=== PATIENT | female | born 1940 | race Caucasian/White ===

== ENCOUNTER → 2016-10-14 | Outpatient (CLI) | payer MEDICARE, OTHER ==
[~2016-10-14] VITALS: Ht 160 cm; Wt 98.0 kg
[~2016-10-14] MED LIST: ASP325T; BUPR150T7 PO; CALC-793 PO; CATHETER FLUSH 10 ML SYR IV PRN; CITA20TA4; CITA20TA4 PO; DIGO250T PO; DIGO250T15 PO; DILT180C PO; DILT240C PO; DILT360C27 PO; FLC100T; FRSM40T; FURO20TA4 PO; FURO80TA3 PO; IBUP-792 PO; INSU100I5 SC; INSU100I5 SQ; KCL10CCR PO; MAGN400T6 PO; MELO-195; MELO-195 PO; METO200T2 PO; METO200T6; MULT-608 PO; NF-TYLARTH PO; OMEG1CAP51 PO; PNT40TEC PO; POTA10TA6 PO; REGADENOSON 0.4 MG/5 ML SYR (LEXISCAN) IV ONE; WARF2TAB6 PO; WARF4TAB9 PO; WRF2T PO
[2016-10-14 10:09] VITALS: BP 174/67
--- NOTE | 2016-10-15 13:41 | STRESS TEST ---
DATE OF SERVICE: 10/14/2016 RESTING AND POST REGADENOSON TECHNETIUM 99M TETROFOSMIN SPECT CT IMAGING ORDERING PHYSICIAN: Dr. Carreno. PRIMARY PHYSICIAN: Dr. Blackwood. CLINICAL DIAGNOSES: Coronary artery disease, shortness of breath. Baseline images were carried out after injection of 10.88 mCi of technetium-99m tetrofosmin. This was followed by 0.4 mg regadenoson and 28 mCi of technetium-99m tetrofosmin for stress imaging. The electrocardiogram showed atrial fibrillation throughout the study. The electrocardiogram did not change significantly with the regadenoson infusion. She tolerated the procedure well. Review of images at rest and following stress did not indicate any distinct perfusion defects consistent with significant myocardial ischemia or infarction. Gated images show normal global left ventricular systolic function with normal regional wall motion. Left ventricular ejection fraction is calculated to be 75%. Left ventricular end-diastolic volume is 89 mL. TID is absent (1). CONCLUSIONS: 1. No evidence of any significant myocardial ischemia or infarction on this study. 2. Normal regional wall motion. 3. Normal global left ventricular systolic function with a calculated ejection fraction of 75%. Job ID: [id number] DocumentID: [id number] Dictated Date: 10/15/2016 09:38:39 Capability Lead Date: 10/15/2016 10:05:02 Dictated By: JERSEY CARRENO MD, MA, FACP, FACC,
== END ==
LOC: CARD 08:07
PROVIDERS: ATTEND Internal Medicine Cardiovascular Disease
DX: I25.10 Atherosclerotic heart disease of native coronary artery without angina pectoris (principal); I65.23 Occlusion and stenosis of bilateral carotid arteries; Z79.01 Long term (current) use of anticoagulants; I48.0 Paroxysmal atrial fibrillation; I27.2 Other secondary pulmonary hypertension; G47.33 Obstructive sleep apnea (adult) (pediatric); R06.02 Shortness of breath
CPT/HCPCS: 78452; 93017

== ENCOUNTER 2016-10-31 19:01 | Emergency (ER) | payer MEDICARE, OTHER ==
[~2016-10-31] VITALS: Ht 162.6 cm; Wt 97.5 kg
[~2016-10-31 19:01] MED LIST changes: -CATHETER FLUSH 10 ML SYR IV PRN; -REGADENOSON 0.4 MG/5 ML SYR (LEXISCAN) IV ONE
--- NOTE | 2016-10-31 19:45 | ED Fall/Injury ---
General Chief Complaint: Trauma-Non Activation Stated Complaint: FALL AT HOME Nursing Triage Note: patient reports falling up stairs on thursday the . patient denies hitting head or LOC, patient c/o RLE pain Source: patient, spouse Exam Limitations: no limitations History of Present Illness Time seen by provider: 19:29 Initial Comments 76-year-old female patient presents to the emergency department complains of right calf pain after falling on Thursday while going up the stairs. Denies hitting her head, loss consciousness, neck pain, back pain. Patient states she was talking to a friend today who told her that she might have a blood clot in the right lower extremity. Occurred: other (29 of october) Injuries/Pain Location: lower extremity Context: tripped Loss of Consciousness: no loss of consciousness Modifying Factors: Worse With Movement, Worse With Other (MRSA palpation) Allergies and Home Medications Allergies Coded Allergies: No Known Drug Allergies (Unverified , 02/29/16) Home Medications Acetaminophen 650 Mg Cplt, 1,300 MG PO HS PRN for PAIN, (Reported) TAKES 2 (650MG) TABLETS Calcium/Vitamin D 1 Tab Tablet, 1 TAB PO BID, (Reported) Citalopram Hydrobromide 20 Mg Tablet, 20 MG PO DAILY, (Reported) Digoxin 250 Mcg Tablet, 250 MCG PO DAILY, (Reported) Diltiazem Hcl 360 Mg Cap.er.24h, 360 MG PO DAILY, (Reported) Furosemide 20 Mg Tablet, 40 MG PO DAILY, (Reported) TAKE 2 (20 MG) TABLETS Magnesium Oxide 400 Mg Tablet, 400 MG PO BID WITH MEALS, (Reported) Meloxicam 15 Mg Tablet, 15 MG PO DAILY, (Reported) Multivitamins 1 Tab Tablet, 1 TAB PO DAILY, (Reported) [place]-3 Fatty Acids/Fish Oil 1 Each Capsule, 1,000 MG PO BID, (Reported) Pantoprazole Sod 40 Mg Tab, 40 MG PO DAILY, #30 Ref 3 Prescribed by: DELANO YORK on 02/24/14 1001 Potassium Chloride 10 Meq Tablet.sa, 10 MEQ PO BID, (Reported) Tramadol HCl 50 Mg Tablet, 50 MG PO Q4H PRN for pain, #14 Ref 0 Prescribed by: TOMER MARCELO on 10/31/16 3975 Warfarin Sod 2 Mg Tab, 4 MG PO THURSDAY, (Reported) TAKES 2 (2MG) TABLETS Warfarin Sodium 2 Mg Tablet, 2 MG PO [place],MO,TU,TH,FR,SA, (Reported) Constitutional: no symptoms reported Eyes: No Symptoms Reported Ears, Nose, Mouth, Throat: no symptoms reported Respiratory: No cough, No short of breath Cardiovascular: No chest pain, No syncope Gastrointestinal: no symptoms reported Genitourinary: no symptoms reported Musculoskeletal: see HPI, No back pain, joint pain, muscle pain, No neck pain Skin: change in color (bruising to the right calf) Psychiatric/Neurological: Denies Headache, Denies Numbness, Denies Paresthesia , Denies Tingling, Denies Weakness All Other Systems Reviewed Negative Unless Noted: Yes (Negative excepted noted.) Past Yrxufdu-Pzmgdo-Ixvbjj Hx Patient Social History Alcohol Use: Denies Use Recreational Drug Use: No Smoking Status: Never a Smoker Recent Foreign Travel: No Contact w/Someone Who Travel: No Recent Infectious Disease Expo: No Recent Hopitalizations: No Immunizations Up To Date Tetanus Booster (TDap): Less than 5yrs PED Vaccines UTD: Yes Date of Pneumonia Vaccine: Nov 08, 2010 Surgeries HX Surgeries: Yes (KNEE REPLACEMENT, HYSTERECTOMY, 3 C-SECTIONS, TONSILLECTOMY) Surgeries: Hysterectomy, Joint Replacement, Pacemaker, Tonsillectomy Respiratory Hx Respiratory Disorders: No Cardiovascular Hx Cardiac Disorders: Yes (, PACEMAKER) Cardiac Disorders: Atrial Fibrillation, Hypertension Neurological Hx Neurological Disorders: No Reproductive System Hx Reproductive Disorders: Yes Sexually Transmitted Disease: No HIV/AIDS: No Female Reproductive Disorders: Denies Genitourinary Hx Genitourinary Disorders: No Gastrointestinal Hx Gastrointestinal Disorders: Yes (gallstones) Gastrointestinal Disorders: Diverticulosis Musculoskeletal Hx Musculoskeletal Disorders: Yes Musculoskeletal Disorders: Arthritis Endocrine Hx Endocrine Disorders: Yes Endocrine Disorders: Diabetes, Insulin dep HEENT HX ENT Disorders: No Cancer 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 Psychosocial Hx Psychiatric Problems: Yes Behavioral Health Disorders: Depression Integumentary HX Skin/Integumentary Disorder: No Blood Transfusions Hx Blood Disorders: No Reviewed Nursing Assessment Reviewed/Agree w Nursing PMH: Yes Family Medical History Significant Family History: No Pertinent Family Hx Family Medial History: Alzheimer's disease 19 MOTHER Arthritis 19 MOTHER Cardiovascular disease Completed stroke 19 MOTHER Coronary thrombosis 19 MOTHER Dementia 19 MOTHER Diabetes mellitus 19 MOTHER Hypertension 19 MOTHER Myocardial infarction Osteoporosis 19 MOTHER No Family History of: AIDS Abdominal aortic aneurysm [place]'s disease Alcoholism Aphasia Asthma Cancer of mouth Cataracts Colon cancer Congenital disease Congenital heart disease Cystic fibrosis Deafness or hearing loss Drug abuse Dysphasia Fibrocystic disease of breast Gastroenteritis Glaucoma Headache disorder Hypercholesterolemia Infertility Kidney disease Neoplasm Not obtainable due to adoption Parkinson's disease Prostate cancer Psychosocial problem Respiratory disorder Seizure disorder Severe allergy Thyroid disease Tuberculosis Visual disorder Physical Exam Vital Signs Vital Sign - Last 12Hours 10/31/16 19:05 Temp 98.2 Pulse 68 Resp 18 B/P (MAP) 104/72 Pulse Ox 94 Capillary Refill : Less Than 3 Seconds General Appearance: WD/WN, no apparent distress Neck: supple, normal inspection Cardiovascular: normal peripheral pulses, regular rate, rhythm, no murmur Respiratory: lungs clear, normal breath sounds, no respiratory distress Peripheral Pulses: 2+ Dorsalis Pedis (R), 2+ Left Dors-Pedis (L), 2+ Radial Pulses (R), 2+ Radial Pulses (L) Extremities: normal range of motion, normal capillary refill, pelvis stable, other (10 x 12 cm area of ecchymosis to the right medial calf with soft tissue tenderness and mild bony tenderness. No posterior calf tenderness. 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 No posterior calf tenderness.Mild swelling, tenderness, and ecchymosis to the left fifth finger.) [place] Coma Score Best Eye Response: (4) Open Spontaneously Best Verbal Response: (5) Oriented Best Motor Response: (6) Obeys Commands [place] Total: 15 Progress/Results/Core Measures Results/Orders My Orders Orders - TOMER MARCELO Hand, Left, 3 Views (10/31/16 19:43) Tibia/Fibula, Right, 2 Views (10/31/16 19:43) Us Venous Lower Ext Rt (10/31/16 20:22) Rx-Tramadol Hcl (Rx-Ultram) (10/31/16 21:45) Vital Signs/I&O Vital Sign - Last 12Hours 6/23/17 6/23/17 19:05 21:54 Temp 98.2 98.2 Pulse 68 68 Resp 18 18 B/P (MAP) 104/72 Pulse Ox 94 94 Blood Pressure Mean: 83 Diagnostic Imaging Diagonstic Imaging: Xray Plain Films/CT/US/NM/MRI: leg Comments FINDINGS: Intact right knee arthroplasty. There is no fracture or dislocation. No foreign body. IMPRESSION: No fracture or dislocation. Dictated on workstation # [id number] Reviewed: Reviewed by Me (radiology report reviewed by me) Diagonstic Imaging: Xray Plain Films/CT/US/NM/MRI: hand Comments FINDINGS: Moderate diffuse degenerative joint disease. There is no acute fracture or dislocation. Diffuse osteopenia is seen. Phleboliths are seen in between the second and third metacarpal. IMPRESSION: No fracture or dislocation. Dictated on workstation # [id number] Reviewed: Reviewed by Me (radiology report reviewed by me) Diagonstic Imaging: Ultrasound Plain Films/CT/US/NM/MRI: leg Comments FINDINGS: The visualized deep and superficial venous system is patent. There is no mass or DVT. IMPRESSION: Negative right lower extremity venous Doppler. Dictated by: Dictated on workstation # [id number] Reviewed: Reviewed by Me (radiology report reviewed by me) Departure Communication Progress Notes Diagnostic findings discussed with the patient. Patient did voice concern about possibly having a blood clot after the fall and wishes to proceed with ultrasound of the RLE. Therefore, venous ultrasound of the right lower extremity was obtained which was negative for DVT. Proceed with discharge to home. Impression Impression: Primary Impression: Hematoma of right lower extremity Qualified Codes: S80.11XA - Contusion of right lower leg, initial encounter Additional Impressions: Fall (on) (from) unspecified stairs and steps, initial encounter Contusion of hand, left Disposition: 01 HOME, SELF-CARE Condition: Improved Departure-Patient Inst. Decision time for Depature: 21:44 Referrals: HELLEN CROSS MD (PCP/Family) Primary Care Physician Patient Instructions: Contusion (DC), HEMATOMA Add. Discharge Instructions: All discharge instructions reviewed with patient and/or family. Voiced understanding. Tylenol extra strength [id number] as directed for pain. Elevate the right leg and left hand on pillows, ice pack for 20 minute intervals as needed for pain. Activity as tolerated. Follow-up with your family physician for recheck if needed. Return to the emergency department for worsened pain, numbness, weakness, headache, dizziness, changes in vision, slurred speech, shortness of air, chest pain, neck pain, back pain, or any other concerns. Scripts Tramadol HCl (Tramadol HCl) 50 Mg Tablet 50 MG PO Q4H Y for pain, #14 TAB 0 Refills Prov: TOMER MARCELO 10/31/16 TOMER MARCELO Oct 31, 2016 19:45
--- NOTE | 2016-10-31 20:14 | Diagnostic Imaging Report ---
INDICATION: Fall. COMPARISON: None. EXAMINATION: Three views of the left hand were obtained. FINDINGS: Moderate diffuse degenerative joint disease. There is no acute fracture or dislocation. Diffuse osteopenia is seen. Phleboliths are seen in between the second and third metacarpal. IMPRESSION: No fracture or dislocation. Dictated by: Dictated on workstation # [id number]
--- NOTE | 2016-10-31 20:14 | Diagnostic Imaging Report ---
INDICATION: Fall, leg pain. COMPARISON: None. EXAMINATION: Four views of the right tibia and fibula were obtained. FINDINGS: Intact right knee arthroplasty. There is no fracture or dislocation. No foreign body. IMPRESSION: No fracture or dislocation. Dictated by: Dictated on workstation # [id number]
--- NOTE | 2016-10-31 21:30 | Diagnostic Imaging Report ---
PROCEDURE: US right lower extremity venous. TECHNIQUE: Multiple real-time grayscale images were obtained over the right lower extremity in various projections. Additional duplex Doppler and color Doppler images were also obtained. INDICATION: Right lower extremity swelling and pain. COMPARISON: None. FINDINGS: The visualized deep and superficial venous system is patent. There is no mass or DVT. IMPRESSION: Negative right lower extremity venous Doppler. Dictated by: Dictated on workstation # [id number]
[2016-10-31] MEDS ORDERED: TRAM50TA2 PO (21:45)
[2016-10-31] MEDS ORDERED: RX-TRAMADOL 50 MG (ULTRAM) TAB PPK#4 PO STA (21:45)
[2016-10-31 21:54] VITALS: BP 104/72
--- OUTSIDE RECORDS SUMMARY | 2016-11-03 15:39 | XMS REPORT | Continuity of Care Document ---
Author Author [facility] [address] [facility] Organization [facility] [address] Address Unknown Phone Unavailable Allergies Active Description Code Type Severity Reaction Onset Reported/Identified Relationship to Patient Clinical Status Yes No Known Drug Allergies [id number] Drug Allergy Unknown N/ A 02/29/2016 Medications Problems Date Dx Coded Attending Type Code Diagnosis Diagnosed By 10/25/2009 Ot 427.31 10/25/2009 Ot V58.61 11/12/2009 Ot 427.31 11/12/2009 Ot 780.2 11/12/2009 Ot V58.61 11/12/2009 Ot V58.69 11/20/2009 Ot 278.00 11/20/2009 Ot 401.9 11/20/2009 Ot 427.1 11/20/2009 Ot 427.32 11/20/2009 Ot 428.0 11/20/2009 Ot 428.32 11/20/2009 Ot 715.90 11/20/2009 Ot V12.51 11/20/2009 Ot V58.61 11/20/2009 Ot V85.4 12/20/2009 Ot 278.00 12/20/2009 Ot 401.9 12/20/2009 Ot 414.01 12/20/2009 Ot 425.4 12/20/2009 Ot 427.0 12/20/2009 Ot 593.9 12/20/2009 Ot 715.90 12/20/2009 Ot V12.51 12/20/2009 Ot V45.01 12/20/2009 Ot V58.61 12/20/2009 Ot V85.4 12/24/2009 Ot 272.4 12/24/2009 Ot 278.00 12/24/2009 Ot 401.9 12/24/2009 Ot 427.0 12/24/2009 Ot 427.31 12/24/2009 Ot 427.32 12/24/2009 Ot 428.0 12/24/2009 Ot 428.33 12/24/2009 Ot 715.90 12/24/2009 Ot V12.51 12/24/2009 Ot V45.77 12/24/2009 Ot V58.61 12/24/2009 Ot V85.4 02/06/2010 Ot 424.0 02/06/2010 Ot 427.31 02/06/2010 Ot V58.61 02/06/2010 Ot V58.69 2010 Ot 427.31 2010 Ot 715.36 2010 Ot 726.61 2010 Ot 996.77 2010 Ot V43.65 2010 Ot V57.1 06/02/2010 Ot 424.0 06/02/2010 Ot 427.31 06/02/2010 Ot V58.61 06/02/2010 Ot V58.69 09/03/2010 Ot 424.0 09/03/2010 Ot 427.31 09/03/2010 Ot V58.61 09/03/2010 Ot V58.69 01/15/2011 Ot 424.0 01/15/2011 Ot 427.31 01/15/2011 Ot V58.61 01/15/2011 Ot V58.69 04/30/2011 Ot 424.0 04/30/2011 Ot 427.31 04/30/2011 Ot V58.61 04/30/2011 Ot V58.69 08/10/2011 Ot 424.0 08/10/2011 Ot 427.31 08/10/2011 Ot V58.61 08/10/2011 Ot V58.69 11/17/2011 Ot 424.0 11/17/2011 Ot 427.31 11/17/2011 Ot V58.61 11/17/2011 Ot V58.69 03/30/2012 Ot 424.0 03/30/2012 Ot 427.31 03/30/2012 Ot V58.61 03/30/2012 Ot V58.69 05/26/2012 Ot 327.23 10/29/2012 TAY GARY, HELLEN R Ot 250.00 10/29/2012 TAY GARY, HELLEN R Ot 272.4 10/29/2012 TAY GARY, HELLEN R Ot 311 10/29/2012 TAY GARY, HELLEN R Ot 401.9 10/29/2012 TAY GARY, HELLEN R Ot 427.31 10/29/2012 TAY GARY, HELLEN R Ot 564.00 10/29/2012 TAY GARY, HELLEN R Ot 682.6 10/29/2012 TAY GARY, HELLEN R Ot V58.67 02/28/2014 TAY GARY, HELLEN R Ot 211.3 02/28/2014 TAY GARY, HELLEN R Ot 250.00 02/28/2014 TAY GARY, HELLEN R Ot 274.9 02/28/2014 TAY GARY, HELLEN R Ot 276.50 02/28/2014 TAY GARY, HELLEN R Ot 278.00 02/28/2014 TAY GARY, HELLEN R Ot 285.1 02/28/2014 TAY GARY, HELLEN R Ot 311 02/28/2014 TAY GARY, HELLEN R Ot 397.0 02/28/2014 TAY GARY, HELLEN R Ot 401.9 02/28/2014 TAY GARY, HELLEN R Ot 414.01 02/28/2014 TAY GARY, HELLEN R Ot 416.8 02/28/2014 TAY GARY, HELLEN R Ot 424.0 02/28/2014 TAY GARY, HELLEN R Ot 427.31 02/28/2014 TAY GARY, HELLEN R Ot 458.9 02/28/2014 TAY GARY, HELLEN R Ot 531.40 02/28/2014 TAY GARY, HELLEN R Ot 536.2 02/28/2014 TAY GARY, HELLEN R Ot 562.10 02/28/2014 TAY GARY, HELLEN R Ot 682.4 02/28/2014 TAY GARY, HELLEN R Ot 715.90 02/28/2014 TAY GARY, HELLEN R Ot 780.57 02/28/2014 TAY GARY, HELLEN R Ot 999.39 02/28/2014 TAY GARY, HELLEN R Ot V04.81 02/28/2014 TAY GARY, HELLEN R Ot V10.42 02/28/2014 TAY GARY, HELLEN R Ot V12.55 02/28/2014 TAY GARY, HELLEN R Ot V45.01 02/28/2014 TAY GARY, HELLEN R Ot V45.77 02/28/2014 TAY GARY, HELLEN R Ot V58.61 02/28/2014 TAY GARY, HELLEN R Ot V58.67 02/28/2014 TAY GARY, HELLEN R Ot V85.38 08/09/2014 Ot 272.4 08/09/2014 Ot 415.19 08/09/2014 Ot 786.05 08/09/2014 Ot V58.61 08/09/2014 Ot V58.69 08/09/2014 Ot 278.00 08/09/2014 Ot 401.9 08/09/2014 Ot 413.9 08/09/2014 Ot 415.19 08/09/2014 Ot 427.32 08/09/2014 Ot 428.0 08/09/2014 Ot 786.05 08/09/2014 Ot V58.61 08/09/2014 Ot V58.69 08/09/2014 Ot V72.63 08/09/2014 Ot V72.81 08/09/2014 Ot V74.8 08/09/2014 Ot 424.0 08/09/2014 Ot V58.69 08/09/2014 Ot 401.9 08/09/2014 Ot 427.31 08/09/2014 Ot 786.05 08/09/2014 Ot V58.61 08/09/2014 Ot 427.31 08/09/2014 Ot 427.32 08/09/2014 Ot 785.1 08/09/2014 Ot 719.46 08/09/2014 Ot V43.65 08/09/2014 Ot 427.89 08/09/2014 Ot V58.69 08/09/2014 Ot V58.83 08/09/2014 Ot 424.0 08/09/2014 Ot 427.31 08/09/2014 Ot V58.61 08/09/2014 Ot V58.69 08/09/2014 Ot 416.8 08/09/2014 Ot 424.1 09/12/2014 BAIMAANN L FISCAL SERVICES MANAGER Ot 414.00 09/12/2014 BAIMAMANUELANN L FISCAL SERVICES MANAGER Ot 424.90 09/12/2014 BAIMA ANN L FISCAL SERVICES MANAGER Ot 427.31 09/12/2014 BAIMAANN L FISCAL SERVICES MANAGER Ot 780.57 02/18/2016 VIKRAM GARY FACC, JERSEY REYES CCDS Ot G47.33 OBSTRUCTIVE SLEEP APNEA (ADULT) (PEDIATR 02/18/2016 JERSEY SUE MD, FACC, FACP CCDS Ot I25.10 ATHSCL HEART DISEASE OF [place] CORONARY 02/18/2016 VIKRAM GARY [facility], ALI FACP CCDS Ot I27.2 OTHER SECONDARY PULMONARY HYPERTENSION 02/18/2016 VIKRAM GARY [facility], ALI FACP CCDS Ot I48.0 PAROXYSMAL ATRIAL FIBRILLATION 02/18/2016 VIKRAM GARY [facility], ALI FACP CCDS Ot 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 (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 OF ANTICOAGULANT 02/29/2016 Ot 424.0 MITRAL VALVE DISORDER 02/29/2016 Ot 427.31 ATRIAL FIBRILLATION 02/29/2016 Ot V58.61 ANTICOAGULANTS,LT,CURRENT USE 02/29/2016 Ot V58.69 OTH MED,LT,CURRENT USE 02/29/2016 KENN SANTIAGO MD Ot E11.9 TYPE 2 DIABETES MELLITUS WITHOUT COMPLIC 02/29/2016 KENN SANTIAGO MD Ot I10 ESSENTIAL (PRIMARY) HYPERTENSION 02/29/2016 KENN SANTIAGO MD A Ot I48.91 UNSPECIFIED ATRIAL FIBRILLATION 02/29/2016 KENN SANTIAGO MD Ot M19.042 PRIMARY OSTEOARTHRITIS, LEFT HAND 02/29/2016 KENN SANTIAGO MD A Ot M81.0 AGE-RELATED OSTEOPOROSIS W/O CURRENT PAT 02/29/2016 KENN SANTIAGO MD A Ot S63.502A UNSPECIFIED SPRAIN OF LEFT WRIST, INITIA 02/29/2016 KENN SANTIAGO MD A Ot S69.92XA UNSP INJURY OF LEFT WRIST, HAND AND FING 02/29/2016 KENN SANTIAGO MD A Ot W19.XXXA UNSPECIFIED FALL, INITIAL ENCOUNTER 02/29/2016 KENN SANTIAGO MD Ot Y92.[address] OR NOT APPLICABLE 02/29/2016 KENN SANTIAGO MD A Ot Y93.9 ACTIVITY, UNSPECIFIED 02/29/2016 KENN SANTIAGO MD A Ot Y99.8 OTHER EXTERNAL CAUSE STATUS 02/29/2016 KENN SANTIAGO MD A Ot 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 (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 OF ANTICOAGULANT 02/29/2016 KENN SANTIAGO MD A Ot Z79.899 OTHER MCC (CURRENT) DRUG THERAPY 02/29/2016 KENN SANTIAGO MD A Ot Z95.0 PRESENCE OF CARDIAC PACEMAKER 03/03/2016 KENN SANTIAGO MD A Ot E11.9 TYPE 2 DIABETES MELLITUS WITHOUT COMPLIC 03/03/2016 KENN SANTIAGO MD A Ot I10 ESSENTIAL (PRIMARY) HYPERTENSION 03/03/2016 FANTA SANTIAGO MDNT A Ot I48.91 UNSPECIFIED ATRIAL FIBRILLATION 03/03/2016 KENN SANTIAGO MD A Ot M19.042 PRIMARY OSTEOARTHRITIS, LEFT HAND 03/03/2016 FANTA SANTIAGO MDNT A Ot M81.0 AGE-RELATED OSTEOPOROSIS W/O CURRENT PAT 03/03/2016 KENN SANTIAGO MD A Ot S63.502A UNSPECIFIED SPRAIN OF LEFT WRIST, INITIA 03/03/2016 FANTA SANTIAGO MDNT A Ot S69.92XA UNSP INJURY OF LEFT WRIST, HAND AND FING 03/03/2016 FANTA SANTIAGO MDNT A Ot W19.XXXA UNSPECIFIED FALL, INITIAL ENCOUNTER 03/03/2016 KENN ASNTIAGO MD A Ot Y92.[address] OR NOT APPLICABLE 03/03/2016 KENN SANTIAGO MD A Ot Y93.9 ACTIVITY, UNSPECIFIED 03/03/2016 KENN SANTIAGO MD A Ot Y99.8 OTHER EXTERNAL CAUSE STATUS 03/03/2016 KENN SANTIAGO MD A Ot Z79.01 MCC (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 OF ANTICOAGULANT 03/03/2016 FANTA SANTIAGO MDNT A Ot Z79.899 OTHER MCC (CURRENT) DRUG THERAPY 03/03/2016 FANTA SANTIAGO MDNT A Ot Z95.0 PRESENCE OF CARDIAC PACEMAKER 03/06/2016 KENN SANTIAGO MD A Ot E11.9 TYPE 2 DIABETES MELLITUS WITHOUT COMPLIC 03/06/2016 KENN SANTIAGO MD A Ot I10 ESSENTIAL (PRIMARY) HYPERTENSION 03/06/2016 KENN SANTIAGO MD A Ot I48.91 UNSPECIFIED ATRIAL FIBRILLATION 03/06/2016 KENN SANTIAGO MD A Ot M19.042 PRIMARY OSTEOARTHRITIS, LEFT HAND 03/06/2016 KENN SANTIAGO MD A Ot M81.0 AGE-RELATED OSTEOPOROSIS W/O CURRENT PAT 03/06/2016 FANTA SANTIAGO MDNT A Ot S63.502A UNSPECIFIED SPRAIN OF LEFT WRIST, INITIA 03/06/2016 FANTA SANTIAGO MDNT A Ot S69.92XA UNSP INJURY OF LEFT WRIST, HAND AND FING 03/06/2016 FANTA SANTIAGO MDNT A Ot W19.XXXA UNSPECIFIED FALL, INITIAL ENCOUNTER 03/06/2016 KENN SANTIAGO MD A Ot Y92.[address] OR NOT APPLICABLE 03/06/2016 FANTA SANTIAGO MDNT A Ot Y93.9 ACTIVITY, UNSPECIFIED 03/06/2016 KENN SANTIAGO MD Ot Y99.8 OTHER EXTERNAL CAUSE STATUS 03/06/2016 KENN SANTIAGO MD Ot 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 (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 OF ANTICOAGULANT 03/06/2016 KENN SANTIAGO MD Ot Z79.899 OTHER 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 (CURRENT) DRUG THERAPY 03/06/2016 KENN SANTIAGO MD Ot Z95.0 PRESENCE OF CARDIAC PACEMAKER 03/07/2016 VIKRAM GARY FACC, ALI FACP CCDS Ot G47.33 OBSTRUCTIVE SLEEP APNEA (ADULT) (PEDIATR 03/07/2016 VIKRAM GARY FACC, ALI FACP CCDS Ot I25.10 ATHSCL HEART DISEASE OF [place] CORONARY 03/07/2016 VIKRAM GARY FACC, ALI FACP CCDS Ot I27.2 OTHER SECONDARY PULMONARY HYPERTENSION 03/07/2016 VIKRAM GARY FACC, ALI FACP CCDS Ot I48.0 PAROXYSMAL ATRIAL FIBRILLATION 03/07/2016 VIKRAM GARY FACC, ALI FACP CCDS Ot 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 (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 OF ANTICOAGULANT 03/12/2016 VIKRAM GARY FACC, ALI FACP CCDS Ot G47.33 OBSTRUCTIVE SLEEP APNEA (ADULT) (PEDIATR 03/12/2016 VIKRAM GARY FACC, ALI FACP CCDS Ot I25.10 ATHSCL HEART DISEASE OF [place] CORONARY 03/12/2016 VIKRAM GARY FACC, ALI FACP CCDS Ot I27.2 OTHER SECONDARY PULMONARY HYPERTENSION 03/12/2016 VIKRAM GARY FACRobbin, ALI FACP CCDS Ot I48.0 PAROXYSMAL ATRIAL FIBRILLATION 03/12/2016 VIKRAM GARY FACRobbin, ALI FACP CCDS Ot 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 (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 OF ANTICOAGULANT Procedures Results Encounters ACCT No. Visit Date/Time Discharge Status Pt. Type Provider Facility Loc./Unit Complaint [id number] 10/31/2016 19:01:00 2016 21:54:00 DIS Emergency TOMER BEASLEY [facility] [address] ER FALL AT HOME [id number] 02/29/2016 20:20:00 2015 21:20:00 DIS Emergency KENN SANTIAGO MD [facility] [address] ER FALL/L ARM PAIN [id number] 12/11/2014 15:18:00 2014 23:59:59 CLS Preadmit SHANNEN JEFFERS MD [facility] [address] REHAB [id number] 08/09/2014 10:03:00 2014 23:59:59 CLS Outpatient ANARAY ANNHER Pako ARAYA [facility] [address] CARD [id number] 02/20/2014 09:40:00 2013 10:55:00 DIS Inpatient HELLEN CROSS MD R [facility] [address] 4TH [id number] 10/21/2012 14:50:00 2012 12:37:00 DIS Inpatient TAY GARY HELLEN R Via [address] [id number] 10/14/2016 08:07:00 ACT Outpatient VIKRAM GARY FACRobbin, JERSEY FACP CCDS [facility] [address] CARD I25.10 CAD [id number] 02/15/2016 07:40:00 ACT Outpatient VIKRAM GARY FACRobbin, ALI FACP CCDS [facility] [address] CARD CAD,CHORNIC ANTICOAGULATION [id number] 01/31/2016 15:27:00 ACT Outpatient NORMA SCHMITZ [facility] QUICK CXR [id number] 08/09/2014 10:04:00 Document Registration [id number] 08/09/2014 10:04:00 Document Registration [id number] 08/09/2014 10:04:00 Document Registration [id number] 08/09/2014 10:04:00 Document Registration [id number] 08/09/2014 10:04:00 Document Registration [id number] 08/09/2014 10:04:00 Document Registration [id number] 08/09/2014 10:04:00 Document Registration [id number] 08/09/2014 10:04:00 Document Registration [id number] 08/09/2014 10:04:00 Document Registration [id number] 08/09/2014 10:04:00 Document Registration [id number] 08/09/2014 10:04:00 Document Registration [id number] 08/09/2014 10:04:00 Document Registration [id number] 08/09/2014 10:04:00 Document Registration [id number] 08/09/2014 10:03:00 Document Registration [id number] 03/20/2011 10:23:00 Document Registration [id number] 11/29/2010 09:56:00 Document Registration [id number] 08/27/2010 08:35:00 Document Registration [id number] 07/31/2010 10:44:00 Document Registration [id number] 07/04/2010 10:04:00 Document Registration [id number] 2010 10:31:00 Document Registration [id number] 04/11/2010 11:30:00 Document Registration [id number] 02/04/2010 10:42:00 Document Registration [id number] 01/11/2010 08:39:00 Document Registration [id number] 12/22/2009 12:51:00 Document Registration [id number] 11/19/2009 20:57:00 Document Registration [id number] 11/12/2009 12:34:00 Document Registration [id number] 11/08/2009 09:02:00 Document Registration [id number] 10/09/2009 11:27:00 Document Registration
== END 2016-10-31 21:54 | disposition home or self-care (01) ==
LOC: ER 19:01
DX: S80.11XA Contusion of right lower leg, initial encounter (principal); I10 Essential (primary) hypertension; E11.9 Type 2 diabetes mellitus without complications; F32.9 Major depressive disorder, single episode, unspecified; Z96.659 Presence of unspecified artificial knee joint; Z95.0 Presence of cardiac pacemaker; W10.9XXA Fall (on) (from) unspecified stairs and steps, initial encounter; Y92.009 Unspecified place in unspecified non-institutional (private) residence as the place of occurrence of the external cause
CPT/HCPCS: 73130; 73590; 99283

== ENCOUNTER 2017-01-19 14:17 | Outpatient (RCR) | payer MEDICARE, OTHER ==
[~2017-01-19 14:17] MED LIST changes: +TRAM50TA2 PO
== END 2017-02-07 | disposition home or self-care (01) ==
LOC: ONC 14:17
PROVIDERS: ATTEND Radiology Radiation Oncology
DX: Z51.0 Encounter for antineoplastic radiation therapy (principal); C44.311 Basal cell carcinoma of skin of nose
CPT/HCPCS: 77290; 77300; 77332; 77334; 77336

== ENCOUNTER 2017-03-03 14:06 | Outpatient (RCR) | payer MEDICARE, OTHER | END 2017-06-01 | disposition home or self-care (01) | LOC: ONC 14:06 | PROVIDERS: ATTEND Radiology Radiation Oncology | DX: C44.311 Basal cell carcinoma of skin of nose (principal) | CPT/HCPCS: 99213 ==

== ENCOUNTER 2017-05-01 18:41 | Emergency (ER) | payer MEDICARE, OTHER ==
[~2017-05-01] VITALS: Ht 162.6 cm; Wt 97.5 kg
--- OUTSIDE RECORDS SUMMARY | 2017-05-01 18:46 | XMS REPORT | Continuity of Care Document ---
Author Author [facility] Organization [facility] Address Unknown Phone Unavailable Allergies Active Description Code Type Severity Reaction Onset Reported/Identified Relationship to Patient Clinical Status Yes No Known Drug Allergies [id number] Drug Allergy Unknown N/A 02/29/2016 Medications There is no data. Problems Date Dx Coded Attending Type Code [...] TAY GARY, HELLEN R Ot 780.57 02/28/2014 TYA GARY, HELLEN R Ot 999.39 02/28/2014 TAY [...] 416.8 08/09/2014 Ot 424.1 09/12/2014 BAIMAANN L BEEF SKINNER Ot 414.00 09/12/2014 BAIANN BELL L BEEF SKINNER Ot 424.90 09/12/2014 BAIMAANN L BEEF SKINNER Ot 427.31 09/12/2014 BAIANN BELL L BEEF SKINNER Ot 780.57 02/18/2016 JERSEY SUE MD, FACC, FACP CCDS Ot G47.33 OBSTRUCTIVE SLEEP APNEA (ADULT) (PEDIATR 02/18/2016 VIKRAM MD FACC, ALI FACP CCDS Ot I25.10 ATHSCL HEART DISEASE OF [place] CORONARY 02/18/2016 VIKRAM GARY [facility], ALI FACP CCDS Ot I27.2 OTHER SECONDARY PULMONARY HYPERTENSION 02/18/2016 VIKRAM GARY [facility], ALI FACP CCDS Ot I48.0 PAROXYSMAL ATRIAL FIBRILLATION 02/18/2016 VIKRAM GARY [facility], ALI FACP CCDS Ot Z79.01 SENIOR TRAINER (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 OF ANTICOAGULANT 02/29/2016 Ot 424.0 MITRAL VALVE DISORDER 02/29/2016 Ot 427.31 ATRIAL FIBRILLATION 02/29/2016 Ot V58.61 ANTICOAGULANTS,LT,CURRENT USE 02/29/2016 Ot V58.69 OTH MED,LT, CURRENT USE 02/29/2016 KENN SANTIAGO MD Ot E11.9 TYPE 2 DIABETES MELLITUS WITHOUT COMPLIC 02/29/2016 KENN SANTIAGO MD Ot I10 ESSENTIAL (PRIMARY) HYPERTENSION 02/29/2016 KENN SANTIAGO MD Ot I48.91 UNSPECIFIED ATRIAL FIBRILLATION 02/29/2016 KENN SANTIAGO MD Ot M19.042 PRIMARY OSTEOARTHRITIS, LEFT HAND 02/29/2016 KENN SANTIAGO MD Ot M81.0 AGE-RELATED OSTEOPOROSIS W/O CURRENT PAT 02/29/2016 KENN SANTIAGO MD A Ot S63.502A UNSPECIFIED SPRAIN OF LEFT WRIST, INITIA 02/29/2016 KENN SANTIAGO MD A Ot S69.92XA UNSP INJURY OF LEFT WRIST, HAND AND FING 02/29/2016 KENN SANTIAGO MD Ot W19.XXXA UNSPECIFIED FALL, INITIAL ENCOUNTER 02/29/2016 KENN SANTIAGO MD Ot Y92.[address] OR NOT APPLICABLE 02/29/2016 KENN SANTIAGO MD Ot Y93.9 ACTIVITY, UNSPECIFIED 02/29/2016 KENN SANTIAGO MD Ot Y99.8 OTHER EXTERNAL CAUSE STATUS 02/29/2016 KENN SANTIAGO MD Ot Z79.01 SKILLED NURSING (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 OF ANTICOAGULANT 02/29/2016 KENN SANTIAGO MD A Ot Z79.899 OTHER SENIOR TRAINER (CURRENT) DRUG THERAPY 02/29/2016 KENN SANTIAGO MD Ot Z95.0 PRESENCE OF CARDIAC PACEMAKER 03/03/2016 KENN SANTIAGO MD Ot E11.9 TYPE 2 DIABETES MELLITUS WITHOUT COMPLIC 03/03/2016 KENN SANTIAGO MD Ot I10 ESSENTIAL (PRIMARY) HYPERTENSION 03/03/2016 FANTA SANTIAGO MDNT A Ot I48.91 UNSPECIFIED ATRIAL FIBRILLATION 03/03/2016 KENN SANTIAGO MD A Ot M19.042 PRIMARY OSTEOARTHRITIS, LEFT HAND 03/03/2016 KENN SANTIAGO MD A Ot M81.0 AGE-RELATED OSTEOPOROSIS W/O CURRENT PAT 03/03/2016 KENN SANTIAGO MD A Ot S63.502A UNSPECIFIED SPRAIN OF LEFT WRIST, INITIA 03/03/2016 FANTA SANTIAGO MDNT A Ot S69.92XA UNSP INJURY OF LEFT WRIST, HAND AND FING 03/03/2016 KENN SANTIAGO MD A Ot W19.XXXA UNSPECIFIED FALL, INITIAL ENCOUNTER 03/03/2016 KENN SANTIAGO MD A Ot Y92.[address] OR NOT APPLICABLE 03/03/2016 KENN SANTIAGO MD A Ot Y93.9 ACTIVITY, UNSPECIFIED 03/03/2016 KENN SANTIAGO MD A Ot Y99.8 OTHER EXTERNAL CAUSE STATUS 03/03/2016 KENN SANTIAGO MD A Ot Z79.01 SKILLED NURSING (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 OF ANTICOAGULANT 03/03/2016 FANTA SANTIAGO MDNT A Ot Z79.899 OTHER SENIOR TRAINER (CURRENT) DRUG THERAPY 03/03/2016 FANTA SANTIAGO MDNT A Ot Z95.0 PRESENCE OF CARDIAC PACEMAKER 03/06/2016 KENN SANTIAGO MD A Ot E11.9 TYPE 2 DIABETES MELLITUS WITHOUT COMPLIC 03/06/2016 FANTA SANTIAGO MDNT A Ot I10 ESSENTIAL (PRIMARY) HYPERTENSION 03/06/2016 FANTA SANTIAGO MDNT A Ot I48.91 UNSPECIFIED ATRIAL FIBRILLATION 03/06/2016 [...] Y92.[address] OR NOT APPLICABLE 03/06/2016 KENN SANTIAGO MD A Ot Y93.9 ACTIVITY, UNSPECIFIED 03/06/2016 KENN SANTIAGO MD Ot Y99.8 OTHER EXTERNAL CAUSE STATUS 03/06/2016 KENN SANTIAGO MD Ot Z79.01 SKILLED NURSING (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 OF ANTICOAGULANT 03/06/2016 KENN SANTIAGO MD Ot Z79.899 OTHER SENIOR TRAINER (CURRENT) DRUG THERAPY 03/06/2016 KENN SANTIAGO MD Ot Z95.0 PRESENCE OF CARDIAC PACEMAKER 03/07/2016 VIKRAM GARY FACC, ALI FACP CCDS Ot G47.33 OBSTRUCTIVE SLEEP APNEA (ADULT) (PEDIATR 03/07/2016 VIKRAM GARY FACC, ALI FACP CCDS Ot I25.10 ATHSCL HEART DISEASE OF [place] CORONARY 03/07/2016 VIKRAM GARY FACC, ALI FACP CCDS Ot I27.2 OTHER SECONDARY PULMONARY HYPERTENSION 03/07/2016 VIKRAM GARY FACC, ALI FACP CCDS Ot I48.0 PAROXYSMAL ATRIAL FIBRILLATION 03/07/2016 VIKRAM GARY FACC, ALI FACP CCDS Ot Z79.01 SKILLED NURSING (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 OF ANTICOAGULANT 03/12/2016 VIKRAM GARY FACC, ALI FACP CCDS Ot G47.33 OBSTRUCTIVE SLEEP APNEA (ADULT) (PEDIATR 03/12/2016 VIKRAM GARY FACC, ALI FACP CCDS Ot I25.10 ATHSCL HEART DISEASE OF [place] CORONARY 03/12/2016 VIKRAM GARY FACC, ALI FACP CCDS Ot I27.2 OTHER SECONDARY PULMONARY HYPERTENSION 03/12/2016 VIKRAM GARY FACC, ALI FACP CCDS Ot I48.0 PAROXYSMAL ATRIAL FIBRILLATION 03/12/2016 VIKRAM GARY FACC, ALI FACP CCDS Ot Z79.01 SENIOR TRAINER (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 OF ANTICOAGULANT 10/31/2016 TOMER BEASLEY Ot E11.9 TYPE 2 DIABETES MELLITUS WITHOUT COMPLIC 10/31/2016 TOMER BEASLEY Ot F32.9 MAJOR DEPRESSIVE DISORDER, SINGLE EPISOD 10/31/2016 TOMER BEASLEY Ot I10 ESSENTIAL (PRIMARY) HYPERTENSION 10/31/2016 TOMER BEASLEY Ot M79.661 PAIN IN RIGHT LOWER LEG 10/31/2016 TOMER BEASLEY Ot S80.11XA CONTUSION OF RIGHT LOWER LEG, INITIAL EN 10/31/2016 TOMER BEASLEY Ot W10.9XXA FALL (ON) (FROM) UNSPECIFIED STAIRS AND 10/31/2016 TOMER BEASLEY Ot Y92.[address] IN [facility] NON[facility] (PRIVATE 10/31/2016 TOMER BEASLEY Ot Z95.0 PRESENCE OF CARDIAC PACEMAKER 10/31/2016 TOMER BEASLEY Ot Z96.659 PRESENCE OF UNSPECIFIED ARTIFICIAL KNEE 11/03/2016 TOMER BEASLEY Ot E11.9 TYPE 2 DIABETES MELLITUS WITHOUT COMPLIC 11/03/2016 TOMER BEASLEY Ot F32.9 MAJOR DEPRESSIVE DISORDER, SINGLE EPISOD 11/03/2016 TOMER BEASLEY Ot I10 ESSENTIAL (PRIMARY) HYPERTENSION 11/03/2016 TOMER BEASLEY Ot M79.661 PAIN IN RIGHT LOWER LEG 11/03/2016 TOMER BEASLEY Ot S80.11XA CONTUSION OF RIGHT LOWER LEG, INITIAL EN 11/03/2016 TOMER BEASLEY Ot W10.9XXA FALL (ON) (FROM) UNSPECIFIED STAIRS AND 11/03/2016 TOMER BEASLEY Ot Y92.[address] IN [facility] NON[facility] (PRIVATE 11/03/2016 TOMER BEASLEY Ot Z95.0 PRESENCE OF CARDIAC PACEMAKER 11/03/2016 TOMER BEASLEY Ot Z96.659 PRESENCE OF UNSPECIFIED ARTIFICIAL KNEE 11/04/2016 VIKRAM GARY FACC, JERSEY FACP CCDS Ot G47.33 OBSTRUCTIVE SLEEP APNEA (ADULT) (PEDIATR 11/04/2016 VIKRAM GARY FACC, JERSEY FACP CCDS Ot I25.10 ATHSCL HEART DISEASE OF [place] CORONARY 11/04/2016 VIKRAM GARY FACC, ALI FACP CCDS Ot I27.2 OTHER SECONDARY PULMONARY HYPERTENSION 11/04/2016 VIKRAM GARY FACC, JERSEY FACP CCDS Ot I48.0 PAROXYSMAL ATRIAL FIBRILLATION 11/04/2016 VIKRAM GARY FACC, JERSEY FACP CCDS Ot I65.23 OCCLUSION AND STENOSIS OF [place]ILATERAL [place] 11/04/2016 VIKRAM GARY FACC, JERSEY FACP CCDS Ot R06.02 SHORTNESS OF BREATH 11/04/2016 VIKRAM GARY FACC, JERSEY FACP CCDS Ot Z79.01 SENIOR TRAINER (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 OF ANTICOAGULANT 12/24/2016 ALLA PEREZ MD Ot C44.311 BASAL CELL CARCINOMA OF SKIN OF NOSE 02/07/2017 ALLA PEREZ MD Ot C44.311 BASAL CELL CARCINOMA OF SKIN OF NOSE 02/07/2017 ALLA PEREZ MD Ot Z51.0 ENCOUNTER FOR ANTINEOPLASTIC RADIATION T 02/14/2017 ALLA PEREZ MD, Ot C44.311 BASAL CELL CARCINOMA OF SKIN OF NOSE 02/14/2017 ALLA PEREZ MD, Ot Z51.0 ENCOUNTER FOR ANTINEOPLASTIC RADIATION T 03/04/2017 ALLA PEREZ MD, Ot C44.311 BASAL CELL CARCINOMA OF SKIN OF NOSE 04/03/2017 ALLA PEREZ MD, Ot C44.311 BASAL CELL CARCINOMA OF SKIN OF NOSE 04/07/2017 ALLA PEREZ MD, Ot C44.311 BASAL CELL CARCINOMA OF SKIN OF NOSE Procedures There is no data. Results There is no data. Encounters ACCT No. Visit Date/Time Discharge Status Pt. Type Provider Facility Loc./Unit Complaint [id number] 03/03/2017 14:06:00 03/03/2017 23:59:59 CLS Outpatient ALLA PEREZ MD [facility] ONC [id number] 02/08/2017 02:33:00 02/08/2017 23:59:59 CLS Preadmit ALLA PEREZ MD [facility] ONC [id number] 01/19/2017 14:17:00 02/07/2017 00:01:00 DIS Outpatient ALLA PEREZ MD [facility] ONC [id number] 10/31/2016 19:01:00 10/31/2016 21:54:00 DIS Emergency TOMER BEASLEY [facility] ER FALL AT HOME [id number] 10/14/2016 08:07:00 10/14/2016 23:59:59 CLS Outpatient VIKRAM GARY FACC, [place] REYES CCDS [facility] CARD I25.10 CAD [id number] 02/29/2016 20:20:00 02/29/2016 21:20:00 DIS Emergency KENN SANTIAGO MD [facility] ER FALL/L ARM PAIN [id number] 02/15/2016 07:40:00 02/15/2016 23:59:59 CLS Outpatient VIKRAM GARY FACCJERSEY FACP CCDS [facility] CARD CAD,CHORNIC ANTICOAGULATION [id number] 01/31/2016 15:27:00 01/31/2016 23:59:59 CLS Outpatient MARIO NORMA GONZALEZ BEEF SKINNER [facility] QUICK CXR [id number] 12/11/2014 15:18:00 12/11/2014 23:59:59 CLS Preadmit SHANNEN JEFFERS MD [facility] REHAB [id number] 08/09/2014 10:03:00 08/09/2014 23:59:59 CLS Outpatient ANARAY ANN L BEEF SKINNER [facility] CARD [id number] 02/20/2014 09:40:00 02/28/2014 10:55:00 DIS Inpatient HELLEN CROSS MD Via [address] [id number] 10/21/2012 14:50:00 10/29/2012 12:37:00 DIS Inpatient HELLEN CROSS MD Via [address] [id number] 08/09/2014 10:04:00 Document Registration [id number] 08/09/2014 10:04:00 Document Registration [id number] 08/09/2014 10:04:00 Document Registration [id number] 08/09/2014 10:04:00 Document Registration [id number] 08/09/2014 10:04:00 Document Registration [id number] 08/09/2014 10:04:00 Document Registration [id number] 08/09/2014 10:04:00 Document Registration [id number] 08/09/2014 10:04:00 Document Registration [id number] 08/09/2014 10:04:00 Document Registration [id number] 08/09/2014 10:04:00 Document Registration [id number] 08/09/2014 10:04:00 Document Registration [id number] 08/09/2014 10:04:00 Document Registration [id number] 08/09/2014 10:04:00 Document Registration [id number] 08/09/2014 10:03:00 Document Registration [id number] 03/20/2011 10:23:00 Document Registration [id number] 11/29/2010 09:56:00 Document Registration [id number] 08/27/2010 08:35:00 Document Registration [id number] 07/31/2010 10:44:00 Document Registration [id number] 07/04/2010 10:04:00 Document Registration [id number] 10:31:00 Document Registration [id number] 04/11/2010 11:30:00 Document Registration [id number] 02/04/2010 10:42:00 Document Registration [id number] 01/11/2010 08:39:00 Document Registration [id number] 12/22/2009 12:51:00 Document Registration [id number] 11/19/2009 20:57:00 Document Registration [id number] 11/12/2009 12:34:00 Document Registration [id number] 11/08/2009 09:02:00 Document Registration [id number] 10/09/2009 11:27:00 Document Registration
[2017-05-01] MEDS ORDERED: HYDROcodone/APAP 5 MG/325 MG (LORTAB) TAB PO STA (19:22)
--- NOTE | 2017-05-01 19:29 | ED Lower Extremity ---
General Chief Complaint: Trauma-Non Activation Stated Complaint: FALL Nursing Triage Note: PT REPORTS FALL AFTER TRIPPING OVER STEP. SHE LANDED ON HER L KNEE AND ARM. SHE IS C/O L KNEE PAIN AND R PINKY PAIN. SHE DENIES HITTING HER HEAD HER ANY OTHER INJURY. Nursing Sepsis Screen: No Definite Risk History of Present Illness Time seen by provider: 19:15 Initial Comments 76-year-old female was ambulating into a restaurant when she tripped on the step and fell. She denies head injury or loss of consciousness, she fell onto her left knee. She denies any previous injuries to her left knee. She has had a right knee replacement. She also scraped her fifth digit of her right hand. She is current on her tetanus vaccines. She is on Coumadin. Location Injury Occurred: [place] Onset: just prior to arrival Pain/Injury Location: left knee, right other (fifth finger) Method of Injury: fell Modifying Factors: Improves With Cold Therapy, Improves With Rest Allergies and Home Medications Allergies Coded Allergies: No Known Drug Allergies (Unverified , 02/29/16) Home Medications Acetaminophen 650 Mg Cplt, 1,300 MG PO HS PRN for PAIN, (Reported) TAKES 2 (650MG) TABLETS Calcium/Vitamin D 1 Tab Tablet, 1 TAB PO BID, (Reported) Citalopram Hydrobromide 20 Mg Tablet, 20 MG PO DAILY, (Reported) Digoxin 250 Mcg Tablet, 250 MCG PO DAILY, (Reported) Diltiazem Hcl 360 Mg Cap.er.24h, 360 MG PO DAILY, (Reported) Furosemide 20 Mg Tablet, 40 MG PO DAILY, (Reported) TAKE 2 (20 MG) TABLETS Magnesium Oxide 400 Mg Tablet, 400 MG PO BID WITH MEALS, (Reported) Meloxicam 15 Mg Tablet, 15 MG PO DAILY, (Reported) Multivitamins 1 Tab Tablet, 1 TAB PO DAILY, (Reported) [place]-3 Fatty Acids/Fish Oil 1 Each Capsule, 1,000 MG PO BID, (Reported) Pantoprazole Sod 40 Mg Tab, 40 MG PO DAILY, #30 Ref 3 Prescribed by: DELANO YORK on 02/24/14 1001 Potassium Chloride 10 Meq Tablet.sa, 10 MEQ PO BID, (Reported) Tramadol HCl 50 Mg Tablet, 50 MG PO Q4H PRN for pain, #14 Ref 0 Prescribed by: TOMER MARCELO on 6/23/17 2145 Warfarin Sod 2 Mg Tab, 4 MG PO THURSDAY, (Reported) TAKES 2 (2MG) TABLETS Warfarin Sodium 2 Mg Tablet, 2 MG PO ,,,,FR,SA, (Reported) Constitutional: no symptoms reported, see HPI Musculoskeletal: see HPI, joint pain (left knee) Skin: see HPI, lesions (laceration right fifth finger) Psychiatric/Neurological: No Symptoms Reported, See HPI, Denies Headache, Denies Pre-Existing Deficit, Denies Tingling, Denies Weakness All Other Systems Reviewed Negative Unless Noted: Yes Past Bedfkwu-Yjqjmw-Zqbwnf Hx Patient Social History Alcohol Use: Denies Use Recreational Drug Use: No Smoking Status: Never a Smoker 2nd Hand Smoke Exposure: No Recent Foreign Travel: No Contact w/Someone Who Travel: No Recent Infectious Disease Expo: No Recent Hopitalizations: No Immunizations Up To Date Tetanus Booster (TDap): Less than 5yrs PED Vaccines UTD: Yes Date of Pneumonia Vaccine: Nov 08, 2010 Seasonal Allergies Seasonal Allergies: No Surgeries History of Surgeries: Yes (KNEE REPLACEMENT, HYSTERECTOMY, 3 C-SECTIONS, TONSILLECTOMY) Surgeries: Hysterectomy, Joint Replacement, Pacemaker, Tonsillectomy Respiratory History of Respiratory Disorde: No Cardiovascular History of Cardiac Disorders: Yes (, PACEMAKER) Cardiac Disorders: Atrial Fibrillation, Hypertension Neurological History of Neurological Disord: No Reproductive System Hx Reproductive Disorders: Yes Sexually Transmitted Disease: No HIV/AIDS: No Female Reproductive Disorders: Denies Gastrointestinal History of Gastrointestinal Di: Yes (gallstones) Gastrointestinal Disorders: Diverticulosis Musculoskeletal History of Musculoskeletal Dis: Yes Musculoskeletal Disorders: Arthritis Endocrine History of Endocrine Disorders: Yes Endocrine Disorders: Diabetes, Insulin dep Cancer History of Cancer: Yes (2000 UTERIAN) Cancer: Uterine Psychosocial History of Psychiatric Problem: Yes Behavioral Health Disorders: Depression Integumentary History of Skin or Integumenta: No Blood Transfusions History of Blood Disorders: No Reviewed Nursing Assessment Reviewed/Agree w Nursing PMH: Yes Family Medical History Significant Family History: No Pertinent Family Hx Family Medial History: Alzheimer's disease 19 MOTHER Arthritis 19 MOTHER Cardiovascular disease Completed stroke 19 MOTHER Coronary thrombosis 19 MOTHER Dementia 19 MOTHER Diabetes mellitus 19 MOTHER Hypertension 19 MOTHER Myocardial infarction Osteoporosis 19 MOTHER No Family History of: AIDS Abdominal aortic aneurysm Mirza's disease Alcoholism Aphasia Asthma Cancer of mouth Cataracts Colon cancer Congenital disease Congenital heart disease Cystic fibrosis Deafness or hearing loss Drug abuse Dysphasia Fibrocystic disease of breast Gastroenteritis Glaucoma Headache disorder Hypercholesterolemia Infertility Kidney disease Neoplasm Not obtainable due to adoption Parkinson's disease Prostate cancer Psychosocial problem Respiratory disorder Seizure disorder Severe allergy Thyroid disease Tuberculosis Visual disorder Physical Exam Vital Signs Vital Sign - Last 12Hours 05/01/17 19:18 Temp 98.2 Pulse 64 Resp 16 B/P (MAP) 122/70 (87) Pulse Ox 96 O2 Delivery Room Air Capillary Refill : Less Than 3 Seconds General Appearance: WD/WN, no apparent distress HEENT: PERRL/EOMI, normal ENT inspection, TMs normal, pharynx normal Neck: non-tender, full range of motion, supple, normal inspection Cardiovascular: normal peripheral pulses, regular rate, rhythm Respiratory: chest non-tender, lungs clear, normal breath sounds Gastrointestinal: normal bowel sounds, non tender, soft Hips: bilateral hip non-tender, bilateral hip normal inspection, bilateral hip normal range of motion Knees: right knee non-tender, right knee normal inspection, right knee no evidence of injury, left knee bone tenderness (generalized), left knee pain, left knee soft tissue tenderness Ankles: bilateral ankle non-tender, bilateral ankle normal inspection, bilateral ankle normal range of motion, bilateral ankle no evidence of injury Feet: bilateral foot non-tender, bilateral foot normal inspection, bilateral foot normal range of motion, bilateral foot no evidence of injury Neurologic/Tendon: normal sensation, normal motor functions, normal tendon functions Neurologic/Psychiatric: no motor/sensory deficits, alert, normal mood/affect, oriented x 3 Skin: normal color, warm/dry Comments Right fifth finger, 0.2 cm laceration, lateral aspect proximal phalanx. Full range of motion right fifth finger resisted flexion and extension V/V. no instability. Neurovascular status intact. Progress/Results/Core Measures Results/Orders My Orders Orders - CARMEN STOKES Hydrocodone/Apap 5/325 Tablet (Lortab 5 (05/01/17 19:22) Knee, Left, 3 Views (05/01/17 19:22) Hand, Right, 3 Views (05/01/17 19:30) Vital Signs/I&O Vital Sign - Last 12Hours 05/01/17 19:18 Temp 98.2 Pulse 64 Resp 16 B/P (MAP) 122/70 (87) Pulse Ox 96 O2 Delivery Room Air Blood Pressure Mean: 87 Progress Note : Time: 19:15 Progress Note Initial evaluation completed, recommended x-rays of the right hand and the left knee. Laceration to right fifth finger cleaned with sterile water and Hibiclens. Hydrocodone/APAP 5/325 mg for pain. She is current on tetanus. 1942 no fractures, dislocations or acute bony changes noted in the right hand or left knee. Patient reports her pain has improved. Discussed with the patient and her . Triple antibiotic ointment and Band-Aid applied to right fifth finger. Discharge planning and return precautions reviewed with the patient and her . All questions answered. Diagnostic Imaging Diagonstic Imaging: Xray Plain Films/CT/US/NM/MRI: hand Comments SCOT: SANCHEZ CISNEROS [employer] MED REC#: [id number] PT STATUS: REG ER : 1940 PHYSICIAN: CARMEN STOKES ADMIT DATE: 05/01/17/ER Draft Date of Exam:05/01/17 HAND, RIGHT, 3 VIEWS INDICATION: Right hand injury, pain COMPARISON: None FINDINGS: 3 views of the right hand demonstrate diffuse osteopenia. Moderate degenerative joint disease is present. This is most pronounced involving the DIP of the third digit. There is no acute fracture or dislocation. No foreign body. IMPRESSION: No fracture or dislocation. Dictated on workstation # [id number] Dict: 05/01/171943 Trans: 05/01/171946 [facility] [id number] Interpreted by: JADA CARO Electronically signed by: Reviewed: Reviewed by Me Diagonstic Imaging: Xray Plain Films/CT/US/NM/MRI: knee Comments NAME: LULVIDYA MCCARTHYOL [employer] MED REC#: [id number] PT STATUS: REG ER : 1940 PHYSICIAN: CARMEN STOKES ADMIT DATE: 05/01/17/ER Draft Date of Exam:05/01/17 KNEE, LEFT, 3 VIEWS INDICATION: Fall, left knee pain COMPARISON: None FINDINGS: 3 views of the left knee demonstrate severe degenerative joint disease. Extraosseous calcifications are seen in the suprapatellar space. There is no acute fracture or dislocation. No joint effusion. IMPRESSION: Severe degenerative joint disease without fracture Dictated on workstation # [id number] Dict: 05/01/171942 Trans: 05/01/171945 [facility] [id number] Interpreted by: JADA CARO Electronically signed by: Departure Impression Impression: Primary Impression: Fall Qualified Codes: W19.XXXA - Unspecified fall, initial encounter Additional Impressions: Left knee pain Qualified Codes: M25.562 - Pain in left knee Abrasion of right little finger Qualified Codes: S60.416A - Abrasion of right little finger, initial encounter Disposition: HOME, SELF-CARE Condition: Stable Departure-Patient Inst. Decision time for Depature: 20:00 Referrals: HELLEN BLACKWOOD MD (PCP/Family) Primary Care Physician Patient Instructions: Knee Pain (DC), Preventing Falls in the Older Adult Add. Discharge Instructions: Ice to left knee 20 minutes every 2 hours while awake. Tylenol 650 mg every 6 hours for pain. Follow up with Dr. Blackwood next week, if symptoms are not improving or worsen Clean abrasion to right finger with peroxide and apply triple antibiotic oint 2- 3 times daily. Return to Emergency Dept for new problems or concerns. All discharge instructions reviewed with patient and/or family. Voiced understanding. Copy Copies To 1: HELLEN BLACKWOOD MD, AMY ARNP May 01, 2017 19:29
--- NOTE | 2017-05-01 19:46 | Diagnostic Imaging Report ---
INDICATION: Fall, left knee pain COMPARISON: None FINDINGS: 3 views of the left knee demonstrate severe degenerative joint disease. Extraosseous calcifications are seen in the suprapatellar space. There is no acute fracture or dislocation. No joint effusion. IMPRESSION: Severe degenerative joint disease without fracture Dictated by: Dictated on workstation # [id number]
--- NOTE | 2017-05-01 19:48 | Diagnostic Imaging Report ---
INDICATION: Right hand injury, pain COMPARISON: None FINDINGS: 3 views of the right hand demonstrate diffuse osteopenia. Moderate degenerative joint disease is present. This is most pronounced involving the DIP of the third digit. There is no acute fracture or dislocation. No foreign body. IMPRESSION: No fracture or dislocation. Dictated by: Dictated on workstation # [id number]
[2017-05-01 20:15] VITALS: BP 122/70
== END 2017-05-01 20:15 | disposition home or self-care (01) ==
LOC: EDUNIT# 18:41 → ER 18:42
DX: S60.416A Abrasion of right little finger, initial encounter (principal); M25.562 Pain in left knee; I48.91 Unspecified atrial fibrillation; I10 Essential (primary) hypertension; E11.9 Type 2 diabetes mellitus without complications; F32.9 Major depressive disorder, single episode, unspecified; Z85.42 Personal history of malignant neoplasm of other parts of uterus; Z87.19 Personal history of other diseases of the digestive system; Z96.651 Presence of right artificial knee joint; Z79.01 Long term (current) use of anticoagulants; Z90.710 Acquired absence of both cervix and uterus; Z95.0 Presence of cardiac pacemaker; Z82.49 Family history of ischemic heart disease and other diseases of the circulatory system; W10.9XXA Fall (on) (from) unspecified stairs and steps, initial encounter; Y92.59 Other trade areas as the place of occurrence of the external cause
CPT/HCPCS: 73130; 73562; 99282

== ENCOUNTER 2017-12-03 09:31 | Outpatient (CLI) | payer MEDICARE, OTHER ==
[2017-12-03] VITALS (8 sets, daily range): BP systolic 120–130; BP diastolic 68–87
[~2017-12-03] VITALS: Ht 162.6 cm; Wt 97.5 kg
[2017-12-03] MEDS ORDERED: NS IV 500 ML 500 ML IV PRN (10:30)
[2017-12-03 14:53] LABS: HEMOGLOBIN 8.9 G/DL (11.5-16.0)
[2017-12-03 16:42] LABS: HEMOGLOBIN 9.4 G/DL (11.5-16.0)
== END 2017-12-03 16:35 | disposition home or self-care (01) ==
LOC: SDC 09:31
PROVIDERS: ATTEND Family Medicine
DX: D63.8 Anemia in other chronic diseases classified elsewhere (principal)
CPT/HCPCS: 36415; 36430; 85014; 85018; 86850; 86900; 86901; 86920

== ENCOUNTER → 2018-02-25 | Outpatient (CLI) | payer MEDICARE, OTHER ==
--- NOTE | 2018-02-25 16:17 | Diagnostic Imaging Report ---
PROCEDURE: US right lower extremity venous. TECHNIQUE: Multiple real-time grayscale images were obtained over the right lower extremity in various projections. Additional duplex Doppler and color Doppler images were also obtained. INDICATION: Right leg edema EXAMINATION: Grayscale and color Doppler evaluation of the deep veins of the right lower extremity were performed with waveform analysis. FINDINGS: Continuous venous flow is present. No intraluminal filling defect is identified. There is normal compressibility and response to augmentation. No abnormal perivascular fluid collection is identified. IMPRESSION: No ultrasound evidence of right lower extremity deep venous thrombosis. Dictated by: Dictated on workstation # [id number]
== END ==
LOC: RAD 14:44
PROVIDERS: ATTEND Nurse Practitioner Family
DX: M79.89 Other specified soft tissue disorders (principal); R60.0 Localized edema

== ENCOUNTER → 2018-03-01 | Outpatient (CLI) | payer MEDICARE, OTHER ==
[2018-03-01 13:00] LABS: CALCIUM 9.5 MG/DL (8.5-10.1); CREATININE SERUM 1.16 MG/DL (0.60-1.30); MAGNESIUM 2.4 MG/DL (1.8-2.4); POTASSIUM 4.3 MMOL/L (3.6-5.0)
== END ==
LOC: LAB 12:19
PROVIDERS: ATTEND Nurse Practitioner Family
DX: M79.89 Other specified soft tissue disorders (principal)
CPT/HCPCS: 36415; 80048; 83735; 83880

== ENCOUNTER → 2018-03-08 | Outpatient (CLI) | payer MEDICARE, OTHER ==
[2018-03-08 14:35] LABS: CALCIUM 9.5 MG/DL (8.5-10.1); CREATININE SERUM 1.18 MG/DL (0.60-1.30); MAGNESIUM 2.2 MG/DL (1.8-2.4)
== END ==
LOC: LAB 14:06
PROVIDERS: ATTEND Nurse Practitioner Family
DX: I50.32 Chronic diastolic (congestive) heart failure (principal)
CPT/HCPCS: 36415; 80048; 83735

== ENCOUNTER 2018-04-16 13:19 | Outpatient (CLI) | payer MEDICARE, OTHER ==
[~2018-04-16] VITALS: Ht 157.5 cm; Wt 81.6 kg
[~2018-04-16 13:19] MED LIST changes: +ACET-77 PO; +CA C1TAB75 PO; +CITA20TA12 PO; +DILT360C26 PO; +MAGN400T50 PO; +METF-397 PO; +MULT1CAP27 PO; +PANT40TA3 PO; +POTA10TA10 PO; +WARF-47 PO
== END 2018-04-16 13:53 | disposition home or self-care (01) ==
LOC: PREOP 13:19
PROVIDERS: ATTEND Surgery
DX: Z01.818 Encounter for other preprocedural examination (principal)

== ENCOUNTER 2018-04-20 08:35 | Day surgery (SDC) | payer MEDICARE, OTHER ==
[~2018-04-20] VITALS: Ht 157.5 cm; Wt 81.6 kg
[2018-04-20] MEDS ORDERED: LACTATED RINGERS 1,000 ML IV STA (08:43)
[2018-04-20] MEDS ORDERED: HURRICAINE EXT TUBE (BENZOCAINE) XX PRN (08:45)
[2018-04-20] MEDS ORDERED: ceFAZolin 2 GM IV Premixed 50 ML IV ONE (08:45)
[2018-04-20] MEDS ORDERED: LACTATED RINGERS 1,000 ML IV ONE (08:49)
[2018-04-20 09:07] VITALS: BP 128/72
[2018-04-20] MEDS ORDERED: HURRICAINE EXT TUBE (BENZOCAINE) ONE (09:34)
[2018-04-20] MEDS ORDERED: PROPOFOL INJECTION 50 ML IV ONE (09:39)
--- NOTE | 2018-04-20 09:47 | Progress Note-Pre Operative ---
Pre-Operative Progress Note H&P Reviewed The H&P was reviewed, patient examined and no changes noted. Date Seen by Provider: Apr 20, 2018 Time Seen by Provider: 09:47 Date H&P Reviewed: Apr 20, 2018 Time H&P Reviewed: 09:47 Pre-Operative Diagnosis: anemia, chronic fatigue ALICE GIL DO Apr 20, 2018 09:47
[2018-04-20] MEDS ORDERED: proPOfol 200 MG/20 ML (DIPRIVAN) VIAL IV ONE (10:53)
--- NOTE | 2018-04-20 11:22 | Progress Note-Post Operative ---
Post-Operative Progess Note Surgeon (s)/Heavy Truck Technician (s) Surgeon ALICE GIL DO Heavy Truck Technician: na Pre-Operative Diagnosis anemia, chronic fatigue Post-Operative Diagnosis gastric avm, small gastric polyp, small hiatal hernia, colon polyps, diverticulosis Procedure & Operative Findings Date of Procedure 04/20/18 Procedure Performed/Findings egd c hot bx polypectomy and fulgaration gastric avm, colonoscopy with hot bx polypectomy x 2 ascending colon and snare polypectomy x 4 in descending colon Anesthesia Type per combiner Estimated Blood Loss Estimated blood loss (mL): scant Specimens/Packing Specimens Removed antral polyp, colon polyps ALICE GIL DO Apr 20, 2018 11:22
--- NOTE | 2018-04-20 11:27 | Discharge Inst-Simple/Standard ---
Discharge Inst-Standard Patient Instructions/Follow Up Plan of Care/Instructions/FU: Rishi 2-3 weeks. Restart Coumadin in 3 days. Activity as Tolerated: Yes Discharge Diet: Regular Diet (high fiber) ALICE GIL DO Apr 20, 2018 11:27
[2018-04-20 11:30] VITALS: BP 112/63
[2018-04-20 11:55] VITALS: BP 117/63
[2018-04-20 12:11] VITALS: BP 117/63
--- NOTE | 2018-04-20 12:56 | Anesthesia-General Post-Op ---
MAC Patient Condition Mental Status/LOC: Same as Preop Cardiovascular: Satisfactory Nausea/Vomiting: Absent Respiratory: Satisfactory Pain: Controlled Complications: Absent Post Op Complications Complications None Follow Up Care/Instructions Patient Instructions None needed. Anesthesiology Discharge Order Discharge Order Patient is doing well, no complaints, stable vital signs, no apparent adverse anesthesia problems. No complications reported per nursing. MEMO LEON CRNA Apr 20, 2018 12:56
--- NOTE | 2018-04-20 13:18 | OPERATIVE REPORT ---
DATE OF SERVICE: 04/20/2018 PREOPERATIVE DIAGNOSES: Anemia, chronic fatigue. POSTOPERATIVE DIAGNOSES: Gastric AVM, small antral gastric polyp, small hiatal hernia and colon polyps, diverticulosis. PROCEDURE: EGD with hot biopsy polypectomy and fulguration gastric AVM, colonoscopy with hot biopsy polypectomy x2 ascending colon and snare polypectomy x4 in descending colon. SURGEON: Alice Blackwell DO ANESTHESIA: Per ETL SOFTWARE ENGINEER. ESTIMATED BLOOD LOSS: Scant. SPECIMENS REMOVED: Antral polyp and colon polyps. INDICATIONS: The patient is a 77-year-old female who has continued to have iron deficiency anemia. She has chronic fatigue. She understands risks and benefits of procedures and wished to proceed with procedure. Consent was signed in the chart. PROCEDURE: The patient was taken to the endoscopy suite, placed in left lateral recumbent position. Timeout was performed. Scope was inserted in mouth, down the esophagus, stomach and into the duodenum without difficulty. There are no polyps, masses or ulcerations within the duodenum. Scope was slowly retracted back into the stomach where in the antrum, small inflamed gastric polyp was present, which hot biopsy polypectomy was performed. Scope was continuously retracted back. In the lesser curvature of the stomach, a small AVM was present, which was fulgurated. Scope was retroflexed just noting a small hiatal hernia, no other pathology noted. Scope was returned to its normal position, slowly withdrawn to the distal esophagus, which had a fairly normal appearance. No polyps, masses or ulcerations. No erythematous changes. Scope was slowly retracted back until completely removed. Digital rectal exam was performed. There are no palpable polyps, masses or ulcerations. Scope was inserted in the rectum and advanced all the way to the cecum with minimal difficulty. Prep was adequate with irrigation and suction. There were no polyps, mass or ulcerations in the cecum. Scope was slowly retracted back into the ascending colon, which two small polyps were present, which hot biopsy polypectomy was performed on these. Scope was continuously retracted back. There were no other polyps, mass or ulcerations within the remainder of the ascending and transverse colon. In the descending colon, there were four polyps present, which snare polypectomy was performed on these. These were obtained for specimen. Scope was continuously slowly retracted back into the sigmoid colon noting some diverticulosis. Moderate amount. Scope was continuously slowly retracted back into the rectum, where it was also retroflexed noting no other pathology. Scope was returned to its normal position, slowly withdrawn until completely removed. The patient tolerated procedure well without any complications. She was taken to recovery room in stable condition. RECOMMENDATIONS: The patient will follow up in the office in about 2 to 3 weeks. We will continue on current medications. We will hold her Coumadin for approximately 3 days, then restart. We will review pathology and further recommendations pending. Job ID: [id number] DocumentID: [id number] Dictated Date: 04/20/2018 11:25:14 Assembler Lay Ups Date: 04/20/2018 13:18:34 Dictated By: ALICE BLACKWELL DO
== END 2018-04-20 12:10 | disposition home or self-care (01) ==
LOC: ENDO 08:35
PROVIDERS: ATTEND Surgery
DX: K31.819 Angiodysplasia of stomach and duodenum without bleeding (principal); D12.2 Benign neoplasm of ascending colon; D12.4 Benign neoplasm of descending colon; K31.7 Polyp of stomach and duodenum; K44.9 Diaphragmatic hernia without obstruction or gangrene; K21.9 Gastro-esophageal reflux disease without esophagitis; K57.30 Diverticulosis of large intestine without perforation or abscess without bleeding; D64.9 Anemia, unspecified; I11.0 Hypertensive heart disease with heart failure; I50.9 Heart failure, unspecified; I48.91 Unspecified atrial fibrillation; I08.1 Rheumatic disorders of both mitral and tricuspid valves; I25.10 Atherosclerotic heart disease of native coronary artery without angina pectoris; I27.20 Pulmonary hypertension, unspecified; E11.9 Type 2 diabetes mellitus without complications; G47.33 Obstructive sleep apnea (adult) (pediatric); E66.9 Obesity, unspecified; Z68.32 Body mass index [BMI] 32.0-32.9, adult; Z79.01 Long term (current) use of anticoagulants; Z79.84 Long term (current) use of oral hypoglycemic drugs; Z79.899 Other long term (current) drug therapy
CPT/HCPCS: 88305

== ENCOUNTER 2018-06-03 11:03 | Outpatient (RCR) | payer MEDICARE, OTHER ==
[2018-03-30 14:29] LABS: ABSOLUTE RETIC # 89 10e9/L (24-90); BASOPHILS % (AUTO) 0 % (0-10); EOSINOPHILS # (AUTO) 0.1 10^3/uL (0.0-0.3); EOSINOPHILS % (AUTO) 2 % (0-10); HEMATOCRIT 34 % (35-52); HEMOGLOBIN 9.8 G/DL (11.5-16.0); LYMPHOCYTES # (AUTO) 1.4 X 10^3 (1.0-4.0); LYMPHOCYTES % (AUTO) 24 % (12-44); MEAN CORPUSCULAR HEMOGLOBIN 20 PG (25-34); MEAN CORPUSCULAR HGB CONC 29 G/DL (32-36); MEAN CORPUSCULAR VOLUME 72 FL (80-99); MONOCYTES # (AUTO) 0.6 X 10^3 (0.0-1.0); MONOCYTES % (AUTO) 10 % (0-12); NEUTROPHILS # (AUTO) 3.6 X 10^3 (1.8-7.8); NEUTROPHILS % (AUTO) 64 % (42-75); PLATELET COUNT 265 10^3/uL (130-400); RED CELL DISTRIBUTION WIDTH 18.7 % (10.0-14.5); RETICULOCYTE % 1.85 % (0.50-2.40); WHITE BLOOD COUNT 5.7 10^3/uL (4.3-11.0)
[2018-03-30 14:48] LABS: ALBUMIN 4.1 GM/DL (3.2-4.5); BILIRUBIN,TOTAL 0.9 MG/DL (0.1-1.0); CALCIUM 9.7 MG/DL (8.5-10.1); CREATININE SERUM 1.12 MG/DL (0.60-1.30); POTASSIUM 4.1 MMOL/L (3.6-5.0); TOTAL PROTEIN 8.8 GM/DL (6.4-8.2)
[2018-04-15 11:13] LABS: BASOPHILS % (AUTO) 1 % (0-10); EOSINOPHILS # (AUTO) 0.1 10^3/uL (0.0-0.3); EOSINOPHILS % (AUTO) 2 % (0-10); HEMATOCRIT 32 % (35-52); HEMOGLOBIN 9.2 G/DL (11.5-16.0); LYMPHOCYTES # (AUTO) 1.8 X 10^3 (1.0-4.0); LYMPHOCYTES % (AUTO) 24 % (12-44); MEAN CORPUSCULAR HEMOGLOBIN 22 PG (25-34); MEAN CORPUSCULAR HGB CONC 29 G/DL (32-36); MEAN CORPUSCULAR VOLUME 76 FL (80-99); MEAN PLATELET VOLUME 9.9 FL (7.4-10.4); MONOCYTES # (AUTO) 0.7 X 10^3 (0.0-1.0); MONOCYTES % (AUTO) 10 % (0-12); NEUTROPHILS # (AUTO) 4.6 X 10^3 (1.8-7.8); NEUTROPHILS % (AUTO) 63 % (42-75); PLATELET COUNT 284 10^3/uL (130-400); WHITE BLOOD COUNT 7.3 10^3/uL (4.3-11.0)
[~2018-06-03 11:03] MED LIST changes: +FERRIC CARBOXYMALTOSE (CANCER) 750 MG in NS (IVPB) CANCER CENTER 250 ML IV SCH
[2018-06-03 11:28] LABS: BASOPHILS % (AUTO) 1 % (0-10); EOSINOPHILS # (AUTO) 0.2 10^3/uL (0.0-0.3); EOSINOPHILS % (AUTO) 3 % (0-10); HEMATOCRIT 42 % (35-52); HEMOGLOBIN 13.2 G/DL (11.5-16.0); LYMPHOCYTES # (AUTO) 1.5 X 10^3 (1.0-4.0); LYMPHOCYTES % (AUTO) 24 % (12-44); MEAN CORPUSCULAR HEMOGLOBIN 28 PG (25-34); MEAN CORPUSCULAR HGB CONC 31 G/DL (32-36); MEAN CORPUSCULAR VOLUME 89 FL (80-99); MEAN PLATELET VOLUME 10.1 FL (7.4-10.4); MONOCYTES # (AUTO) 0.7 X 10^3 (0.0-1.0); MONOCYTES % (AUTO) 11 % (0-12); NEUTROPHILS % (AUTO) 62 % (42-75); PLATELET COUNT 165 10^3/uL (130-400); RED CELL DISTRIBUTION WIDTH 20.6 % (10.0-14.5); WHITE BLOOD COUNT 6.4 10^3/uL (4.3-11.0)
[2018-06-03 11:55] LABS: ALBUMIN 3.9 GM/DL (3.2-4.5); BILIRUBIN,TOTAL 0.7 MG/DL (0.1-1.0); CALCIUM 9.3 MG/DL (8.5-10.1); CREATININE SERUM 1.04 MG/DL (0.60-1.30); POTASSIUM 4.5 MMOL/L (3.6-5.0); TOTAL PROTEIN 8.4 GM/DL (6.4-8.2)
== END 2018-06-28 | disposition home or self-care (01) ==
LOC: ONC 11:03
PROVIDERS: ATTEND Internal Medicine Hematology & Oncology
DX: D64.9 Anemia, unspecified (principal); E11.9 Type 2 diabetes mellitus without complications; I25.10 Atherosclerotic heart disease of native coronary artery without angina pectoris; I48.2 Chronic atrial fibrillation; I27.20 Pulmonary hypertension, unspecified; I08.1 Rheumatic disorders of both mitral and tricuspid valves; G47.30 Sleep apnea, unspecified; Z79.01 Long term (current) use of anticoagulants; Z79.899 Other long term (current) drug therapy; Z79.84 Long term (current) use of oral hypoglycemic drugs; Z95.0 Presence of cardiac pacemaker
CPT/HCPCS: 36415; 80053; 82728; 82784; 83020; 83540; 83883; 84155; 84165; 84443; 85025; 85045; 96365; 99213; 99214

== ENCOUNTER 2018-10-14 15:05 | Outpatient (RCR) | payer MEDICARE, OTHER ==
[2018-07-29 13:49] LABS: BASOPHILS % (AUTO) 1 % (0-10); EOSINOPHILS # (AUTO) 0.1 10^3/uL (0.0-0.3); EOSINOPHILS % (AUTO) 2 % (0-10); HEMATOCRIT 44 % (35-52); HEMOGLOBIN 14.3 G/DL (11.5-16.0); LYMPHOCYTES # (AUTO) 1.8 X 10^3 (1.0-4.0); LYMPHOCYTES % (AUTO) 31 % (12-44); MEAN CORPUSCULAR HEMOGLOBIN 29 PG (25-34); MEAN CORPUSCULAR HGB CONC 32 G/DL (32-36); MEAN CORPUSCULAR VOLUME 90 FL (80-99); MEAN PLATELET VOLUME 10.2 FL (7.4-10.4); MONOCYTES # (AUTO) 0.6 X 10^3 (0.0-1.0); MONOCYTES % (AUTO) 11 % (0-12); NEUTROPHILS # (AUTO) 3.2 X 10^3 (1.8-7.8); NEUTROPHILS % (AUTO) 56 % (42-75); PLATELET COUNT 168 10^3/uL (130-400); RED CELL DISTRIBUTION WIDTH 15.1 % (10.0-14.5); WHITE BLOOD COUNT 5.8 10^3/uL (4.3-11.0)
[2018-07-29 14:09] LABS: BILIRUBIN,TOTAL 0.8 MG/DL (0.1-1.0); CALCIUM 9.9 MG/DL (8.5-10.1); CREATININE SERUM 1.08 MG/DL (0.60-1.30); POTASSIUM 4.5 MMOL/L (3.6-5.0); TOTAL PROTEIN 8.6 GM/DL (6.4-8.2)
[2018-10-11 15:07] LABS: BASOPHILS % (AUTO) 1 % (0-10); EOSINOPHILS # (AUTO) 0.2 10^3/uL (0.0-0.3); EOSINOPHILS % (AUTO) 2 % (0-10); HEMATOCRIT 39 % (35-52); HEMOGLOBIN 12.9 G/DL (11.5-16.0); LYMPHOCYTES # (AUTO) 1.5 X 10^3 (1.0-4.0); LYMPHOCYTES % (AUTO) 25 % (12-44); MEAN CORPUSCULAR HEMOGLOBIN 31 PG (25-34); MEAN CORPUSCULAR HGB CONC 33 G/DL (32-36); MEAN CORPUSCULAR VOLUME 93 FL (80-99); MEAN PLATELET VOLUME 10.4 FL (7.4-10.4); MONOCYTES # (AUTO) 0.7 X 10^3 (0.0-1.0); MONOCYTES % (AUTO) 11 % (0-12); NEUTROPHILS # (AUTO) 3.8 X 10^3 (1.8-7.8); NEUTROPHILS % (AUTO) 61 % (42-75); PLATELET COUNT 188 10^3/uL (130-400); RED CELL DISTRIBUTION WIDTH 13.7 % (10.0-14.5); WHITE BLOOD COUNT 6.2 10^3/uL (4.3-11.0)
[2018-10-11 15:33] LABS: ALBUMIN 3.9 GM/DL (3.2-4.5); BILIRUBIN,TOTAL 0.6 MG/DL (0.1-1.0); CALCIUM 9.3 MG/DL (8.5-10.1); CREATININE SERUM 1.14 MG/DL (0.60-1.30); POTASSIUM 4.1 MMOL/L (3.6-5.0); TOTAL PROTEIN 8.3 GM/DL (6.4-8.2)
[~2018-10-14 15:05] MED LIST changes: -FERRIC CARBOXYMALTOSE (CANCER) 750 MG in NS (IVPB) CANCER CENTER 250 ML IV SCH
== END 2018-10-27 | disposition home or self-care (01) ==
LOC: ONC 15:05
PROVIDERS: ATTEND Internal Medicine Hematology & Oncology
DX: D64.9 Anemia, unspecified (principal); E11.9 Type 2 diabetes mellitus without complications; I25.10 Atherosclerotic heart disease of native coronary artery without angina pectoris; I48.2 Chronic atrial fibrillation; I27.20 Pulmonary hypertension, unspecified; I08.1 Rheumatic disorders of both mitral and tricuspid valves; G47.30 Sleep apnea, unspecified; Z79.01 Long term (current) use of anticoagulants; Z79.899 Other long term (current) drug therapy; Z79.84 Long term (current) use of oral hypoglycemic drugs; Z95.0 Presence of cardiac pacemaker
CPT/HCPCS: 36415; 80053; 82728; 85025; 99213

== ENCOUNTER → 2018-12-29 | Outpatient (CLI) | payer MEDICARE, OTHER ==
--- NOTE | 2018-12-29 12:05 | Diagnostic Imaging Report ---
Clinical indication: Patient with shortness of air and primary pulmonary hypertension. Exam: Chest x-ray PA and lateral views. Comparison: Chest x-ray 2 views dated 01/31/2016. Findings: There is interval development of a moderate sized right pleural effusion with patchy airspace opacities in the right midlung field which may represent atelectasis versus infiltrate. There is right lung base consolidation. Left lung is clear and stable. Right upper lung field is clear. There is stable mild cardiomegaly with no significant pulmonary vascular congestion. Cardiac pacemaker again seen overlying left chest with 2 leads overlying the heart, which appears intact. There are degenerative spurs involving the thoracic spine. Impression: 1: Interval development of moderate sized right pleural effusion and right midlung field/right lung base atelectasis versus infiltrate. 2: Mild cardiomegaly with no significant pulmonary vascular congestion. 3: The remainder of this exam shows no significant interval change compared to the prior study of comparison. Report was faxed to [facility] by dominga at 12:07 p.m. Dictated by: Dictated on workstation # [id number]
== END ==
LOC: RAD 11:37
PROVIDERS: ATTEND Nurse Practitioner Family
DX: J90 Pleural effusion, not elsewhere classified (principal); I51.7 Cardiomegaly; I27.0 Primary pulmonary hypertension
CPT/HCPCS: 71046

== ENCOUNTER 2019-01-25 10:40 | Inpatient (IN) | payer MEDICARE, OTHER ==
[~2019-01-25] VITALS: Ht 157 cm; Wt 75.8 kg
[2019-01-25] VITALS (9 sets, daily range): BP systolic 121–155; BP diastolic 64–77
--- NOTE | 2019-01-25 10:59 | NUR ---
REPORT GIVEN TO KYLAH SAL.
[2019-01-25] MEDS ORDERED: RT-ALBUTEROL/IPRATROPIUM 3 ML (DUONEB) VIAL INH ONE (12:15)
--- NOTE | 2019-01-25 12:18 | ED Fall/Injury ---
General Chief Complaint: Trauma-Non Activation Stated Complaint: BACK PAIN Nursing Triage Note: ARRIVED VIA EMS FROM HOME. STATES SHE FELL YESTERDAY LEAVING HER BATHROOM. TODAY COMLAINS OF MID/LOWER BACK PAIN AND RIGHT SHOULDER BLADE PAIN. PT WAS SUPPOSE TO GET A CHEST XRAY YESTERDAY FOR INCREASED SOA. Source: patient Exam Limitations: no limitations History of Present Illness Date Seen by Provider: Jan 25, 2019 Time Seen by Provider: 11:40 Initial Comments Here with report of bradycardia of complaints. She has complaint of shortness of breath that has been increasing over the last 3 weeks. She follows with Dr. Shady reyez for that. She is posterior chest x-ray yesterday but was too short of breath and actually had a fall yesterday. She did not get that chest x-ray done. She reports slipping yesterday afternoon and following onto her bottom and back. She does report hitting her head but denies loss of consciousness. Patient is on warfarin for atrial fibrillation. She does have pacemaker implanted. Denies fever or chills. Denies nausea or vomiting. States pain can be quite severe although feels better right now when she is lying still. Denies other injury. Pain mostly to the low back and mid back just at or above the bra line. Occurred: yesterday Severity: moderate Injuries/Pain Location: head, back Context: slipped Loss of Consciousness: no loss of consciousness Modifying Factors: Improves With Immobilization; Worse With Movement Associated Symptoms (Fall): No Abdominal Pain, No Chest Pain, No Confusion; Headache (mild), Muscle Spasms (along the back); No Nausea/Vomiting, No Neck Pain; Shortness of Air Allergies and Home Medications Allergies Coded Allergies: No Known Drug Allergies (Unverified , 04/16/18) Home Medications Acetaminophen 500 Mg Tablet, 1,000 MG PO BID, (Reported) TAKES 2 (500MG) TABLETS Citalopram Hydrobromide 20 Mg Tablet, 20 MG PO DAILY, (Reported) Digoxin 250 Mcg Tablet, 250 MCG PO DAILY, (Reported) Diltiazem HCl 360 Mg Capsule.er, 360 MG PO DAILY, (Reported) Furosemide 20 Mg Tablet, 60 MG PO BID, (Reported) TAKES 3 (20MG) TABLETS Magnesium Oxide 400 Mg Tablet, 400 MG PO BID, (Reported) Metformin HCl 500 Mg Tablet, 500 MG PO BID, (Reported) Multivit with Calcium,Iron,Min 1 Each Tablet, 1 TAB PO DAILY, (Reported) Pantoprazole Sodium 40 Mg Tablet.dr, 40 MG PO DAILY, (Reported) Potassium Chloride 10 Meq Tablet.er, 10 MEQ PO BID, (Reported) Warfarin Sodium 2 Mg Tablet, 2 MG PO SuMoWeFrSa, (Reported) Warfarin Sodium 2 Mg Tablet, 4 MG PO TuTh, (Reported) TAKES 2 (2MG) TABLETS Patient Home Medication List Home Medication List Reviewed: Yes Review of Systems Review of Systems Constitutional: No chills, No fever Eyes: No Symptoms Reported Ears, Nose, Mouth, Throat: no symptoms reported Respiratory: cough, dyspnea on exertion, short of breath Cardiovascular: no symptoms reported Gastrointestinal: No abdominal pain, No nausea, No vomiting Genitourinary: no symptoms reported Musculoskeletal: see HPI, back pain; No neck pain Skin: no symptoms reported Psychiatric/Neurological: See HPI, Headache All Other Systems Reviewed Negative Unless Noted: Yes Past Sezibam-Bjiaon-Dsudkn Hx Past Med/Social Hx: Reviewed Nursing Past Med/Soc Hx Patient Social History Alcohol Use: Denies Use Recreational Drug Use: No 2nd Hand Smoke Exposure: No Recent Foreign Travel: No Contact w/Someone Who Travel: No Recent Infectious Disease Expo: No Recent Hopitalizations: No Immunizations Up To Date Tetanus Booster (TDap): Less than 5yrs PED Vaccines UTD: Yes Date of Pneumonia Vaccine: Nov 08, 2010 Seasonal Allergies Seasonal Allergies: No Past Medical History Surgeries: Yes (KNEE REPLACEMENT, HYSTERECTOMY, 3 C-SECTIONS, TONSILLECTOMY) Hysterectomy, Joint Replacement, Pacemaker, Tonsillectomy Respiratory: Yes Sleep Apnea Cardiac: Yes (PACEMAKER) Atrial Fibrillation, Hypertension Neurological: No Reproductive Disorders: Yes Female Reproductive Disorders: Denies Sexually Transmitted Disease: No HIV/AIDS: No Gastrointestinal: Yes (gallstones) Diverticulosis Musculoskeletal: Yes Arthritis Endocrine: Yes Diabetes, 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 Psychosocial: Yes Depression Integumentary: No Blood Disorders: Yes (ANEMIA) Adverse Reaction/Blood Tranf: No (HAS HAD BLOOD WITH NO REACTION) Family Medical History Reviewed Nursing Family Hx Alzheimer's disease 19 MOTHER Arthritis 19 MOTHER Cardiovascular disease Completed stroke 19 MOTHER Coronary thrombosis 19 MOTHER Dementia 19 MOTHER Diabetes mellitus 19 MOTHER Hypertension 19 MOTHER Myocardial infarction Osteoporosis 19 MOTHER No Family History of: AIDS Abdominal aortic aneurysm Monona's disease Alcoholism Aphasia Asthma Cancer of mouth Cataracts Colon cancer Congenital disease Congenital heart disease Cystic fibrosis Deafness or hearing loss Drug abuse Dysphasia Fibrocystic disease of breast Gastroenteritis Glaucoma Headache disorder Hypercholesterolemia Infertility Kidney disease Neoplasm Not obtainable due to adoption Parkinson's disease Prostate cancer Psychosocial problem Respiratory disorder Seizure disorder Severe allergy Thyroid disease Tuberculosis Visual disorder No Pertinent Family Hx Physical Exam Vital Signs Vital Signs - First Documented 01/25/19 01/25/19 10:40 12:21 Temp 37.2 Pulse 80 Resp 16 B/P (MAP) 118/61 (80) Pulse Ox 87 O2 Delivery Room Air O2 Flow Rate 2.00 Capillary Refill : Less Than 3 Seconds Height, Weight, BMI Height: 5'2.00" Weight: 180lbs. 0.0oz. 81.985601ia; 31.00 BMI Method:Stated General Appearance: WD/WN, no apparent distress HEENT: PERRL/EOMI, pharynx normal Neck: full range of motion, supple Cardiovascular: no murmur, irregularly irregular Respiratory: lungs clear, normal breath sounds Gastrointestinal: non tender, soft Back: decreased range of motion (pain limited); No vertebral tenderness Extremities: non-tender, normal inspection Neurologic/Psychiatric: alert, oriented x 3 Skin: normal color, warm/dry [place] Coma Score Best Eye Response: (4) Open Spontaneously Best Verbal Response: (5) Oriented Best Motor Response: (6) Obeys Commands Progress/Results/Core Measures Results/Orders Lab Results Laboratory Tests Test 01/25/19 12:20 Range/Units White Blood Count 9.8 4.3-11.0 10^3/uL Red Blood Count 4.06 L 4.35-5.85 10^6/uL Hemoglobin 7.5 L 11.5-16.0 G/DL Hematocrit 27 L 35-52 % Mean Corpuscular Volume 67 L 80-99 FL Mean Corpuscular Hemoglobin 19 L 25-34 PG Mean Corpuscular Hemoglobin Concent 28 L 32-36 G/DL Red Cell Distribution Width 20.2 H 10.0-14.5 % Platelet Count 298 130-400 10^3/uL Mean Platelet Volume 9.2 7.4-10.4 FL Neutrophils (%) (Auto) 76 H 42-75 % Lymphocytes (%) (Auto) 10 L 12-44 % Monocytes (%) (Auto) 13 H 0-12 % Eosinophils (%) (Auto) 0 0-10 % Basophils (%) (Auto) 0 0-10 % Neutrophils # (Auto) 7.5 1.8-7.8 X 10^3 Lymphocytes # (Auto) 1.0 1.0-4.0 X 10^3 Monocytes # (Auto) 1.3 H 0.0-1.0 X 10^3 Eosinophils # (Auto) 0.0 0.0-0.3 10^3/uL Basophils # (Auto) 0.0 0.0-0.1 10^3/uL Prothrombin Time 34.0 H 12.2-14.7 SEC INR Comment 3.2 H 0.8-1.4 Activated Partial Thromboplast Time 51 H 24-35 SEC Sodium Level 135 135-145 MMOL/L Potassium Level 4.4 3.6-5.0 MMOL/L Chloride Level 100 98-107 MMOL/L Carbon Dioxide Level 27 21-32 MMOL/L Anion Gap 8 5-14 MMOL/L Blood Urea Nitrogen 22 H 7-18 MG/DL Creatinine 1.29 0.60-1.30 MG/DL Estimat Glomerular Filtration Rate 40 BUN/Creatinine Ratio 17 Glucose Level 98 70-105 MG/DL Calcium Level 8.8 8.5-10.1 MG/DL Corrected Calcium 9.3 8.5-10.1 MG/DL Total Bilirubin 1.0 0.1-1.0 MG/DL Aspartate Amino Transf (AST/SGOT) 22 5-34 U/L Alanine Aminotransferase (ALT/SGPT) 9 0-55 U/L Alkaline Phosphatase 97 40-136 U/L B-Type Natriuretic Peptide 523.9 H <100.0 PG/ML Total Protein 8.1 6.4-8.2 GM/DL Albumin 3.4 3.2-4.5 GM/DL My Orders Orders - KEN SNYDER MD Ct Chest Wo (01/25/19 11:42) Ct Head/Cervical Spine Wo (01/25/19 11:42) Ct Lumbar Spine Wo (01/25/19 11:42) Ed Iv/Invasive Line Start (01/25/19 11:42) Cbc With Automated Diff (01/25/19 11:42) Comprehensive Metabolic Panel (01/25/19 11:42) Protime With Inr (01/25/19 11:42) Partial Thromboplastin Time (01/25/19 11:42) Ua Culture If Indicated (01/25/19 11:42) Chest 1 View, Ap/Pa Only (01/25/19 11:42) Albuterol/Ipra Inhalation Soln (Duoneb I (01/25/19 12:15) BNP (01/25/19 13:36) Red Cells Leukocytes Reduced (01/25/19 13:46) Type And Screen (01/25/19 13:46) Furosemide Injection (Lasix Injection) (01/25/19 14:00) Red Cells Leukocytes Reduced (01/25/19 14:00) Medications Given in ED Current Medications Medications Dose Ordered Sig/Chantale Route Start Time Stop Time Status Last Admin Dose Admin Albuterol/ Ipratropium 3 ml ONCE ONCE INH 01/25/19 12:15 01/25/19 12:16 DC 01/25/19 12:18 3 ML Furosemide 80 mg ONCE ONCE IVP 01/25/19 14:00 01/25/19 14:01 DC 01/25/19 14:34 80 MG Vital Signs/I&O 01/25/19 01/25/19 10:40 12:21 Temp 37.2 Pulse 80 Resp 16 B/P (MAP) 118/61 (80) Pulse Ox 87 95 O2 Delivery Room Air Nasal Cannula O2 Flow Rate 2.00 Blood Pressure Mean: 80 Progress Progress Note : Progress Note Seen and evaluated. CT head and neck ordered. CT chest ordered. We will also get CT of the lumbar spine. Labs ordered. We will go ahead and get DuoNeb. Patient is requiring oxygen which is not typical for her. EMS did report initial O2 sat in the mid 80s that responded well to 2 and 3 L of oxygen via nasal cannula. Monitor patient. 1350: Patient has findings of acute heart failure and rather significant right pleural effusion. I did discuss the case with Dr. Dill and he will see the patient in consult. I did discuss the case with Dr. Kwon and he will accept the patient for admission, inpatient status. Requested ca rdiology. Patient's medical liaison is Dr. Carreno and I have consulted him at 1400. Patient does have anemia that seems to be progressing and worsened over the last week. Type and cross for 2 units to transfuse has been ordered per recommendation from Dr. Carreno. We have given Lasix 80 mg IV now and will give another 80 mg IV between the first and second unit of blood. We will hold the warfarin in anticipation of thoracentesis. Patient does have new L1 compression fracture that is in the anterior column and not retropulsed into the central space. This is stable. They will consult or there was needed. Admit, inpatient status. Patient agrees with plan. Diagnostic Imaging Diagonstic Imaging: CT Plain Films/CT/US/NM/MRI: c-spine, head Comments NAME: SANCHEZ CISNEROS [facility] REC#: [id number] PT STATUS: ADM IN : 1940 PHYSICIAN: KEN SNYDER MD ADMIT DATE: 01/25/19 Signed Date of Exam: 01/25/19 CT HEAD/CERVICAL SPINE WO PROCEDURE: CT head and CT cervical spine without contrast. TECHNIQUE: Multiple contiguous axial images were obtained through the brain and cervical spine without the use of intravenous contrast. Sagittal and coronal reformations through the cervical spine were then performed. Auto Exposure Controls were utilized during the CT exam to meet ALARA standards for radiation dose reduction. INDICATION: Fall yesterday. COMPARISON: Correlation is made with prior head CT from 02/18/2014. CT head: The ventricles and sulci are stable in appearance. Moderate periventricular hypodensity is noted, consistent with chronic microvascular ischemia. No sulcal effacement or midline shift is identified. No acute intra-axial or extra-axial hemorrhage is detected. Cisterns are patent. Visualized paranasal sinuses are clear. IMPRESSION: Stable noncontrast head CT since exam from 2013. There are changes of chronic microvascular ischemia. No acute intracranial process is detected. CT cervical spine: Severe multilevel degenerative disc disease is seen. There is disc space narrowing and marginal spurring at all levels. No fractures are seen. Prevertebral tissues are normal. The odontoid is intact. IMPRESSION: Cervical spondylosis. No acute bony abnormality is detected. Dictated by: Dictated on workstation # [id number] Dict: 01/25/19 1310 Trans: 01/25/19 1440 Interpreted by: MANDI MARR MD Electronically signed by: MANDI MARR MD 01/25/19 1443 Diagonstic Imaging: Xray Plain Films/CT/US/NM/MRI: chest Comments [facility] [place] [place] NAME: SANCHEZ CISNEROS [facility] REC#: [id number] PT STATUS: REG ER : 1940 PHYSICIAN: KEN SNYDER MD ADMIT DATE: 01/25/19/ER Draft Date of Exam:01/25/19 CHEST 1 VIEW, AP/PA ONLY Indication: Shortness of air. Time of exam: 12:37 PM Correlation is made with prior chest from 12/29/2018. The heart is enlarged but stable. Cardiac pacemaker remains in place. Right-sided effusion with some associated right basilar infiltrate atelectasis versus. Congestive changes have increased since prior exam. There is no pneumothorax. Impression: Increasing congestive changes compared to examination from one month earlier. Dictated on workstation # [id number] Dict: 01/25/19 1247 Trans: 01/25/19 1249 [facility] [id number] Interpreted by: MANDI MARR MD Electronically signed by: Diagonstic Imaging: CT Plain Films/CT/US/NM/MRI: other Comments [facility] [place] [place] NAME: SANCHEZ CISNEROS [employer] [facility] REC#: [id number] PT STATUS: REG ER : 1940 PHYSICIAN: KEN SNYDER MD ADMIT DATE: 01/25/19/ER Draft Date of Exam:01/25/19 CT LUMBAR SPINE WO PROCEDURE: CT lumbar spine without contrast. TECHNIQUE: Multiple contiguous axial images were obtained through the lumbar spine without the use of intravenous contrast. Sagittal and coronal reformations were then performed. Auto Exposure Controls were utilized during the CT exam to meet ALARA standards for radiation dose reduction. INDICATION: Fall with low back pain. FINDINGS: Curvature and alignment of the lumbar spine is normal. There is an acute fracture involving the superior endplate of L1 vertebral body. Only minimal central compression is seen. No retropulsion is identified. Remaining lumbar vertebrae are unremarkable for fracture. There is severe degenerative disc disease at all levels with variable disc space narrowing and marginal spurring. IMPRESSION: 1. Acute superior endplate fracture of L1 vertebral body. No retropulsion is seen. 2. Diffuse lumbar spondylosis. Dictated on workstation # [id number] Dict: 01/25/19 1313 Trans: 01/25/19 1320 [id number] Interpreted by: MANDI MARR MD Electronically signed by: [facility] Imaging: CT Plain Films/CT/US/NM/MRI: chest Comments [facility] [place] [place] NAME: SANCHEZ CISNEROS [facility] REC#: [id number] PT STATUS: REG ER : 1940 PHYSICIAN: KEN SNYDER MD ADMIT DATE: 01/25/19/ER Draft Date of Exam:01/25/19 CT CHEST WO PROCEDURE: CT chest without contrast. TECHNIQUE: Multiple contiguous axial images were obtained through the chest without the use of intravenous contrast. Auto Exposure Controls were utilized during the CT exam to meet ALARA standards for radiation dose reduction. INDICATION: Recent fall, complaining of pain in the region of the right scapula as well as increasing shortness of breath. Correlation is made with recent chest radiograph from earlier the same day. FINDINGS: Left chest wall cardiac pacemaker is in place. Heart is significantly enlarged. No pericardial fluid is seen. There is trace left pleural effusion and a large right pleural effusion. There is some mild compressive atelectasis or consolidation in the right lower lobe as well. Otherwise, the lungs appear to be fairly clear. Upper abdomen does show a small amount of perihepatic free fluid. Superior endplate fracture of L1 vertebral body is again noted. No other bony abnormalities are seen apart from severe degenerative changes involving the right shoulder and right acromioclavicular joint. There is a lytic lesion of the distal right clavicle, indeterminate. IMPRESSION: Cardiomegaly with large right and trace left pleural effusion with some associated consolidation or atelectasis in right lower lobe. No other significant abnormality is seen. Dictated on workstation # [id number] Dict: 01/25/19 1315 Trans: 01/25/19 1325 [id number] Interpreted by: MANDI MARR MD Electronically signed by: Departure Communication (Admissions) Time/Spoke to Admitting Phy: 13:50 Time/Spoke to Consulting Phy: 13:55 Impression Primary Impression: Acute heart failure Qualified Codes: I50.9 - Heart failure, unspecified Additional Impressions: Pleural effusion, right Anemia Qualified Codes: D64.9 - Anemia, unspecified Compression fracture of L1 vertebra Qualified Codes: S32.010A - Wedge compression fracture of first lumbar vertebra, initial encounter for closed fracture Disposition: ADMITTED INPATIENT Condition: Stable Admissions Decision to Admit Reason: Admit from ER (General) Decision to Admit/Date: Jan 25, 2019 Time/Decision to Admit Time: 13:50 Departure-Patient Inst. Referrals: HELLEN CROSS MD (PCP/Family) Primary Care Physician KEN SNYDER MD Jan 25, 2019 12:18
[2019-01-25 12:42] LABS: BASOPHILS % (AUTO) 0 % (0-10); EOSINOPHILS % (AUTO) 0 % (0-10); HEMATOCRIT 27 % (35-52); HEMOGLOBIN 7.5 G/DL (11.5-16.0); LYMPHOCYTES % (AUTO) 10 % (12-44); MEAN CORPUSCULAR HEMOGLOBIN 19 PG (25-34); MEAN CORPUSCULAR HGB CONC 28 G/DL (32-36); MEAN CORPUSCULAR VOLUME 67 FL (80-99); MEAN PLATELET VOLUME 9.2 FL (7.4-10.4); MONOCYTES # (AUTO) 1.3 X 10^3 (0.0-1.0); MONOCYTES % (AUTO) 13 % (0-12); NEUTROPHILS # (AUTO) 7.5 X 10^3 (1.8-7.8); NEUTROPHILS % (AUTO) 76 % (42-75); PLATELET COUNT 298 10^3/uL (130-400); RED CELL DISTRIBUTION WIDTH 20.2 % (10.0-14.5); WHITE BLOOD COUNT 9.8 10^3/uL (4.3-11.0)
--- NOTE | 2019-01-25 12:49 | Diagnostic Imaging Report ---
Indication: Shortness of air. Time of exam: 12:37 PM Correlation is made with prior chest from 12/29/2018. The heart is enlarged but stable. Cardiac pacemaker remains in place. Right-sided effusion with some associated right basilar infiltrate atelectasis versus. Congestive changes have increased since prior exam. There is no pneumothorax. Impression: Increasing congestive changes compared to examination from one month earlier. Dictated by: Dictated on workstation # [id number]
[2019-01-25 12:52] LABS: ALBUMIN 3.4 GM/DL (3.2-4.5); CALCIUM 8.8 MG/DL (8.5-10.1); CREATININE SERUM 1.29 MG/DL (0.60-1.30); POTASSIUM 4.4 MMOL/L (3.6-5.0); TOTAL PROTEIN 8.1 GM/DL (6.4-8.2)
[2019-01-25 12:55] LABS: INR 3.2 (0.8-1.4)
--- NOTE | 2019-01-25 13:21 | Diagnostic Imaging Report ---
PROCEDURE: CT lumbar spine without contrast. TECHNIQUE: Multiple contiguous axial images were obtained through the lumbar spine without the use of intravenous contrast. Sagittal and coronal reformations were then performed. Auto Exposure Controls were utilized during the CT exam to meet ALARA standards for radiation dose reduction. INDICATION: Fall with low back pain. FINDINGS: Curvature and alignment of the lumbar spine is normal. There is an acute fracture involving the superior endplate of L1 vertebral body. Only minimal central compression is seen. No retropulsion is identified. Remaining lumbar vertebrae are unremarkable for fracture. There is severe degenerative disc disease at all levels with variable disc space narrowing and marginal spurring. IMPRESSION: 1. Acute superior endplate fracture of L1 vertebral body. No retropulsion is seen. 2. Diffuse lumbar spondylosis. Dictated by: Dictated on workstation # [id number]
--- NOTE | 2019-01-25 13:26 | Diagnostic Imaging Report ---
PROCEDURE: CT chest without contrast. TECHNIQUE: Multiple contiguous axial images were obtained through the chest without the use of intravenous contrast. Auto Exposure Controls were utilized during the CT exam to meet ALARA standards for radiation dose reduction. INDICATION: Recent fall, complaining of pain in the region of the right scapula as well as increasing shortness of breath. Correlation is made with recent chest radiograph from earlier the same day. FINDINGS: Left chest wall cardiac pacemaker is in place. Heart is significantly enlarged. No pericardial fluid is seen. There is trace left pleural effusion and a large right pleural effusion. There is some mild compressive atelectasis or consolidation in the right lower lobe as well. Otherwise, the lungs appear to be fairly clear. Upper abdomen does show a small amount of perihepatic free fluid. Superior endplate fracture of L1 vertebral body is again noted. No other bony abnormalities are seen apart from severe degenerative changes involving the right shoulder and right acromioclavicular joint. There is a lytic lesion of the distal right clavicle, indeterminate. IMPRESSION: Cardiomegaly with large right and trace left pleural effusion with some associated consolidation or atelectasis in right lower lobe. No other significant abnormality is seen. Dictated by: Dictated on workstation # [id number]
--- NOTE | 2019-01-25 13:28 | Diagnostic Imaging Report ---
PROCEDURE: CT head and CT cervical spine without contrast. TECHNIQUE: Multiple contiguous axial images were obtained through the brain and cervical spine without the use of intravenous contrast. Sagittal and coronal reformations through the cervical spine were then performed. Auto Exposure Controls were utilized during the CT exam to meet ALARA standards for radiation dose reduction. INDICATION: Fall yesterday. COMPARISON: Correlation is made with prior head CT from 02/18/2014. CT head: The ventricles and sulci are stable in appearance. Moderate periventricular hypodensity is noted, consistent with chronic microvascular ischemia. No sulcal effacement or midline shift is identified. No acute intra-axial or extra-axial hemorrhage is detected. Cisterns are patent. Visualized paranasal sinuses are clear. IMPRESSION: Stable noncontrast head CT since exam from 2013. There are changes of chronic microvascular ischemia. No acute intracranial process is detected. CT cervical spine: Severe multilevel degenerative disc disease is seen. There is disc space narrowing and marginal spurring at all levels. No fractures are seen. Prevertebral tissues are normal. The odontoid is intact. IMPRESSION: Cervical spondylosis. No acute bony abnormality is detected. Dictated by: Dictated on workstation # [id number]
[2019-01-25] MEDS ORDERED: FUROSEMIDE 40 MG/4 ML INJ (LASIX) IVP ONE (14:00)
--- NOTE | 2019-01-25 14:16 | Consultation-Cardiology ---
HPI-Cardiology Cardiology Consultation: Date of Consultation 01/25/19 Time Seen by a Provider: 15:15 Date of Admission 01-25-19 Attending Physician Admitting Physician Devin Blackwood MD Consulting Physician Terence Carreno MD HPI: Chief Complaint: Dyspnea Acute on chronic diastolic CHF Pleural effusion Ms. Cisneros is a 78 year old female admitted to 429 from the ED. Her spouse is at the bedside. She reports she has had progressive shortness of breath for the last couple weeks. She states she was on her way to the hospital yesterday to have a CXR ordered by Dr. Blackwood when she lost her balance and fell hitting her head and back. She denies any syncope. No loss of consciousness. She states her son came and helped her up off the floor. She continued to have worsening of her dyspnea and back pain. Therefore, she was brought to the ED. She denies any c/o CP. She reports occ episodes of palpitations, but reports they are infrequent and unchanged in the recent past. She denies cough, fever or chills. She denies any LE swelling. She has continued to have weight loss, which at f irst was intentional, but has continued despite and recent dietary or activity changes. She denies any diarrhea or vomiting. Her spouse states he believes her stools have been somewhat dark. He states she was having symptoms of anemia at home. He reports they have been following with Dr. Li and had lab on Thursday showing her Hgb was around 8.4. She is currently reporting back pain worse with any movement. Review of Systems-Cardiology Review of Systems Constitutional: No chills, No fever; malaise, weight loss Eyes: No vision change Ears/Nose/Throat: No epistaxis, No recent hearing loss Respiratory: As described under HPI Cardiovascular: As described under HPI Gastrointestinal: No constipation, No diarrhea, No nausea, No vomiting; stool coloration changes (dark, per spouse report) Genitourinary: No dysuria, No hematuria Musculoskeletal: As describe under HPI Skin: No rash on exposed areas, No ulcerations on exposed areas Psychiatric/Neurological: No seizure, No focal weakness, No syncope Hematologic: No bleeding abnormalities All Other Systems Reviewed Negative Unless Noted: Yes [id number]-Urnvxw-Ijyokq Hx Patient Social History Alcohol Use: Denies Use Recreational Drug Use: No 2nd Hand Smoke Exposure: No Recent Foreign Travel: No Recent Infectious Disease Expo: No Immunizations Up To Date Tetanus Booster (TDap): Less than 5yrs Date of Pneumonia Vaccine: Nov 08, 2010 Past Medical History PMH As described under Assessment. Family Medical History Family Medical History: Reported h/o mother having CVA, NM and HTN. Family History: Alzheimer's disease 19 MOTHER Arthritis 19 MOTHER Cardiovascular disease Completed stroke 19 MOTHER Coronary thrombosis 19 MOTHER Dementia 19 MOTHER Diabetes mellitus 19 MOTHER Hypertension 19 MOTHER Myocardial infarction Osteoporosis 19 MOTHER No Family History of: AIDS Abdominal aortic aneurysm Mirza's disease Alcoholism Aphasia Asthma Cancer of mouth Cataracts Colon cancer Congenital disease Congenital heart disease Cystic fibrosis Deafness or hearing loss Drug abuse Dysphasia Fibrocystic disease of breast Gastroenteritis Glaucoma Headache disorder Hypercholesterolemia Infertility Kidney disease Neoplasm Not obtainable due to adoption Parkinson's disease Prostate cancer Psychosocial problem Respiratory disorder Seizure disorder Severe allergy Thyroid disease Tuberculosis Visual disorder Allergies and Home Medications Allergies Coded Allergies: No Known Drug Allergies (Unverified , 04/16/18) Home Medications Acetaminophen 500 Mg Tablet, 1,000 MG PO BID, (Reported) TAKES 2 (500MG) TABLETS Citalopram Hydrobromide 20 Mg Tablet, 20 MG PO DAILY, (Reported) Digoxin 250 Mcg Tablet, 250 MCG PO DAILY, (Reported) Diltiazem HCl 360 Mg Capsule.er, 360 MG PO DAILY, (Reported) Furosemide 20 Mg Tablet, 60 MG PO BID, (Reported) TAKES 3 (20MG) TABLETS Magnesium Oxide 400 Mg Tablet, 400 MG PO BID, (Reported) Metformin HCl 500 Mg Tablet, 500 MG PO BID, (Reported) Multivit with Calcium,Iron,Min 1 Each Tablet, 1 TAB PO DAILY, (Reported) Pantoprazole Sodium 40 Mg Tablet.dr, 40 MG PO DAILY, (Reported) Potassium Chloride 10 Meq Tablet.er, 10 MEQ PO BID, (Reported) Warfarin Sodium 2 Mg Tablet, 2 MG PO SuMoWeFrSa, (Reported) Warfarin Sodium 2 Mg Tablet, 4 MG PO TuTh, (Reported) TAKES 2 (2MG) TABLETS Physical Exam-Cardiology Physical Exam Vital Signs/I&O 01/25/19 01/25/19 01/25/19 01/25/19 19:51 20:05 20:10 21:03 Temp 37.0 37.1 Pulse 82 79 Resp 22 20 B/P (MAP) 135/77 148/66 (93) Pulse Ox 92 94 93 O2 Delivery Nasal Cannula Nasal Cannula Nasal Cannula Nasal Cannula O2 Flow Rate 2.00 2.00 2.00 2.00 01/25/19 01/25/19 01/26/19 01/26/19 22:23 22:40 01:11 01:11 Temp 37.2 36.9 36.9 36.9 Pulse 84 78 87 87 Resp 22 20 24 24 B/P (MAP) 121/71 129/64 145/81 (102) 145/81 Pulse Ox 92 93 95 95 O2 Delivery Nasal Cannula Nasal Cannula Nasal Cannula Nasal Cannula O2 Flow Rate 2.00 2.00 2.00 2.00 2.00 01/26/19 01/26/19 01/26/19 02:00 03:50 06:47 Temp 36.6 Pulse 80 Resp 24 B/P (MAP) 137/66 (89) Pulse Ox 94 93 90 O2 Delivery Nasal Cannula Nasal Cannula Nasal Cannula O2 Flow Rate 2.00 2.00 2.00 2.00 01/26/19 00:00 Intake Total 350 ml Output Total 2050 ml Balance -1700 ml Capillary Refill : Less Than 3 Seconds Constitutional: AAO x 3, well-developed, well-nourished HEENT: PERRL, hearing is well preserved, oral hygience is good Neck: No carotid bruit; carotid pulses are 2 + bilaterally Respiratory: No accessory muscle use, No respiratory distress; chest expansion is symmetric, chest is bilaterally symmetric, other (fair air entry; poor inspiratory effort) Cardiovascular: irregularly irregular; No JVD; S1 and S2, systolic murmur Gastrointestinal: No tender; audible bowel sounds Genital/Rectal: other (Urinary catheter to DD; clear, yellow) Extremities: no lower extremity edema bilateral Neurologic/Psychiatric: grossly intact Skin: No rash on exposed areas, No ulcerations on exposed areas Data Review Labs Laboratory Tests 01/25/19 12:20: White Blood Count 9.8, Red Blood Count 4.06L, Hemoglobin 7.5L, Hematocrit 27L, Mean Corpuscular Volume 67L, Mean Corpuscular Hemoglobin 19L, Mean Corpuscular Hemoglobin Concent 28L, Red Cell Distribution Width 20.2H, Platelet Count 298, Mean Platelet Volume 9.2, Neutrophils (%) (Auto) 76H, Lymphocytes (%) (Auto) 10L , Monocytes (%) (Auto) 13H, Eosinophils (%) (Auto) 0, Basophils (%) (Auto) 0, Neutrophils # (Auto) 7.5, Lymphocytes # (Auto) 1.0, Monocytes # (Auto) 1.3H, Eosinophils # (Auto) 0.0, Basophils # (Auto) 0.0, Prothrombin Time 34.0H, INR Comment 3.2H, Activated Partial Thromboplast Time 51H, Sodium Level 135, Potassium Level 4.4, Chloride Level 100, Carbon Dioxide Level 27, Anion Gap 8, Blood Urea Nitrogen 22H, Creatinine 1.29, Estimat Glomerular Filtration Rate 40, BUN/Creatinine Ratio 17, Glucose Level 98, Calcium Level 8.8, Corrected Calcium 9.3, Total Bilirubin 1.0, Aspartate Amino Transf (AST/SGOT) 22, Alanine Aminotransferase (ALT/SGPT) 9, Alkaline Phosphatase 97, Troponin I < 0.028, B- Type Natriuretic Peptide 523.9H, Total Protein 8.1, Albumin 3.4 01/25/19 14:25: Urine Color YELLOW, Urine Clarity CLEAR, Urine pH 6, Urine Specific [place] 1.010L, Urine Protein NEGATIVE, Urine Glucose (UA) NEGATIVE, Urine Ketones NEGATIVE, Urine Nitrite NEGATIVE, Urine Bilirubin NEGATIVE, Urine Urobilinogen NORMAL, Urine Leukocyte Esterase NEGATIVE, Urine RBC (Auto) 4+H, Urine RBC 10- 25H, Urine WBC NONE, Urine Squamous Epithelial Cells NONE, Urine Crystals NONE, Urine Bacteria NEGATIVE, Urine Casts NONE, Urine Mucus NEGATIVE, Urine Culture Indicated NO 01/25/19 19:54: Stool Occult Blood Immunoassay NEGATIVE 01/25/19 20:57: Glucometer 155H 01/26/19 04:24: White Blood Count 11.1H, Red Blood Count 4.74, Hemoglobin 9.1#L, Hematocrit 33L, Mean Corpuscular Volume 69L, Mean Corpuscular Hemoglobin 19L, Mean Corpuscular Hemoglobin Concent 28L, Red Cell Distribution Width 21.6H, Platelet Count 300, Mean Platelet Volume 9.6, Neutrophils (%) (Auto) 79H, Lymphocytes (%) (Auto) 7L, Monocytes (%) (Auto) 13H, Eosinophils (%) (Auto) 0, Basophils (%) (Auto) 0, Neutrophils # (Auto) 8.8H, Lymphocytes # (Auto) 0.8L, Monocytes # (Auto) 1.4H, Eosinophils # (Auto) 0.1, Basophils # (Auto) 0.0, Neutrophils % (Manual) 85, Lymphocytes % (Manual) 8, Monocytes % (Manual) 7, Polychromasia SLIGHT, Anisocytosis MODERATE, Microcytosis MARKED, Prothrombin Time 31.5H, INR Comment 2.9H, Sodium Level 133L, Potassium Level 3.6, Chloride Level 97L, Carbon Dioxide Level 26, Anion Gap 10, Blood Urea Nitrogen 19H, Creatinine 1.20, Estimat Glomerular Filtration Rate 44, BUN/Creatinine Ratio 16, Glucose Level 125H, Calcium Level 8.5, Corrected Calcium 8.9, Total Bilirubin 2.0H, Aspartate Amino Transf (AST/SGOT) 22, Alanine Aminotransferase (ALT/SGPT) 9, Alkaline Phosphatase 97, Total Protein 8.5H, Albumin 3.5, Thyroid Stimulating Hormone (TSH) 1.91, Digoxin Level 1.53 Radiology NAME: SANCHEZ CISNEROS [facility] REC#: [id number] PT STATUS: REG ER : 1940 PHYSICIAN: KEN SNYDER MD ADMIT DATE: 01/25/19/ER Draft Date of Exam:01/25/19 CT CHEST WO PROCEDURE: CT chest without contrast. TECHNIQUE: Multiple contiguous axial images were obtained through the chest without the use of intravenous contrast. Auto Exposure Controls were utilized during the CT exam to meet ALARA standards for radiation dose reduction. INDICATION: Recent fall, complaining of pain in the region of the right scapula as well as increasing shortness of breath. Correlation is made with recent chest radiograph from earlier the same day. FINDINGS: Left chest wall cardiac pacemaker is in place. Heart is significantly enlarged. No pericardial fluid is seen. There is trace left pleural effusion and a large right pleural effusion. There is some mild compressive atelectasis or consolidation in the right lower lobe as well. Otherwise, the lungs appear to be fairly clear. Upper abdomen does show a small amount of perihepatic free fluid. Superior endplate fracture of L1 vertebral body is again noted. No other bony abnormalities are seen apart from severe degenerative changes involving the right shoulder and right acromioclavicular joint. There is a lytic lesion of the distal right clavicle, indeterminate. IMPRESSION: Cardiomegaly with large right and trace left pleural effusion with some associated consolidation or atelectasis in right lower lobe. No other significant abnormality is seen. Dictated on workstation # [id number] Dict: 01/25/19 1315 Trans: 01/25/19 1325 [id number] Interpreted by: MANDI MARR MD Electronically signed by: NAME: SANCHEZ CISNEROS [facility] REC#: [id number] PT STATUS: REG ER : 1940 PHYSICIAN: KEN SNYDER MD ADMIT DATE: 01/25/19/ER Draft Date of Exam:01/25/19 CHEST 1 VIEW, AP/PA ONLY Indication: Shortness of air. Time of exam: 12:37 PM Correlation is made with prior chest from 12/29/2018. The heart is enlarged but stable. Cardiac pacemaker remains in place. Right-sided effusion with some associated right basilar infiltrate atelectasis versus. Congestive changes have increased since prior exam. There is no pneumothorax. Impression: Increasing congestive changes compared to examination from one month earlier. Dictated on workstation # [id number] Dict: 01/25/19 1247 Trans: 01/25/19 1249 [id number] [id number] Interpreted by: MANDI MARR MD Electronically signed by: A/P-Cardiology Assessment/Admission Diagnosis Acute on chronic diastolic CHF Large right pleural effusion seen on CT of the chest on 01-25-19 S/P non-syncopal fall Anemia of undetermined etiology - management per medical services Progressive dyspnea, likely multi-factorial r/t acute on chronic diastolic CHF, anemia, right pleural effusion Moderate pulmonary hypertension, likely related to sleep apnea syndrome. She is on BIPAP therapy, but has been noncompliant Paroxysmal atrial fibrillation which now appears permanent. Her music orchestrator, Dr Keene in [place], [place], has managed this. ECG of 10/19/17 shows a fib with occ paced beat Status post pacemaker implantation by Dr. Keene in 2010 which is being followed by Dr. Keene (pulse gen change by Dr Keene in Mar 2017) Valvular heart disease, consisting primarily of mitral regurgitation and mitral annular calcification. On cardiac cath of August 2009, this was felt to be moderate to severe. Subsequently, on trans-esophageal echocardiography, mitral regurgitation was felt to be moderate. In addition, the patient has moderate to moderately severe tricuspid regurgitation. Echo of June 2012 indicatred mild mitral regurgitation and moderate tricuspid regurgitation; PASP was 60 mmHg. Echo of August 2014 showed LVEF 60%, mod MAC, mod AoV sclerosis without stenosis, mild MR, and PASP 45 mmHg. 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 F/u on anemia is with Dr Guillermo kaur basal cell CA treated with surgery (Dr Vargas) and radiation (Dr Stone) in 2016 Discussion and Recomendations Anemia of undetermined etiology - transfuse 2 units of PRBC Supra-therapeutic INR - hold warfarin for now Advise determination and treatment of cause of bleeding expediently so that OAC can be given when INR returns to therapeutic range d/t risk of CVA d/t PAF Acute on chronic diastolic CHF - treat with diuretics - echocardiogram to re- eval Continue home cardiac regimen with the exception of warfarin Monitor lab closely Large right pleural effusion with possible thoracentesis planned We would like to thank medical services for this consult Further recs will be based on her hospital course ANN AG Jan 25, 2019 14:16
[2019-01-25 14:33] LABS: BILIRUBIN,URINE NEGATIVE (NEGATIVE); CLARITY,URINE CLEAR; COLOR,URINE YELLOW; GLUCOSE, URINE (UA) NEGATIVE (NEGATIVE); KETONES,URINE NEGATIVE (NEGATIVE); LEUKOCYTE ESTERASE ,URINE NEGATIVE (NEGATIVE); NITRITE,URINE NEGATIVE (NEGATIVE); PH,URINE 6 (5-9); PROTEIN,URINE NEGATIVE (NEGATIVE); UROBILINOGEN,URINE NORMAL (NORMAL)
[2019-01-25 14:44] LABS: BACTERIA,URINE NEGATIVE /HPF
[2019-01-25] MEDS ORDERED: CITA20TA9 PO (15:32)
[2019-01-25] MEDS ORDERED: DILT360C30 PO (15:32)
[2019-01-25] MEDS ORDERED: MULT-141 PO (15:32)
[2019-01-25] MEDS ORDERED: NS IV 500 ML 500 ML ONE (15:34)
[2019-01-25] MEDS ORDERED: FUROSEMIDE 40 MG/4 ML INJ (LASIX) IV SCH (15:45)
[2019-01-25] MEDS ORDERED: NS IV 500 ML 500 ML IV ONE (15:45)
[2019-01-25] MEDS ORDERED: CATHETER FLUSH 10 ML SYR IV PRN (15:45)
[2019-01-25] MEDS ORDERED: ACETAMINOPHEN 325 MG TABLET PO PRN (15:45)
--- NOTE | 2019-01-25 15:47 | History & Physical ---
LOUISE RAJAN Angel 01/25/19 1547: History of Present Illness History of Present Illness Reason for visit/HPI 78yo female who came in today via EMS for complaints of lower back pain and shortness of breath. Patient reports falling in the bathroom yesterday striking her "bottom and lower back". Denies loss of consciousness. Patient reports shortness of breath that has progressively been getting worse over the past [address] Caruso, her PCP, ordered an outpatient CXR for this but she was unable to obtain due to her back pain from the fall. Patient reports fatigue but denies any other issues at this time. Date of Admission Jan 25, 2019 at 14:02 Date Seen by a Provider: Jan 25, 2019 Time Seen by a Provider: 15:00 I consulted on this patient on 01/25/19 15:41 Attending Physician Clarissa Arceo MD Admitting Physician Devin Blackwood MD Consult Allergies and Home Medications Allergies Coded Allergies: No Known Drug Allergies (Unverified , 04/16/18) Home Medications Acetaminophen 500 Mg Tablet, 1,000 MG PO BID, (Reported) TAKES 2 (500MG) TABLETS Citalopram Hydrobromide 20 Mg Tablet, 20 MG PO DAILY, (Reported) Digoxin 250 Mcg Tablet, 250 MCG PO DAILY, (Reported) Diltiazem HCl 360 Mg Capsule.er, 360 MG PO DAILY, (Reported) Furosemide 20 Mg Tablet, 60 MG PO BID, (Reported) TAKES 3 (20MG) TABLETS Magnesium Oxide 400 Mg Tablet, 400 MG PO BID, (Reported) Metformin HCl 500 Mg Tablet, 500 MG PO BID, (Reported) Multivit with Calcium,Iron,Min 1 Each Tablet, 1 TAB PO DAILY, (Reported) Pantoprazole Sodium 40 Mg Tablet.dr, 40 MG PO DAILY, (Reported) Potassium Chloride 10 Meq Tablet.er, 10 MEQ PO BID, (Reported) Warfarin Sodium 2 Mg Tablet, 2 MG PO SuMoWeFrSa, (Reported) Warfarin Sodium 2 Mg Tablet, 4 MG PO TuTh, (Reported) TAKES 2 (2MG) TABLETS Patient Home Medication List Home Medication List Reviewed: Yes Past Uiruhjm-Ijxyky-Wqgnhd Hx Patient Social History Marrital Status: Employed/Student: retired Alcohol Use: Denies Use Recreational Drug Use: No Smoking Status: Never a Smoker 2nd Hand Smoke Exposure: No Recent Foreign Travel: No Contact w/other who traveled: No Recent Hopitalizations: No Recent Infectious Disease Expo: No Immunizations Up To Date Tetanus Booster (TDap): Less than 5yrs Pediatric: Yes Date of Pneumonia Vaccine: Nov 08, 2010 Seasonal Allergies Seasonal Allergies: No Surgeries Yes (KNEE REPLACEMENT, HYSTERECTOMY, 3 C-SECTIONS, TONSILLECTOMY) Hysterectomy, Joint Replacement, Pacemaker, Tonsillectomy Respiratory Yes Cardiovascular Yes (PACEMAKER, CHF) Atrial Fibrillation, Hypertension Neurological No Reproductive System Hx Reproductive Disorders: Yes Sexually Transmitted Disease: No HIV/AIDS: No Female Reproductive Disorders: Denies Gastrointestinal Yes (gallstones) Diverticulosis Musculoskeletal Yes Arthritis Endocrine History of Endocrine Disorders: Yes Endocrine Disorders: Diabetes, Insulin dep 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, Uterine Psychosocial History of Psychiatric Problem: Yes Behavioral Health Disorders: Depression Integumentary History of Skin or Integumenta: No Blood Transfusions History of Blood Disorders: Yes (ANEMIA) Adverse Reaction to a Blood Tr: No (HAS HAD BLOOD WITH NO REACTION) Family Medical History Significant Family History: No Pertinent Family Hx Family Hx: Alzheimer's disease 19 MOTHER Arthritis 19 MOTHER Cardiovascular disease Completed stroke 19 MOTHER Coronary thrombosis 19 MOTHER Dementia 19 MOTHER Diabetes mellitus 19 MOTHER Hypertension 19 MOTHER Myocardial infarction Osteoporosis 19 MOTHER No Family History of: AIDS Abdominal aortic aneurysm Coamo's disease Alcoholism Aphasia Asthma Cancer of mouth Cataracts Colon cancer Congenital disease Congenital heart disease Cystic fibrosis Deafness or hearing loss Drug abuse Dysphasia Fibrocystic disease of breast Gastroenteritis Glaucoma Headache disorder Hypercholesterolemia Infertility Kidney disease Neoplasm Not obtainable due to adoption Parkinson's disease Prostate cancer Psychosocial problem Respiratory disorder Seizure disorder Severe allergy Thyroid disease Tuberculosis Visual disorder Review of Systems Constitutional: No chills, No fever; weakness EENTM: no symptoms reported Respiratory: No cough; dyspnea on exertion; No hemoptysis; short of breath Cardiovascular: No chest pain, No edema, No syncope Gastrointestinal: No abdominal pain, No constipation, No diarrhea, No hematemesis, No melena Genitourinary: No dysuria : No Control/STD Prophylaxis: None Musculoskeletal: back pain (Lower Back Pain) Physical Exam Vital Signs Vital Signs - First Documented 01/25/19 01/25/19 10:40 12:21 Temp 37.2 Pulse 80 Resp 16 B/P (MAP) 118/61 (80) Pulse Ox 87 O2 Delivery Room Air O2 Flow Rate 2.00 Capillary Refill : Less Than 3 Seconds VS - Last 72 Hours, by Label 9/17/19 9/17/19 9/17/19 10:40 12:21 14:58 Temp 37.2 37.2 Pulse 80 74 Resp 16 16 B/P (MAP) 118/61 (80) 113/79 (80) Pulse Ox 87 95 97 O2 Delivery Room Air Nasal Cannula Nasal Cannula O2 Flow Rate 2.00 3.00 Height, Weight, BMI Height: 5'2.00" Weight: 180lbs. 0.0oz. [id number]; 31.00 BMI Method:Stated General Appearance: No Apparent Distress, WD/WN Eyes: Bilateral Eye Normal Inspection, Bilateral Eye PERRL HEENT: PERRL/EOMI Neck: Full Range of Motion, Supple Respiratory: No Accessory Muscle Use, No Respiratory Distress, Decreased Breath Sounds Cardiovascular: No JVD, Irregularly Irregular Gastrointestinal: Non Tender, Soft Back: Normal Inspection Extremity: Normal Capillary Refill, Normal Inspection, Normal Range of Motion Neurologic/Psychiatric: Alert, Oriented x3, No Motor/Sensory Deficits, Normal Mood/Affect Skin: Normal Color, Warm/Dry Lymphatic: No Adenopathy Assessment/Plan Assessment and Plan Problems: (1) Acute on chronic congestive heart failure Qualifiers: Qualified Codes: I50.33 - Acute on chronic diastolic (congestive) heart failure Assessment & Plan: Diuresis with IV Lasix. Will Check Troponin. (2) Acute hypoxemic respiratory failure Status: Acute Assessment & Plan: Continue supplemental 02 via 2-4L Nasal Cannula as needed to keep Sp02 greater than 94%. (3) Microcytic hypochromic anemia Assessment & Plan: 2 units PRBC with IV Lasix between transfusions today. Reassess CBC in AM. Obtain FOBT. Will add a serum Ferritin to labs drawn today. (4) Pleural effusion on right Assessment & Plan: Pulmonology consultation for possible thoracentesis of right sided pleural effusion. (5) L1 vertebral fracture Status: Acute Qualifiers: Assessment & Plan: Pain management and activity as tolerated. Will consider orthopedic consultation. Admission Diagnosis Acute on Chronic Congestive Heart Failure Admission Status: Inpatient Order (span 2 midnights) Reason for Inpatient Admission: Acute on chronic exacerbation of congestive heart failure requiring IV diuretics. Large right sided pleural effusion requiring thoracentesis. CLARISSA ARCEO MD 01/25/19 0983: Allergies and Home Medications Allergies Coded Allergies: No Known Drug Allergies (Unverified , 04/16/18) Home Medications Acetaminophen 500 Mg Tablet, 1,000 MG PO BID, (Reported) TAKES 2 (500MG) TABLETS Citalopram Hydrobromide 20 Mg Tablet, 20 MG PO DAILY, (Reported) Digoxin 250 Mcg Tablet, 250 MCG PO DAILY, (Reported) Diltiazem HCl 360 Mg Capsule.er, 360 MG PO DAILY, (Reported) Furosemide 20 Mg Tablet, 60 MG PO BID, (Reported) TAKES 3 (20MG) TABLETS Magnesium Oxide 400 Mg Tablet, 400 MG PO BID, (Reported) Metformin HCl 500 Mg Tablet, 500 MG PO BID, (Reported) Multivit with Calcium,Iron,Min 1 Each Tablet, 1 TAB PO DAILY, (Reported) Pantoprazole Sodium 40 Mg Tablet.dr, 40 MG PO DAILY, (Reported) Potassium Chloride 10 Meq Tablet.er, 10 MEQ PO BID, (Reported) Warfarin Sodium 2 Mg Tablet, 2 MG PO SuMoWeFrSa, (Reported) Warfarin Sodium 2 Mg Tablet, 4 MG PO TuTh, (Reported) TAKES 2 (2MG) TABLETS Past Ftlpcbg-Xsdkiv-Zmlxzl Hx Family Medical History Family Hx: Alzheimer's disease 19 MOTHER Arthritis 19 MOTHER Cardiovascular disease Completed stroke 19 MOTHER Coronary thrombosis 19 MOTHER Dementia 19 MOTHER Diabetes mellitus 19 MOTHER Hypertension 19 MOTHER Myocardial infarction Osteoporosis 19 MOTHER No Family History of: AIDS Abdominal aortic aneurysm Coamo's disease Alcoholism Aphasia Asthma Cancer of mouth Cataracts Colon cancer Congenital disease Congenital heart disease Cystic fibrosis Deafness or hearing loss Drug abuse Dysphasia Fibrocystic disease of breast Gastroenteritis Glaucoma Headache disorder Hypercholesterolemia Infertility Kidney disease Neoplasm Not obtainable due to adoption Parkinson's disease Prostate cancer Psychosocial problem Respiratory disorder Seizure disorder Severe allergy Thyroid disease Tuberculosis Visual disorder Assessment/Plan Admission Diagnosis Admission Status: Inpatient Order (span 2 midnights) Reason for Inpatient Admission: Acute on chronic diastolic heart failure Supervisory-Addendum Brief Verification & Attestation Participated in pt care: history, physical Personally performed: exam, history, supervision of care Care discussed with: other ([employer] student) Procedures: n/a Results interpretation: Verified all documentation Verification and Attestation of Medical Student E/M Service A medical student performed and documented this service in my presence. I reviewed and verified all information documented by the medical student and made modifications to such information, when appropriate. I personally performed the physical exam and medical decision making. Clarissa Arceo, Jan 25, 2019,17:59 LOUISE RAJAN I Jan 25, 2019 15:47 CLARISSA ARCEO MD Jan 25, 2019 17:59
--- NOTE | 2019-01-25 15:48 | NUR ---
PATIENT HAD A DETAILED LIST OF HER MEDICATIONS. I COMPARED THAT LIST WITH THE EXT MED HX. HER LIST STATES WARFARIN 2 TABS AND 1 TAB OTHER DAYS - SHE STATES SHE TAKES 2 TABS , THURSDAY, AND 1 TAB ALL OTHER DAYS. HER FUROSEMIDE IS FILLED 2 TABS BID HOWEVER SHE STATES FOR THE PAST WEEK OR SO SHE HAS BEEN TAKING 3 TABS BID. SHE TAKES THE FOLLOWING OTC: MAGNESIUM 400MG BID WOMEN'S [employer] DAILY TYLENOL 500MG 2 BID
[2019-01-25] MEDS ORDERED: RT-ALBUTEROL SULF 2.5 MG/3 ML PRE-MIX VIAL INH PRN (16:30)
[2019-01-25] MEDS: fentaNYL INJECTION 100 MCG/2 ML AMP IV PRN (16:57)
--- NOTE | 2019-01-25 18:06 | Consultation-Cardiology ---
HPI-Cardiology Cardiology Consultation: Date of Consultation 01/25/19 Time Seen by a Provider: 16:00 Date of Admission Attending Physician Yary Kwon MD Admitting Physician Devin Blackwood MD Consulting Physician JERSEY SUE MD, MA, FACP, FACC, FSCAI, CCDS HPI: Chief Complaint: Reason for consultation: Shortness of breath HPI Ms. Victoria is a 78 year old female admitted to 429 from the ED. Her spouse is at the bedside. She reports she has had progressive shortness of breath for the last couple weeks. She states she was on her way to the hospital yesterday to have a CXR ordered by Dr. Blackwood when she lost her balance and fell hitting her head and back. She denies any syncope. No loss of consciousness. She states her son came and helped her up off the floor. She continued to have worsening of her dyspnea and back pain. Therefore, she was brought to the ED. She denies any c/o CP. She reports occ episodes of palpitations, but reports they are infrequent and unchanged in the recent past. She denies cough, fever or chills. She denies any LE swelling. She has continued to have weight loss, which at first was intentional, but has continued despite and recent dietary or activity changes. She denies any diarrhea or vomiting. Her spouse states he believes her stools have been somewhat dark. He states she was having symptoms of anemia at home. He reports they have been following with Dr. Li and had lab on Thursday showing her Hgb was around 8.4. She is currently reporting back pain worse with any movement. Review of Systems-Cardiology Review of Systems Constitutional: No chills, No fever; malaise, weight loss Eyes: No vision change Ears/Nose/Throat: No epistaxis, No recent hearing loss Respiratory: As described under HPI Cardiovascular: As described under HPI Gastrointestinal: No constipation, No diarrhea, No nausea, No vomiting; stool coloration changes (dark, per spouse report) Genitourinary: No dysuria, No hematuria : No Musculoskeletal: As describe under HPI Skin: No rash on exposed areas, No ulcerations on exposed areas Psychiatric/Neurological: No seizure, No focal weakness, No syncope Hematologic: No bleeding abnormalities All Other Systems Reviewed Negative Unless Noted: Yes CDB-Oymzwk-Mutoqe Hx Patient Social History Marrital Status: Employed/Student: retired Alcohol Use: Denies Use Recreational Drug Use: No Smoking Status: Never a Smoker 2nd Hand Smoke Exposure: No Recent Foreign Travel: No Recent Infectious Disease Expo: No Immunizations Up To Date Tetanus Booster (TDap): Less than 5yrs Date of Pneumonia Vaccine: Nov 08, 2010 Past Medical History PMH As described under Assessment. Family Medical History Family Medical History: Reported h/o mother having CVA, [place] and HTN. Family History: Alzheimer's disease 19 MOTHER Arthritis 19 MOTHER Cardiovascular disease Completed stroke 19 MOTHER Coronary thrombosis 19 MOTHER Dementia 19 MOTHER Diabetes mellitus 19 MOTHER Hypertension 19 MOTHER Myocardial infarction Osteoporosis 19 MOTHER No Family History of: AIDS Abdominal aortic aneurysm [place]'s disease Alcoholism Aphasia Asthma Cancer of mouth Cataracts Colon cancer Congenital disease Congenital heart disease Cystic fibrosis Deafness or hearing loss Drug abuse Dysphasia Fibrocystic disease of breast Gastroenteritis Glaucoma Headache disorder Hypercholesterolemia Infertility Kidney disease Neoplasm Not obtainable due to adoption Parkinson's disease Prostate cancer Psychosocial problem Respiratory disorder Seizure disorder Severe allergy Thyroid disease Tuberculosis Visual disorder Allergies and Home Medications Allergies Coded Allergies: No Known Drug Allergies (Unverified , 04/16/18) Home Medications Acetaminophen 500 Mg Tablet, 1,000 MG PO BID, (Reported) TAKES 2 (500MG) TABLETS Citalopram Hydrobromide 20 Mg Tablet, 20 MG PO DAILY, (Reported) Digoxin 250 Mcg Tablet, 250 MCG PO DAILY, (Reported) Diltiazem HCl 360 Mg Capsule.er, 360 MG PO DAILY, (Reported) Furosemide 20 Mg Tablet, 60 MG PO BID, (Reported) TAKES 3 (20MG) TABLETS Magnesium Oxide 400 Mg Tablet, 400 MG PO BID, (Reported) Metformin HCl 500 Mg Tablet, 500 MG PO BID, (Reported) Multivit with Calcium,Iron,Min 1 Each Tablet, 1 TAB PO DAILY, (Reported) Pantoprazole Sodium 40 Mg Tablet.dr, 40 MG PO DAILY, (Reported) Potassium Chloride 10 Meq Tablet.er, 10 MEQ PO BID, (Reported) Warfarin Sodium 2 Mg Tablet, 2 MG PO SuMoWeFrSa, (Reported) Warfarin Sodium 2 Mg Tablet, 4 MG PO TuTh, (Reported) TAKES 2 (2MG) TABLETS Patient Home Medication List Home Medication List Reviewed: Yes Physical Exam-Cardiology Physical Exam Vital Signs/I&O 9/17/19 9/17/19 9/17/19 9/17/19 10:40 12:21 14:58 15:25 Temp 37.2 37.2 37.5 Pulse 80 74 77 Resp 16 16 18 B/P (MAP) 118/61 (80) 113/79 (80) 135/65 Pulse Ox 87 95 97 93 O2 Delivery Room Air Nasal Cannula Nasal Cannula Nasal Cannula O2 Flow Rate 2.00 3.00 3.00 2.00 01/25/19 01/25/19 01/25/19 01/25/19 16:05 16:10 16:10 16:30 Temp 37.2 37.0 37.4 Pulse 80 83 76 Resp 19 B/P (MAP) 142/68 155/71 Pulse Ox 96 96 96 94 O2 Delivery Nasal Cannula Nasal Cannula Nasal Cannula O2 Flow Rate 1.00 3.00 2.00 01/25/19 16:39 Temp 37.5 Pulse 77 Resp 18 B/P (MAP) 135/65 (88) Pulse Ox 93 O2 Delivery Nasal Cannula O2 Flow Rate 3.00 Capillary Refill : Less Than 3 Seconds Constitutional: AAO x 3, well-developed, well-nourished HEENT: PERRL, hearing is well preserved, oral hygience is good Neck: No carotid bruit; carotid pulses are 2 + bilaterally Respiratory: No accessory muscle use, No respiratory distress; chest expansion is symmetric, chest is bilaterally symmetric, other (fair air entry; poor inspiratory effort) Cardiovascular: irregularly irregular; No JVD; S1 and S2, systolic murmur Gastrointestinal: No tender; audible bowel sounds Genital/Rectal: other (Urinary catheter to DD; clear, yellow) Extremities: no lower extremity edema bilateral Neurologic/Psychiatric: grossly intact Skin: No rash on exposed areas, No ulcerations on exposed areas Data Review Labs Laboratory Tests 01/25/19 12:20: White Blood Count 9.8, Red Blood Count 4.06L, Hemoglobin 7.5L, Hematocrit 27L, Mean Corpuscular Volume 67L, Mean Corpuscular Hemoglobin 19L, Mean Corpuscular Hemoglobin Concent 28L, Red Cell Distribution Width 20.2H, Platelet Count 298, Mean Platelet Volume 9.2, Neutrophils (%) (Auto) 76H, Lymphocytes (%) (Auto) 10L , Monocytes (%) (Auto) 13H, Eosinophils (%) (Auto) 0, Basophils (%) (Auto) 0, Neutrophils # (Auto) 7.5, Lymphocytes # (Auto) 1.0, Monocytes # (Auto) 1.3H, Eosinophils # (Auto) 0.0, Basophils # (Auto) 0.0, Prothrombin Time 34.0H, INR Comment 3.2H, Activated Partial Thromboplast Time 51H, Sodium Level 135, Potassium Level 4.4, Chloride Level 100, Carbon Dioxide Level 27, Anion Gap 8, Blood Urea Nitrogen 22H, Creatinine 1.29, Estimat Glomerular Filtration Rate 40, BUN/Creatinine Ratio 17, Glucose Level 98, Calcium Level 8.8, Corrected Calcium 9.3, Total Bilirubin 1.0, Aspartate Amino Transf (AST/SGOT) 22, Alanine Aminotransferase (ALT/SGPT) 9, Alkaline Phosphatase 97, B-Type Natriuretic Peptide 523.9H, Total Protein 8.1, Albumin 3.4 01/25/19 14:25: Urine Color YELLOW, Urine Clarity CLEAR, Urine pH 6, Urine Specific [place] 1.010L, Urine Protein NEGATIVE, Urine Glucose (UA) NEGATIVE, Urine Ketones NEGATIVE, Urine Nitrite NEGATIVE, Urine Bilirubin NEGATIVE, Urine Urobilinogen NORMAL, Urine Leukocyte Esterase NEGATIVE, Urine RBC (Auto) 4+H, Urine RBC 10- 25H, Urine WBC NONE, Urine Squamous Epithelial Cells NONE, Urine Crystals NONE, Urine Bacteria NEGATIVE, Urine Casts NONE, Urine Mucus NEGATIVE, Urine Culture Indicated NO A/P-Cardiology Assessment/Admission Diagnosis Multifactorial shortness of breath, see below Acute on chronic diastolic CHF Large right pleural effusion seen on CT of the chest on 01-25-19 S/P non-syncopal fall Anemia of undetermined etiology - management per Medical Services Moderate pulmonary hypertension, likely related to sleep apnea syndrome. She is on BIPAP therapy, but has been noncompliant Paroxysmal atrial fibrillation which now appears permanent. Her community engagement leader, Dr Keene in [place], [place], has managed this. ECG of 10/19/17 shows a fib with occ paced beat Status post pacemaker implantation by Dr. Keene in 2010 which is being followed by Dr. Keene (pulse gen change by Dr Keene in Mar 2017) Valvular heart disease, consisting primarily of mitral regurgitation and mitral annular calcification. On cardiac cath of August 2009, this was felt to be moderate to severe. Subsequently, on trans-esophageal echocardiography, mitral regurgitation was felt to be moderate. In addition, the patient has moderate to moderately severe tricuspid regurgitation. Echo of June 2012 indicatred mild mitral regurgitation and moderate tricuspid regurgitation; PASP was 60 mmHg. Echo of August 2014 showed LVEF 60%, mod MAC, mod AoV sclerosis without stenosis, mild MR, and PASP 45 mmHg. 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 F/u on anemia is with Dr Guillermo kaur basal cell CA treated with surgery (Dr Vargas) and radiation (Dr Stone) in 2016 Discussion and Recomendations * Anemia of undetermined etiology - transfuse 2 units of PRBC * Supra-therapeutic INR - hold warfarin for now * Advise determination and treatment of cause of bleeding expediently so that OAC can be given when INR returns to therapeutic range d/t risk of CVA d/t PAF * Acute on chronic diastolic CHF - treat with diuretics - echocardiogram to re- eval * Continue home cardiac regimen with the exception of warfarin * Monitor lab closely * Large right pleural effusion with possible thoracentesis planned (Pulm Svce) * We would like to thank Medical Services for this consult * Further recs will be based on her hospital course. I spoke with her and her her son in detail JERSEY SUE MD FACP FACC CCDS Jan 25, 2019 18:06
--- NOTE | 2019-01-25 19:35 | NUR ---
Pt having nausea and small amount emesis. New order rec for Zofran 8mg IV q [address] Santiago.
[2019-01-25] MEDS ORDERED: ONDANSETRON 4 MG/2 ML (SDV) Z0FRAN ONE (19:50)
[2019-01-25] MEDS: ONDANSETRON 4 MG/2 ML (SDV) Z0FRAN IVP PRN (20:05)
[2019-01-25] MEDS: RT-ALBUTEROL SULF 2.5 MG/3 ML PRE-MIX VIAL INH SCH (21:03)
[2019-01-25] MEDS: PANTOPRAZOLE 40 MG (PROTONIX) VIAL IV SCH (21:56)
[2019-01-25] MEDS: CATHETER FLUSH 10 ML SYR IV SCH (21:56)
[2019-01-26 01:11] VITALS: BP 145/81
[2019-01-26] MEDS: RT-ALBUTEROL SULF 2.5 MG/3 ML PRE-MIX VIAL INH SCH ×4 (02:00→21:01)
[2019-01-26] MEDS: ONDANSETRON 4 MG/2 ML (SDV) Z0FRAN IVP PRN ×2 (03:15→14:13)
[2019-01-26] MEDS: CATHETER FLUSH 10 ML SYR IV SCH ×3 (03:15→20:21)
[2019-01-26 03:50] VITALS: BP 137/66
[2019-01-26 04:58] LABS: BASOPHILS % (AUTO) 0 % (0-10); EOSINOPHILS # (AUTO) 0.1 10^3/uL (0.0-0.3); EOSINOPHILS % (AUTO) 0 % (0-10); HEMATOCRIT 33 % (35-52); HEMOGLOBIN 9.1 G/DL (11.5-16.0); LYMPHOCYTES # (AUTO) 0.8 X 10^3 (1.0-4.0); LYMPHOCYTES % (AUTO) 7 % (12-44); MEAN CORPUSCULAR HEMOGLOBIN 19 PG (25-34); MEAN CORPUSCULAR HGB CONC 28 G/DL (32-36); MEAN CORPUSCULAR VOLUME 69 FL (80-99); MEAN PLATELET VOLUME 9.6 FL (7.4-10.4); MONOCYTES # (AUTO) 1.4 X 10^3 (0.0-1.0); MONOCYTES % (AUTO) 13 % (0-12); NEUTROPHILS # (AUTO) 8.8 X 10^3 (1.8-7.8); NEUTROPHILS % (AUTO) 79 % (42-75); PLATELET COUNT 300 10^3/uL (130-400); RED CELL DISTRIBUTION WIDTH 21.6 % (10.0-14.5); WHITE BLOOD COUNT 11.1 10^3/uL (4.3-11.0)
[2019-01-26 05:08] LABS: INR 2.9 (0.8-1.4); PROTHROMBIN TIME PATIENT 31.5 SEC (12.2-14.7)
[2019-01-26 05:25] LABS: ALBUMIN 3.5 GM/DL (3.2-4.5); CALCIUM 8.5 MG/DL (8.5-10.1); CREATININE SERUM 1.2 MG/DL (0.60-1.30); POTASSIUM 3.6 MMOL/L (3.6-5.0); TOTAL PROTEIN 8.5 GM/DL (6.4-8.2)
[2019-01-26 06:36] LABS: ANISOCYTOSIS MODERATE; LYMPHOCYTES % (MANUAL) 8 %; MICROCYTOSIS MARKED; MONOCYTES % (MANUAL) 7 %; NEUTROPHILS % (MANUAL) 85 %; POLYCHROMASIA SLIGHT
[2019-01-26 08:00] VITALS: BP 133/69
[2019-01-26] MEDS: PANTOPRAZOLE 40 MG (PROTONIX) VIAL IV SCH ×2 (08:09→20:21)
[2019-01-26] MEDS: FUROSEMIDE 40 MG/4 ML INJ (LASIX) IVP SCH (08:15)
--- NOTE | 2019-01-26 09:42 | Progress Note - Cardiology ---
Cardiology SOAP Progress Note Subjective: No cp or palp or syncope Shortness of breath somewhat better Gen weakness present Objective: I&O/Vital Signs 01/25/19 01/25/19 01/26/19 01/26/19 22:23 22:40 01:11 01:11 Temp 37.2 36.9 36.9 36.9 Pulse 84 78 87 87 Resp 22 20 24 24 B/P (MAP) 121/71 129/64 145/81 (102) 145/81 Pulse Ox 92 93 95 95 O2 Delivery Nasal Cannula Nasal Cannula Nasal Cannula Nasal Cannula O2 Flow Rate 2.00 2.00 2.00 2.00 2.00 01/26/19 01/26/19 01/26/19 01/26/19 02:00 03:50 06:47 08:00 Temp 36.6 37.4 Pulse 80 88 Resp 24 22 B/P (MAP) 137/66 (89) 133/69 (90) Pulse Ox 94 93 90 94 O2 Delivery Nasal Cannula Nasal Cannula Nasal Cannula Nasal Cannula O2 Flow Rate 2.00 2.00 2.00 2.00 2.00 01/26/19 00:00 Intake Total 350 ml Output Total 2050 ml Balance -1700 ml Weight (Pounds): 178 Weight (Ounces): 14.4 Weight (Calculated Kilograms): 81.557251 Constitutional: AAO x 3, well-developed, well-nourished Respiratory: No accessory muscle use, No respiratory distress; chest expansion is symmetric, chest is bilaterally symmetric, other (fair air entry; poor inspiratory effort) Cardiovascular: irregularly irregular; No JVD; S1 and S2, systolic murmur Gastrointestional: No tender; audible bowel sounds Genital/Rectal: other (Urinary catheter to DD; clear, yellow) Extremities: no lower extremity edema bilateral Neurologic/Psychiatric: grossly intact Skin: No rash on exposed areas, No ulcerations on exposed areas Results/Procedures: Labs Laboratory Tests 01/25/19 12:20: White Blood Count 9.8, Red Blood Count 4.06L, Hemoglobin 7.5L, Hematocrit 27L, Mean Corpuscular Volume 67L, Mean Corpuscular Hemoglobin 19L, Mean Corpuscular Hemoglobin Concent 28L, Red Cell Distribution Width 20.2H, Platelet Count 298, Mean Platelet Volume 9.2, Neutrophils (%) (Auto) 76H, Lymphocytes (%) (Auto) 10L , Monocytes (%) (Auto) 13H, Eosinophils (%) (Auto) 0, Basophils (%) (Auto) 0, Neutrophils # (Auto) 7.5, Lymphocytes # (Auto) 1.0, Monocytes # (Auto) 1.3H, Eosinophils # (Auto) 0.0, Basophils # (Auto) 0.0, Prothrombin Time 34.0H, INR Comment 3.2H, Activated Partial Thromboplast Time 51H, Sodium Level 135, Potass ium Level 4.4, Chloride Level 100, Carbon Dioxide Level 27, Anion Gap 8, Blood Urea Nitrogen 22H, Creatinine 1.29, Estimat Glomerular Filtration Rate 40, BUN/Creatinine Ratio 17, Glucose Level 98, Calcium Level 8.8, Corrected Calcium 9.3, Total Bilirubin 1.0, Aspartate Amino Transf (AST/SGOT) 22, Alanine Aminotransferase (ALT/SGPT) 9, Alkaline Phosphatase 97, Troponin I < 0.028, B- Type Natriuretic Peptide 523.9H, Total Protein 8.1, Albumin 3.4 01/25/19 14:25: Urine Color YELLOW, Urine Clarity CLEAR, Urine pH 6, Urine Specific [place] 1.010L, Urine Protein NEGATIVE, Urine Glucose (UA) NEGATIVE, Urine Ketones NEGATIVE, Urine Nitrite NEGATIVE, Urine Bilirubin NEGATIVE, Urine Urobilinogen NORMAL, Urine Leukocyte Esterase NEGATIVE, Urine RBC (Auto) 4+H, Urine RBC 10- 25H, Urine WBC NONE, Urine Squamous Epithelial Cells NONE, Urine Crystals NONE, Urine Bacteria NEGATIVE, Urine Casts NONE, Urine Mucus NEGATIVE, Urine Culture Indicated NO 01/25/19 19:54: Stool Occult Blood Immunoassay NEGATIVE 01/25/19 20:57: Glucometer 155H 01/26/19 04:24: White Blood Count 11.1H, Red Blood Count 4.74, Hemoglobin 9.1#L, Hematocrit 33L, Mean Corpuscular Volume 69L, Mean Corpuscular Hemoglobin 19L, Mean Corpuscular Hemoglobin Concent 28L, Red Cell Distribution Width 21.6H, Platelet Count 300, Mean Platelet Volume 9.6, Neutrophils (%) (Auto) 79H, Lymphocytes (%) (Auto) 7L, Monocytes (%) (Auto) 13H, Eosinophils (%) (Auto) 0, Basophils (%) (Auto) 0, Neutrophils # (Auto) 8.8H, Lymphocytes # (Auto) 0.8L, Monocytes # (Auto) 1.4H, Eosinophils # (Auto) 0.1, Basophils # (Auto) 0.0, Neutrophils % (Manual) 85, Lymphocytes % (Manual) 8, Monocytes % (Manual) 7, Polychromasia SLIGHT, Anisocytosis MODERATE, Microcytosis MARKED, Prothrombin Time 31.5H, INR Comment 2.9H, Sodium Level 133L, Potassium Level 3.6, Chloride Level 97L, Carbon Dioxide Level 26, Anion Gap 10, Blood Urea Nitrogen 19H, Creatinine 1.20, Estimat Gl omerular Filtration Rate 44, BUN/Creatinine Ratio 16, Glucose Level 125H, Calcium Level 8.5, Corrected Calcium 8.9, Total Bilirubin 2.0H, Aspartate Amino Transf (AST/SGOT) 22, Alanine Aminotransferase (ALT/SGPT) 9, Alkaline Phosphatase 97, Total Protein 8.5H, Albumin 3.5, Thyroid Stimulating Hormone (TSH) 1.91, Digoxin Level 1.53 A/P: Assessment: Multifactorial shortness of breath, see below Acute on chronic diastolic CHF Large right pleural effusion seen on CT of the chest on 01-25-19 S/P non-syncopal fall Anemia of undetermined etiology - management per Medical Services Moderate pulmonary hypertension, likely related to sleep apnea syndrome. She is on BIPAP therapy, but has been noncompliant Paroxysmal atrial fibrillation which now appears permanent. Her pump servicer supervisor, Dr Keene in [place], [place], has managed this. ECG of 10/19/17 shows a fib with occ paced beat Status post pacemaker implantation by Dr. Keene in 2010 which is being followed by Dr. Keene (pulse gen change by Dr Keene in Mar 2017) Valvular heart disease, consisting primarily of mitral regurgitation and mitral annular calcification. On cardiac cath of August 2009, this was felt to be moderate to severe. Subsequently, on trans-esophageal echocardiography, mitral regurgitation was felt to be moderate. In addition, the patient has moderate to moderately severe tricuspid regurgitation. Echo of June 2012 indicated mild mitral regurgitation and moderate tricuspid regurgitation; PASP was 60 mmHg. Echo of August 2014 showed LVEF 60%, mod MAC, mod AoV sclerosis without stenosis, mild MR, and PASP 45 mmHg. 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 F/u on anemia is with Dr Guillermo kaur basal cell CA treated with surgery (Dr Vargas) and radiation (Dr Stone) in 2016 Plan: * I discussed her case with Dr Dill this am. He plans thoracentesis after INR normal * We recommend GI w/u, given anemia and given h/o presences of sources that may cause GI bleed (see above) * Monitor labs * Supra-therapeutic INR - hold warfarin for now * Advise determination and treatment of cause of bleeding expediently so that OAC can be given when INR returns to therapeutic range d/t risk of CVA d/t PAF * I answered her and her family's questions in detail JERSEY SUE MD FACP FAC CCDS Jan 26, 2019 09:41
[2019-01-26] MEDS: inSUlin ASPART (NovoLOG) 1 UNIT/0.01 ML (CHARGE PER UNIT) SC SCH ×3 (11:22→21:34)
[2019-01-26 12:00] VITALS: BP 135/61
[2019-01-26] MEDS: fentaNYL INJECTION 100 MCG/2 ML AMP IV PRN (13:02)
--- NOTE | 2019-01-26 15:16 | NUR ---
Chaplain Milly Carter provided pastoral support and empathy. Pt is Mandaeism.
--- NOTE | 2019-01-26 15:35 | NUR ---
Met with pt and who requested assistance with Advance Directives. They completed the DPOA for Healthcare paperwork and copy placed in chart. They listed their daughter Jennifer as primary Agent but also listed their two sons as alternates. will follow to assist with contined care plans.
--- NOTE | 2019-01-26 16:13 | Pulmonary Consultation ---
History of Present Illness History of Present Illness Date of Consultation 01/26/19 16:10 Date of Admission Allergies and Home Medications Allergies Coded Allergies: No Known Drug Allergies (Unverified , 04/16/18) Home Medications Acetaminophen 500 Mg Tablet, 1,000 MG PO BID, (Reported) TAKES 2 (500MG) TABLETS Citalopram Hydrobromide 20 Mg Tablet, 20 MG PO DAILY, (Reported) Digoxin 250 Mcg Tablet, 250 MCG PO DAILY, (Reported) Diltiazem HCl 360 Mg Capsule.er, 360 MG PO DAILY, (Reported) Furosemide 20 Mg Tablet, 60 MG PO BID, (Reported) TAKES 3 (20MG) TABLETS Magnesium Oxide 400 Mg Tablet, 400 MG PO BID, (Reported) Metformin HCl 500 Mg Tablet, 500 MG PO BID, (Reported) Multivit with Calcium,Iron,Min 1 Each Tablet, 1 TAB PO DAILY, (Reported) Pantoprazole Sodium 40 Mg Tablet.dr, 40 MG PO DAILY, (Reported) Potassium Chloride 10 Meq Tablet.er, 10 MEQ PO BID, (Reported) Warfarin Sodium 2 Mg Tablet, 2 MG PO SuMoWeFrSa, (Reported) Warfarin Sodium 2 Mg Tablet, 4 MG PO TuTh, (Reported) TAKES 2 (2MG) TABLETS Past Dfrqudx-Gvfkdq-Phxpip Hx Past Med/Social Hx: Reviewed Nursing Past Med/Soc Hx Patient Social History Alcohol Use: Denies Use Recreational Drug Use: No Smoking Status: Never a Smoker 2nd Hand Smoke Exposure: No Recent Foreign Travel: No Contact w/Someone Who Travel: No Recent Infectious Disease Expo: No Recent Hopitalizations: No Physical Abuse: No Sexual Abuse: No Immunizations Up To Date Tetanus Booster (TDap): Less than 5yrs PED Vaccines UTD: Yes Date of Pneumonia Vaccine: Nov 08, 2010 Seasonal Allergies Seasonal Allergies: No Past Medical History Surgeries: Yes (KNEE REPLACEMENT, HYSTERECTOMY, 3 C-SECTIONS, TONSILLECTOMY) Hysterectomy, Joint Replacement, Pacemaker, Tonsillectomy Respiratory: Yes Sleep Apnea Cardiac: Yes (PACEMAKER, CHF) Atrial Fibrillation, Hypertension Neurological: No Reproductive Disorders: Yes Female Reproductive Disorders: Denies Sexually Transmitted Disease: No HIV/AIDS: No Gastrointestinal: Yes (gallstones) Diverticulosis Musculoskeletal: Yes Arthritis Endocrine: Yes Diabetes, 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, Uterine Psychosocial: Yes Depression Integumentary: No Blood Disorders: Yes (ANEMIA) Adverse Reaction/Blood Tranf: No (HAS HAD BLOOD WITH NO REACTION) Family Medical History Reviewed Nursing Family Hx Alzheimer's disease 19 MOTHER Arthritis 19 MOTHER Cardiovascular disease Completed stroke 19 MOTHER Coronary thrombosis 19 MOTHER Dementia 19 MOTHER Diabetes mellitus 19 MOTHER Hypertension 19 MOTHER Myocardial infarction Osteoporosis 19 MOTHER No Family History of: AIDS Abdominal aortic aneurysm Mirza's disease Alcoholism Aphasia Asthma Cancer of mouth Cataracts Colon cancer Congenital disease Congenital heart disease Cystic fibrosis Deafness or hearing loss Drug abuse Dysphasia Fibrocystic disease of breast Gastroenteritis Glaucoma Headache disorder Hypercholesterolemia Infertility Kidney disease Neoplasm Not obtainable due to adoption Parkinson's disease Prostate cancer Psychosocial problem Respiratory disorder Seizure disorder Severe allergy Thyroid disease Tuberculosis Visual disorder No Pertinent Family Hx Sepsis Event Evaluation Height, Weight, BMI Height: 5'2.00" Weight: 178lbs. 14.4oz. 81.268133te; 31.64 BMI Method:Stated Exam Exam Vital Signs Date Time Temp Pulse Resp B/P (MAP) Pulse Ox O2 Delivery O2 Flow Rate FiO2 01/26/19 12:00 36.8 75 22 135/61 (85) 92 Nasal Cannula 2.00 01/26/19 08:30 Nasal Cannula 2.00 01/26/19 08:00 37.4 88 22 133/69 (90) 94 Nasal Cannula 2.00 01/26/19 06:47 90 Nasal Cannula 2.00 01/26/19 03:50 36.6 80 24 137/66 (89) 93 Nasal Cannula 2.00 2.00 01/26/19 02:00 94 Nasal Cannula 2.00 01/26/19 01:11 36.9 87 24 145/81 95 Nasal Cannula 2.00 01/26/19 01:11 36.9 87 24 145/81 (102) 95 Nasal Cannula 2.00 2.00 01/25/19 22:40 36.9 78 20 129/64 93 Nasal Cannula 2.00 01/25/19 22:23 37.2 84 22 121/71 92 Nasal Cannula 2.00 01/25/19 21:03 93 Nasal Cannula 2.00 01/25/19 20:10 37.1 79 20 148/66 (93) 94 Nasal Cannula 2.00 01/25/19 20:05 Nasal Cannula 2.00 01/25/19 19:51 37.0 82 22 135/77 92 Nasal Cannula 2.00 01/25/19 18:01 94 01/25/19 16:39 37.5 77 18 135/65 (88) 93 Nasal Cannula 3.00 01/25/19 16:30 37.4 76 19 155/71 94 Nasal Cannula 2.00 I & O 01/26/19 07:00 Intake Total 350 ml Output Total 3425 ml Balance -3075 ml Height & Weight Height: 5'2.00" Weight: 178lbs. 14.4oz. 81.168231vz; 31.64 BMI Method:Stated General Appearance: No Apparent Distress, WD/WN HEENT: PERRL/EOMI Neck: Full Range of Motion, Supple Respiratory: No Accessory Muscle Use, No Respiratory Distress, Decreased Breath Sounds Cardiovascular: No JVD, Irregularly Irregular Capillary Refill: Less Than 3 Seconds Gastrointestinal: non tender, soft Extremity: Normal Capillary Refill, Normal Inspection, Normal Range of Motion Neurologic/Psychiatric: Alert, Oriented x3, No Motor/Sensory Deficits, Normal Mood/Affect Skin: Normal Color, Warm/Dry Lymphatic: No Adenopathy Results Lab Laboratory Tests 01/25/19 12:20 01/26/19 04:24 Assessment/Plan Assessment/Plan Diastolic CHF SOB with large right pleural effusion HUSSEIN -Home BiPAP Afib RVR Valvular heart disease -Coumadin therapy -On hold for thoracentesis HX of PE OBesity LYRIC ARCE DO Jan 26, 2019 16:13
--- NOTE | 2019-01-26 16:16 | Progress Note - Hospitalist ---
Subjective HPI/CC On Admission Date Seen by Provider: Jan 26, 2019 Time Seen by Provider: 10:30 Shortness of breath Subjective/Events-last exam Her main concern today is back pain. She is comfortable and she was resting when she moves she has pain. She also had 2 episodes of the vomiting overnight. She denies any nausea at this time. She denies any fevers or chills. She denies any chest pain. Objective Exam Vital Signs Vital Signs Date Time Temp Pulse Resp B/P (MAP) Pulse Ox O2 Delivery O2 Flow Rate FiO2 01/26/19 12:00 36.8 75 22 135/61 (85) 92 Nasal Cannula 2.00 Capillary Refill : Less Than 3 SecondsLess Than 3 Seconds General Appearance: No Apparent Distress, WD/WN HEENT: PERRL/EOMI, Pharynx Normal Neck: Normal Inspection, Supple Respiratory: Lungs Clear, Normal Breath Sounds, No Respiratory Distress Cardiovascular: Regular Rate, Rhythm, No Edema Gastrointestinal: Normal Bowel Sounds, Non Tender Extremity: Normal Inspection, Non Tender Neurologic/Psychiatric: Alert, Oriented x3 Skin: Normal Color, Warm/Dry Results/Procedures Lab Laboratory Tests 01/26/19 04:24 Patient resulted labs reviewed. Imaging: Reviewed Imaging Report Assessment/Plan Assessment and Plan Assess & Plan/Chief Complaint Acute hypoxic respiratory failure Acute on chronic congestive heart failure Large right pleural effusion Continue oxygen supplementation as needed Holding Coumadin for possible thoracentesis Continue Lasix Cardiology and pulmonology consulted, appreciate recommendations Iron deficiency anemia Received 2 units of PRBCs yesterday Hemoglobin improved to 9.1 this morning iron studies consistent with iron deficiency anemia Hemoccult test negative Consult surgery for further evaluation and possible endoscopies Compression fracture Pain regimen ordered Plan to follow up with orthopedic surgery outpatient Atrial fibrillation Continue metoprolol Holding Coumadin for possible procedures INR 2.9 today Diagnosis/Problems Diagnosis/Problems (1) Acute hypoxemic respiratory failure Status: Acute (2) Acute on chronic congestive heart failure Status: Acute Qualifiers: Heart failure type: diastolic Qualified Codes: I50.33 - Acute on chronic diastolic (congestive) heart failure (3) Compression fracture of L1 vertebra Status: Acute Qualifiers: Encounter type: initial encounter Qualified Codes: S32.010A - Wedge compression fracture of first lumbar vertebra, initial encounter for closed fracture (4) History of GI bleed (5) Anemia Status: Acute Qualifiers: Anemia type: iron deficiency (6) Pleural effusion on right Status: Acute Clinical Quality Measures Admission Status Admission Dx DVT/VTE Risk/Contraindication: Risk Factor Score Per Nursin RFS Level Per Nursing on Admit: 4+=Very High CLARISSA ARCEO MD Jan 26, 2019 16:16
[2019-01-26 16:30] VITALS: BP 119/66
--- NOTE | 2019-01-26 17:15 | CONSULTATION REPORT ---
DATE OF SERVICE: 01/26/2019 ATTENDING PRIMARY CARE PHYSICIAN: Dr. Blackwood. ADMITTING PHYSICIAN: Dr. Kwon. HISTORY OF PRESENT ILLNESS: The patient is a 78-year-old female, who presented with low back pain as well as shortness of breath. She reports earlier that day she fell in the bathroom, striking the lower part of her buttock and back; however, does not report any loss of consciousness or severe pain or any neurologic deficit. Over the past two weeks, the patient has been weak and has also developed some increasing shortness of breath especially upon exertion. She does have an extensive past medical history encompassing atrial fibrillation and congestive heart failure. She also does have a history of insulin-dependent diabetes. She was admitted for exacerbation of CHF. The patient was admitted and was also found to have a right pleural effusion where Pulmonology was consulted for a thoracentesis. The patient also is anemic with a hemoglobin of 9 and is on anticoagulation for atrial fibrillation. She does report that she has had some issues with gastroesophageal reflux disease. She is unsure when her last colonoscopy was. She does not recall any known family history of any colon cancer. PAST MEDICAL HISTORY: Atrial fibrillation, diabetes, gastroesophageal reflux disease, congestive heart failure, degenerative joint disease, depression, history of diverticulosis. PAST SURGICAL HISTORY: Orthopedic knee surgery, hysterectomy, section x3, tonsillectomy, pacemaker implantation. ALLERGIES: No known drug allergies. MEDICATIONS: 1. Citalopram 20 mg daily. 2. Digoxin 250 mg daily. 3. Diltiazem 360 mg daily. 4. Furosemide 20 mg b.i.d. 5. Magnesium 400 mg b.i.d. 6. Metformin 500 mg b.i.d. 7. Protonix 40 mg daily. 8. Potassium 10 mEq b.i.d. 9. Coumadin 2 mg five days a week and 4 mg 2 days a week. SOCIAL HISTORY: Negative smoke, negative alcohol. FAMILY HISTORY: Mother with history of stroke, diabetes, hypertension and myocardial infarction. REVIEW OF SYSTEMS: This is a well-nourished female, currently in no acute distress. She is experiencing some exertional shortness of breath. No new cough or sputum production. She has been fatigued in the past few weeks. She has a history of gastroesophageal reflux disease. No cammie episodes of nausea nor vomiting. No hematemesis, no coffee ground emesis. She has had some constipation in the past, none recently. No red blood per rectum, no dark tarry stools. No fever or chills. No recent inadvertent weight loss. All other review of systems are negative. PHYSICAL EXAMINATION: VITAL SIGNS: Temperature 36.9, blood pressure 135/61, pulse 75, respirations 22, pulse ox 92% on 2 liters nasal cannula. CHEST: Decreased breath sounds in the right. Scattered rhonchi along the left. HEART: Regular, no murmurs. EXTREMITIES: +1/3 bilateral lower extremity edema, negative Homans sign. HEENT: No scleral icterus. NECK: No cervical lymphadenopathy. ABDOMEN: Soft, nontender, nondistended. SKIN: Warm, dry. LABORATORY DATA: WBC 11.1, hemoglobin 9.1 after 2 units of PRBC, initial hemoglobin was 7.5. Hematocrit is 33, platelets 300. BUN 19, creatinine 1.20. Total bilirubin is 2.0. INR is 2.9. ASSESSMENT AND PLAN: A 78-year-old female with history of gastroesophageal reflux disease as well as atrial fibrillation and congestive heart failure. She is also on anticoagulation with Coumadin and was found to be anemic. Due to her symptomatology as well as anemia, we will proceed with an EGD and colonoscopy on this admission. Job ID: [id number] DocumentID: [id number] Dictated Date: 01/26/2019 16:59:20 Plaster Mold Maker Date: 01/26/2019 17:14:44 Dictated By: SUSI VILLAFANA MD
[2019-01-26 20:05] VITALS: BP 160/73
[2019-01-26] MEDS: PROCHLORPERAZINE 10 MG/2ML INJ (COMPAZINE) IV PRN (20:21)
[2019-01-26] MEDS ORDERED: MAGNESIUM CITRATE 300 ML BTL PO SCH (21:00)
[2019-01-27] VITALS (9 sets, daily range): BP systolic 112–143; BP diastolic 54–80
[2019-01-27] MEDS: RT-ALBUTEROL SULF 2.5 MG/3 ML PRE-MIX VIAL INH SCH ×4 (01:25→22:15)
[2019-01-27 05:28] LABS: HEMOGLOBIN 9.2 G/DL (11.5-16.0); MEAN PLATELET VOLUME 9.4 FL (7.4-10.4); RED CELL DISTRIBUTION WIDTH 21.8 % (10.0-14.5); WHITE BLOOD COUNT 9.8 10^3/uL (4.3-11.0)
[2019-01-27 05:56] LABS: ALBUMIN 3.4 GM/DL (3.2-4.5); CALCIUM 8.9 MG/DL (8.5-10.1); CREATININE SERUM 1.18 MG/DL (0.60-1.30); MAGNESIUM 2.1 MG/DL (1.6-2.4); POTASSIUM 3.8 MMOL/L (3.6-5.0); TOTAL PROTEIN 8.1 GM/DL (6.4-8.2)
[2019-01-27] MEDS: CATHETER FLUSH 10 ML SYR IV SCH ×3 (06:08→20:22)
[2019-01-27] MEDS: inSUlin ASPART (NovoLOG) 1 UNIT/0.01 ML (CHARGE PER UNIT) SC SCH ×4 (06:08→20:33)
[2019-01-27 07:56] LABS: INR 2.7 (0.8-1.4)
--- NOTE | 2019-01-27 08:45 | Progress Note - Cardiology ---
Cardiology SOAP Progress Note Subjective: In bed. Spouse at the bedside. She states she feels "a little bit better". No c/o CP or palpitations. Dyspnea improved. Continued gen weakness. Objective: I&O/Vital Signs 01/27/19 01/27/19 01/27/19 01/27/19 00:35 01:25 04:44 08:41 Temp 36.4 37.2 Pulse 75 79 Resp 21 20 B/P (MAP) 143/75 (97) 133/80 (97) Pulse Ox 95 94 93 94 O2 Delivery Nasal Cannula Nasal Cannula Nasal Cannula Nasal Cannula O2 Flow Rate 2.00 2.00 2.00 2.00 01/27/19 01/27/19 08:52 12:00 Temp 36.8 36.8 Pulse 75 80 Resp 20 18 B/P (MAP) 140/69 (92) 112/54 (73) Pulse Ox 93 92 O2 Delivery Nasal Cannula Nasal Cannula O2 Flow Rate 2.00 2.00 01/27/19 00:00 Intake Total 740 ml Output Total 1200 ml Balance -460 ml Weight (Pounds): 178 Weight (Ounces): 2.0 Weight (Calculated Kilograms): 80.145397 Constitutional: AAO x 3, well-developed, well-nourished Respiratory: No accessory muscle use, No respiratory distress; chest expansion is symmetric, chest is bilaterally symmetric, other (fair air entry; poor inspiratory effort) Cardiovascular: irregularly irregular; No JVD; S1 and S2, systolic murmur Gastrointestional: No tender; audible bowel sounds Genital/Rectal: other (Urinary catheter to DD; clear, yellow) Extremities: no lower extremity edema bilateral Neurologic/Psychiatric: grossly intact Skin: No rash on exposed areas, No ulcerations on exposed areas Results/Procedures: Labs Laboratory Tests 01/26/19 13:08: Lab Scanned Report Transfusion Reaction Form 01/26/19 16:30: Glucometer 129H 01/26/19 21:16: Glucometer 120H 01/27/19 05:18: White Blood Count 9.8, Red Blood Count 4.73, Hemoglobin 9.2L, Hematocrit 33L, Mean Corpuscular Volume 70L, Mean Corpuscular Hemoglobin 20L, Mean Corpuscular Hemoglobin Concent 28L, Red Cell Distribution Width 21.8H, Platelet Count 276, Mean Platelet Volume 9.4, Prothrombin Time 30.0H, INR Comment 2.7H, Sodium Level 137, Potassium Level 3.8, Chloride Level 98, Carbon Dioxide Level 30, Anion Gap 9, Blood Urea Nitrogen 19H, Creatinine 1.18, Estimat Glomerular Filtration Rate 45, BUN/Creatinine Ratio 16, Glucose Level 85, Calcium Level 8.9, Corrected Calcium 9.4, Magnesium Level 2.1, Total Bilirubin 1.0, Aspartate Amino Transf ( AST/SGOT) 22, Alanine Aminotransferase (ALT/SGPT) 8, Alkaline Phosphatase 78, Total Protein 8.1, Albumin 3.4 01/27/19 05:35: Glucometer 89 01/27/19 11:01: Glucometer 120H A/P: Assessment: Multifactorial shortness of breath, see below Acute on chronic diastolic CHF Large right pleural effusion seen on CT of the chest on 01-25-19 S/P non-syncopal fall Anemia of undetermined etiology - management per Medical Services Moderate pulmonary hypertension, likely related to sleep apnea syndrome. She is on BIPAP therapy, but has been noncompliant Paroxysmal atrial fibrillation which now appears permanent. Her sole layer, Dr Keene in [place], [place], has managed this. ECG of 10/19/17 shows a fib with occ paced beat Status post pacemaker implantation by Dr. Keene in 2010 which is being followed by Dr. Keene (pulse gen change by Dr Keene in Mar 2017) Valvular heart disease, consisting primarily of mitral regurgitation and mitral annular calcification. On cardiac cath of August 2009, this was felt to be moderate to severe. Subsequently, on trans-esophageal echocardiography, mitral regurgitation was felt to be moderate. In addition, the patient has moderate to moderately severe tricuspid regurgitation. 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 F/u on anemia is with Dr Guillermo kaur basal cell CA treated with surgery (Dr Vargas) and radiation (Dr Stone) in 2016 Plan: * Dr. Carreno has discussed her case with Dr Dill on 01-26-19. He plans thoracentesis after INR normal * We recommend GI w/u, given anemia and given h/o presences of sources that may cause GI bleed (see above) * Monitor labs * Continue to hold warfarin * Advise determination and treatment of cause of bleeding expediently so that OAC can be given when INR returns to therapeutic range d/t risk of CVA d/t PAF * CXR pending * EGD and colo planned for later today * PT to eval and tx Physician Assessment Physician Assessment Less short of breath compared to time of admission No cp or palp or syncope Gen malaise and tiredness Lungs: diminished air entry at the bases, cristino on R base Cor: irred, 2/ MSM Ext: no c/c/e A&R: * As documented in our note above that I updated (italics) and as noted below * I again discussed her CV issues with her and her * Monitor labs ANN AG Jan 27, 2019 08:45 JERSEY CARRENO MD FACP FAC CCDS Jan 27, 2019 12:24
[2019-01-27] MEDS: PANTOPRAZOLE 40 MG (PROTONIX) VIAL IV SCH ×2 (09:52→20:19)
[2019-01-27] MEDS: FUROSEMIDE 40 MG/4 ML INJ (LASIX) IVP SCH (09:52)
[2019-01-27] MEDS: DIGOXIN 0.25 MG (LANOXIN) TAB PO SCH (11:52)
[2019-01-27] MEDS: DILTIAZEM 180 MG (CARDIZEM CD) CAP PO SCH (12:04)
--- NOTE | 2019-01-27 12:57 | Pulmonary Progress Note ---
Subjective Time Seen by a Provider: 13:05 Subjective/Events-last exam PT feels slightly better. Sepsis Event Evaluation Height, Weight, BMI Height: 5'2.00" Weight: 178lbs. 2.0oz. 80.783535va; 31.64 BMI Method:Stated Exam Exam Vital Signs Date Time Temp Pulse Resp B/P (MAP) Pulse Ox O2 Delivery O2 Flow Rate FiO2 01/27/19 12:00 36.8 80 18 112/54 (73) 92 Nasal Cannula 2.00 01/27/19 08:52 36.8 75 20 140/69 (92) 93 Nasal Cannula 2.00 01/27/19 08:41 94 Nasal Cannula 2.00 01/27/19 04:44 37.2 79 20 133/80 (97) 93 Nasal Cannula 2.00 01/27/19 01:25 94 Nasal Cannula 2.00 01/27/19 00:35 36.4 75 21 143/75 (97) 95 Nasal Cannula 2.00 01/26/19 21:01 94 Nasal Cannula 2.00 01/26/19 20:05 36.1 80 20 160/73 (102) 95 Nasal Cannula 2.00 01/26/19 20:00 Nasal Cannula 2.00 01/26/19 16:30 36.0 74 22 119/66 (83) 92 Nasal Cannula 2.00 I & O 01/27/19 07:00 Intake Total 740 ml Output Total 1500 ml Balance -760 ml Height & Weight Height: 5'2.00" Weight: 178lbs. 2.0oz. 80.778815pk; 31.64 BMI Method:Stated General Appearance: No Apparent Distress, WD/WN HEENT: PERRL/EOMI, Pharynx Normal Neck: Normal Inspection, Supple Respiratory: Lungs Clear, Normal Breath Sounds, No Respiratory Distress Cardiovascular: Regular Rate, Rhythm, No Edema Capillary Refill: Less Than 3 Seconds Gastrointestinal: non tender, soft Extremity: Normal Inspection, Non Tender Neurologic/Psychiatric: Alert, Oriented x3 Skin: Normal Color, Warm/Dry Lymphatic: No Adenopathy Results Lab Laboratory Tests 01/26/19 04:24 01/27/19 05:18 Assessment/Plan Assessment/Plan Diastolic CHF SOB with large right pleural effusion -Repeat CXR -Lasix HUSSEIN -Home BiPAP Afib RVR Valvular heart disease -Coumadin therapy -On hold for thoracentesis HX of PE OBesity LYRIC ARCE DO Jan 27, 2019 12:57
--- NOTE | 2019-01-27 13:50 | Physical Therapy Evaluation ---
PT Evaluation-General Medical Diagnosis Admission Date Jan 25, 2019 at 14:02 Medical Diagnosis: acute heart failure/right pleural effusion/L1 compression fracture Onset Date: Jan 25, 2019 Therapy Diagnosis Therapy Diagnosis: debility/weakness Height/Weight Height (Feet): 5 Height (Inches): 2.00 Weight (Pounds): 178 Weight (Ounces): 2.0 Precautions Precautions/Isolations: Fall Prevention Weight Bear Status Right Lower Extremity: Right Full Weight Bearing Left Lower Extremity: Left Full Weight Bearing Referral Physician: Dulce Reason for Referral: Evaluation/Treatment Medical History Pertinent Medical History: Atrial Fib, Arthritis, DM, Heart Failure, HTN Current History EMS secondary to patient slipped and fell at home resulting in LBP and increase in SOA Reviewed History: Yes Social History Home: Multilevel Current Living Status: Spouse Entry Into Home: Level Entry PT Steps Inside Home: 12 Prior/Core FIM Prior Level of Function Therapy Code Descriptions/Definitions Functional [place] Measure: 0=Not Assessed/NA 4=Minimal Assistance 1=Total Assistance 5=Supervision or Setup 2=Maximal Assistance 6=Modified [place] 3=Moderate Assistance 7=Complete [place] Therapy Quality Codes: 6 Independent with activity with or without an assistive device 5 Patient requires set up or clean up by helper. Patient completes activity by themselves 4 Supervision or touching assist (CGA). [place] provide cues , steadying assist 3 The helper provides less than half the effort to complete the activity 2 The helper provides more than half the effort to complete the activity 1 Dependent. The helper does all the effort to complete an activity 7 Patient refused to complete or attempt activity 9 The patient did not perform the activity before the current illness or injury 88 Not attempted due to Medical conditions or safety concerns Functional Abilities and Goals: Independent: Patient completed the activities by him/herself, with or without an assistive device, with no assistance from a helper. Needed Some Help: Patient needed partial assistance from another person to complete activities. Dependent: A helper completed the activities for the patient. Unknown: Not Applicable: Bed Mobility: 6 Transfers (B,C,W/C) (FIM): 6 Gait: 1 Indoor Mobility (Ambulation): Independent Prior Devices Use: None ambulates short distances only per spouse (bed to bathroom; chair to kitchen, etc.) Minimal to no community ambulation. PT Evaluation-Current Subjective Patient agrees to PT. Spouse present. Pain Numeric Pain Scale: 7 Location: Medial, Lower Location Body Site: Back Pain Description: Acute Objective Patient Orientation: Normal For Age Problem Solving: Poor Attachments: Oxygen, Toth Catheter ROM/Strength ROM Lower Extremities bilateral LE WFL Strength Lower Extremities 3-/5 grossly bilateral LE Integumentary/Posture Integumentary refer to nursing notes Bladder Incontinence: Toth Cath Posture WFL Neuromuscular (Tone, Coordination, Reflexes) grossly intact Sensory Vision: Functional Hearing: Functional Sensation Right Lower Extremit: Impaired Sensation Left Lower Extremity: Impaired Transfers Therapy Code Descriptions/Definitions Functional [place] Measure: 0=Not Assessed/NA 4=Minimal Assistance 1=Total Assistance 5=Supervision or Setup 2=Maximal Assistance 6=Modified [place] 3=Moderate Assistance 7=Complete [place] Transfers (B, C, W/C) (FIM): 3 Scootin Rollin Supine to/from Sit: 3 Sit to/from Stand: 4 Gait Mode of Locomotion: Both Anticipated Mode of Locomotion: Both Gait (FIM): 1 Distance (FIM): 1=up to 49 ft Distance: 15' x 2 Gait Level of Assist: 4 Gait Persons Needed: 1 Gait Assistive Device: FWW Comments/Gait Description slightly unsteady Balance Sitting Static: Fair Sitting Dynamic: Fair Standing Static: Fair Standing Dynamic: Fair Assessment/Needs 78 y.o. female, will benefit from skilled PT to address functional strength and mobility to improve current LOF to safely return to home with spouse at maximum LOF. Rehab Potential: Fair PT Customer Operations Intern Goals Customer Operations Intern Goals PT [facility] Goals Time Frame: Feb 12, 2019 Transfers (B,C,W/C) (FIM): 6 Gait (FIM): 2 Gait distance (FIM): 9=449-91 ft Distance: 75' Gait Level of Assist: 6 Gait Assistive Device: FWW PT Plan Problem List Problem List: Activity Tolerance, Functional Strength, Gait, Transfer, Bed Mobility Treatment/Plan Treatment Plan: Continue Plan of Care Treatment Plan: Bed Mobility, Education, Functional Activity Brennen, Functional Strength, Gait, Safety, Therapeutic Exercise, Transfers Treatment Duration: Feb 12, 2019 Frequency: 6 times per week Estimated Hrs Per Day: .25 hour per day Patient and/or Family Agrees t: Yes Time/GCodes Time In: 1300 Time Out: 1321 Total Billed Treatment Time: 21 Total Billed Treatment 1 visit EVMod 21 min IRENE LOGAN PT Jan 27, 2019 13:50
--- NOTE | 2019-01-27 14:05 | Diagnostic Imaging Report ---
INDICATION: Pleural effusion. Shortness of breath. TECHNIQUE: Single view chest, 1:39 p.m. CORRELATION STUDY: 01/25/2019. FINDINGS: Left-sided pacemaker remains in place. Cardiac enlargement. There is presence of pulmonary vascular congestion and perihilar edema. Congestive changes do appear to be perhaps slightly less severe from prior study. There is a rather prominent, sizable right pleural effusion. Consolidation in the right lung, likely atelectasis and/or infiltrate. Question of abnormal fullness in the right hilar region. Rather significantly advanced degenerative changes in bilateral shoulders. IMPRESSION: 1. Cardiac enlargement with presence of pulmonary vascular congestion. Congestive changes may be slightly less severe from prior study. 2. Combination of a rather sizable right pleural effusion and consolidation in the right lung again demonstrated. Underlying mass lesion at the right hilum would be difficult to exclude. Dictated by: Dictated on workstation # [id number]
[2019-01-27] MEDS: PROCHLORPERAZINE 10 MG/2ML INJ (COMPAZINE) IV PRN ×2 (14:07→22:19)
--- NOTE | 2019-01-27 15:20 | Progress Note - Hospitalist ---
Subjective HPI/CC On Admission Date Seen by Provider: Jan 27, 2019 Time Seen by Provider: 11:00 Shortness of breath Subjective/Events-last exam She reports that her pain is well-controlled this time. She is feeling tired today. Her says that she has been having trouble with sleeping during the day and staying up at night for a very long time. She is not having any worsening of her shortness of breath. She denies any fevers or chills. She denies any cough. She does not have any abdominal pain, nausea, or vomiting. She is willing to undergo the prep for colonoscopy tomorrow. She and her husb and are requesting Dr. Blackwell as he has performed her endoscopies in the past. Objective Exam Vital Signs Vital Signs Date Time Temp Pulse Resp B/P (MAP) Pulse Ox O2 Delivery O2 Flow Rate FiO2 01/27/19 12:00 36.8 80 18 112/54 (73) 92 Nasal Cannula 2.00 Capillary Refill : Less Than 3 SecondsLess Than 3 Seconds General Appearance: No Apparent Distress, WD/WN HEENT: PERRL/EOMI, Pharynx Normal Respiratory: Lungs Clear, No Respiratory Distress, Decreased Breath Sounds (right) Cardiovascular: Regular Rate, Rhythm, No Edema, No Murmur Gastrointestinal: Normal Bowel Sounds, Soft, Hernia, Tenderness Extremity: Normal Inspection, Non Tender Neurologic/Psychiatric: Alert, Oriented x3 Results/Procedures Lab Laboratory Tests 01/27/19 05:18 Patient resulted labs reviewed. Imaging: Reviewed Imaging Report Assessment/Plan Assessment and Plan Assess & Plan/Chief Complaint Acute hypoxic respiratory failure Acute on chronic congestive heart failure Large right pleural effusion Continue oxygen supplementation as needed Repeat chest x-ray continues to show right pleural effusion Holding Coumadin for possible thoracentesis Continue Lasix Cardiology and pulmonology consulted, appreciate recommendations Iron deficiency anemia Received 2 units of PRBCs 01/25 Hemoglobin stable, 9.2 iron studies consistent with iron deficiency anemia Hemoccult test negative Surgery consulted, planning for EGD/colonoscopy tomorrow Compression fracture Pain regimen ordered Plan to follow up with orthopedic surgery outpatient Atrial fibrillation Continue metoprolol Holding Coumadin for procedures INR 2.7 today Diagnosis/Problems Diagnosis/Problems (1) Acute hypoxemic respiratory failure Status: Acute (2) Acute on chronic congestive heart failure Status: Acute Qualifiers: Heart failure type: diastolic Qualified Codes: I50.33 - Acute on chronic diastolic (congestive) heart failure (3) Compression fracture of L1 vertebra Status: Acute Qualifiers: Encounter type: initial encounter Qualified Codes: S32.010A - Wedge compression fracture of first lumbar vertebra, initial encounter for closed fracture (4) History of GI bleed (5) Anemia Status: Acute Qualifiers: Anemia type: iron deficiency (6) Pleural effusion on right Status: Acute Clinical Quality Measures Admission Status Admission Dx DVT/VTE Risk/Contraindication: Risk Factor Score Per Nursin RFS Level Per Nursing on Admit: 4+=Very High CLARISSA ARCEO MD Jan 27, 2019 15:20
--- NOTE | 2019-01-27 16:13 | Consultation - Surgery ---
NATACHA FELIPE [facility] 01/27/19 1613: History of Present Illness History of Present Illness Patient Consulted On(ravi/time) 01/27/19 16:08 Date Seen by Provider: Jan 27, 2019 Time Seen by Provider: 16:08 History of Present Illness Consult requested by Dr. Kwon for anemia. Patient is a 78 year old female with a history of anemia and increasing shortness of breath that has been increasing for the last three weeks. Nothing makes it better and nothing makes it worse. CT scan showed right pleural effusion. Allergies and Home Medications Allergies Coded Allergies: No Known Drug Allergies (Unverified , 04/16/18) Home Medications Acetaminophen 500 Mg Tablet, 1,000 MG PO BID, (Reported) TAKES 2 (500MG) TABLETS Citalopram Hydrobromide 20 Mg Tablet, 20 MG PO DAILY, (Reported) Digoxin 250 Mcg Tablet, 250 MCG PO DAILY, (Reported) Diltiazem HCl 360 Mg Capsule.er, 360 MG PO DAILY, (Reported) Furosemide 20 Mg Tablet, 60 MG PO BID, (Reported) TAKES 3 (20MG) TABLETS Magnesium Oxide 400 Mg Tablet, 400 MG PO BID, (Reported) Metformin HCl 500 Mg Tablet, 500 MG PO BID, (Reported) Multivit with Calcium,Iron,Min 1 Each Tablet, 1 TAB PO DAILY, (Reported) Pantoprazole Sodium 40 Mg Tablet.dr, 40 MG PO DAILY, (Reported) Potassium Chloride 10 Meq Tablet.er, 10 MEQ PO BID, (Reported) Warfarin Sodium 2 Mg Tablet, 2 MG PO SuMoWeFrSa, (Reported) Warfarin Sodium 2 Mg Tablet, 4 MG PO TuTh, (Reported) TAKES 2 (2MG) TABLETS Patient Home Medication List Home Medication List Reviewed: Yes Past Ybdhrrt-Qmnleq-Drfyhx Hx Patient Social History Alcohol Use: Denies Use Recreational Drug Use: No Smoking Status: Never a Smoker 2nd Hand Smoke Exposure: No Recent Foreign Travel: No Contact w/Someone Who Travel: No Recent Infectious Disease Expo: No Recent Hopitalizations: No Immunizations Up To Date Tetanus Booster (TDap): Less than 5yrs PED Vaccines UTD: Yes Date of Pneumonia Vaccine: Nov 08, 2010 Seasonal Allergies Seasonal Allergies: No Surgeries History of Surgeries: Yes (KNEE REPLACEMENT, HYSTERECTOMY, 3 C-SECTIONS, TONSILLECTOMY) Surgeries: Hysterectomy, Joint Replacement, Pacemaker, Tonsillectomy Respiratory History of Respiratory Disorde: Yes Respiratory Disorders: Sleep Apnea Cardiovascular History of Cardiac Disorders: Yes (PACEMAKER, CHF) Cardiac Disorders: Atrial Fibrillation, Hypertension Neurological History of Neurological Disord: No Reproductive System Hx Reproductive Disorders: Yes Sexually Transmitted Disease: No HIV/AIDS: No Female Reproductive Disorders: Denies Gastrointestinal History of Gastrointestinal Di: Yes (gallstones) Gastrointestinal Disorders: Diverticulosis Musculoskeletal History of Musculoskeletal Dis: Yes Musculoskeletal Disorders: Arthritis Endocrine History of Endocrine Disorders: Yes Endocrine Disorders: Diabetes, Insulin dep Cancer History of Cancer: Yes (1999 ) Cancer: Skin, Uterine Psychosocial History of Psychiatric Problem: Yes Behavioral Health Disorders: Depression Integumentary History of Skin or Integumenta: No Blood Transfusions History of Blood Disorders: Yes (ANEMIA) Adverse Reaction to a Blood Tr: No (HAS HAD BLOOD WITH NO REACTION) Family Medical History Significant Family History: No Pertinent Family Hx Family Medial History: Alzheimer's disease 19 MOTHER Arthritis 19 MOTHER Cardiovascular disease Completed stroke 19 MOTHER Coronary thrombosis 19 MOTHER Dementia 19 MOTHER Diabetes mellitus 19 MOTHER Hypertension 19 MOTHER Myocardial infarction Osteoporosis 19 MOTHER No Family History of: AIDS Abdominal aortic aneurysm Mirza's disease Alcoholism Aphasia Asthma Cancer of mouth Cataracts Colon cancer Congenital disease Congenital heart disease Cystic fibrosis Deafness or hearing loss Drug abuse Dysphasia Fibrocystic disease of breast Gastroenteritis Glaucoma Headache disorder Hypercholesterolemia Infertility Kidney disease Neoplasm Not obtainable due to adoption Parkinson's disease Prostate cancer Psychosocial problem Respiratory disorder Seizure disorder Severe allergy Thyroid disease Tuberculosis Visual disorder Review of Systems-General Constitutional: no symptoms reported EENTM: no symptoms reported Respiratory: see HPI, short of breath Gastrointestinal: No vomiting Genitourinary: no symptoms reported Musculoskeletal: no symptoms reported Skin: no symptoms reported Psychiatric/Neurological: No Symptoms Reported Physical Exam-General Problems Physical Exam Vital Signs Vital Signs - First Documented 01/25/19 01/25/19 10:40 12:21 Temp 37.2 Pulse 80 Resp 16 B/P (MAP) 118/61 (80) Pulse Ox 87 O2 Delivery Room Air O2 Flow Rate 2.00 Capillary Refill : Less Than 3 SecondsLess Than 3 Seconds HEENT: PERRL/EOMI Neck: non-tender, supple Respiratory: decreased breath sounds (right side) Cardiovascular: regular rate, rhythm Gastrointestinal: tenderness (epigastric tenderness) Rectal: deferred Back: no CVA tenderness Extremities: non-tender Neurologic/Psychiatric: no motor/sensory deficits, alert, oriented x 3 Skin: normal color, warm/dry Lymphatic: no adenopathy Data Review Labs Laboratory Tests 01/26/19 16:30: Glucometer 129H 01/26/19 21:16: Glucometer 120H 01/27/19 05:18: White Blood Count 9.8, Red Blood Count 4.73, Hemoglobin 9.2L, Hematocrit 33L, Mean Corpuscular Volume 70L, Mean Corpuscular Hemoglobin 20L, Mean Corpuscular Hemoglobin Concent 28L, Red Cell Distribution Width 21.8H, Platelet Count 276, Mean Platelet Volume 9.4, Prothrombin Time 30.0H, INR Comment 2.7H, Sodium Level 137, Potassium Level 3.8, Chloride Level 98, Carbon Dioxide Level 30, Anion Gap 9, Blood Urea Nitrogen 19H, Creatinine 1.18, Estimat Glomerular Filtration Rate 45, BUN/Creatinine Ratio 16, Glucose Level 85, Calcium Level 8.9, Corrected Calcium 9.4, Magnesium Level 2.1, Total Bilirubin 1.0, Aspartate Amino Transf ( AST/SGOT) 22, Alanine Aminotransferase (ALT/SGPT) 8, Alkaline Phosphatase 78, Total Protein 8.1, Albumin 3.4 01/27/19 05:35: Glucometer 89 01/27/19 11:01: Glucometer 120H Assessment/Plan Assessment/Plan Assessment/Plan Anemia right pleural effusion Shortness of breath FFP to bring down INR Bowel prep inpatient colonoscopy and EGD Possible thoracentesis Clinical Quality Measures DVT/VTE Risk/Contraindication: Risk Factor Score Per Nursin RFS Level Per Nursing on Admit: 4+=Very High ALICE BLACKWELL DO 01/28/19 1045: History of Present Illness History of Present Illness History of Present Illness Patient a 78 year old female with history of anemia. She has had increasing shortness of breath for about 3 weeks. She has had history of blood transfusion and iron infusions with improvement. Has been feeling weaker and increasing shortness of breath, particularly with activity. Overall just not feeling well. Nothing really has made things better, except did have a little improvement after transfusion. Activity makes breathing worse, when working with physical therapy. She had a ct chest demonstrating a large right pleural effusion and small left pleural effusion. She has had history of avm stomach. She is also on Coumadin anticoagulation. Allergies and Home Medications Allergies Coded Allergies: No Known Drug Allergies (Unverified , 04/16/18) Home Medications Acetaminophen 500 Mg Tablet, 1,000 MG PO BID, (Reported) TAKES 2 (500MG) TABLETS Citalopram Hydrobromide 20 Mg Tablet, 20 MG PO DAILY, (Reported) Digoxin 250 Mcg Tablet, 250 MCG PO DAILY, (Reported) Diltiazem HCl 360 Mg Capsule.er, 360 MG PO DAILY, (Reported) Furosemide 20 Mg Tablet, 60 MG PO BID, (Reported) TAKES 3 (20MG) TABLETS Magnesium Oxide 400 Mg Tablet, 400 MG PO BID, (Reported) Metformin HCl 500 Mg Tablet, 500 MG PO BID, (Reported) Multivit with Calcium,Iron,Min 1 Each Tablet, 1 TAB PO DAILY, (Reported) Pantoprazole Sodium 40 Mg Tablet.dr, 40 MG PO DAILY, (Reported) Potassium Chloride 10 Meq Tablet.er, 10 MEQ PO BID, (Reported) Warfarin Sodium 2 Mg Tablet, 2 MG PO SuMoWeFrSa, (Reported) Warfarin Sodium 2 Mg Tablet, 4 MG PO TuTh, (Reported) TAKES 2 (2MG) TABLETS Patient Home Medication List Home Medication List Reviewed: Yes Past Rpjdbaz-Snyvql-Qwispd Hx Patient Social History Alcohol Use: Denies Use Recreational Drug Use: No Smoking Status: Never a Smoker Surgeries Surgeries: Hysterectomy, Joint Replacement, Pacemaker Respiratory Respiratory Disorders: Sleep Apnea Cardiovascular Cardiac Disorders: Atrial Fibrillation, Hypertension Reproductive System Female Reproductive Disorders: Denies Gastrointestinal Gastrointestinal Disorders: Diverticulosis Musculoskeletal Musculoskeletal Disorders: Arthritis Endocrine Endocrine Disorders: Diabetes, Insulin dep Cancer Cancer: Skin Family Medical History Significant Family History: No Pertinent Family Hx Family Medial History: Alzheimer's disease 19 MOTHER Arthritis 19 MOTHER Cardiovascular disease Completed stroke 19 MOTHER Coronary thrombosis 19 MOTHER Dementia 19 MOTHER Diabetes mellitus 19 MOTHER Hypertension 19 MOTHER Myocardial infarction Osteoporosis 19 MOTHER No Family History of: AIDS Abdominal aortic aneurysm [place]'s disease Alcoholism Aphasia Asthma Cancer of mouth Cataracts Colon cancer Congenital disease Congenital heart disease Cystic fibrosis Deafness or hearing loss Drug abuse Dysphasia Fibrocystic disease of breast Gastroenteritis Glaucoma Headache disorder Hypercholesterolemia Infertility Kidney disease Neoplasm Not obtainable due to adoption Parkinson's disease Prostate cancer Psychosocial problem Respiratory disorder Seizure disorder Severe allergy Thyroid disease Tuberculosis Visual disorder Review of Systems-General Constitutional: weakness Respiratory: see HPI, short of breath Cardiovascular: no symptoms reported Gastrointestinal: no symptoms reported Genitourinary: no symptoms reported Musculoskeletal: back pain Skin: no symptoms reported Psychiatric/Neurological: No Symptoms Reported Physical Exam-General Problems Physical Exam General Appearance: no apparent distress HEENT: PERRL/EOMI Neck: non-tender, supple Respiratory: decreased breath sounds (right side) Cardiovascular: regular rate, rhythm Gastrointestinal: soft, no organomegaly, tenderness (epigastric tenderness minimal) Rectal: deferred Back: no CVA tenderness Extremities: non-tender 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 since coumadin is being reversed would be beneficial to drain the right pleural effusion since it is large and causing shortness of breath with activity prep colon npo after midnight consent for egd, colonoscopy possible thoracentesis Supervisory-Addendum Brief Verification & Attestation Participated in pt care: history, MDM, physical Personally performed: exam, history, MDM, supervision of care Care discussed with: Medical Student Procedures: n/a Results interpretation: Verified all documentation Verification and Attestation of Medical Student E/M Service A medical student performed and documented this service in my presence. I reviewed and verified all information documented by the medical student and made modifications to such information, when appropriate. I personally performed the physical exam and medical decision making. Alice Blackwell, Jan 28, 2019,10:52 NATACHA FELIPE [facility] Jan 27, 2019 16:13 ALICE BLACKWELL DO Jan 28, 2019 10:45
[2019-01-27] MEDS ORDERED: MELATONIN 3 MG TABLET PO PRN (20:30)
[2019-01-27] MEDS ORDERED: ZOLPIDEM 5 MG (AMBIEN) TAB PO PRN (20:30)
[2019-01-27] MEDS ORDERED: POLYETHYLENE GLYCOL 17 GM (MIRALAX) PACK PO PRN (20:30)
[2019-01-27] MEDS ORDERED: NS IV 500 ML 500 ML IV ONE (20:30)
[2019-01-27] MEDS: MAGNESIUM CITRATE 300 ML BTL PO SCH (20:32)
[2019-01-27] MEDS: DOCUSATE SODIUM 100 MG (COLACE) CAP PO SCH (21:49)
[2019-01-27] MEDS: SENNA W/DOCUSATE (SENOKOT S) TABLET PO SCH (21:49)
[2019-01-28] VITALS (10 sets, daily range): BP systolic 104–122; BP diastolic 56–69
[2019-01-28] MEDS: fentaNYL INJECTION 100 MCG/2 ML AMP IV PRN ×3 (03:27→16:00)
[2019-01-28] MEDS: RT-ALBUTEROL SULF 2.5 MG/3 ML PRE-MIX VIAL INH SCH ×4 (05:05→20:20)
[2019-01-28] MEDS: CATHETER FLUSH 10 ML SYR IV SCH ×3 (05:26→20:19)
[2019-01-28] MEDS: inSUlin ASPART (NovoLOG) 1 UNIT/0.01 ML (CHARGE PER UNIT) SC SCH ×4 (05:33→21:00)
[2019-01-28 06:29] LABS: BASOPHILS % (AUTO) 0 % (0-10); EOSINOPHILS # (AUTO) 0.1 10^3/uL (0.0-0.3); EOSINOPHILS % (AUTO) 1 % (0-10); HEMATOCRIT 32 % (35-52); HEMOGLOBIN 8.8 G/DL (11.5-16.0); LYMPHOCYTES # (AUTO) 0.9 X 10^3 (1.0-4.0); LYMPHOCYTES % (AUTO) 10 % (12-44); MEAN CORPUSCULAR HEMOGLOBIN 20 PG (25-34); MEAN CORPUSCULAR HGB CONC 28 G/DL (32-36); MEAN CORPUSCULAR VOLUME 71 FL (80-99); MEAN PLATELET VOLUME 9.6 FL (7.4-10.4); MONOCYTES # (AUTO) 1.1 X 10^3 (0.0-1.0); MONOCYTES % (AUTO) 11 % (0-12); NEUTROPHILS # (AUTO) 7.3 X 10^3 (1.8-7.8); NEUTROPHILS % (AUTO) 78 % (42-75); PLATELET COUNT 290 10^3/uL (130-400); RED CELL DISTRIBUTION WIDTH 22.8 % (10.0-14.5); WHITE BLOOD COUNT 9.4 10^3/uL (4.3-11.0)
[2019-01-28 06:53] LABS: ALBUMIN 3.3 GM/DL (3.2-4.5); BILIRUBIN,TOTAL 1.2 MG/DL (0.1-1.0); CALCIUM 8.7 MG/DL (8.5-10.1); CREATININE SERUM 1.05 MG/DL (0.60-1.30); PHOSPHORUS 3.5 MG/DL (2.3-4.7); POTASSIUM 3.8 MMOL/L (3.6-5.0)
[2019-01-28 07:01] LABS: INR 2.1 (0.8-1.4); PROTHROMBIN TIME PATIENT 24.8 SEC (12.2-14.7)
--- NOTE | 2019-01-28 07:06 | Pulmonary Progress Note ---
Subjective Time Seen by a Provider: 07:09 Subjective/Events-last exam Pt is only on NC without increased WOB. Sepsis Event Evaluation Height, Weight, BMI Height: 5'2.00" Weight: 173lbs. 2.0oz. 78.775317lb; 31.64 BMI Method:Stated Exam Exam Vital Signs Date Time Temp Pulse Resp B/P (MAP) Pulse Ox O2 Delivery O2 Flow Rate FiO2 01/28/19 03:29 37.6 90 18 115/64 (81) 92 Nasal Cannula 2.00 01/28/19 01:11 37.6 85 18 119/59 94 Nasal Cannula 2.00 01/27/19 23:31 37.0 85 20 122/63 (82) 94 Nasal Cannula 2.00 01/27/19 22:25 37.5 84 20 129/60 92 Nasal Cannula 2.00 01/27/19 22:15 95 Nasal Cannula 2.00 01/27/19 22:10 37.5 78 19 133/69 95 Nasal Cannula 2.00 01/27/19 20:18 Nasal Cannula 2.00 01/27/19 19:33 37.1 73 20 120/72 (88) 92 Nasal Cannula 2.00 01/27/19 15:40 94 Nasal Cannula 2.00 01/27/19 15:40 36.8 93 19 132/70 (90) 95 Nasal Cannula 2.00 01/27/19 12:00 36.8 80 18 112/54 (73) 92 Nasal Cannula 2.00 01/27/19 08:52 36.8 75 20 140/69 (92) 93 Nasal Cannula 2.00 01/27/19 08:41 94 Nasal Cannula 2.00 01/27/19 08:00 Nasal Cannula 2.00 I & O 01/28/19 07:00 Intake Total 550 ml Output Total 807 ml Balance -257 ml Height & Weight Height: 5'2.00" Weight: 173lbs. 2.0oz. 78.783059hv; 31.64 BMI Method:Stated General Appearance: No Apparent Distress, WD/WN HEENT: PERRL/EOMI, Pharynx Normal Neck: Normal Inspection, Supple Respiratory: Lungs Clear, No Respiratory Distress, Decreased Breath Sounds (r>l ) Cardiovascular: Regular Rate, Rhythm, No Edema, No Murmur Capillary Refill: Less Than 3 Seconds Gastrointestinal: tenderness (epigastric tenderness) Extremity: Normal Inspection, Non Tender Neurologic/Psychiatric: Alert, Oriented x3 Skin: Normal Color, Warm/Dry Lymphatic: No Adenopathy Results Lab Laboratory Tests 01/27/19 05:18 01/28/19 06:05 Assessment/Plan Assessment/Plan Diastolic CHF -BNP on admission was 523 -repeat labs with BNP SOB with large right pleural effusion -Repeat CXR this am -THERE IS NO NEED TO DO THORACENTESIS EMERGENTLY PT IS ONLY REQUIRING 2 LITERS OF OXYGEN. ONCE INR IS <2 IF SHE STILL HAS PLEURAL EFFUSION I WILL DO THORACENTESIS. WILL CONTINUE LASIX AND PT MAY DIURESE PLEURAL EFFUSION OFF. I DID EXPLAIN TO PT RISK AND BENEFITS OF THORACENTESIS. I EXPLAINED TO PT WHY IT IS NOT SMART TO DO THORACENTESE UNTIL INR IS LESS THEN 2 UNLESS IT BECOMES EMERGENT. SINCE THORACENTESIS IS NOT EMERGENT WE DO NOT NEED TO GIVE FFP JUST FOR THORACENTESIS. -Continue Lasix HUSSEIN -Home BiPAP Afib RVR -Cardiology following Valvular heart disease -Coumadin therapy -On hold for thoracentesis HX of PE OBesity LYRIC ARCE DO Jan 28, 2019 07:06
--- NOTE | 2019-01-28 08:50 | Progress Note - Cardiology ---
Cardiology SOAP Progress Note Objective: I&O/Vital Signs 02/01/19 02/01/19 02/02/19 02/02/19 20:50 21:44 00:00 04:15 Temp 36.9 37.1 37.2 Pulse 60 63 62 Resp B/P (MAP) 118/57 (77) 119/59 (79) 110/53 (72) Pulse Ox 97 96 95 O2 Delivery Nasal Cannula Nasal Cannula Nasal Cannula Nasal Cannula O2 Flow Rate 1.00 1.00 1.00 1.00 02/02/19 02/02/19 06:18 08:00 Temp 37.2 Pulse 64 Resp 24 B/P (MAP) 118/68 (85) Pulse Ox 96 96 O2 Delivery Nasal Cannula Nasal Cannula O2 Flow Rate 1.00 1.00 02/02/19 00:00 Intake Total 660 ml Output Total 500 ml Balance 160 ml Weight (Pounds): 173 Weight (Ounces): 2.0 Weight (Calculated Kilograms): 78.683890 Constitutional: AAO x 3, well-developed, well-nourished Respiratory: No accessory muscle use, No respiratory distress; chest expansion is symmetric, chest is bilaterally symmetric, other (fair air entry; poor inspiratory effort) Cardiovascular: irregularly irregular; No JVD; S1 and S2, systolic murmur Gastrointestional: No tender; audible bowel sounds Genital/Rectal: other (Urinary catheter to DD; clear, yellow) Extremities: no lower extremity edema bilateral Neurologic/Psychiatric: grossly intact Skin: No rash on exposed areas, No ulcerations on exposed areas Results/Procedures: Labs Laboratory Tests 02/01/19 10:56: Glucometer 144H 02/01/19 16:22: Glucometer 113H 02/01/19 21:02: Glucometer 183H 02/02/19 05:54: Hemoglobin 9.4L, Hematocrit 34L, Prothrombin Time 28.2H, INR Comment 2.5H, Sodium Level 136, Potassium Level 3.4L, Chloride Level 95L, Carbon Dioxide Level 31, Anion Gap 10, Blood Urea Nitrogen 27H, Creatinine 1.10, Estimat Glomerular Filtration Rate 48, BUN/Creatinine Ratio 25, Glucose Level 73, Calcium Level 8.7, Magnesium Level 1.9 02/02/19 06:05: Glucometer 98 Microbiology 01/28/19 Gram Stain - Final, Complete 01/28/19 Body Fluid Culture - Final, Complete No growth Procedures NAME: SANCHEZ CISNEROS [facility] REC#: [id number] PT STATUS: ADM IN : 1940 PHYSICIAN: LYRIC DILL DO ADMIT DATE: 01/25/19 Signed Date of Exam: 01/27/19 CHEST 1 VIEW, AP/PA ONLY INDICATION: Pleural effusion. Shortness of breath. TECHNIQUE: Single view chest, 1:39 p.m. CORRELATION STUDY: 01/25/2019. FINDINGS: Left-sided pacemaker remains in place. Cardiac enlargement. There is presence of pulmonary vascular congestion and perihilar edema. Congestive changes do appear to be perhaps slightly less severe from prior study. There is a rather prominent, sizable right pleural effusion. Consolidation in the right lung, likely atelectasis and/or infiltrate. Question of abnormal fullness in the right hilar region. Rather significantly advanced degenerative changes in bilateral shoulders. IMPRESSION: 1. Cardiac enlargement with presence of pulmonary vascular congestion. Congestive changes may be slightly less severe from prior study. 2. Combination of a rather sizable right pleural effusion and consolidation in the right lung again demonstrated. Underlying mass lesion at the right hilum would be difficult to exclude. Dictated by: Dictated on workstation # [id number] Dict: 01/27/19 1359 Trans: 01/27/191832 Interpreted by: WILFREDO BUSTILLOS DO Electronically signed by: WILFREDO BUSTILLOS DO 01/27/19 183 A/P: Assessment: Multifactorial shortness of breath, see below Acute on chronic diastolic CHF Large right pleural effusion seen on CT of the chest on 01-25-19 S/P non-syncopal fall Anemia of undetermined etiology - management per Medical Services Moderate pulmonary hypertension, likely related to sleep apnea syndrome. She is on BIPAP therapy, but has been noncompliant Paroxysmal atrial fibrillation which now appears permanent. 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 ECG of 10/19/17 shows a fib with occ paced beat Status post pacemaker implantation by Dr. Keene in 2010 which is being followed by Dr. Keene (pulse gen change by Dr Keene in Mar 2017) Valvular heart disease, consisting primarily of mitral regurgitation and mitral annular calcification. On cardiac cath of August 2009, this was felt to be moderate to severe. Subsequently, on trans-esophageal echocardiography, mitral regurgitation was felt to be moderate. In addition, the patient has moderate to moderately severe tricuspid regurgitation. 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 F/u on anemia is with Dr Guillermo kaur basal cell CA treated with surgery (Dr Vargas) and radiation (Dr Stone) in 2016 Plan: * Dr. Carreno has discussed her case with Dr Dill on 01-26-19. He plans thoracentesis after INR normal * We recommend GI w/u, given anemia and given h/o presences of sources that may cause GI bleed (see above) * Monitor labs * Continue to hold warfarin * Advise determination and treatment of cause of bleeding expediently so that OAC can be given when INR returns to therapeutic range d/t risk of CVA d/t PAF * CXR pending * EGD and colo planned for later today * PT to eval and tx ANN AG Jan 28, 2019 08:50
--- NOTE | 2019-01-28 09:30 | Progress Note - Cardiology ---
Cardiology SOAP Progress Note Subjective: No cp or palp or syncope Shortness of breath better but not resolved Gen malaise and weakness present Objective: I&O/Vital Signs 01/27/19 01/27/19 01/27/19 01/27/19 22:10 22:15 22:25 23:31 Temp 37.5 37.5 37.0 Pulse 78 84 85 Resp 19 20 20 B/P (MAP) 133/69 129/60 122/63 (82) Pulse Ox 95 95 92 94 O2 Delivery Nasal Cannula Nasal Cannula Nasal Cannula Nasal Cannula O2 Flow Rate 2.00 2.00 2.00 2.00 01/28/19 01/28/19 01/28/19 01/28/19 01:11 03:29 07:43 07:58 Temp 37.6 37.6 37.8 37.8 Pulse 85 90 73 84 Resp 18 18 24 24 B/P (MAP) 119/59 115/64 (81) 117/69 (85) 117/69 Pulse Ox 94 92 93 94 O2 Delivery Nasal Cannula Nasal Cannula Nasal Cannula Nasal Cannula O2 Flow Rate 2.00 2.00 2.00 2.00 01/28/19 08:00 O2 Delivery Nasal Cannula O2 Flow Rate 2.00 01/27/19 23:59 Intake Total 550 ml Output Total 507 ml Balance 43 ml Weight (Pounds): 173 Weight (Ounces): 2.0 Weight (Calculated Kilograms): [id number] Constitutional: AAO x 3, well-developed, well-nourished Respiratory: No accessory muscle use, No respiratory distress; chest expansion is symmetric, chest is bilaterally symmetric, other (fair air entry; poor in spiratory effort) Cardiovascular: irregularly irregular; No JVD; S1 and S2, systolic murmur Gastrointestional: No tender; audible bowel sounds Genital/Rectal: other (Urinary catheter to DD; clear, yellow) Extremities: no lower extremity edema bilateral Neurologic/Psychiatric: grossly intact Skin: No rash on exposed areas, No ulcerations on exposed areas Results/Procedures: Labs Laboratory Tests 01/27/19 11:01: Glucometer 120H 01/27/19 16:21: Glucometer 102 01/27/19 20:32: Glucometer 100 01/28/19 05:32: Glucometer 93 01/28/19 06:05: White Blood Count 9.4, Red Blood Count 4.51, Hemoglobin 8.8L, Hematocrit 32L, Mean Corpuscular Volume 71L, Mean Corpuscular Hemoglobin 20L, Mean Corpuscular Hemoglobin Concent 28L, Red Cell Distribution Width 22.8H, Platelet Count 290, Mean Platelet Volume 9.6, Neutrophils (%) (Auto) 78H, Lymphocytes (%) (Auto) 10L , Monocytes (%) (Auto) 11, Eosinophils (%) (Auto) 1, Basophils (%) (Auto) 0, Neutrophils # (Auto) 7.3, Lymphocytes # (Auto) 0.9L, Monocytes # (Auto) 1.1H, Eosinophils # (Auto) 0.1, Basophils # (Auto) 0.0, Prothrombin Time 24.8H, INR Comment 2.1H, Activated Partial Thromboplast Time 48H, Sodium Level 137, Potassi um Level 3.8, Chloride Level 98, Carbon Dioxide Level 31, Anion Gap 8, Blood Urea Nitrogen 20H, Creatinine 1.05, Estimat Glomerular Filtration Rate 51, BUN/Creatinine Ratio 19, Glucose Level 84, Calcium Level 8.7, Corrected Calcium 9.3, Phosphorus Level 3.5, Total Bilirubin 1.2H, Aspartate Amino Transf (AST/SGOT) 24, Alanine Aminotransferase (ALT/SGPT) 8, Alkaline Phosphatase 103, B-Type Natriuretic Peptide 449.0H, Total Protein 8.0, Albumin 3.3 A/P: Assessment: Multifactorial shortness of breath, see below Acute on chronic diastolic CHF Large right pleural effusion seen on CT of the chest on 01-25-19 S/P non-syncopal fall Anemia of undetermined etiology - management per Medical Services Moderate pulmonary hypertension, likely related to sleep apnea syndrome. She is on BIPAP therapy, but has been noncompliant Paroxysmal atrial fibrillation which now appears permanent. Her furnace installer helper, Dr Keene in [place], [place], has managed this. ECG of 10/19/17 shows a fib with occ paced beat Status post pacemaker implantation by Dr. Keene in 2010 which is being followed by Dr. Keene (pulse gen change by Dr Keene in Mar 2017) Valvular heart disease, consisting primarily of mitral regurgitation and mitral annular calcification. On cardiac cath of August 2009, this was felt to be moderate to severe. Subsequently, on trans-esophageal echocardiography, mitral regurgitation was felt to be moderate. In addition, the patient has moderate to moderately severe tricuspid regurgitation. 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 F/u on anemia is with Dr Guillermo kaur basal cell CA treated with surgery (Dr Vargas) and radiation (Dr Stone) in 2016 Plan: * I spoke with her and her * I discussed her case with Dr Blackwell and Dr Dill * Endoscopy planned to look for and treat bleeding sources * Thoracentesis planned * Dr Lynn covering Card Svce this JERSEY SUE MD FACP FAC CCDS Jan 28, 2019 09:30
--- NOTE | 2019-01-28 09:45 | Physical Therapy Progress Note ---
Therapy Progress Note Patient to have thoracentesis this a.m. per Dr. Blackwell. PT will attempt in p.m. IRENE LOGAN PT Jan 28, 2019 09:45
--- NOTE | 2019-01-28 10:19 | Diagnostic Imaging Report ---
INDICATION: Status post right-sided thoracentesis. Time of exam: 10:04 AM Correlation is made with prior chest from one day earlier. There has been significant reduction in right-sided pleural effusion, status post thoracentesis. No pneumothorax is identified. Heart is enlarged. Cardiac pacemaker remains in place. IMPRESSION: Significant reduction in right pleural effusion, status post thoracentesis. No pneumothorax is seen. Dictated by: Dictated on workstation # [id number]
--- NOTE | 2019-01-28 10:30 | NUR ---
DR. GIL HERE. PARACENTESIS DONE. TOL. LARSON 1400 CC PINKISH-YELLOW FLUID REMOVED. TOL. LARSON. Addendum: 01/30/19 at 1939 by TYSON MORALES RN RIGHT PARACENTESIS
[2019-01-28 10:38] LABS: BODY FLUID PH 7.3
[2019-01-28 10:40] LABS: BODY FLUID TRIGLYCERIDES 31 MG/DL; GLUCOSE,BODY FLUID 90 MG/DL; LDH,BODY FLUID 154 U/L; TOTAL PROTEIN,BODY FLUID 4.1 G/DL
[2019-01-28] MEDS: PROCHLORPERAZINE 10 MG/2ML INJ (COMPAZINE) IV PRN (10:51)
[2019-01-28] MEDS: FUROSEMIDE 40 MG/4 ML INJ (LASIX) IVP SCH ×2 (10:51→17:20)
[2019-01-28] MEDS: PANTOPRAZOLE 40 MG (PROTONIX) VIAL IV SCH (10:51)
[2019-01-28 11:10] LABS: BODY FLUID SOURCE THORACEN
[2019-01-28 11:11] LABS: BODY FLUID APPEARENCE MOD BLDY; BODY FLUID COLOR RED; BODY FLUID RBC COUNT 82000 /uL; BODY FLUID WBC TOTAL COUNT 300 /uL
--- NOTE | 2019-01-28 11:14 | NUR ---
TO EGD PER W/C
[2019-01-28] MEDS ORDERED: PROPOFOL INJECTION 50 ML IV ONE (11:40)
[2019-01-28] MEDS ORDERED: LACTATED RINGERS 1,000 ML IV ONE (11:41)
[2019-01-28] MEDS ORDERED: FERROUS SULF 325 MG (IRON) TAB PO NR (12:00)
[2019-01-28] MEDS: MAGNESIUM CITRATE 300 ML BTL PO SCH ×2 (12:16→20:12)
--- NOTE | 2019-01-28 12:39 | Diagnostic Imaging Report ---
Indication: Pleural effusion. Sonography guidance was provided for Dr. Blackwell for performance of thoracentesis. Images demonstrate a large right pleural effusion. Impression: Sonographic guidance for right-sided thoracentesis. Dictated by: Dictated on workstation # [id number]
--- NOTE | 2019-01-28 13:20 | NUR ---
RETURNED FROM SCOPE ROOM PER BED. ALERT AND ORIENTED. C/O OF SL. UPPER ABD. DISCOMFORT. SKIN W/D. FAMILY AT BEDSIDE. SKIN CARE DONE. MOONEY CATH WITH CLEAR LT. BARBARA URINE. CONT. TO C/O OF BACK PAIN.
--- NOTE | 2019-01-28 13:27 | Physical Therapy Progress Note ---
Therapy Progress Note Patient adamantly declined PT secondary to multiple procedures and fatigue. Family present. PT will attempt in a.m. 1 ref ([id number]) IRENE LOGAN PT Jan 28, 2019 13:27
--- NOTE | 2019-01-28 14:28 | NUR ---
Pt's daughter approached me in the hallway and asked if the pt could have cold unsweet tea. I assisted by calling the kitchen, and they said pt was NPO but made note of pt's request. I also left a note for the RN Araceli.
[2019-01-28 14:53] LABS: BF OTHER CELLS 3 %; LYMPHOCYTES,BODY FLUID 89 %
--- NOTE | 2019-01-28 16:03 | Progress Note - Hospitalist ---
Subjective HPI/CC On Admission Date Seen by Provider: Jan 28, 2019 Time Seen by Provider: 10:45 Shortness of breath Subjective/Events-last exam She reports improved back pain. She reports nausea and requests antiemetics. She denies vomiting and abdominal pain. She denies diarrhea. She denies fevers and chills. She denies chest pain. Her shortness of breath is stable. She denies melena and hematochezia. Objective Exam Vital Signs Vital Signs Date Time Temp Pulse Resp B/P (MAP) Pulse Ox O2 Delivery O2 Flow Rate FiO2 01/28/19 08:00 Nasal Cannula 2.00 01/28/19 07:58 37.8 84 24 117/69 94 Capillary Refill : Less Than 3 SecondsLess Than 3 Seconds General Appearance: WD/WN, Mild Distress HEENT: PERRL/EOMI, Pharynx Normal Neck: Normal Inspection, Supple Respiratory: Lungs Clear, Normal Breath Sounds, No Respiratory Distress Cardiovascular: Regular Rate, Rhythm, No Edema, No Murmur Gastrointestinal: Normal Bowel Sounds, Non Tender, Soft Extremity: Normal Inspection, Non Tender, No Pedal Edema Neurologic/Psychiatric: Alert, Oriented x3 Skin: Normal Color, Warm/Dry Results/Procedures Lab Laboratory Tests 01/28/19 06:05 Patient resulted labs reviewed. Imaging: Reviewed Imaging Report Assessment/Plan Assessment and Plan Assess & Plan/Chief Complaint Acute hypoxic respiratory failure Acute on chronic congestive heart failure Large right pleural effusion Continue Lasix -Planning for thoracentesis today Iron deficiency anemia Received 2 units of PRBCs 01/25 Hemoglobin stable -Received 2 units FFP overnight -Planning for EGD/colonoscopy today Compression fracture Pain regimen ordered Plan to follow up with orthopedic surgery outpatient Atrial fibrillation Continue metoprolol Holding Coumadin for procedures INR 2.1 this morning -Received 2 units FFP this morning Diagnosis/Problems Diagnosis/Problems (1) Acute hypoxemic respiratory failure Status: Acute (2) Acute on chronic congestive heart failure Status: Acute Qualifiers: Heart failure type: diastolic Qualified Codes: I50.33 - Acute on chronic diastolic (congestive) heart failure (3) Compression fracture of L1 vertebra Status: Acute Qualifiers: Encounter type: initial encounter Qualified Codes: S32.010A - Wedge compression fracture of first lumbar vertebra, initial encounter for closed fracture (4) History of GI bleed (5) Anemia Status: Acute Qualifiers: Anemia type: iron deficiency (6) Pleural effusion on right Status: Acute Clinical Quality Measures Admission Status Admission Dx DVT/VTE Risk/Contraindication: Risk Factor Score Per Nursin RFS Level Per Nursing on Admit: 4+=Very High CLARISSA ARCEO MD Jan 28, 2019 16:03
--- NOTE | 2019-01-28 16:13 | NUR ---
DR. ARCEO NOTIFIED OF PT. C/O OF PAIN IN RIGHT MIDDLE BOTTOM OF FOOT.NEW ORDER NOTED. PT. STATES " I THINK IT MIGHT BE BROKE."
[2019-01-28] MEDS: DOCUSATE SODIUM 100 MG (COLACE) CAP PO SCH ×2 (17:11→20:18)
[2019-01-28] MEDS: SENNA W/DOCUSATE (SENOKOT S) TABLET PO SCH ×2 (17:12→20:18)
[2019-01-28] MEDS: DIGOXIN 0.25 MG (LANOXIN) TAB PO SCH (17:20)
[2019-01-28] MEDS: DILTIAZEM 180 MG (CARDIZEM CD) CAP PO SCH (17:24)
[2019-01-28] MEDS: warFARin 2 MG (COUMADIN) TAB PO SCH (17:30)
--- NOTE | 2019-01-28 19:31 | Diagnostic Imaging Report ---
Examination: Right foot, 3 views Indication: Right foot pain after fall approximately 4 days ago. Comparison: None available. Findings: There is marked osteopenia of the visualized osseous structures, which limits detailed evaluation. No fracture or acute osseous abnormality is appreciated. Bony alignment is maintained. There is degenerative change noted in the midfoot. Mild hallux valgus deformity is demonstrated. A large plantar calcaneal spur is demonstrated. There is mild generalized soft tissue edema. Vascular calcifications are noted. Impression: No acute fracture or dislocation. Dictated by: Dictated on workstation # [id number]
--- NOTE | 2019-01-28 19:43 | Progress Note - Surgery ---
Subjective Date Seen by a Provider: Jan 28, 2019 Time Seen by a Provider: 08:16 Subjective/Events-last exam Patient laying in bed. Shortness of breath better when laying in bed, but still worse with exertion. Received 1 ffp last night and INR 2.1 this morning, and receiving another ffp now. Not much result with mag citrate. NPO currently. Chest x ray still with large pleural effusion right side. Objective Exam Vital Signs Date Time Temp Pulse Resp B/P (MAP) Pulse Ox O2 Delivery O2 Flow Rate FiO2 01/28/19 16:15 37.2 68 20 117/66 (83) 94 Nasal Cannula 2.00 01/28/19 13:30 37.2 88 20 122/66 (84) 94 Nasal Cannula 2.00 01/28/19 10:45 37.2 78 20 116/64 96 Nasal Cannula 01/28/19 08:15 37.7 70 20 118/62 95 Nasal Cannula 2.00 01/28/19 08:00 Nasal Cannula 2.00 01/28/19 07:58 37.8 84 24 117/69 94 Nasal Cannula 2.00 01/28/19 07:43 37.8 73 24 117/69 (85) 93 Nasal Cannula 2.00 01/28/19 03:29 37.6 90 18 115/64 (81) 92 Nasal Cannula 2.00 01/28/19 01:11 37.6 85 18 119/59 94 Nasal Cannula 2.00 01/27/19 23:31 37.0 85 20 122/63 (82) 94 Nasal Cannula 2.00 01/27/19 22:25 37.5 84 20 129/60 92 Nasal Cannula 2.00 01/27/19 22:15 95 Nasal Cannula 2.00 01/27/19 22:10 37.5 78 19 133/69 95 Nasal Cannula 2.00 01/27/19 20:18 Nasal Cannula 2.00 I & O 01/28/19 07:00 Intake Total 550 ml Output Total 807 ml Balance -257 ml Capillary Refill : Less Than 3 SecondsLess Than 3 Seconds General Appearance: WD/WN HEENT: PERRL/EOMI, Pharynx Normal Neck: Normal Inspection, Supple Respiratory: Lungs Clear, Decreased Breath Sounds (right) Cardiovascular: Regular Rate, Rhythm Gastrointestinal: soft, no organomegaly, tenderness (epigastric tenderness minimal-improved) Extremity: Normal Inspection, Non Tender, No Pedal Edema Neurologic/Psychiatric: Alert, Oriented x3 Skin: Normal Color, Warm/Dry Lymphatic: No Adenopathy Results Lab Laboratory Tests 01/27/19 20:32: Glucometer 100 01/28/19 05:32: Glucometer 93 01/28/19 06:05: White Blood Count 9.4, Red Blood Count 4.51, Hemoglobin 8.8L, Hematocrit 32L, Mean Corpuscular Volume 71L, Mean Corpuscular Hemoglobin 20L, Mean Corpuscular Hemoglobin Concent 28L, Red Cell Distribution Width 22.8H, Platelet Count 290, Mean Platelet Volume 9.6, Neutrophils (%) (Auto) 78H, Lymphocytes (%) (Auto) 10L , Monocytes (%) (Auto) 11, Eosinophils (%) (Auto) 1, Basophils (%) (Auto) 0, Neutrophils # (Auto) 7.3, Lymphocytes # (Auto) 0.9L, Monocytes # (Auto) 1.1H, Eosinophils # (Auto) 0.1, Basophils # (Auto) 0.0, Prothrombin Time 24.8H, INR Comment 2.1H, Activated Partial Thromboplast Time 48H, Sodium Level 137, Potassium Level 3.8, Chloride Level 98, Carbon Dioxide Level 31, Anion Gap 8, Blood Urea Nitrogen 20H, Creatinine 1.05, Estimat Glomerular Filtration Rate 51, BUN/Creatinine Ratio 19, Glucose Level 84, Calcium Level 8.7, Corrected Calcium 9.3, Phosphorus Level 3.5, Total Bilirubin 1.2H, Aspartate Amino Transf (AST/SGOT) 24, Alanine Aminotransferase (ALT/SGPT) 8, Alkaline Phosphatase 103, B-Type Natriuretic Peptide 449.0H, Total Protein 8.0, Albumin 3.3 01/28/19 09:45: Body Fluid Source THORACEN, Body Fluid Color RED, Body Fluid Appearance MOD BLDY , Body Fluid pH 7.3, Body Fluid WBC 300, Body Fluid [place] 469[address], Body Fluid Polynuclear WBCs 5, Body Fluid Mononuclear WBCs 3, Body Fluid Lymphocytes 89, Body Fluid Other Cells 3, Body Fluid Glucose 90, Body Fluid Total Protein 4.1, Body Fluid Lactate Dehydrogenase 154, Body Fluid Triglycerides 31 01/28/19 16:15: Glucometer 122H Assessment/Plan Assessment/Plan Assessment/Plan Anemia large right pleural effusion Shortness of breath anticoagulation with coumadin patient with anemia requiring transfusion, history of avm stomach, feel patient would benefit from egd colonoscopy to further evaluate gave ffp to reverse coumadin. since INR 2.1 and now receiving another unit of ffp this will drop the INR below 2 reversing for egd/colonoscopy would be beneficial to drain the right pleural effusion today as well since it is large and causing shortness of breath with activity npo discussed risk and benefits of procedures with patient and family who would like to proceed with thoracentesis, egd and colonoscopy today. Clinical Quality Measures DVT/VTE Risk/Contraindication: Risk Factor Score Per Nursin RFS Level Per Nursing on Admit: 4+=Very High ALICE GIL DO Jan 28, 2019 19:43
--- NOTE | 2019-01-28 19:51 | Progress Note-Post Operative ---
Post-Operative Progess Note Surgeon (s)/Print Traffic Manager (s) Surgeon ALICE GIL DO Print Traffic Manager: na Pre-Operative Diagnosis anemia, Post-Operative Diagnosis avm stomach, small hiatal hernia, poor colon prep Procedure & Operative Findings Date of Procedure 01/28/19 Procedure Performed/Findings egd with fulguration of avm stomach, attempted colonoscopy Anesthesia Type per emergency crew supervisor Estimated Blood Loss Estimated blood loss (mL): none Specimens/Packing Specimens Removed na ALICE GIL DO Jan 28, 2019 19:51
[2019-01-28] MEDS: PANTOPRAZOLE 40 MG (PROTONIX) TAB PO SCH (20:19)
[2019-01-29 00:51] VITALS: BP 119/67
--- NOTE | 2019-01-29 03:14 | OPERATIVE REPORT ---
DATE OF SERVICE: 01/28/2019 PREOPERATIVE DIAGNOSIS: Large right pleural effusion. POSTOPERATIVE DIAGNOSIS: Large right pleural effusion. PROCEDURE: Right ultrasound-guided thoracentesis. SURGEON: Alice Blackwell DO ANESTHESIA: A 1% lidocaine 3 mL. ESTIMATED BLOOD LOSS: Scant. COMPLICATIONS: None. INDICATIONS: The patient is a 78-year-old female with a large right pleural effusion. She and her family were discussed risks and benefits of procedure. She has been on anticoagulation; however, she has received fresh frozen plasma to reverse this. She understands and family understands risks and benefits and wishes to proceed. Consent was signed and on the chart. DESCRIPTION OF PROCEDURE: The patient was placed in the sitting position, leaning forward over a table. Ultrasound was used to isolate the largest window on the right chest. This was then prepped and draped in a sterile fashion. Timeout was performed. Local anesthetic was infiltrated in this area. Where the ultrasound demonstrates the largest pocket, an 11 blade scalpel was used to make a skin incision and Cped-B-Tlmajcih needle and catheter were then inserted into the pocket until fluid was returned. The catheter was then advanced and then placed to a vacuum bottle suction. A total of 1400 mL of fluid was withdrawn. The ultrasound demonstrated the catheter to be placed within the correct location. Once no further fluid could be withdrawn, the catheter was removed. The area was washed and dried and sterile bandage was applied. The patient tolerated procedure well without any complications. Chest x-ray pending. Job ID: [id number] DocumentID: [id number] Dictated Date: 01/28/2019 19:55:14 Data Entry Supervisor Date: 01/29/2019 03:14:22 Dictated By: ALICE BLACKWELL DO
--- NOTE | 2019-01-29 03:19 | OPERATIVE REPORT ---
DATE OF SERVICE: 01/28/2019 PREOPERATIVE DIAGNOSIS: Anemia. POSTOPERATIVE DIAGNOSIS: Small AVM in the stomach, small hiatal hernia, poor prep for colonoscopy. PROCEDURE: EGD with fulguration of AVM in the stomach and attempted colonoscopy. SURGEON: Alice Blackwell DO ANESTHESIA: Per GOAT HERDER. ESTIMATED BLOOD LOSS: None. COMPLICATIONS: None. INDICATIONS: The patient is a 38-year-old female with history of AVM and found to be anemic. She understands risks and benefits of procedure and wished to proceed with procedure. Consent was signed in the chart. DESCRIPTION OF PROCEDURE: The patient was taken to the endoscopy suite, placed in left lateral recumbent position. Timeout was performed. Scope was inserted in mouth, down the esophagus, stomach and into the duodenum without difficulty. There were no polyps, masses or ulcerations in the duodenum. Scope was then slowly retracted back into the stomach where it was further insufflated. There were no polyps, masses or ulcerations within the antrum. In the body of the stomach, some small benign appearing polyp. There is also a small arteriovenous malformation without active bleeding. This does appear to be smaller than last time she had endoscopy. There was also noted a small hiatal hernia, which was retroflexed. No other pathology. Using cautery, the AVM was fulgurated and hemostasis was achieved. Scope was then slowly retracted back into the distal esophagus, which had normal appearance. No polyps, masses or ulcerations. Scope was then slowly retracted back to completely remove noting no other pathology. Digital rectal exam was performed. There were no palpable polyps, masses or ulcerations. Scope was inserted into the rectum, by a large stool load, inadequate for visualization. Scope was then slowly retracted back until completely removed. The patient tolerated procedure well without any complications. RECOMMENDATIONS: The patient recommended to continue with current medical management. If the patient continues to have significant anemia after fulguration, we will attempt repeat EGD and colonoscopy with more significant prep. We will need to this and needs to be done this time since I feel that her anemia could be caused by the AVM bleeding from time to time. If any change in condition, we will reevaluate at that time. Job ID: [id number] DocumentID: [id number] Dictated Date: 01/28/2019 19:58:58 Track Oiler Date: 01/29/2019 03:19:01 Dictated By: ALICE BLACKWELL DO
[2019-01-29 04:20] VITALS: BP 109/58
[2019-01-29] MEDS: inSUlin ASPART (NovoLOG) 1 UNIT/0.01 ML (CHARGE PER UNIT) SC SCH ×4 (05:51→20:32)
[2019-01-29] MEDS: FUROSEMIDE 40 MG/4 ML INJ (LASIX) IVP SCH ×2 (05:59→16:41)
[2019-01-29] MEDS: CATHETER FLUSH 10 ML SYR IV SCH ×3 (05:59→22:00)
[2019-01-29] MEDS: FERROUS SULF 325 MG (IRON) TAB PO SCH (06:00)
[2019-01-29 06:02] LABS: HEMOGLOBIN 9.2 G/DL (11.5-16.0)
[2019-01-29 06:13] LABS: INR 2.1 (0.8-1.4); PROTHROMBIN TIME PATIENT 24.5 SEC (12.2-14.7)
[2019-01-29 06:15] LABS: CALCIUM 8.6 MG/DL (8.5-10.1); CREATININE SERUM 1.06 MG/DL (0.60-1.30); MAGNESIUM 2.4 MG/DL (1.6-2.4); POTASSIUM 3.6 MMOL/L (3.6-5.0)
--- NOTE | 2019-01-29 07:14 | Progress Note ---
Subjective Date Seen by a Provider: Jan 29, 2019 Time Seen by a Provider: 06:00 Subjective/Events-last exam doing ok. tolerating diet. no clinical bleed. no SOB. Objective Exam Vital Signs Date Time Temp Pulse Resp B/P (MAP) Pulse Ox O2 Delivery O2 Flow Rate FiO2 01/29/19 04:20 36.4 90 18 109/58 (75) 93 Nasal Cannula 2.00 01/29/19 00:51 36.7 90 22 119/67 (84) 97 Nasal Cannula 2.00 01/28/19 21:34 37.0 75 97 24 01/28/19 20:20 37.0 79 22 104/56 (72) 97 Nasal Cannula 2.00 01/28/19 20:20 97 Nasal Cannula 2.00 01/28/19 20:00 Nasal Cannula 2.00 01/28/19 16:15 37.2 68 20 117/66 (83) 94 Nasal Cannula 2.00 01/28/19 13:30 37.2 88 20 122/66 (84) 94 Nasal Cannula 2.00 01/28/19 10:45 37.2 78 20 116/64 96 Nasal Cannula 01/28/19 08:15 37.7 70 20 118/62 95 Nasal Cannula 2.00 01/28/19 08:00 Nasal Cannula 2.00 01/28/19 07:58 37.8 84 24 117/69 94 Nasal Cannula 2.00 01/28/19 07:43 37.8 73 24 117/69 (85) 93 Nasal Cannula 2.00 I & O 01/29/19 07:00 Intake Total 778 ml Output Total 1300 ml Balance -522 ml Capillary Refill : Less Than 3 SecondsLess Than 3 Seconds General Appearance: No Apparent Distress HEENT: PERRL/EOMI Neck: Full Range of Motion Respiratory: Chest Non Tender, Normal Breath Sounds Cardiovascular: Regular Rate, Rhythm Gastrointestinal: normal bowel sounds, non tender, soft Extremity: Normal Capillary Refill Neurologic/Psychiatric: Alert, Oriented x3 Skin: Normal Color Lymphatic: No Adenopathy Results Lab Laboratory Tests 01/28/19 09:45: Body Fluid Source THORACEN, Body Fluid Color RED, Body Fluid Appearance MOD BLDY, Body Fluid pH 7.3, Body Fluid WBC 300, Body Fluid RBC 31913, Body Fluid Polynuclear WBCs 5, Body Fluid Mononuclear WBCs 3, Body Fluid Lymphocytes 89, Body Fluid Other Cells 3, Body Fluid Glucose 90, Body Fluid Total Protein 4.1, Body Fluid Lactate Dehydrogenase 154, Body Fluid Triglycerides 31 01/28/19 16:15: Glucometer 122H 01/28/19 20:58: Glucometer 104 01/29/19 05:14: Glucometer 96 01/29/19 05:32: Hemoglobin 9.2L, Hematocrit 33L, Prothrombin Time 24.5H, INR Comment 2.1H, Sodium Level 136, Potassium Level 3.6, Chloride Level 95L, Carbon Dioxide Level 30, Anion Gap 11, Blood Urea Nitrogen 23H, Creatinine 1.06, Estimat Glomerular Filtration Rate 50, BUN/Creatinine Ratio 22, Glucose Level 91, Calcium Level 8.6, Magnesium Level 2.4 Assessment/Plan Assessment/Plan Assess & Plan/Chief Complaint GI bleed, pleural effusion s/p thoracentesis and EGD. Hb stable. respiratory status appears to be improved. tolerating diet. ok for home from surgical standpoint. Clinical Quality Measures DVT/VTE Risk/Contraindication: Risk Factor Score Per Nursin RFS Level Per Nursing on Admit: 4+=Very High SUSI VILLAFANA MD Jan 29, 2019 07:13
[2019-01-29 07:28] VITALS: BP 112/63
[2019-01-29] MEDS: SENNA W/DOCUSATE (SENOKOT S) TABLET PO SCH ×2 (08:02→20:32)
[2019-01-29] MEDS: DOCUSATE SODIUM 100 MG (COLACE) CAP PO SCH ×2 (08:02→20:32)
[2019-01-29] MEDS: DILTIAZEM 180 MG (CARDIZEM CD) CAP PO SCH (08:02)
[2019-01-29] MEDS: PANTOPRAZOLE 40 MG (PROTONIX) TAB PO SCH ×2 (08:02→20:32)
[2019-01-29] MEDS: DIGOXIN 0.25 MG (LANOXIN) TAB PO SCH (08:03)
--- NOTE | 2019-01-29 09:49 | Cardiology Progress Note ---
Subjective Date Seen by Provider: Jan 29, 2019 Time Seen by Provider: 09:42 Subjective/Events-last exam Patient is sitting in a chair, reporting some improvement, still having some shortness of breath Review of Systems General: No Chills, No Night Sweats, No Fatigue, No Malaise, No Appetite, No Other HEENT: No Head Aches, No Visual Changes, No Eye Pain, No Ear Pain, No Dysphasia, No Sinus Congestion, No Post Nasal Drip, No Sore Throat, No Other Pulmonary: Dyspnea; No Cough, No Pleuritic Chest Pain, No Other Cardiovascular: Edema; No: Chest Pain, Palpitations, Orthopnea, Paroxysmal Noc. Dyspnea, Lt Headedness, Other Objective-Cardiology Exam Last Set of Vital Signs Vital Signs 01/28/19 01/29/19 01/29/19 21:34 07:28 08:00 Temp 36.6 Pulse 74 Resp 22 B/P (MAP) 112/63 (79) Pulse Ox 93 O2 Delivery Nasal Cannula O2 Flow Rate 2.00 FiO2 24 Capillary Refill : Less Than 3 SecondsLess Than 3 Seconds I&O Intake and Output 01/29/19 00:00 Intake Total 778 ml Output Total 1400 ml Balance -622 ml Intake Oral 500 ml Other 278 ml Output Urine Total 1400 ml General: Alert, Oriented X3, Cooperative HEENT: Atraumatic, PERRLA Neck: Supple, No JVD, No Thyromegaly Lungs: Normal Air Movement, Other (Bilateral rhonchi) Heart: Regular Rate, Normal S1, Normal S2, No Murmurs Abdomen: Normal Bowel Sounds, Soft, No Tenderness, No Hepatosplenomegaly, No Masses Extremities: No Clubbing, No Cyanosis, No Edema, Normal Pulses, No Tenderness/Swelling Skin: No Rashes, No Breakdown, No Significant Lesion Neuro: Normal Speech, Normal Tone, Sensation Intact Psych/Mental Status: Mental Status NL, Mood NL Results Lab Laboratory Tests 01/29/19 05:32 A/P-Cardiology Admission Diagnosis Congestive heart failure Hypertension Hyperlipidemia Pleural effusion Assessment/Plan Large right-sided pleural effusion status post thoracentesis, feeling better, still have bilateral rhonchi and wet rales. Acute on chronic diastolic CHF, continue diuretics and monitor. Moderate pulmonary hypertension, likely related to sleep apnea syndrome. She is on BIPAP therapy, but has been noncompliant Paroxysmal atrial fibrillation which now appears permanent. Her business services vice president, Dr Keene in [place], [place], has managed this. ECG of 10/19/17 shows a fib with occ paced beat Status post pacemaker implantation by Dr. eKene in 2010 which is being followed by Dr. Keene (pulse gen change by Dr Keene in Mar 2017) Valvular heart disease, consisting primarily of mitral regurgitation and mitral annular calcification. On cardiac cath of August 2009, this was felt to be moderate to severe. Subsequently, on trans-esophageal echocardiography, mitral regurgitation was felt to be moderate. In addition, the patient has moderate to moderately severe tricuspid regurgitation. 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 F/u on anemia is with Dr Guillermo kaur basal cell CA treated with surgery (Dr Vargas) and radiation (Dr Stone) in 2017 Clinical Quality Measures DVT/VTE Risk/Contraindication: Risk Factor Score Per Nursin RFS Level Per Nursing on Admit: 4+=Very High ABBIE MCCORMACK MD Jan 29, 2019 09:49
--- NOTE | 2019-01-29 10:10 | Physical Therapy Daily Note ---
PT Daily Note-Current Subjective Patient reluctantly agrees to PT. family present. Pain Numeric Pain Scale: 5-Moderate Pain Mental Status Patient Orientation: Normal For Age Attachments: Oxygen, Toth Catheter Transfers Therapy Code Descriptions/Definitions Functional [place] Measure: 0=Not Assessed/NA 4=Minimal Assistance 1=Total Assistance 5=Supervision or Setup 2=Maximal Assistance 6=Modified [place] 3=Moderate Assistance 7=Complete [place] Therapy Quality Codes: 6 Independent with activity with or without an assistive device 5 Patient requires set up or clean up by helper. Patient completes activity by themselves 4 Supervision or touching assist (CGA). [place] provide cues , steadying assist 3 The helper provides less than half the effort to complete the activity 2 The helper provides more than half the effort to complete the activity 1 Dependent. The helper does all the effort to complete an activity 7 Patient refused to complete or attempt activity 9 The patient did not perform the activity before the current illness or injury 88 Not attempted due to Medical conditions or safety concerns Transfers (B, C, W/C) (FIM): 4 Scootin Rollin Supine to/from Sit: 4 Sit to/from Stand: 4 Bed to/from Chair: 4 CGa for safety Weight Bearing Right Lower Extremity: Right Full Weight Bearing Left Lower Extremity: Left Full Weight Bearing Gait Training Gait (FIM): 1 Distance (FIM): 1=up to 49 ft Distance: 20' Gait Level of Assist: 4 Gait Persons Needed: 1 Gait Assistive Device: FWW slightly unsteady Assessment Patient incontinent BM requiring assistance to cleanse and change patient. Patient is up in chair with needs met. PT Senior Care Goals Senior Care Goals PT Senior Care Goals Time Frame: Feb 12, 2019 Transfers (B,C,W/C) (FIM): 6 Gait (FIM): 2 Gait distance (FIM): 1=606-51 ft Distance: 75' Gait Level of Assist: 6 Gait Assistive Device: FWW PT Plan Treatment/Plan Treatment Plan: Continue Plan of Care Treatment Plan: Bed Mobility, Education, Functional Activity Brennen, Functional Strength, Gait, Safety, Therapeutic Exercise, Transfers Treatment Duration: Feb 12, 2019 Frequency: 6 times per week Estimated Hrs Per Day: .25 hour per day Patient and/or Family Agrees t: Yes Time/GCodes Time In: 845 Time Out: 903 Total Billed Treatment Time: 18 Total Billed Treatment 1 visit FA 18 min IRENE LOGAN PT Jan 29, 2019 10:10
--- NOTE | 2019-01-29 11:24 | Progress Note - Hospitalist ---
Subjective HPI/CC On Admission Date Seen by Provider: Jan 29, 2019 Time Seen by Provider: 10:00 Shortness of breath Subjective/Events-last exam She is up in her bedside chair. She reports that she is having back pain now. She worked with physical therapy this morning. She is having foot pain. She thinks that her shortness of breath has gotten better. She denies any chest pain. She denies any fevers or chills. She denies any nausea or vomiting. She has no abdominal pain. She was able to tolerate breakfast with no issue. Objective Exam Vital Signs Vital Signs Date Time Temp Pulse Resp B/P (MAP) Pulse Ox O2 Delivery O2 Flow Rate FiO2 01/29/19 08:00 Nasal Cannula 2.00 01/29/19 07:28 36.6 74 22 112/63 (79) 93 01/28/19 21:34 24 Capillary Refill : Less Than 3 SecondsLess Than 3 Seconds General Appearance: WD/WN, Mild Distress, Other (Uncomfortable sitting in bedside chair) HEENT: PERRL/EOMI, Pharynx Normal Neck: Normal Inspection, Supple Respiratory: Lungs Clear, Normal Breath Sounds, No Respiratory Distress Cardiovascular: Regular Rate, Rhythm, Systolic Murmur Gastrointestinal: Normal Bowel Sounds, Non Tender, Soft Extremity: Normal Inspection, Non Tender, Pedal Edema Neurologic/Psychiatric: Alert, Oriented x3 Skin: Normal Color, Warm/Dry Results/Procedures Lab Laboratory Tests 01/29/19 05:32 Patient resulted labs reviewed. Assessment/Plan Assessment and Plan Assess & Plan/Chief Complaint Acute hypoxic respiratory failure Acute on chronic congestive heart failure Large right pleural effusion Continue Lasix Thoracentesis performed yesterday was 1400 mL out, labs and culture pending Continue oxygen supplementation, will need a home O2 eval prior to discharge Iron deficiency anemia AVM of stomach Received 2 units of PRBCs 01/25 Hemoglobin stable EGD performed 01/28 revealed a nonbleeding AVM in stomach and APC was performed Compression fracture Pain regimen ordered Plan to follow up with orthopedic surgery outpatient Continue PT/OT, will likely need a either rehabilitation placement or home health with physical therapy Atrial fibrillation Continue metoprolol Coumadin resumed INR 2.1 this morning Diagnosis/Problems Diagnosis/Problems (1) Acute hypoxemic respiratory failure Status: Acute (2) Acute on chronic congestive heart failure Status: Acute Qualifiers: Heart failure type: diastolic Qualified Codes: I50.33 - Acute on chronic diastolic (congestive) heart failure (3) Compression fracture of L1 vertebra Status: Acute Qualifiers: Encounter type: initial encounter Qualified Codes: S32.010A - Wedge compression fracture of first lumbar vertebra, initial encounter for closed fracture (4) History of GI bleed (5) Anemia Status: Acute Qualifiers: Anemia type: iron deficiency (6) Pleural effusion on right Status: Acute Clinical Quality Measures Admission Status Admission Dx DVT/VTE Risk/Contraindication: Risk Factor Score Per Nursin RFS Level Per Nursing on Admit: 4+=Very High CLARISSA ARCEO MD Jan 29, 2019 11:24
[2019-01-29 11:30] VITALS: BP 108/58
[2019-01-29] MEDS: ACETAMINOPHEN 325 MG TABLET PO PRN (12:12)
--- NOTE | 2019-01-29 12:23 | NUR ---
patient was unable to walk at this time but oxygen sat did drop low enough Addendum: 01/29/19 at 1224 by NIKI MARTINS RT Amended: Links added.
[2019-01-29] MEDS: RT-ALBUTEROL SULF 2.5 MG/3 ML PRE-MIX VIAL INH SCH ×2 (12:40→18:46)
[2019-01-29 16:15] VITALS: BP 103/62
[2019-01-29] MEDS: warFARin 2 MG (COUMADIN) TAB PO SCH (17:48)
[2019-01-29 19:50] VITALS: BP 107/66
[2019-01-30] VITALS (7 sets, daily range): BP systolic 95–130; BP diastolic 54–67
[2019-01-30 05:08] LABS: HEMOGLOBIN 9.1 G/DL (11.5-16.0)
[2019-01-30 05:21] LABS: INR 2.2 (0.8-1.4); PROTHROMBIN TIME PATIENT 25.5 SEC (12.2-14.7)
[2019-01-30 05:25] LABS: CALCIUM 8.6 MG/DL (8.5-10.1); CREATININE SERUM 1.28 MG/DL (0.60-1.30); MAGNESIUM 2.4 MG/DL (1.6-2.4); POTASSIUM 3.7 MMOL/L (3.6-5.0)
[2019-01-30] MEDS: CATHETER FLUSH 10 ML SYR IV SCH ×3 (06:07→23:45)
[2019-01-30] MEDS: FERROUS SULF 325 MG (IRON) TAB PO SCH (06:08)
[2019-01-30] MEDS: FUROSEMIDE 40 MG/4 ML INJ (LASIX) IVP SCH ×2 (06:08→15:52)
[2019-01-30] MEDS: inSUlin ASPART (NovoLOG) 1 UNIT/0.01 ML (CHARGE PER UNIT) SC SCH ×4 (06:08→21:30)
[2019-01-30] MEDS: RT-ALBUTEROL SULF 2.5 MG/3 ML PRE-MIX VIAL INH SCH ×2 (07:04→19:08)
[2019-01-30] MEDS: PANTOPRAZOLE 40 MG (PROTONIX) TAB PO SCH ×2 (08:44→23:50)
[2019-01-30] MEDS: SENNA W/DOCUSATE (SENOKOT S) TABLET PO SCH ×2 (08:45→23:45)
[2019-01-30] MEDS: DOCUSATE SODIUM 100 MG (COLACE) CAP PO SCH ×2 (08:45→23:45)
[2019-01-30] MEDS: DILTIAZEM 180 MG (CARDIZEM CD) CAP PO SCH (08:45)
[2019-01-30] MEDS: DIGOXIN 0.25 MG (LANOXIN) TAB PO SCH (08:45)
--- NOTE | 2019-01-30 10:04 | Cardiology Progress Note ---
Subjective Date Seen by Provider: Jan 30, 2019 Time Seen by Provider: 10:02 Subjective/Events-last exam Patient is laying down in bed, feeling better today. No new complaint, asking about going home Review of Systems General: No Chills, No Night Sweats; Fatigue, Malaise; No Appetite, No Other HEENT: No Head Aches, No Visual Changes, No Eye Pain, No Ear Pain, No Dys phasia, No Sinus Congestion, No Post Nasal Drip, No Sore Throat, No Other Pulmonary: Dyspnea, Cough; No Pleuritic Chest Pain, No Other Cardiovascular: No: Chest Pain, Palpitations, Orthopnea, Paroxysmal Noc. Dyspnea, Edema, Lt Headedness, Other Objective-Cardiology Exam Last Set of Vital Signs Vital Signs 01/28/19 01/30/19 01/30/19 21:34 07:37 08:00 Temp 36.1 Pulse 60 Resp 16 B/P (MAP) 130/61 (84) Pulse Ox 94 O2 Delivery Nasal Cannula O2 Flow Rate 2.00 FiO2 24 Capillary Refill : Less Than 3 SecondsLess Than 3 Seconds I&O Intake and Output 01/30/19 00:00 Intake Total 1200 ml Output Total 975 ml Balance 225 ml Intake Oral 1200 ml Output Urine Total 975 ml # Bowel Movements 1 General: Alert, Oriented X3, Cooperative HEENT: Atraumatic, PERRLA Neck: Supple, No JVD, No Thyromegaly Lungs: Normal Air Movement, Other (Bilateral rhonchi) Heart: Regular Rate, Normal S1, Normal S2, No Murmurs Abdomen: Normal Bowel Sounds, Soft, No Tenderness, No Hepatosplenomegaly, No Masses Extremities: No Clubbing, No Cyanosis, No Edema, Normal Pulses, No Tenderness/Swelling Skin: No Rashes, No Breakdown, No Significant Lesion Neuro: Normal Speech, Normal Tone, Sensation Intact Psych/Mental Status: Mental Status NL, Mood NL Results Lab Laboratory Tests 01/30/19 04:49 A/P-Cardiology Admission Diagnosis Congestive heart failure Hypertension Hyperlipidemia Pleural effusion Assessment/Plan Large right-sided pleural effusion status post thoracentesis, feeling better, still have bilateral rhonchi and wet rales. Acute on chronic diastolic CHF, was bonding well to diuretics. Continue to monitor Moderate pulmonary hypertension, likely related to sleep apnea syndrome. She is on BIPAP therapy, but has been noncompliant Paroxysmal atrial fibrillation which now appears permanent. Her supportive employment case manager, Dr Keene in [place], [place], has managed this. ECG of 10/19/17 shows a fib with occ paced beat Status post pacemaker implantation by Dr. Keene in 2010 which is being followed by Dr. Keene (pulse gen change by Dr Keene in Mar 2017) Valvular heart disease, consisting primarily of mitral regurgitation and mitral annular calcification. On cardiac cath of August 2009, this was felt to be moderate to severe. Subsequently, on trans-esophageal echocardiography, mitral regurgitation was felt to be moderate. In addition, the patient has moderate to moderately severe tricuspid regurgitation. 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 F/u on anemia is with Dr Guillermo kaur basal cell CA treated with surgery (Dr Vargas) and radiation (Dr Stone) in 2017 Clinical Quality Measures DVT/VTE Risk/Contraindication: Risk Factor Score Per Nursin RFS Level Per Nursing on Admit: 4+=Very High ABBIE MCCORMACK MD Jan 30, 2019 10:04
--- NOTE | 2019-01-30 11:34 | Progress Note - Hospitalist ---
Subjective HPI/CC On Admission Date Seen by Provider: Jan 30, 2019 Time Seen by Provider: 09:45 Shortness of breath Subjective/Events-last exam She reports feeling better this morning. Her back pain is improved. Her foot pain is improved. She is still in bed. She ate breakfast without any issues. She is not feeling short of breath at this time, but is wearing oxygen via nasal cannula. She denies any fevers or chills. She denies any abdominal pain. She denies any nausea or vomiting. She denies any chest pain. She says that she is willing to do rehabilitation if needed. Objective Exam Vital Signs Vital Signs Date Time Temp Pulse Resp B/P (MAP) Pulse Ox O2 Delivery O2 Flow Rate FiO2 01/30/19 08:00 Nasal Cannula 2.00 01/30/19 07:37 36.1 60 16 130/61 (84) 94 01/28/19 21:34 24 Capillary Refill : Less Than 3 SecondsLess Than 3 Seconds General Appearance: No Apparent Distress, WD/WN, Chronically ill HEENT: PERRL/EOMI, Pharynx Normal Neck: Normal Inspection, Supple Respiratory: Lungs Clear, Normal Breath Sounds, No Respiratory Distress Cardiovascular: Regular Rate, Rhythm, No Edema, No Murmur Gastrointestinal: Normal Bowel Sounds, Non Tender, Soft Extremity: Normal Inspection, Non Tender, No Pedal Edema Neurologic/Psychiatric: Alert, Oriented x3, No Motor/Sensory Deficits, Normal Mood/Affect Skin: Normal Color, Warm/Dry Results/Procedures Lab Laboratory Tests 01/30/19 04:49 Patient resulted labs reviewed. Assessment/Plan Assessment and Plan Assess & Plan/Chief Complaint Acute hypoxic respiratory failure Acute on chronic congestive heart failure Large right pleural effusion Continue Lasix Thoracentesis performed 01/28 with 1400 mL out Continue oxygen supplementation, qualified for home O2 Iron deficiency anemia AVM of stomach Received 2 units of PRBCs 01/25 Hemoglobin stable EGD performed 01/28 revealed a nonbleeding AVM in stomach and APC was performed Started on oral iron replacement Compression fracture Pain regimen ordered Plan to follow up with orthopedic surgery outpatient Continue PT/OT, will likely need a either rehabilitation placement or home health with physical therapy Atrial fibrillation Continue metoprolol and Coumadin INR 2.2 this morning Diagnosis/Problems Diagnosis/Problems (1) Acute hypoxemic respiratory failure Status: Acute (2) Acute on chronic congestive heart failure Status: Acute Qualifiers: Heart failure type: diastolic Qualified Codes: I50.33 - Acute on chronic diastolic (congestive) heart failure (3) Compression fracture of L1 vertebra Status: Acute Qualifiers: Encounter type: initial encounter Qualified Codes: S32.010A - Wedge compression fracture of first lumbar vertebra, initial encounter for closed fracture (4) History of GI bleed (5) Anemia Status: Acute Qualifiers: Anemia type: iron deficiency (6) Pleural effusion on right Status: Acute (7) AVM (arteriovenous malformation) of stomach, acquired Status: Acute Clinical Quality Measures Admission Status Admission Dx DVT/VTE Risk/Contraindication: Risk Factor Score Per Nursin RFS Level Per Nursing on Admit: 4+=Very High CLARISSA ARCEO MD Jan 30, 2019 11:34
[2019-01-30] MEDS: ACETAMINOPHEN 325 MG TABLET PO PRN (15:52)
[2019-01-30] MEDS: warFARin 2 MG (COUMADIN) TAB PO SCH (18:05)
[2019-01-31 03:21] VITALS: BP 109/51
[2019-01-31] MEDS: inSUlin ASPART (NovoLOG) 1 UNIT/0.01 ML (CHARGE PER UNIT) SC SCH ×4 (06:18→20:58)
[2019-01-31] MEDS: CATHETER FLUSH 10 ML SYR IV SCH ×3 (06:18→22:00)
[2019-01-31] MEDS: FERROUS SULF 325 MG (IRON) TAB PO SCH (06:28)
[2019-01-31] MEDS: FUROSEMIDE 40 MG/4 ML INJ (LASIX) IVP SCH ×2 (06:34→18:19)
[2019-01-31 06:39] LABS: HEMOGLOBIN 9.3 G/DL (11.5-16.0)
[2019-01-31 07:05] LABS: CALCIUM 8.8 MG/DL (8.5-10.1); CREATININE SERUM 1.12 MG/DL (0.60-1.30); MAGNESIUM 2.2 MG/DL (1.6-2.4); POTASSIUM 3.8 MMOL/L (3.6-5.0)
[2019-01-31 07:20] LABS: INR 2.2 (0.8-1.4); PROTHROMBIN TIME PATIENT 25.5 SEC (12.2-14.7)
[2019-01-31] MEDS: RT-ALBUTEROL SULF 2.5 MG/3 ML PRE-MIX VIAL INH SCH (07:22)
[2019-01-31] MEDS: ONDANSETRON 4 MG/2 ML (SDV) Z0FRAN IVP PRN (07:29)
--- NOTE | 2019-01-31 07:52 | Progress Note - Surgery ---
[facility] 01/31/19 0752: Subjective Date Seen by a Provider: Jan 31, 2019 Time Seen by a Provider: 07:43 Subjective/Events-last exam Patient is s/p thoracentesis and reports no shortness of breath at this time while laying down or during ambulation. CXR taken on 01/28 after thoracentesis shows no pneumothorax. Patient is reporting nausea that has been sustained for the last few days, with it worsening 30 minutes after taking an iron supplement. Patient received Zofran to improve nausea and will see if that makes it better. Patient reports having three episodes of a small amount of dark brown emesis this morning but reports no apparent blood seen in the emesis. Had a bowel movement yesterday with no apparent blood or pain. Patient denies fever, SOB, pain, or other new symptoms. Objective Exam Vital Signs Date Time Temp Pulse Resp B/P (MAP) Pulse Ox O2 Delivery O2 Flow Rate FiO2 01/31/19 03:21 37.0 60 20 109/51 (70) 92 Nasal Cannula 2.00 01/30/19 23:30 36.2 60 18 96/54 (68) 20 Nasal Cannula 2.00 01/30/19 20:00 36.4 59 18 95/55 (68) 91 Nasal Cannula 2.00 01/30/19 19:08 93 Nasal Cannula 2.00 01/30/19 15:36 36.8 60 16 108/57 (74) 93 Nasal Cannula 2.00 01/30/19 11:30 36.6 61 20 99/56 (70) 95 Nasal Cannula 2.00 01/30/19 08:00 Nasal Cannula 2.00 I & O 01/31/19 07:00 Intake Total 510 ml Output Total 825 ml Balance -315 ml Capillary Refill : Less Than 3 SecondsLess Than 3 Seconds General Appearance: No Apparent Distress HEENT: PERRL/EOMI Neck: Normal Inspection, Supple Respiratory: No Accessory Muscle Use, No Respiratory Distress Cardiovascular: Regular Rate, Rhythm, No Edema Gastrointestinal: non tender, soft Extremity: Normal Inspection, Non Tender, No Pedal Edema Neurologic/Psychiatric: Alert, Oriented x3, No Motor/Sensory Deficits, Normal Mood/Affect Skin: Normal Color, Warm/Dry Lymphatic: No Adenopathy Results Lab Laboratory Tests 01/30/19 11:15: Stool Occult Blood Immunoassay NEGATIVE 01/30/19 11:35: Glucometer 110 01/30/19 17:47: Glucometer 128H 01/30/19 21:53: Glucometer 126H 01/31/19 05:40: Hemoglobin 9.3L, Hematocrit 34L, Prothrombin Time 25.5H, INR Comment 2.2H, Sodium Level 135, Potassium Level 3.8, Chloride Level 95L, Carbon Dioxide Level 29, Anion Gap 11, Blood Urea Nitrogen 30H, Creatinine 1.12, Estimat Glomerular Filtration Rate 47, BUN/Creatinine Ratio 27, Glucose Level 89, Calcium Level 8.8, Magnesium Level 2.2 01/31/19 06:16: Glucometer 116H Microbiology 01/28/19 Gram Stain - Final, Resulted 01/28/19 Body Fluid Culture - Preliminary, Resulted No growth Assessment/Plan Assessment/Plan Assessment/Plan Anemia with stable Hgb Pleural effusion s/p thoracentesis and EGD. No pneumothorax seen on CXR done on 01/28. Shortness of breath - resolved Nausea and Vomiting Clinical Quality Measures DVT/VTE Risk/Contraindication: Risk Factor Score Per Nursin RFS Level Per Nursing on Admit: 4+=Very High ALICE BLACKWELL DO 01/31/19 0923: Subjective Subjective/Events-last exam Patient breathing better. Her pain is better controlled she states and feeling a little better. Hgb stable. [place] nauseated earlier but better with Zofran, attributes to medicine causing and taste of food. No fever sweats chills shortness of breath or chest pain. Objective Exam General Appearance: No Apparent Distress HEENT: PERRL/EOMI Respiratory: Chest Non Tender, No Accessory Muscle Use, No Respiratory Distress Cardiovascular: Regular Rate, Rhythm Gastrointestinal: non tender, soft Extremity: Normal Inspection, Non Tender Neurologic/Psychiatric: Alert, Oriented x3, No Motor/Sensory Deficits, Normal Mood/Affect Skin: Normal Color, Warm/Dry Lymphatic: No Adenopathy Assessment/Plan Assessment/Plan Assessment/Plan Anemia Pleural effusion s/p thoracentesis and egd c fulguraion Shortness of breath - resolved Nausea- zofran prn patient hgb stable afib on anticoaulation s/p egd and fulguration of avm begin working on placement going down for chest x ray today Supervisory-Addendum Brief Verification & Attestation Participated in pt care: history, MDM, physical Personally performed: exam, history, MDM, supervision of care Care discussed with: Medical Student Procedures: n/a Results interpretation: Verified all documentation Verification and Attestation of Medical Student E/M Service A medical student performed and documented this service in my presence. I reviewed and verified all information documented by the medical student and made modifications to such information, when appropriate. I personally performed the physical exam and medical decision making. Alice Blackwell, Jan 31, 2019,09:23 [facility] Jan 31, 2019 07:52 ALICE BLACKWELL DO Jan 31, 2019 09:23
[2019-01-31 08:05] VITALS: BP 122/58
--- NOTE | 2019-01-31 09:10 | Diagnostic Imaging Report ---
Indication: Pleural effusion, followup. Time of exam: 8:57 AM Comparison is made with prior chest from 01/28/2019. The heart is enlarged but stable. Cardiac pacemaker remains in place. There is a small right pleural effusion. Pleural fluid on the right has increased slightly since exam 3 days earlier. Lung layne appear to be fairly clear. There is no pneumothorax. Impression: Slight increase in right-sided pleural effusion when compared with examination 3 days earlier. Dictated by: Dictated on workstation # [id number]
--- NOTE | 2019-01-31 09:26 | NUR ---
Discussed contined care plans with pt and . They would like to be considered for our Acute [facility] if qualifies. If not they most likely will return home with and sister's assistance and Home Health Care with Physical Therapy
--- NOTE | 2019-01-31 09:37 | Progress Note - Cardiology ---
Cardiology SOAP Progress Note Subjective: Marked weakness and exhaustion Denies cp or palp or syncope Objective: I&O/Vital Signs 01/30/19 01/31/19 01/31/19 23:30 03:21 08:05 Temp 36.2 37.0 35.8 Pulse 60 60 73 Resp 18 20 16 B/P (MAP) 96/54 (68) 109/51 (70) 122/58 (79) Pulse Ox 20 92 94 O2 Delivery Nasal Cannula Nasal Cannula Nasal Cannula O2 Flow Rate 2.00 2.00 2.00 01/31/19 00:00 Intake Total 1254 ml Output Total 1325 ml Balance -71 ml Weight (Pounds): 173 Weight (Ounces): 8.0 Weight (Calculated Kilograms): 78.099790 Constitutional: AAO x 3, well-developed, well-nourished Respiratory: No accessory muscle use, No respiratory distress; chest expansion is symmetric, chest is bilaterally symmetric, other (fair air entry; poor inspiratory effort) Cardiovascular: irregularly irregular; No JVD; S1 and S2, systolic murmur Gastrointestional: No tender; audible bowel sounds Genital/Rectal: other (Urinary catheter to DD; clear, yellow) Extremities: no lower extremity edema bilateral Neurologic/Psychiatric: grossly intact Skin: No rash on exposed areas, No ulcerations on exposed areas Results/Procedures: Labs Laboratory Tests 01/30/19 11:15: Stool Occult Blood Immunoassay NEGATIVE 01/30/19 11:35: Glucometer 110 01/30/19 17:47: Glucometer 128H 01/30/19 21:53: Glucometer 126H 01/31/19 05:40: Hemoglobin 9.3L, Hematocrit 34L, Prothrombin Time 25.5H, INR Comment 2.2H, Sodium Level 135, Potassium Level 3.8, Chloride Level 95L, Carbon Dioxide Level 29, Anion Gap 11, Blood Urea Nitrogen 30H, Creatinine 1.12, Estimat Glomerular Filtration Rate 47, BUN/Creatinine Ratio 27, Glucose Level 89, Calcium Level 8.8, Magnesium Level 2.2 01/31/19 06:16: Glucometer 116H Microbiology 01/28/19 Gram Stain - Final, Resulted 01/28/19 Body Fluid Culture - Preliminary, Resulted No growth Laboratory Tests 01/30/19 04:49 01/31/19 05:40 A/P: Assessment: Multifactorial shortness of breath, see below Acute on chronic diastolic CHF Large right pleural effusion seen on CT of the chest on 01-25-19; s/p thoracentesis on 01/28/19 S/P non-syncopal fall Anemia, likely due to slow GI bleed. S/p upper endoscopy and fulguration of a small AVM in the stomach by Dr Blackwell on 01/28/10; was also found to have a small HH Moderate pulmonary hypertension, likely related to sleep apnea syndrome. She is on BIPAP therapy, but has been noncompliant Paroxysmal atrial fibrillation which now appears permanent. Her esthetic dermatologist, Dr Keene in [place], [place], has managed this. ECG of 10/19/17 shows a fib with occ paced beat Status post pacemaker implantation by Dr. Keene in 2010 which is being followed by Dr. Keene (pulse gen change by Dr Keene in Mar 2017) Valvular heart disease, consisting primarily of mitral regurgitation and mitral annular calcification. On cardiac cath of August 2009, this was felt to be moderate to severe. Subsequently, on trans-esophageal echocardiography, mitral regurgitation was felt to be moderate. In addition, the patient has moderate to moderately severe tricuspid regurgitation. 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 F/u on anemia is with Dr Guillermo kaur basal cell CA treated with surgery (Dr Vargas) and radiation (Dr Stone) in 2016 Plan: * Complex management due to multiple comorbidities outline above * I reviewed the events and procedures over the weekend * Continue current regimen * Monitor labs JERSEY SUE MD FACP FAC CCDS Jan 31, 2019 09:37
--- NOTE | 2019-01-31 10:41 | Physical Therapy Daily Note ---
PT Daily Note-Current Subjective Patient reluctantly agrees to PT. No c/o. Pain Numeric Pain Scale: 0-No Pain Location: No Pain Reported Mental Status Patient Orientation: Normal For Age Attachments: Oxygen, Toth Catheter Transfers Therapy Code Descriptions/Definitions Functional [place] Measure: 0=Not Assessed/NA 4=Minimal Assistance 1=Total Assistance 5=Supervision or Setup 2=Maximal Assistance 6=Modified [place] 3=Moderate Assistance 7=Complete [place] Therapy Quality Codes: 6 Independent with activity with or without an assistive device 5 Patient requires set up or clean up by helper. Patient completes activity by themselves 4 Supervision or touching assist (CGA). [place] provide cues , steadying assist 3 The helper provides less than half the effort to complete the activity 2 The helper provides more than half the effort to complete the activity 1 Dependent. The helper does all the effort to complete an activity 7 Patient refused to complete or attempt activity 9 The patient did not perform the activity before the current illness or injury 88 Not attempted due to Medical conditions or safety concerns Transfers (B, C, W/C) (FIM): 5 Scootin Rollin Supine to/from Sit: 5 Sit to/from Stand: 5 Bed to/from Chair: 5 Weight Bearing Right Lower Extremity: Right Full Weight Bearing Left Lower Extremity: Left Full Weight Bearing Gait Training Gait (FIM): 1 Distance (FIM): 1=up to 49 ft Distance: 45' Gait Level of Assist: 4 Gait Persons Needed: 1 Gait Assistive Device: FWW CGA for patient fear of falling/safe and functional gait sequence with FWW Exercises Supine Ex: Ankle pumps, Quad Set, Heel Slides, Straight leg raise Supine Reps: 15 Seated Therapy Exercises: Ankle pumps, Long arc quads, Hip flexion Seated Reps: 15 Assessment Patient tolerated treatment well and is up in chair with needs met. Patient requires encouragement to increase activity level. Family present. PT Contract Sheltered Workshop Supervisor Goals Contract Sheltered Workshop Supervisor Goals PT Nursing Home Goals Time Frame: Feb 12, 2019 Transfers (B,C,W/C) (FIM): 6 Gait (FIM): 2 Gait distance (FIM): 3=481-06 ft Distance: 75' Gait Level of Assist: 6 Gait Assistive Device: FWW PT Plan Treatment/Plan Treatment Plan: Continue Plan of Care Treatment Plan: Bed Mobility, Education, Functional Activity Brennen, Functional Strength, Gait, Safety, Therapeutic Exercise, Transfers Treatment Duration: Feb 12, 2019 Frequency: 6 times per week Estimated Hrs Per Day: .25 hour per day Patient and/or Family Agrees t: Yes Time/GCodes Time In: 1000 Time Out: 1023 Total Billed Treatment Time: 23 Total Billed Treatment 1 visit FA 9 min EX 14 min IRENE LOGAN PT Jan 31, 2019 10:41
[2019-01-31 12:00] VITALS: BP 118/57
--- NOTE | 2019-01-31 12:51 | Occupational Therapy Eval ---
OT Evaluation-General/PLF Medical Diagnosis Admission Date Jan 25, 2019 at 14:02 Medical Diagnosis: acute heart failure/right pleural effusion/L1 compression fracture Onset Date: Jan 25, 2019 Therapy Diagnosis Therapy Diagnosis: impaired ADLs and mobility Height/Weight Height (Feet): 5 Height (Inches): 2.00 Weight (Pounds): 168 Weight (Ounces): 8.0 Precautions Precautions/Isolations: Fall Prevention, Standard Precautions Safety Interventions: None Referral Physician: Chastity Referral Reason: Activity Tolerance, Self Care, Evaluation/Treatment, Strengthening/ROM Medical History Pertinent Medical History: Atrial Fib, Arthritis, DM, Heart Failure, HTN Current History Pt fell on 01/24/19, EMS to hospital on 01/25/19 secondary to low back pain and shortness of breath. Social History Home: Multilevel Current Living Status: Spouse Entry Into Home: Stairs Without Railing Steps Into Home: 3 Steps Inside Home: 12 Pt lives in a 2 story house with her and her sister. Pt states she has 3 steps to enter the house, without rails but her is there to assist her. She states she is trying to have her bedroom moved to the first floor so she d oes not have to go up/down stairs. ADL-Prior Level of Function Therapy Code Descriptions/Definitions Functional [place] Measure: 0=Not Assessed/NA 4=Minimal Assistance 1=Total Assistance 5=Supervision or Setup 2=Maximal Assistance 6=Modified [place] 3=Moderate Assistance 7=Complete [place] Therapy Quality Codes: 6 Independent with activity with or without an assistive device 5 Patient requires set up or clean up by helper. Patient completes activity by themselves 4 Supervision or touching assist (CGA). [place] provide cues , steadying assist 3 The helper provides less than half the effort to complete the activity 2 The helper provides more than half the effort to complete the activity 1 Dependent. The helper does all the effort to complete an activity 7 Patient refused to complete or attempt activity 9 The patient did not perform the activity before the current illness or injury 88 Not attempted due to Medical conditions or safety concerns Functional Abilities and Goals: Independent: Patient completed the activities by him/herself, with or without an assistive device, with no assistance from a helper. Needed Some Help: Patient needed partial assistance from another person to complete activities. Dependent: A helper completed the activities for the patient. Unknown: Not Applicable: ADL PLOF Comments Pt states she was independent with self care prior to hospitalization, she denied using AE. During OT eval, pt reported she was unable to put socks on/off prior to hospitalization. States she has a walk in shower, with out a shower chair. Pt and stated they may have a shower chair in the attic but they are not positive. Self Care: Independent Functional Cognition: Independent DME/Equipment: Shower DME/Equipment Comments Pt denied using walker/cane for mobility. Drive Self: Yes OT Current Status Subjective Pt laying in bed at start of session, agreeable to OT tx. present throu ghout session. Pt did not verbalize pain rating. Mental Status/Objective Patient Orientation: Person, Place, Time, Situation Attachments: Toth Catheter, Oxygen Current Glasses/Contacts: Yes Hearing Aids: No Dentures/Partials: No Upper Extremity ROM WFL, pt able to reach arms overhead to approximately 140 degrees, and able to reach hands behind head. Upper Extremity Coordination WFL finger to nose test and thumb opposition to each finger. Upper Extremity Sensation Intact sensation to light touch BUE Upper Extremity Strength 4/5 MMT BUE ADL-Treatment Therapy Code Descriptions/Definitions Functional [place] Measure: 0=Not Assessed/NA 4=Minimal Assistance 1=Total Assistance 5=Supervision or Setup 2=Maximal Assistance 6=Modified [place] 3=Moderate Assistance 7=Complete [place] Therapy Quality Codes: 6 Independent with activity with or without an assistive device 5 Patient requires set up or clean up by helper. Patient completes activity by themselves 4 Supervision or touching assist (CGA). [place] provide cues , steadying assist 3 The helper provides less than half the effort to complete the activity 2 The helper provides more than half the effort to complete the activity 1 Dependent. The helper does all the effort to complete an activity 7 Patient refused to complete or attempt activity 9 The patient did not perform the activity before the current illness or injury 88 Not attempted due to Medical conditions or safety concerns Grooming (FIM): 3 (Pt able to wash face and hands with set up of wet wipe, required assistance brushing hair secondary to fatigue) Lower Body Dressing (FIM): 1 (Pt denied attempt to put socks on feet, stating she is unable to do the task and did not complete task prior to hospitalization. ) Transfers (B, C, W/C) (FIM): 4 (Min A supine to sit at bed level, pt denied transferring to EOB or walking to bathroom.) Other Treatments Pt laying in bed at start of session. Pt and provided info for OT evaluation. Pt denied attempt to put socks on, and denied getting out of bed to walk to the bathroom to wash hands. Pt agreed to washing face and hands at bed level, and brushing hair. Post OT session, pt laying in bed, call light in reach and all needs met. Education OT Patient Education: Correct positioning, Progress toward Goal/Update tx plan, Purpose of tx/functional activities Teaching Recipient: Patient, Significant Other Teaching Methods: Demonstration, Discussion Response to Teaching: Verbalize Understanding, Return Demonstration OT Short Term Goals Short Term Goals Time Frame: Feb 07, 2019 Grooming(FIM): 5 Bathing(FIM): 5 Bathing Location: L Arm, R Arm, L Upper Leg, R Upper Leg, Chest, Abdomen, Buttocks, Perineal Area Upper Body Dressing(FIM): 5 Lower Body Dressing(FIM): 5 Toileting(FIM): 5 Transfers (B,C,W/C) (FIM): 5 Toilet/Commode Transfer(FIM): 5 1=Demonstrate adherence to instructed precautions during ADL tasks. 2=Patient will verbalize/demonstrate understanding of assistive devices/modifications for ADL. 3=Patient will improve strength/tolerance for activity to enable patient to perform ADL's. OT Usp Goals Mileage Clerk Goals Time Frame: Feb 18, 2019 Grooming(FIM): 6 Bathing(FIM): 6 Bathing Location: L Arm, R Arm, L Upper Leg, R Upper Leg, L Lower Leg (including foot), R Lower Leg (including foot), Chest, Abdomen, Buttocks, Perineal Area Upper Body Dressing(FIM): 6 Lower Body Dressing(FIM): 6 Toileting(FIM): 6 Transfers (B,C,W/C) (FIM): 6 Toilet/Commode Transfer(FIM): 6 Additional Goals: 1-Demonstrate ADL Tasks, 2-Verbalize Understanding, 3- ImproveStrength/Brennen 1=Demonstrate adherence to instructed precautions during ADL tasks. 2=Patient will verbalize/demonstrate understanding of assistive devices/modifications for ADL. 3=Patient will improve strength/tolerance for activity to enable patient to perform ADL's. OT Education/Plan Problem List/Assessment Assessment: Decreased Activ Tolerance, Decreased UE Strength, Impaired Funct Balance, Impaired I ADL's, Impaired Self-Care Skills Discharge Recommendations Plan/Recommendations: Continue POC Therapy Discharge Recommendati: Post Acute OT Equpiment Recommendations-D/C: Bath Chair Treatment Plan/Plan of Care Treatment,Training & Education: Yes Patient would benefit from OT for education, treatment and training to promote independence in ADL's, mobility, safety and/or upper extremity function for ADL's. Plan of Care: ADL Retraining, Caregiver Training, Functional Mobility, UE Funct Exercise/Act Frequency: 5 times per week Estimated Hrs Per Day: .25 hour per day Agreement: Yes Rehab Potential: Fair Time/GCodes Start Time: 11:58 Stop Time: 12:12 Total Time Billed (hr/min): 14 Billed Treatment Time 1, CARLEY [email or web address] Valles OT Jan 31, 2019 12:51
--- NOTE | 2019-01-31 13:26 | Progress Note - Hospitalist ---
Subjective HPI/CC On Admission Date Seen by Provider: Jan 31, 2019 Time Seen by Provider: 09:30 Shortness of breath Subjective/Events-last exam Pt is laying in bed working with therapy. She states she is feeling better. Breathing improved. States she would ideally like to go home but would be agreeable to IRU if needed. Objective Exam Vital Signs Vital Signs Date Time Temp Pulse Resp B/P (MAP) Pulse Ox O2 Delivery O2 Flow Rate FiO2 01/31/19 12:00 35.9 60 18 118/57 (77) 92 Nasal Cannula 2.00 01/28/19 21:34 24 Capillary Refill : Less Than 3 SecondsLess Than 3 Seconds General Appearance: No Apparent Distress, Chronically ill Cardiovascular: Regular Rate, Rhythm, No Murmur Gastrointestinal: Normal Bowel Sounds, Soft Genital/Rectal: Other (catheter in place) Extremity: No Calf Tenderness, No Pedal Edema Neurologic/Psychiatric: Alert, Oriented x3, Normal Mood/Affect Results/Procedures Lab Laboratory Tests 01/31/19 05:40 Patient resulted labs reviewed. Assessment/Plan Assessment and Plan Assess & Plan/Chief Complaint Acute hypoxic respiratory failure- on nasal cannula Acute on chronic congestive heart failure Large right pleural effusion Continue Lasix Thoracentesis performed 01/28 with 1400 mL out- cytology pending - Will arrange home O2 prior to DC Iron deficiency anemia AVM of stomach Received 2 units of PRBCs 01/25 Hemoglobin stable EGD performed 01/28 revealed a nonbleeding AVM in stomach Cont iron replacement Compression fracture Debility Continue current pain regimen Fllow up with orthopedic surgery outpatient Continue PT/OT - IRU declined - family services specialist consulted Atrial fibrillation Continue metoprolol and Coumadin INR 2.2 this morning Diagnosis/Problems Diagnosis/Problems (1) Anticoagulant long-term use (2) AVM (arteriovenous malformation) of stomach, acquired Status: Acute (3) History of GI bleed (4) Pleural effusion on right Status: Acute (5) Compression fracture of L1 vertebra Status: Acute Qualifiers: Encounter type: initial encounter Qualified Codes: S32.010A - Wedge compression fracture of first lumbar vertebra, initial encounter for closed fracture (6) Anemia Status: Acute Qualifiers: Anemia type: iron deficiency (7) Acute heart failure Status: Acute Qualifiers: Heart failure type: unspecified Qualified Codes: I50.9 - Heart failure, unspecified (8) Acute hypoxemic respiratory failure Status: Acute Clinical Quality Measures DVT/VTE Risk/Contraindication: Risk Factor Score Per Nursin RFS Level Per Nursing on Admit: 4+=Very High JUAN DANIEL DE LA TORRE MD Jan 31, 2019 13:26
--- NOTE | 2019-01-31 14:56 | NUR ---
KAITLYN/NISSA spoke with patient and patients . The patient is being denied for Inpatient rehab. KAITLYN/NISSA spoke with the patient about the risk of going home without any assistance such as home health or transferring to a skilled facility. The patient and her are going to discuss their options and see how she feels tomorrow. Will continue to follow. Addendum: 01/31/19 at 1603 by BERTA AZAR Approved by Berta Branch [facility]
[2019-01-31 15:30] VITALS: BP 118/57
[2019-01-31] MEDS ORDERED: RT-ALBUTEROL SULF 2.5 MG/3 ML PRE-MIX VIAL INH PRN (16:15)
[2019-01-31 16:23] VITALS: BP 115/59
[2019-01-31] MEDS: DILTIAZEM 180 MG (CARDIZEM CD) CAP PO SCH (17:35)
[2019-01-31] MEDS: PANTOPRAZOLE 40 MG (PROTONIX) TAB PO SCH ×2 (17:36→20:33)
[2019-01-31] MEDS: DIGOXIN 0.25 MG (LANOXIN) TAB PO SCH (17:36)
[2019-01-31] MEDS: DOCUSATE SODIUM 100 MG (COLACE) CAP PO SCH ×2 (17:36→20:33)
[2019-01-31] MEDS: SENNA W/DOCUSATE (SENOKOT S) TABLET PO SCH ×2 (17:37→20:33)
[2019-01-31] MEDS: warFARin 2 MG (COUMADIN) TAB PO SCH (18:19)
[2019-01-31 20:11] VITALS: BP 119/57
--- NOTE | 2019-01-31 21:11 | NUR ---
coccyx area red aleven drg applied
[2019-02-01] VITALS: BP 120/66
[2019-02-01 03:50] VITALS: BP 106/53
[2019-02-01 05:12] LABS: HEMOGLOBIN 9.5 G/DL (11.5-16.0)
[2019-02-01 05:19] LABS: INR 2.2 (0.8-1.4); PROTHROMBIN TIME PATIENT 25.2 SEC (12.2-14.7)
[2019-02-01 05:27] LABS: CALCIUM 8.7 MG/DL (8.5-10.1); CREATININE SERUM 1.06 MG/DL (0.60-1.30); MAGNESIUM 2.1 MG/DL (1.6-2.4); POTASSIUM 3.5 MMOL/L (3.6-5.0)
[2019-02-01] MEDS: inSUlin ASPART (NovoLOG) 1 UNIT/0.01 ML (CHARGE PER UNIT) SC SCH ×4 (06:25→21:10)
[2019-02-01] MEDS: FERROUS SULF 325 MG (IRON) TAB PO SCH (06:25)
[2019-02-01] MEDS: CATHETER FLUSH 10 ML SYR IV SCH ×3 (06:25→21:10)
[2019-02-01] MEDS: FUROSEMIDE 40 MG/4 ML INJ (LASIX) IVP SCH ×2 (06:25→17:02)
[2019-02-01 08:00] VITALS: BP 133/61
[2019-02-01] MEDS: DOCUSATE SODIUM 100 MG (COLACE) CAP PO SCH ×3 (09:04→20:52)
[2019-02-01] MEDS: DIGOXIN 0.25 MG (LANOXIN) TAB PO SCH (09:04)
[2019-02-01] MEDS: SENNA W/DOCUSATE (SENOKOT S) TABLET PO SCH ×3 (09:04→20:52)
[2019-02-01] MEDS: DILTIAZEM 180 MG (CARDIZEM CD) CAP PO SCH (09:05)
[2019-02-01] MEDS: PANTOPRAZOLE 40 MG (PROTONIX) TAB PO SCH ×2 (09:05→21:10)
--- NOTE | 2019-02-01 09:17 | Progress Note - Cardiology ---
Cardiology SOAP Progress Note Subjective: Sitting up in a chair at the bedside. C/O back pain this morning. C/O continued gen weakness, which she feels is slowly improving. No c/o CP, palpitations, syncope or near syncope. Objective: I&O/Vital Signs 02/01/19 02/01/19 02/01/19 02/01/19 03:50 07:09 08:00 08:00 Temp 36.7 35.2 Pulse 64 66 Resp 20 12 B/P (MAP) 106/53 (70) 133/61 (85) Pulse Ox 93 96 96 100 O2 Delivery Nasal Cannula Nasal Cannula Nasal Cannula Nasal Cannula O2 Flow Rate 2.00 1.00 1.00 1.00 02/01/19 12:00 Temp 35.7 Pulse 61 Resp 18 B/P (MAP) 123/62 (82) Pulse Ox 98 O2 Delivery Nasal Cannula O2 Flow Rate 1.00 02/01/19 00:00 Intake Total 660 ml Output Total 1250 ml Balance -590 ml Weight (Pounds): 168 Weight (Ounces): 8.0 Weight (Calculated Kilograms): 76.492817 Constitutional: AAO x 3, well-developed, well-nourished Respiratory: No accessory muscle use, No respiratory distress; chest expansion is symmetric, chest is bilaterally symmetric, other (fair air entry; poor inspiratory effort) Cardiovascular: irregularly irregular; No JVD; S1 and S2, systolic murmur Gastrointestional: No tender; audible bowel sounds Extremities: no lower extremity edema bilateral Neurologic/Psychiatric: grossly intact Skin: No rash on exposed areas, No ulcerations on exposed areas Results/Procedures: Labs Laboratory Tests 01/31/19 16:37: Glucometer 128H 01/31/19 19:30: Glucometer 102 02/01/19 04:42: Hemoglobin 9.5L, Hematocrit 35, Prothrombin Time 25.2H, INR Comment 2.2H, Sodium Level 138, Potassium Level 3.5L, Chloride Level 97L, Carbon Dioxide Level 31, Anion Gap 10, Blood Urea Nitrogen 26H, Creatinine 1.06, Estimat Glomerular Filtration Rate 50, BUN/Creatinine Ratio 25, Glucose Level 83, Calcium Level 8.7, Magnesium Level 2.1 02/01/19 05:53: Glucometer 107 02/01/19 10:56: Glucometer 144H Microbiology 01/28/19 Gram Stain - Final, Complete 01/28/19 Body Fluid Culture - Final, Complete No growth Laboratory Tests 01/31/19 05:40 02/01/19 04:42 Procedures NAME: SANCHEZ CISNEROS [facility] REC#: [id number] PT STATUS: ADM IN : 1940 PHYSICIAN: CLARISSA ARCEO MD ADMIT DATE: 01/25/19 Signed Date of Exam: 01/31/19 CHEST PA/LAT (2 VIEW) Indication: Pleural effusion, followup. Time of exam: 8:57 AM Comparison is made with prior chest from 01/28/2019. The heart is enlarged but stable. Cardiac pacemaker remains in place. There is a small right pleural effusion. Pleural fluid on the right has increased slightly since exam 3 days earlier. Lung layne appear to be fairly clear. There is no pneumothorax. Impression: Slight increase in right-sided pleural effusion when compared with examination 3 days earlier. Dictated by: Dictated on workstation # [id number] Dict: 01/31/1904 Trans: 01/31/19 1548 Interpreted by: MANDI MARR MD Electronically signed by: MANDI MARR MD 01/31/19 1548 A/P: Assessment: Multifactorial shortness of breath, see below Acute on chronic diastolic CHF Large right pleural effusion seen on CT of the chest on 01-25-19; s/p thoracentesis on 01/28/19 S/P non-syncopal fall Anemia, likely due to slow GI bleed. S/p upper endoscopy and fulguration of a small AVM in the stomach by Dr Blackwell on 01/28/10; was also found to have a small HH Moderate pulmonary hypertension, likely related to sleep apnea syndrome. She is on BIPAP therapy, but has been noncompliant Paroxysmal atrial fibrillation which now appears permanent. Her strap machine operator automatic, Dr Keene in [place], [place], has managed this. ECG of 10/19/17 shows a fib with occ paced beat Status post pacemaker implantation by Dr. Keene in 2010 which is being followed by Dr. Keene (pulse gen change by Dr Keene in Mar 2017) Valvular heart disease, consisting primarily of mitral regurgitation and mitral annular calcification. On cardiac cath of August 2009, this was felt to be moderate to severe. Subsequently, on trans-esophageal echocardiography, mitral regurgitation was felt to be moderate. In addition, the patient has moderate to moderately severe tricuspid regurgitation. Last echo of 01/25/19: LVEF 60-65%, biatrial enlargement, MAC w/o MS, AoV sclerosis w/o , severe TR, mild MR, RVSP 55 mmHg Chronic anticoagulation for stroke prophylaxis with warfarin - currently therapeutic Angiographically mild coronary artery disease on cardiac cath of August 2009 MPI of 10/14/16: no ischemia or infarction, LVEF 75% History of pulmonary embolism Obesity with BMI of approximately 38 DJD History of hysterectomy and bilateral salpingo-oophorectomy for endometrial carcinoma several years ago Insomnia, managed by Dr Blackwood H/o anemia due to GI bleeds: has had colon polyp removal and gastric AVM fulguration in late 2017 / early [address] Black[address]. F/u on anemia is with Dr Guillermo karu basal cell CA treated with surgery (Dr Vargas) and radiation (Dr Stone) in 2016 Plan: * Complex management due to multiple comorbidities outline above * Continue current regimen * Monitor labs * Replace electrolytes * Consider changing diuretics to oral Physician Assessment Physician Assessment Reports gen weakness. No cp or palp or syncope or shortness of breath A&O x 3 at time of my exam this afternoon Lungs: clear Cor: irreg Ext: no c/c/e A&R * As documented in our note above that I updated (italics) and as noted below * I discussed his CV issues with her and her * Replenish lytes * Monitor labs ANN AG Feb 01, 2019 09:17 JERSEY SUE MD [facility] Feb 01, 2019 13:40
--- NOTE | 2019-02-01 09:32 | Physical Therapy Daily Note ---
PT Daily Note-Current Subjective Patient is in bed and incontinent urine. Agrees to PT. Mental Status Patient Orientation: Normal For Age Attachments: Oxygen Transfers Therapy Code Descriptions/Definitions Functional [place] Measure: 0=Not Assessed/NA 4=Minimal Assistance 1=Total Assistance 5=Supervision or Setup 2=Maximal Assistance 6=Modified [place] 3=Moderate Assistance 7=Complete [place] Therapy Quality Codes: 6 Independent with activity with or without an assistive device 5 Patient requires set up or clean up by helper. Patient completes activity by themselves 4 Supervision or touching assist (CGA). Skillman provide cues , steadying assist 3 The helper provides less than half the effort to complete the activity 2 The helper provides more than half the effort to complete the activity 1 Dependent. The helper does all the effort to complete an activity 7 Patient refused to complete or attempt activity 9 The patient did not perform the activity before the current illness or injury 88 Not attempted due to Medical conditions or safety concerns Transfers (B, C, W/C) (FIM): 5 Scootin Rollin Supine to/from Sit: 5 Sit to/from Stand: 5 Weight Bearing Right Lower Extremity: Right Full Weight Bearing Left Lower Extremity: Left Full Weight Bearing Gait Training Gait (FIM): 1 Distance (FIM): 1=up to 49 ft Distance: 20' x 2 Gait Level of Assist: 4 Gait Persons Needed: 1 Gait Assistive Device: FWW functional gait sequence Exercises Supine Ex: Ankle pumps, Quad Set, Heel Slides Supine Reps: 12 Seated Therapy Exercises: Long arc quads Seated Reps: 12 Standing: Sit to Stand (5) Assessment Patient up in shower with nursing staff due to incontinence requiring assistance to cleanse. PT consulted with spouse and physician on POC secondary to spouses concern with patient's incontinence. PT Short Term Goals Short Term Goals Transfers (B,C,W/C) (FIM): 5 PT Correction Goals Correction Goals PT Correction Goals Time Frame: Feb 12, 2019 Transfers (B,C,W/C) (FIM): 6 Gait (FIM): 2 Gait distance (FIM): 3=249-30 ft Distance: 75' Gait Level of Assist: 6 Gait Assistive Device: FWW PT Plan Treatment/Plan Treatment Plan: Continue Plan of Care Treatment Plan: Bed Mobility, Education, Functional Activity Brennen, Functional Strength, Gait, Safety, Therapeutic Exercise, Transfers Treatment Duration: Feb 12, 2019 Frequency: 6 times per week Estimated Hrs Per Day: .25 hour per day Patient and/or Family Agrees t: Yes Time/GCodes Time In: 825 Time Out: 848 Total Billed Treatment Time: 23 Total Billed Treatment 1 visit FA 13 min EX 10 min IRENE LOGAN PT Feb 01, 2019 09:32
--- NOTE | 2019-02-01 09:37 | Occ Therapy Progress Note ---
Therapy Progress Note Attempted to see pt. Pt had just received breakfast and declined tx. Will see later this morning. ELMER CHARLES Feb 01, 2019 09:37
[2019-02-01] MEDS: ACETAMINOPHEN 325 MG TABLET PO PRN (09:54)
--- NOTE | 2019-02-01 10:19 | Occupational Ther Daily Note ---
OT Current Status-Daily Note Subjective Pt alert, sitting in recliner. Pt agrees to therapy. present in room. No c/o pain at this time. Mental Status/Objective Patient Orientation: Person, Place, Time, Situation Therapy Code Descriptions/Definitions Functional [place] Measure: 0=Not Assessed/NA 4=Minimal Assistance 1=Total Assistance 5=Supervision or Setup 2=Maximal Assistance 6=Modified [place] 3=Moderate Assistance 7=Complete [place] Attachments: IV, Oxygen ADL-Treatment Pt and nrsg stated that she had gotten a shower earlier this morning. Pt agreed to grooming after breakfast. After given supplies, pt able to complete own set up sitting in recliner and complete grooming tasks by self. Grooming (FIM): 5 Other Treatment Pt participated in 3 theraband exercises 2 reps 10x each to increase UE strength for functional daily activity tasks. Skilled instruction given to pt to complete medium resistance UE theraband exercises. Proper technique and position was provided by skilled therapist. Pt sitting in chair, call light and phone in reach, all needs met in room. OT Short Term Goals Short Term Goals Time Frame: Feb 07, 2019 Grooming(FIM): 5 Bathing(FIM): 5 Bathing Location: L Arm, R Arm, L Upper Leg, R Upper Leg, Chest, Abdomen, Buttocks, Perineal Area Upper Body Dressing(FIM): 5 Lower Body Dressing(FIM): 5 Toileting(FIM): 5 Transfers (B,C,W/C) (FIM): 5 Toilet/Commode Transfer(FIM): 5 1=Demonstrate adherence to instructed precautions during ADL tasks. 2=Patient will verbalize/demonstrate understanding of assistive devices/modifications for ADL. 3=Patient will improve strength/tolerance for activity to enable patient to perform ADL's. OT Senior Care Goals Senior Care Goals Time Frame: Feb 18, 2019 Grooming(FIM): 6 Bathing(FIM): 6 Bathing Location: L Arm, R Arm, L Upper Leg, R Upper Leg, L Lower Leg (including foot), R Lower Leg (including foot), Chest, Abdomen, Buttocks, Perineal Area Upper Body Dressing(FIM): 6 Lower Body Dressing(FIM): 6 Toileting(FIM): 6 Transfers (B,C,W/C) (FIM): 6 Toilet/Commode Transfer(FIM): 6 Additional Goals: 1-Demonstrate ADL Tasks, 2-Verbalize Understanding, 3- ImproveStrength/[place] 1=Demonstrate adherence to instructed precautions during ADL tasks. 2=Patient will verbalize/demonstrate understanding of assistive devices/modifications for ADL. 3=Patient will improve strength/tolerance for activity to enable patient to perform ADL's. OT Education/Plan Problem List/Assessment Assessment: Decreased UE Strength Discharge Recommendations Plan/Recommendations: Continue POC Treatment Plan/Plan of Care Patient would benefit from OT for education, treatment and training to promote independence in ADL's, mobility, safety and/or upper extremity function for ADL's. Plan of Care: ADL Retraining, Caregiver Training, Functional Mobility, UE Funct Exercise/Act Frequency: 5 times per week Estimated Hrs Per Day: .25 hour per day Agreement: Yes Rehab Potential: Fair Time/GCodes Start Time: 10:05 Stop Time: 10:30 Total Time Billed (hr/min): 25 Billed Treatment Time 1 visit- ADL 1 (10 min) EX 1 (15 min) ELMER CHARLES Feb 01, 2019 10:19
[2019-02-01 12:00] VITALS: BP 123/62
--- NOTE | 2019-02-01 13:09 | Progress Note - Hospitalist ---
Subjective HPI/CC On Admission Date Seen by Provider: Feb 01, 2019 Time Seen by Provider: 13:01 Shortness of breath Subjective/Events-last exam Pt reports feeling better. States she is still at about 50% from where she was two weeks ago though. Apparently had a large volume episode of incontinence. is unsure of his ability to care for the patient at home if she remains incontinent or unable to get to the bathroom. While I was in room he stood to check the weather and was visibly unsteady on his feet and nearly fell but was able to lower himself in to the chair. He then stated he was in the ER himself yesterday for dizziness and double vision. They also relayed concerns about the 4 other family members who live with them and that they are not helpful in providing care. Objective Exam Vital Signs Vital Signs Date Time Temp Pulse Resp B/P (MAP) Pulse Ox O2 Delivery O2 Flow Rate FiO2 02/01/19 12:00 35.7 61 18 123/62 (82) 98 Nasal Cannula 1.00 01/31/19 19:38 95 Capillary Refill : Less Than 3 SecondsLess Than 3 Seconds General Appearance: No Apparent Distress, Chronically ill Respiratory: Lungs Clear, No Respiratory Distress Cardiovascular: Regular Rate, Rhythm, No Murmur Results/Procedures Lab Laboratory Tests 02/01/19 04:42 Patient resulted labs reviewed. Assessment/Plan Assessment and Plan Assess & Plan/Chief Complaint Acute hypoxic respiratory failure- on nasal cannula Acute on chronic congestive heart failure Large right pleural effusion Continue Lasix- CXR slightly worse but symptoms still resolved Thoracentesis performed 01/28 with 1400 mL out- cytology negative - Will arrange home O2 prior to DC Iron deficiency anemia AVM of stomach Received 2 units of PRBCs 01/25 Hemoglobin stable EGD performed 01/28 revealed a nonbleeding AVM in stomach Cont iron replacement Compression fracture Debility Continue current pain regimen Follow up with orthopedic surgery outpatient Continue PT/OT - IRU declined - patient services coordinator consulted - Discussed with patient and her regarding safe discharge plan- they are open to SNF at [facility] at this time SW to see and send referral Atrial fibrillation Continue metoprolol and Coumadin INR 2.2 this morning- stable Diagnosis/Problems Diagnosis/Problems (1) Anticoagulant long-term use (2) AVM (arteriovenous malformation) of stomach, acquired Status: Acute (3) History of GI bleed (4) Pleural effusion on right Status: Acute (5) Compression fracture of L1 vertebra Status: Acute Qualifiers: Encounter type: initial encounter Qualified Codes: S32.010A - Wedge compression fracture of first lumbar vertebra, initial encounter for closed fracture (6) Anemia Status: Acute Qualifiers: Anemia type: iron deficiency Iron deficiency anemia type: chronic blood loss Qualified Codes: D50.0 - Iron deficiency anemia secondary to blood loss (chronic) (7) Acute heart failure Status: Acute Qualifiers: Heart failure type: unspecified Qualified Codes: I50.9 - Heart failure, unspecified (8) Acute hypoxemic respiratory failure Status: Acute Clinical Quality Measures DVT/VTE Risk/Contraindication: Risk Factor Score Per Nursin RFS Level Per Nursing on Admit: 4+=Very High Copy Copies To 1: HELLEN CROSS MD, KATELYN M MD Feb 01, 2019 13:09
--- NOTE | 2019-02-01 13:21 | NUR ---
RD ASSESSMENT Pt was awake and pleasant during nutrition assessment. Pt states current appetite is improving, but had been pretty poor for the past 2 months. Pt states some issues with nausea and vomiting for the past few weeks. Pt has had no issues with constipation or diarrhea, and states last BM was 01/31. Pt states no recent weight changes, but states wt loss of 140# over the last 4 years. PES Statement: Inadequate oral intake related to nausea / vomiting as evidenced by patient interview Est. kcal needs: 5892-6081 kcal (20-25 kcal/kg) Est. Pro needs: 60-76 g Pro (0.8-1.0 g Pro/kg) Fluid needs: ad rayne. INTERVENTION: Continue with current diet order of general/regular diet. May change to CHO 60g/m 3snack if blood glucose levels elevate. MONITOR/EVALUATE: PO Intake Weight Status Hydration Status Lab Values Mahi Fitzgerald, MS, RD [phone]
--- NOTE | 2019-02-01 15:14 | NUR ---
Pt and family agreeable with [facility] home placement at [facility] for short-term Rehab.Pt's evaluations faxed and pt has been accepted to their Skilled Unit with plan to transfer tomorrow.
--- NOTE | 2019-02-01 16:26 | Progress Note - Surgery ---
Subjective Date Seen by a Provider: Feb 01, 2019 Time Seen by a Provider: 14:26 Subjective/Events-last exam Patient breathing easy. Tolerating diet. Overall feeling weak. Denies n/v fever sweats chills shortness of breath or chest pain. Hgb stable. Chest x ray yesterday, slight increase right pleural effusion. Objective Exam Vital Signs Date Time Temp Pulse Resp B/P (MAP) Pulse Ox O2 Delivery O2 Flow Rate FiO2 02/01/19 12:00 35.7 61 18 123/62 (82) 98 Nasal Cannula 1.00 02/01/19 08:00 35.2 66 12 133/61 (85) 100 Nasal Cannula 1.00 02/01/19 08:00 96 Nasal Cannula 1.00 02/01/19 07:09 96 Nasal Cannula 1.00 02/01/19 03:50 36.7 64 20 106/53 (70) 93 Nasal Cannula 2.00 02/01/19 00:00 36.8 73 20 120/66 (84) 93 Nasal Cannula 2.00 01/31/19 20:11 36.8 68 20 119/57 (77) 92 Nasal Cannula 2.00 01/31/19 20:00 92 Nasal Cannula 2.00 01/31/19 19:38 Nasal Cannula 1.00 95 01/31/19 16:23 37.0 56 22 115/59 (77) 93 Nasal Cannula 2.00 I & O 02/01/19 07:00 Intake Total 1010 ml Output Total 1250 ml Balance -240 ml Capillary Refill : Less Than 3 SecondsLess Than 3 Seconds General Appearance: No Apparent Distress, Chronically ill HEENT: PERRL/EOMI Neck: Normal Inspection, Supple Respiratory: Lungs Clear, No Respiratory Distress Cardiovascular: Regular Rate, Rhythm, No Murmur Gastrointestinal: non tender, soft Extremity: No Calf Tenderness, No Pedal Edema Neurologic/Psychiatric: Alert, Oriented x3, Normal Mood/Affect Skin: Normal Color, Warm/Dry Lymphatic: No Adenopathy Results Lab Laboratory Tests 01/31/19 16:37: Glucometer 128H 01/31/19 19:30: Glucometer 102 02/01/19 04:42: Hemoglobin 9.5L, Hematocrit 35, Prothrombin Time 25.2H, INR Comment 2.2H, Sodium Level 138, Potassium Level 3.5L, Chloride Level 97L, Carbon Dioxide Level 31, Anion Gap 10, Blood Urea Nitrogen 26H, Creatinine 1.06, Estimat Glomerular Filtration Rate 50, BUN/Creatinine Ratio 25, Glucose Level 83, Calcium Level 8.7, Magnesium Level 2.1 02/01/19 05:53: Glucometer 107 02/01/19 10:56: Glucometer 144H Microbiology 01/28/19 Gram Stain - Final, Complete 01/28/19 Body Fluid Culture - Final, Complete No growth Assessment/Plan Assessment/Plan Assessment/Plan Anemia Pleural effusion s/p thoracentesis and egd c fulguraion for nonbleeding avm Shortness of breath - resolved continue medical management patient discussed need for safe placement agreeable to physical therapy at custodial Clinical Quality Measures DVT/VTE Risk/Contraindication: Risk Factor Score Per Nursin RFS Level Per Nursing on Admit: 4+=Very High ALICE GIL DO Feb 01, 2019 16:26
[2019-02-01 16:44] VITALS: BP 102/59
[2019-02-01] MEDS ORDERED: warFARin 2 MG (COUMADIN) TAB PO SCH (18:00)
[2019-02-01 20:50] VITALS: BP 118/57
[2019-02-02] VITALS: BP 119/59
[2019-02-02 04:15] VITALS: BP 110/53
[2019-02-02] MEDS: inSUlin ASPART (NovoLOG) 1 UNIT/0.01 ML (CHARGE PER UNIT) SC SCH ×2 (06:06→11:50)
[2019-02-02] MEDS: FERROUS SULF 325 MG (IRON) TAB PO SCH (06:07)
[2019-02-02] MEDS: CATHETER FLUSH 10 ML SYR IV SCH (06:07)
[2019-02-02 06:55] LABS: HEMOGLOBIN 9.4 G/DL (11.5-16.0)
[2019-02-02] MEDS ORDERED: FUROSEMIDE 40 MG (LASIX) TAB PO SCH (07:00)
[2019-02-02 07:05] LABS: INR 2.5 (0.8-1.4); PROTHROMBIN TIME PATIENT 28.2 SEC (12.2-14.7)
[2019-02-02 07:20] LABS: CALCIUM 8.7 MG/DL (8.5-10.1); CREATININE SERUM 1.1 MG/DL (0.60-1.30); MAGNESIUM 1.9 MG/DL (1.6-2.4); POTASSIUM 3.4 MMOL/L (3.6-5.0)
--- NOTE | 2019-02-02 07:25 | Progress Note - Surgery ---
NATACHA FELIPE [facility] 02/02/19 0725: Subjective Date Seen by a Provider: Feb 02, 2019 Time Seen by a Provider: 07:19 Subjective/Events-last exam Patient is feeling good today. Still is experiencing some weakness. Denies any SOB at this time. Hgb is trending up and stable. Is not having any issues with urination or bowel movements. Denies fevers, nausea, vomiting, chills, or pain. Objective Exam Vital Signs Date Time Temp Pulse Resp B/P (MAP) Pulse Ox O2 Delivery O2 Flow Rate FiO2 02/02/19 06:18 96 Nasal Cannula 1.00 02/02/19 04:15 37.2 62 19 110/53 (72) 95 Nasal Cannula 1.00 02/02/19 00:00 37.1 63 19 119/59 (79) 96 Nasal Cannula 1.00 02/01/19 21:44 Nasal Cannula 1.00 02/01/19 20:50 36.9 60 20 118/57 (77) 97 Nasal Cannula 1.00 02/01/19 19:16 Room Air 02/01/19 16:44 36.7 58 18 102/59 (73) 95 Nasal Cannula 1.00 02/01/19 12:00 35.7 61 18 123/62 (82) 98 Nasal Cannula 1.00 02/01/19 08:00 35.2 66 12 133/61 (85) 100 Nasal Cannula 1.00 02/01/19 08:00 96 Nasal Cannula 1.00 I & O 02/02/19 07:00 Intake Total 1060 ml Output Total 500 ml Balance 560 ml Capillary Refill : Less Than 3 SecondsLess Than 3 Seconds General Appearance: No Apparent Distress, Chronically ill HEENT: PERRL/EOMI Neck: Normal Inspection, Non Tender, Supple Respiratory: No Accessory Muscle Use, No Respiratory Distress Cardiovascular: Regular Rate, Rhythm, No Edema Gastrointestinal: non tender, soft Extremity: Non Tender, No Calf Tenderness, No Pedal Edema Neurologic/Psychiatric: Alert, Oriented x3, Normal Mood/Affect Skin: Normal Color, Warm/Dry Lymphatic: No Adenopathy Results Lab Laboratory Tests 02/01/19 10:56: Glucometer 144H 02/01/19 16:22: Glucometer 113H 02/01/19 21:02: Glucometer 183H 02/02/19 05:54: Hemoglobin 9.4L, Hematocrit 34L, Prothrombin Time 28.2H, INR Comment 2.5H 02/02/19 06:05: Glucometer 98 Microbiology 01/28/19 Gram Stain - Final, Complete 01/28/19 Body Fluid Culture - Final, Complete No growth Assessment/Plan Assessment/Plan Assessment/Plan Anemia Pleural effusion s/p thoracentesis and egd c fulguraion for nonbleeding avm Shortness of breath - resolved continue medical management Clinical Quality Measures DVT/VTE Risk/Contraindication: Risk Factor Score Per Nursin RFS Level Per Nursing on Admit: 4+=Very High ALICE BLACKWELL DO 02/03/19 1842: Subjective Subjective/Events-last exam No difficulty with breathing. Still overall weak, but feeling better. Hgb stable. [facility] with plan for going home afterwards. Denies any new complaints. Tolerating diet without nausea or vomiting. at bedside. Objective Exam General Appearance: No Apparent Distress HEENT: PERRL/EOMI Neck: Normal Inspection, Non Tender Respiratory: Chest Non Tender, No Accessory Muscle Use, No Respiratory Distress Cardiovascular: Regular Rate, Rhythm Gastrointestinal: non tender, soft, no organomegaly Extremity: Non Tender, No Calf Tenderness Neurologic/Psychiatric: Alert, Oriented x3 Skin: Normal Color, Warm/Dry Lymphatic: No Adenopathy Assessment/Plan Assessment/Plan Assessment/Plan anemia, hgb stable and trending up continue to monitor as outpatient right pleural effusion, s/p thoracentesis, follow outpatient, may need repeated if shortness of breath and it has returned. shortness of breath resolved gastric avm s/p egd and fulguration of AVM, could repeat egd in near future to reevaluate or if becomes anemic at that time. Supervisory-Addendum Brief Verification & Attestation Participated in pt care: history, MDM, physical Personally performed: exam, history, MDM, supervision of care Care discussed with: Medical Student Procedures: n/a Results interpretation: Verified all documentation Verification and Attestation of Medical Student E/M Service A medical student performed and documented this service in my presence. I revie wed and verified all information documented by the medical student and made modifications to such information, when appropriate. I personally performed the physical exam and medical decision making. Alice Blackwell, Feb 02, 2019,18:42 NATACHA FELIPE MED STUD Feb 02, 2019 07:25 ALICE BLACKWELL DO Feb 03, 2019 18:42
[2019-02-02 08:00] VITALS: BP 118/68
[2019-02-02] MEDS: DILTIAZEM 180 MG (CARDIZEM CD) CAP PO SCH (08:25)
[2019-02-02] MEDS: DIGOXIN 0.25 MG (LANOXIN) TAB PO SCH (08:25)
[2019-02-02] MEDS: PANTOPRAZOLE 40 MG (PROTONIX) TAB PO SCH (08:26)
[2019-02-02] MEDS: SENNA W/DOCUSATE (SENOKOT S) TABLET PO SCH (08:26)
[2019-02-02] MEDS: DOCUSATE SODIUM 100 MG (COLACE) CAP PO SCH (08:26)
--- NOTE | 2019-02-02 08:44 | Progress Note - Cardiology ---
Cardiology SOAP Progress Note Subjective: Sitting up in a chair at the bedside. No c/o CP, palpitations, syncope, near syncope or dyspnea. Continued gen weakness which is improving. Objective: I&O/Vital Signs 02/02/19 02/02/19 02/02/19 02/02/19 00:00 04:15 06:18 08:00 Temp 37.1 37.2 37.2 Pulse 63 62 64 Resp B/P (MAP) 119/59 (79) 110/53 (72) 118/68 (85) Pulse Ox 96 95 96 96 O2 Delivery Nasal Cannula Nasal Cannula Nasal Cannula Nasal Cannula O2 Flow Rate 1.00 1.00 1.00 1.00 02/02/19 08:00 Pulse Ox 96 O2 Delivery Nasal Cannula O2 Flow Rate 1.00 02/02/19 00:00 Intake Total 660 ml Output Total 500 ml Balance 160 ml Weight (Pounds): 168 Weight (Ounces): 8.0 Weight (Calculated Kilograms): [id number] Constitutional: AAO x 3, well-developed, well-nourished Respiratory: No accessory muscle use, No respiratory distress; chest expansion is symmetric, chest is bilaterally symmetric, other (fair air entry; poor inspiratory effort) Cardiovascular: irregularly irregular; No JVD; S1 and S2, systolic murmur Gastrointestional: No tender; soft, audible bowel sounds Extremities: no lower extremity edema bilateral Neurologic/Psychiatric: grossly intact Skin: No rash on exposed areas, No ulcerations on exposed areas Results/Procedures: Labs Laboratory Tests 02/01/19 10:56: Glucometer 144H 02/01/19 16:22: Glucometer 113H 02/01/19 21:02: Glucometer 183H 02/02/19 05:54: Hemoglobin 9.4L, Hematocrit 34L, Prothrombin Time 28.2H, INR Comment 2.5H, Sodi um Level 136, Potassium Level 3.4L, Chloride Level 95L, Carbon Dioxide Level 31, Anion Gap 10, Blood Urea Nitrogen 27H, Creatinine 1.10, Estimat Glomerular Filtration Rate 48, BUN/Creatinine Ratio 25, Glucose Level 73, Calcium Level 8.7, Magnesium Level 1.9 02/02/19 06:05: Glucometer 98 Microbiology 01/28/19 Gram Stain - Final, Complete 01/28/19 Body Fluid Culture - Final, Complete No growth Laboratory Tests 02/01/19 04:42 02/02/19 05:54 A/P: Assessment: Multifactorial shortness of breath, see below Acute on chronic diastolic CHF Large right pleural effusion seen on CT of the chest on 01-25-19; s/p thoracentesis on 01/28/19 S/P non-syncopal fall Anemia, likely due to slow GI bleed. S/p upper endoscopy and fulguration of a small AVM in the stomach by Dr Blackwell on 01/28/10; was also found to have a small HH Moderate pulmonary hypertension, likely related to sleep apnea syndrome. She is on BIPAP therapy, but has been noncompliant Paroxysmal atrial fibrillation which now appears permanent. 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 ECG of 10/19/17 shows a fib with occ paced beat Status post pacemaker implantation by Dr. Keene in 2010 which is being followed by Dr. Keene (pulse gen change by Dr Keene in Mar 2017) Valvular heart disease, consisting primarily of mitral regurgitation and mitral annular calcification. On cardiac cath of August 2009, this was felt to be moderate to severe. Subsequently, on trans-esophageal echocardiography, mitral regurgitation was felt to be moderate. In addition, the patient has moderate to moderately severe tricuspid regurgitation. Last echo of 01/25/19: LVEF 60-65%, biatrial enlargement, MAC w/o MS, AoV sclerosis w/o , severe TR, mild MR, RVSP 55 mmHg Chronic anticoagulation for stroke prophylaxis with warfarin - currently therapeutic Angiographically mild coronary artery disease on cardiac cath of August 2009 MPI of 10/14/16: no ischemia or infarction, LVEF 75% History of pulmonary embolism Obesity with BMI of approximately 38 DJD History of hysterectomy and bilateral salpingo-oophorectomy for endometrial carcinoma several years ago Insomnia, managed by Dr Blackwood H/o anemia due to GI bleeds: has had colon polyp removal and gastric AVM fulguration in late 2017 / early [address] Blackwell. F/u on anemia is with Dr Guillermo kaur basal cell CA treated with surgery (Dr Vargas) and radiation (Dr Stone) in 2016 Plan: * Complex management due to multiple comorbidities outline above * Continue current regimen * Monitor labs * Replace electrolytes * Diuretics changed to oral * Plan is to transfer to [facility] today at [facility] * F/U on lab as out pt * Out pt f/u Physician Assessment Physician Assessment Notes gen malaise. No cp or palp or syncope. Chronic exertional shortness of breath Lungs: fair bilat air entry, prolonged exp phase Cor: irreg Ext: no c/c/e A&R * As documented in our note above that I updated (italics) and as noted below * Replenish lytes * Monitor labs * I spoke with her and her and questions were answered in detail ANN AG [employer] Feb 02, 2019 08:44 [facility] Feb 02, 2019 09:54
[2019-02-02] MEDS ORDERED: FURO80TA83 PO (08:49)
[2019-02-02] MEDS ORDERED: POTA-51 PO (08:49)
[2019-02-02] MEDS: ONDANSETRON 4 MG/2 ML (SDV) Z0FRAN IVP PRN (09:14)
--- NOTE | 2019-02-02 09:35 | Discharge Summary ---
Diagnosis/Chief Complaint Date of Admission Jan 25, 2019 at 2:02 pm Date of Discharge Primary Care Devin Blackwood MD Discharge Diagnosis (1) Anticoagulant long-term use (2) AVM (arteriovenous malformation) of stomach, acquired Status: Acute (3) History of GI bleed (4) Pleural effusion on right Status: Acute (5) Compression fracture of L1 vertebra Status: Acute (6) Anemia Status: Acute (7) Acute heart failure Status: Acute (8) Acute hypoxemic respiratory failure Status: Acute Discharge Summary Discharge Physical Exam Allergies: Coded Allergies: No Known Drug Allergies (Unverified , 04/16/18) Vitals & I&Os Vital Signs Date Time Temp Pulse Resp B/P (MAP) Pulse Ox O2 Delivery O2 Flow Rate FiO2 02/02/19 08:00 96 Nasal Cannula 1.00 02/02/19 08:00 37.2 64 24 118/68 (85) 01/31/19 19:38 95 Hospital Course Labs (last 24 hrs) Laboratory Tests 02/01/19 10:56: Glucometer 144H 02/01/19 16:22: Glucometer 113H 02/01/19 21:02: Glucometer 183H 02/02/19 05:54: Hemoglobin 9.4L, Hematocrit 34L, Prothrombin Time 28.2H, INR Comment 2.5H, Sodium Level 136, Potassium Level 3.4L, Chloride Level 95L, Carbon Dioxide Level 31, Anion Gap 10, Blood Urea Nitrogen 27H, Creatinine 1.10, Estimat Glomerular Filtration Rate 48, BUN/Creatinine Ratio 25, Glucose Level 73, Calcium Level 8.7, Magnesium Level 1.9 02/02/19 06:05: Glucometer 98 Microbiology 01/28/19 Gram Stain - Final, Complete 01/28/19 Body Fluid Culture - Final, Complete No growth Patient resulted labs reviewed. Pending Labs Laboratory Tests 02/02/19 05:54: Hemoglobin 9.4, Hematocrit 34, Prothrombin Time 28.2, INR Comment 2.5, Sodium Level 136, Potassium Level 3.4, Chloride Level 95, Carbon Dioxide Level 31, Anion Gap 10, Blood Urea Nitrogen 27, Creatinine 1.10, Estimat Glomerular Filtration Rate 48, BUN/Creatinine Ratio 25, Glucose Level 73, Calcium Level 8.7, Magnesium Level 1.9 02/02/19 06:05: Glucometer 98 Discharge Home Medications: Active Scripts Active Potassium Chloride 20 Meq Tablet.er 20 Meq PO BID Lasix (Furosemide) 80 Mg Tablet 80 Mg PO BID Reported Diltiazem ER (Diltiazem HCl) 360 Mg Capsule.er 360 Mg PO DAILY Citalopram HBr (Citalopram Hydrobromide) 20 Mg Tablet 20 Mg PO DAILY Women's Daily Formula (Multivit with Calcium,Iron,Min) 1 Each Tablet 1 Tab PO DAILY Metformin HCl 500 Mg Tablet 500 Mg PO BID Pantoprazole Sodium 40 Mg Tablet.dr 40 Mg PO DAILY Acetaminophen 500 Mg Tablet 1,000 Mg PO BID TAKES 2 (500MG) TABLETS Warfarin Sodium 2 Mg Tablet 4 Mg PO TUTH TAKES 2 (2MG) TABLETS Digoxin 250 Mcg Tablet 250 Mcg PO DAILY Potassium Chloride 10 Meq Tablet.er 10 Meq PO BID Magnesium Oxide 400 Mg Tablet 400 Mg PO BID Furosemide 20 Mg Tablet 60 Mg PO BID TAKES 3 (20MG) TABLETS Warfarin Sodium 2 Mg Tablet 2 Mg PO SUMOWEFRSA Instructions to patient/family Please see electronic discharge instructions given to patient. Clinical Quality Measures DVT/VTE Risk/Contraindication: Risk Factor Score Per Nursin RFS Level Per Nursing on Admit: 4+=Very High Problem Qualifiers (1) Compression fracture of L1 vertebra: Encounter type: initial encounter Qualified Codes: S32.010A - Wedge compression fracture of first lumbar vertebra, initial encounter for closed frac ture (2) Anemia: Anemia type: iron deficiency Iron deficiency anemia type: chronic blood loss Qualified Codes: D50.0 - Iron deficiency anemia secondary to blood loss (chronic) (3) Acute heart failure: Heart failure type: unspecified Qualified Codes: I50.9 - Heart failure, unspecified JUAN DANIEL DE LA TORRE MD Feb 02, 2019 9:35 am
--- NOTE | 2019-02-02 10:03 | NUR ---
Pt agreeable with transfer to [facility] for short-term skilled care. She complains of pain this morning and wants to transfer in the afternoon with her transfer time as 13:30.CARE assessment completed.
--- NOTE | 2019-02-02 10:47 | NUR ---
PATIENT QUALIFIES HER SAT DROPPED TO 87% ON ROOM AIR Addendum: 02/02/19 at 1049 by NIKI MARTINS RT Amended: Links added.
[2019-02-02] MEDS ORDERED: FERR325T18 PO (11:38)
[2019-02-02] MEDS ORDERED: OXC5T PO (11:38)
--- NOTE | 2019-02-02 11:42 | Discharge Inst-Skilled Nursing ---
Discharge Inst-Skilled NF Reconcile Patient Problems Problems Reviewed?: Yes Chief Complaint Shortness of breath Consult/Follow Up/Orders Skilled NF Admit to: [facility] [place] Certification (SNF) I certify that SNF services are required to be given on an inpatient basis because of the above named patient's need for residential care on a continuing basis for the conditions(s) for which he/she was receiving inpatient hospital services prior to his/her transfer to the SNF. Custodial Facility Order: Nursing Services, [employer] Machine Tender-Evaluate & Treat, Physical Therapy-Evaluate & Treat Oxygen Delivery Method: Nasal Cannula Oxygen Flow Rate L/min (Range): 1 Discharge Diet: Low Sodium Diet Daily Activity as Tolerated: Yes New & Resume Previous Orders Juan Daniel Haywood Feb 02, 2019 09:36 Pneu Vac Indicated: Yes JUAN DANIEL HAYWOOD MD Feb 02, 2019 9:38 am
[2019-02-02 12:00] VITALS: BP 115/61
--- NOTE | 2019-02-02 13:14 | Physical Therapy Daily Note ---
PT Daily Note-Current Subjective Pt. in bed, at side. Pt. declines gait and or bed exercises as she is anticipating a move to [facility]. Pt. states "Im so tired and I really just want to relax or nap til I move". Pt. inquires as to the difference in ARU ad SNF. This was explained regarding required time duration of therapies each day being more than likely the issue. Pt. relates that she could not tolerate 3 hrs of Therapy per day at this point Transfers Therapy Code Descriptions/Definitions Functional [place] Measure: 0=Not Assessed/NA 4=Minimal Assistance 1=Total Assistance 5=Supervision or Setup 2=Maximal Assistance 6=Modified [place] 3=Moderate Assistance 7=Complete [place] Therapy Quality Codes: 6 Independent with activity with or without an assistive device 5 Patient requires set up or clean up by helper. Patient completes activity by themselves 4 Supervision or touching assist (CGA). [place] provide cues , steadying assist 3 The helper provides less than half the effort to complete the activity 2 The helper provides more than half the effort to complete the activity 1 Dependent. 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 Penitentiary Goals PT Penitentiary Goals Time Frame: Feb 12, 2019 Transfers (B,C,W/C) (FIM): 6 Gait (FIM): 2 Gait distance (FIM): 9=103-81 ft Distance: 75' Gait Level of Assist: 6 Gait Assistive Device: FWW PT Plan Treatment/Plan Treatment Plan: Discontinue PT Treatment Plan: Bed Mobility, Education, Functional Activity Brennen, Functional Strength, Gait, Safety, Therapeutic Exercise, Transfers Treatment Duration: Feb 12, 2019 Frequency: 6 times per week Estimated Hrs Per Day: .25 hour per day Patient and/or Family Agrees t: Yes Time/GCodes Time In: 1305 Time Out: 1310 Total Billed Treatment Time: 0 Total Billed Treatment 1,noRX, no ZULAY Emery RAILROAD CAR INSPECTOR Feb 02, 2019 13:13
--- NOTE | 2019-02-02 14:48 | NUR ---
CALLED REPORT TO SILAS AT [facility].
[2019-02-02 15:10] VITALS: BP 115/61
--- NOTE | 2019-02-02 16:48 | NUR ---
Pt transferred to [facility] by their staff, Pt agreeable with plan and has discussed her admission with FER Morelos,Website Admin. Discharge orders and Pain medication script as well as recent physician notes were given to [facility] staff.
== END 2019-02-02 15:10 | DRG 291 ==
LOC: ER 10:40 → EDUNIT# 10:40 → 4TH 14:02
PROVIDERS: ADMIT Internal Medicine; ATTEND Internal Medicine
PROC: 0D568ZZ Destruction of Stomach, Via Natural or Artificial Opening Endoscopic (ICD-10-PCS; 2019-01-28)
PROC: 0DJD8ZZ Inspection of Lower Intestinal Tract, Via Natural or Artificial Opening Endoscopic (ICD-10-PCS; 2019-01-28)
PROC: 0W993ZZ Drainage of Right Pleural Cavity, Percutaneous Approach (ICD-10-PCS; principal; 2019-01-28 11:56)
DX: I11.0 Hypertensive heart disease with heart failure (principal); I50.33 Acute on chronic diastolic (congestive) heart failure; J90 Pleural effusion, not elsewhere classified; J96.01 Acute respiratory failure with hypoxia; S32.010A Wedge compression fracture of first lumbar vertebra, initial encounter for closed fracture; Q27.33 Arteriovenous malformation of digestive system vessel; K92.2 Gastrointestinal hemorrhage, unspecified; R51 Headache; D50.0 Iron deficiency anemia secondary to blood loss (chronic); I27.29 Other secondary pulmonary hypertension; G47.33 Obstructive sleep apnea (adult) (pediatric); Z91.19 Patient's noncompliance with other medical treatment and regimen; I48.0 Paroxysmal atrial fibrillation; E11.9 Type 2 diabetes mellitus without complications; I08.1 Rheumatic disorders of both mitral and tricuspid valves; I25.10 Atherosclerotic heart disease of native coronary artery without angina pectoris; R32 Unspecified urinary incontinence; E66.9 Obesity, unspecified; Z68.31 Body mass index [BMI] 31.0-31.9, adult; M19.91 Primary osteoarthritis, unspecified site; G47.00 Insomnia, unspecified; Z95.0 Presence of cardiac pacemaker; Z79.01 Long term (current) use of anticoagulants; Z86.711 Personal history of pulmonary embolism; Z87.74 Personal history of (corrected) congenital malformations of heart and circulatory system; Z85.42 Personal history of malignant neoplasm of other parts of uterus; Z79.4 Long term (current) use of insulin; F32.9 Major depressive disorder, single episode, unspecified; W01.0XXA Fall on same level from slipping, tripping and stumbling without subsequent striking against object, initial encounter; Y92.002 Bathroom of unspecified non-institutional (private) residence as the place of occurrence of the external cause
CPT/HCPCS: 36415; 51702; 70450; 71045; 71046; 71250; 72125; 72131; 73630; 76942; 80048; 80053; 80162; 81000; 82274; 82728; 82945; 82962; 83540; 83615; 83735; 83880; 83986; 84100; 84157; 84443; 84478; 84484; 85007; 85014; 85018; 85025; 85027; 85610; 85730; 86850; 86900; 86901; 86920; 87070; 87205; 89051; 93005; 94640; 94760; 94761; 96374

== ENCOUNTER → 2019-04-18 | Outpatient (RCR) | payer MEDICARE, OTHER ==
[2019-01-18 13:37] LABS: BASOPHILS % (AUTO) 0 % (0-10); EOSINOPHILS # (AUTO) 0.1 10^3/uL (0.0-0.3); EOSINOPHILS % (AUTO) 2 % (0-10); HEMATOCRIT 31 % (35-52); HEMOGLOBIN 8.4 G/DL (11.5-16.0); LYMPHOCYTES # (AUTO) 1.7 X 10^3 (1.0-4.0); LYMPHOCYTES % (AUTO) 24 % (12-44); MEAN CORPUSCULAR HEMOGLOBIN 18 PG (25-34); MEAN CORPUSCULAR HGB CONC 27 G/DL (32-36); MEAN CORPUSCULAR VOLUME 68 FL (80-99); MEAN PLATELET VOLUME 9.3 FL (7.4-10.4); MONOCYTES # (AUTO) 0.8 X 10^3 (0.0-1.0); MONOCYTES % (AUTO) 11 % (0-12); NEUTROPHILS # (AUTO) 4.5 X 10^3 (1.8-7.8); NEUTROPHILS % (AUTO) 63 % (42-75); PLATELET COUNT 305 10^3/uL (130-400); RED CELL DISTRIBUTION WIDTH 20.8 % (10.0-14.5); WHITE BLOOD COUNT 7.2 10^3/uL (4.3-11.0)
[2019-01-18 13:57] LABS: ALBUMIN 3.7 GM/DL (3.2-4.5); BILIRUBIN,TOTAL 0.8 MG/DL (0.1-1.0); CREATININE SERUM 1.38 MG/DL (0.60-1.30); POTASSIUM 4.1 MMOL/L (3.6-5.0); TOTAL PROTEIN 8.7 GM/DL (6.4-8.2)
[2019-02-16 15:26] LABS: BASOPHILS % (AUTO) 0 % (0-10); EOSINOPHILS # (AUTO) 0.1 10^3/uL (0.0-0.3); EOSINOPHILS % (AUTO) 2 % (0-10); HEMATOCRIT 39 % (35-52); LYMPHOCYTES # (AUTO) 1.4 X 10^3 (1.0-4.0); LYMPHOCYTES % (AUTO) 18 % (12-44); MEAN CORPUSCULAR HEMOGLOBIN 21 PG (25-34); MEAN CORPUSCULAR HGB CONC 29 G/DL (32-36); MEAN CORPUSCULAR VOLUME 73 FL (80-99); MEAN PLATELET VOLUME 9.1 FL (7.4-10.4); MONOCYTES # (AUTO) 0.6 X 10^3 (0.0-1.0); MONOCYTES % (AUTO) 8 % (0-12); NEUTROPHILS # (AUTO) 5.3 X 10^3 (1.8-7.8); NEUTROPHILS % (AUTO) 71 % (42-75); PLATELET COUNT 367 10^3/uL (130-400); RED CELL DISTRIBUTION WIDTH 26.6 % (10.0-14.5); WHITE BLOOD COUNT 7.4 10^3/uL (4.3-11.0)
[2019-02-16 15:44] LABS: ALBUMIN 3.3 GM/DL (3.2-4.5); BILIRUBIN,TOTAL 0.5 MG/DL (0.1-1.0); CALCIUM 9.6 MG/DL (8.5-10.1); CREATININE SERUM 1.36 MG/DL (0.60-1.30); POTASSIUM 4.3 MMOL/L (3.6-5.0)
[~2019-04-18] MED LIST changes: -ACET-77 PO; +ACET-78 PO; +CITA20TA9 PO; +DIGO250T3 PO; +DILT360C30 PO; +FERR325T18 PO; +FURO80TA83 PO; +MULT-141 PO; +OXC5T PO; +POTA-51 PO; -TRAM50TA2 PO; +TRM50T PO
[2019-04-18 15:58] LABS: BASOPHILS % (AUTO) 1 % (0-10); EOSINOPHILS # (AUTO) 0.2 10^3/uL (0.0-0.3); EOSINOPHILS % (AUTO) 3 % (0-10); HEMATOCRIT 38 % (35-52); HEMOGLOBIN 11.3 G/DL (11.5-16.0); LYMPHOCYTES # (AUTO) 1.5 X 10^3 (1.0-4.0); LYMPHOCYTES % (AUTO) 25 % (12-44); MEAN CORPUSCULAR HEMOGLOBIN 25 PG (25-34); MEAN CORPUSCULAR HGB CONC 30 G/DL (32-36); MEAN CORPUSCULAR VOLUME 83 FL (80-99); MEAN PLATELET VOLUME 9.3 FL (7.4-10.4); MONOCYTES # (AUTO) 0.6 X 10^3 (0.0-1.0); MONOCYTES % (AUTO) 10 % (0-12); NEUTROPHILS # (AUTO) 3.6 X 10^3 (1.8-7.8); NEUTROPHILS % (AUTO) 61 % (42-75); PLATELET COUNT 260 10^3/uL (130-400); RED CELL DISTRIBUTION WIDTH 17.3 % (10.0-14.5)
[2019-04-18 16:27] LABS: ALBUMIN 3.9 GM/DL (3.2-4.5); BILIRUBIN,TOTAL 0.4 MG/DL (0.1-1.0); CALCIUM 9.5 MG/DL (8.5-10.1); CREATININE SERUM 1.12 MG/DL (0.60-1.30); POTASSIUM 4.2 MMOL/L (3.6-5.0); TOTAL PROTEIN 8.9 GM/DL (6.4-8.2)
== END | disposition home or self-care (01) ==
LOC: ONC 01-18 13:23
PROVIDERS: ATTEND Internal Medicine Hematology & Oncology
DX: D64.9 Anemia, unspecified (principal); E11.9 Type 2 diabetes mellitus without complications; I25.10 Atherosclerotic heart disease of native coronary artery without angina pectoris; I27.20 Pulmonary hypertension, unspecified; I08.1 Rheumatic disorders of both mitral and tricuspid valves; G47.30 Sleep apnea, unspecified; Z79.01 Long term (current) use of anticoagulants; Z79.899 Other long term (current) drug therapy; Z79.84 Long term (current) use of oral hypoglycemic drugs; Z95.0 Presence of cardiac pacemaker
CPT/HCPCS: 36415; 80053; 82728; 85025; 99213

== ENCOUNTER → 2019-06-22 | Outpatient (CLI) | payer MEDICARE, OTHER ==
[2019-06-22 14:29] LABS: BASOPHILS % (AUTO) 0 % (0-10); EOSINOPHILS # (AUTO) 0.1 10^3/uL (0.0-0.3); EOSINOPHILS % (AUTO) 2 % (0-10); HEMATOCRIT 37 % (35-52); HEMOGLOBIN 11.7 G/DL (11.5-16.0); LYMPHOCYTES # (AUTO) 1.5 X 10^3 (1.0-4.0); LYMPHOCYTES % (AUTO) 28 % (12-44); MEAN CORPUSCULAR HEMOGLOBIN 25 PG (25-34); MEAN CORPUSCULAR HGB CONC 31 G/DL (32-36); MEAN CORPUSCULAR VOLUME 81 FL (80-99); MEAN PLATELET VOLUME 10.7 FL (7.4-10.4); MONOCYTES # (AUTO) 0.4 X 10^3 (0.0-1.0); MONOCYTES % (AUTO) 8 % (0-12); NEUTROPHILS # (AUTO) 3.3 X 10^3 (1.8-7.8); NEUTROPHILS % (AUTO) 61 % (42-75); PLATELET COUNT 222 10^3/uL (130-400); RED CELL DISTRIBUTION WIDTH 15.2 % (10.0-14.5); WHITE BLOOD COUNT 5.4 10^3/uL (4.3-11.0)
[2019-06-22 14:43] LABS: ALBUMIN 4.1 GM/DL (3.2-4.5); BILIRUBIN,TOTAL 0.5 MG/DL (0.1-1.0); CALCIUM 9.7 MG/DL (8.5-10.1); CREATININE SERUM 1.17 MG/DL (0.60-1.30); POTASSIUM 4.3 MMOL/L (3.6-5.0); TOTAL PROTEIN 8.8 GM/DL (6.4-8.2)
== END ==
LOC: LAB 14:04
PROVIDERS: ATTEND Family Medicine
DX: I10 Essential (primary) hypertension (principal); E11.9 Type 2 diabetes mellitus without complications
CPT/HCPCS: 36415; 80053; 83036; 84443; 85025

== ENCOUNTER 2019-06-29 14:04 | Outpatient (RCR) | payer MEDICARE, OTHER ==
[2019-06-22 14:23] LABS: BASOPHILS % (AUTO) 1 % (0-10); EOSINOPHILS # (AUTO) 0.1 10^3/uL (0.0-0.3); EOSINOPHILS % (AUTO) 2 % (0-10); HEMATOCRIT 38 % (35-52); HEMOGLOBIN 11.6 G/DL (11.5-16.0); LYMPHOCYTES # (AUTO) 1.3 X 10^3 (1.0-4.0); LYMPHOCYTES % (AUTO) 26 % (12-44); MEAN CORPUSCULAR HEMOGLOBIN 25 PG (25-34); MEAN CORPUSCULAR HGB CONC 31 G/DL (32-36); MEAN CORPUSCULAR VOLUME 81 FL (80-99); MEAN PLATELET VOLUME 10.7 FL (7.4-10.4); MONOCYTES # (AUTO) 0.5 X 10^3 (0.0-1.0); MONOCYTES % (AUTO) 9 % (0-12); NEUTROPHILS # (AUTO) 3.2 X 10^3 (1.8-7.8); NEUTROPHILS % (AUTO) 62 % (42-75); PLATELET COUNT 217 10^3/uL (130-400); RED CELL DISTRIBUTION WIDTH 15.1 % (10.0-14.5); WHITE BLOOD COUNT 5.2 10^3/uL (4.3-11.0)
[~2019-06-29 14:04] MED LIST changes: +FERRIC CARBOXYMALTOSE (CANCER) 750 MG in NS (IVPB) CANCER CENTER 250 ML IV SCH
== END 2019-07-20 | disposition home or self-care (01) ==
LOC: ONC 14:04
PROVIDERS: ATTEND Internal Medicine Hematology & Oncology
DX: D64.9 Anemia, unspecified (principal); E11.9 Type 2 diabetes mellitus without complications; I25.10 Atherosclerotic heart disease of native coronary artery without angina pectoris; I27.20 Pulmonary hypertension, unspecified; I08.1 Rheumatic disorders of both mitral and tricuspid valves; G47.30 Sleep apnea, unspecified; Z79.01 Long term (current) use of anticoagulants; Z79.899 Other long term (current) drug therapy; Z79.84 Long term (current) use of oral hypoglycemic drugs; Z95.0 Presence of cardiac pacemaker
CPT/HCPCS: 36415; 82728; 83883; 84155; 84165; 85025; 96365; 99213

== ENCOUNTER 2019-10-19 13:54 | Outpatient (RCR) | payer MEDICARE, OTHER ==
[2019-07-25 15:21] LABS: BASOPHILS % (AUTO) 0 % (0-10); EOSINOPHILS # (AUTO) 0.1 10^3/uL (0.0-0.3); EOSINOPHILS % (AUTO) 3 % (0-10); HEMATOCRIT 41 % (35-52); HEMOGLOBIN 12.8 G/DL (11.5-16.0); LYMPHOCYTES # (AUTO) 1.5 X 10^3 (1.0-4.0); LYMPHOCYTES % (AUTO) 30 % (12-44); MEAN CORPUSCULAR HEMOGLOBIN 27 PG (25-34); MEAN CORPUSCULAR HGB CONC 32 G/DL (32-36); MEAN CORPUSCULAR VOLUME 86 FL (80-99); MEAN PLATELET VOLUME 10.6 FL (7.4-10.4); MONOCYTES # (AUTO) 0.5 X 10^3 (0.0-1.0); MONOCYTES % (AUTO) 9 % (0-12); NEUTROPHILS # (AUTO) 2.9 X 10^3 (1.8-7.8); NEUTROPHILS % (AUTO) 58 % (42-75); PLATELET COUNT 166 10^3/uL (130-400); RED CELL DISTRIBUTION WIDTH 19.9 % (10.0-14.5)
[2019-07-25 15:39] LABS: BILIRUBIN,TOTAL 0.5 MG/DL (0.1-1.0); CALCIUM 9.1 MG/DL (8.5-10.1); CREATININE SERUM 1.04 MG/DL (0.60-1.30); POTASSIUM 4.3 MMOL/L (3.6-5.0); TOTAL PROTEIN 8.1 GM/DL (6.4-8.2)
[~2019-10-19 13:54] MED LIST changes: -FERRIC CARBOXYMALTOSE (CANCER) 750 MG in NS (IVPB) CANCER CENTER 250 ML IV SCH
[2019-10-19 14:14] LABS: BASOPHILS % (AUTO) 1 % (0-10); EOSINOPHILS # (AUTO) 0.1 10^3/uL (0.0-0.3); EOSINOPHILS % (AUTO) 3 % (0-10); HEMATOCRIT 41 % (35-52); HEMOGLOBIN 13.4 G/DL (11.5-16.0); LYMPHOCYTES # (AUTO) 1.4 X 10^3 (1.0-4.0); LYMPHOCYTES % (AUTO) 25 % (12-44); MEAN CORPUSCULAR HGB CONC 32 G/DL (32-36); MEAN CORPUSCULAR VOLUME 97 FL (80-99); MEAN PLATELET VOLUME 9.8 FL (7.4-10.4); MONOCYTES # (AUTO) 0.4 X 10^3 (0.0-1.0); MONOCYTES % (AUTO) 8 % (0-12); NEUTROPHILS # (AUTO) 3.5 X 10^3 (1.8-7.8); NEUTROPHILS % (AUTO) 64 % (42-75); PLATELET COUNT 162 10^3/uL (130-400); RED CELL DISTRIBUTION WIDTH 13.6 % (10.0-14.5); WHITE BLOOD COUNT 5.4 10^3/uL (4.3-11.0)
[2019-10-19 14:15] LABS: MEAN CORPUSCULAR HEMOGLOBIN 31 PG (25-34)
[2019-10-19 14:38] LABS: BILIRUBIN,TOTAL 0.8 MG/DL (0.1-1.0); CALCIUM 9.5 MG/DL (8.5-10.1); CREATININE SERUM 1.2 MG/DL (0.60-1.30); POTASSIUM 4.4 MMOL/L (3.6-5.0); TOTAL PROTEIN 8.7 GM/DL (6.4-8.2)
== END 2019-10-23 | disposition home or self-care (01) ==
LOC: ONC 13:54
PROVIDERS: ATTEND Internal Medicine Hematology & Oncology
DX: D50.9 Iron deficiency anemia, unspecified (principal); E11.9 Type 2 diabetes mellitus without complications; I25.10 Atherosclerotic heart disease of native coronary artery without angina pectoris; I27.20 Pulmonary hypertension, unspecified; I08.1 Rheumatic disorders of both mitral and tricuspid valves; G47.30 Sleep apnea, unspecified; N18.9 Chronic kidney disease, unspecified; K31.819 Angiodysplasia of stomach and duodenum without bleeding; I48.20 Chronic atrial fibrillation, unspecified; Z79.01 Long term (current) use of anticoagulants; Z79.84 Long term (current) use of oral hypoglycemic drugs; Z95.0 Presence of cardiac pacemaker
CPT/HCPCS: 80053; 82728; 85025; 99213

== ENCOUNTER → 2019-11-04 | Outpatient (CLI) | payer MEDICARE, OTHER ==
--- NOTE | 2019-11-04 16:42 | Diagnostic Imaging Report ---
PROCEDURE: US left lower extremity venous. TECHNIQUE: Multiple real-time grayscale images were obtained over the left lower extremity in various projections. Additional duplex Doppler and color Doppler images were also obtained. INDICATION: Red warm calf with swelling. FINDINGS: Color Doppler imaging shows normal blood flow throughout the lower extremity venous system from the common femoral vein to the ankle. Calf compression shows normal augmentation of flow at the popliteal level. There is noted a hypoechoic area which is slightly lobulated measuring 2.8 x 1.2 x 1.9 cm in the subcutaneous fat soft tissues of the calf. This does show internal debris. There is no hypervascularity. IMPRESSION: 1. No evidence of venous thrombosis. 2. Lobulated complex cystic structure in the subcutaneous tissues. This is not hypervascular. This may represent resolving hematoma or seroma. Clinical correlation. Dictated by: Dictated on workstation # [id number]
== END ==
LOC: RAD 15:40
PROVIDERS: ATTEND Nurse Practitioner Family
DX: M79.662 Pain in left lower leg (principal); M79.89 Other specified soft tissue disorders

== ENCOUNTER 2020-01-12 11:04 | Outpatient (RCR) | payer MEDICARE, OTHER ==
[2020-01-05 13:29] LABS: BASOPHILS % (AUTO) 0 % (0-10); EOSINOPHILS # (AUTO) 0.2 10^3/uL (0.0-0.3); EOSINOPHILS % (AUTO) 3 % (0-10); HEMATOCRIT 43 % (35-52); LYMPHOCYTES # (AUTO) 1.6 X 10^3 (1.0-4.0); LYMPHOCYTES % (AUTO) 23 % (12-44); MEAN CORPUSCULAR HEMOGLOBIN 30 PG (25-34); MEAN CORPUSCULAR HGB CONC 33 G/DL (32-36); MEAN CORPUSCULAR VOLUME 93 FL (80-99); MEAN PLATELET VOLUME 10.3 FL (7.4-10.4); MONOCYTES # (AUTO) 0.7 X 10^3 (0.0-1.0); MONOCYTES % (AUTO) 10 % (0-12); NEUTROPHILS # (AUTO) 4.6 X 10^3 (1.8-7.8); NEUTROPHILS % (AUTO) 64 % (42-75); PLATELET COUNT 167 10^3/uL (130-400); WHITE BLOOD COUNT 7.1 10^3/uL (4.3-11.0)
[2020-01-05 13:48] LABS: ALBUMIN 3.9 GM/DL (3.2-4.5); BILIRUBIN,TOTAL 0.7 MG/DL (0.1-1.0); CALCIUM 9.6 MG/DL (8.5-10.1); CREATININE SERUM 1.12 MG/DL (0.60-1.30); POTASSIUM 4.5 MMOL/L (3.6-5.0); TOTAL PROTEIN 8.7 GM/DL (6.4-8.2)
[~2020-01-12 11:04] MED LIST changes: -PANT40TA3 PO; +PANT40TA52 PO
== END 2020-02-01 | disposition home or self-care (01) ==
LOC: ONC 11:04
PROVIDERS: ATTEND Internal Medicine Hematology & Oncology
DX: I48.20 Chronic atrial fibrillation, unspecified (principal); N18.3 Chronic kidney disease, stage 3 (moderate); D50.0 Iron deficiency anemia secondary to blood loss (chronic); Z98.890 Other specified postprocedural states; Z95.0 Presence of cardiac pacemaker
CPT/HCPCS: 80053; 82728; 85025; 99213

== ENCOUNTER 2020-06-01 15:18 | Outpatient (RCR) | payer MEDICARE, OTHER ==
[2020-06-01 14:57] LABS: BASOPHILS % (AUTO) 0 % (0-10); EOSINOPHILS # (AUTO) 0.2 10^3/uL (0.0-0.3); EOSINOPHILS % (AUTO) 2 % (0-10); HEMATOCRIT 43 % (35-52); HEMOGLOBIN 13.7 g/dL (11.5-16.0); LYMPHOCYTES # (AUTO) 1.4 10^3/uL (1.0-4.0); LYMPHOCYTES % (AUTO) 20 % (12-44); MEAN CORPUSCULAR HEMOGLOBIN 30 pg (25-34); MEAN CORPUSCULAR HGB CONC 32 g/dL (32-36); MEAN CORPUSCULAR VOLUME 93 fL (80-99); MEAN PLATELET VOLUME 9.8 fL (9.0-12.2); MONOCYTES # (AUTO) 0.5 10^3/uL (0.0-1.0); MONOCYTES % (AUTO) 7 % (0-12); NEUTROPHILS # (AUTO) 4.9 10^3/uL (1.8-7.8); NEUTROPHILS % (AUTO) 70 % (42-75); PLATELET COUNT 179 10^3/uL (130-400); WHITE BLOOD COUNT 7.1 10^3/uL (4.3-11.0)
[2020-06-01 15:17] LABS: ALBUMIN 3.4 GM/DL (3.2-4.5); BILIRUBIN,TOTAL 0.7 MG/DL (0.1-1.0); CALCIUM 8.9 MG/DL (8.5-10.1); CREATININE SERUM 1.06 MG/DL (0.60-1.30); POTASSIUM 4.1 MMOL/L (3.6-5.0); TOTAL PROTEIN 7.8 GM/DL (6.4-8.2)
== END 2020-08-30 | disposition home or self-care (01) ==
LOC: ONC 15:18
PROVIDERS: ATTEND Internal Medicine Hematology & Oncology
DX: D50.0 Iron deficiency anemia secondary to blood loss (chronic) (principal); I48.20 Chronic atrial fibrillation, unspecified; E11.22 Type 2 diabetes mellitus with diabetic chronic kidney disease; N18.30 Chronic kidney disease, stage 3 unspecified; I25.10 Atherosclerotic heart disease of native coronary artery without angina pectoris; I27.20 Pulmonary hypertension, unspecified; Q27.33 Arteriovenous malformation of digestive system vessel; Z98.890 Other specified postprocedural states; Z95.0 Presence of cardiac pacemaker; Z87.19 Personal history of other diseases of the digestive system; Z79.01 Long term (current) use of anticoagulants
CPT/HCPCS: 80053; 82728; 85025; G0463; 99213

== ENCOUNTER → 2020-06-15 | Outpatient (CLI) | payer MEDICARE ==
--- NOTE | 2020-06-15 12:43 | Diagnostic Imaging Report ---
INDICATION: Fall. Right hip pain. COMPARISON: None. FINDINGS: AP view of the pelvis and 2 dedicated radiographic views of the right hip were obtained. There is no fracture, dislocation, bone destruction, or radiopaque foreign body. The visualized pelvic osseous structures and the SI joints demonstrate no acute fracture or dislocation. There is no bone destruction or radiopaque foreign body. The surrounding soft tissue structures are unremarkable. IMPRESSION: 1. No acute fracture or dislocation in the pelvis or right hip. Dictated by: Dictated on workstation # [id number]
== END ==
LOC: RAD 11:37
PROVIDERS: ATTEND Nurse Practitioner Family
DX: M25.551 Pain in right hip (principal); W19.XXXA Unspecified fall, initial encounter

== ENCOUNTER → 2020-09-19 | Outpatient (CLI) | payer MEDICARE ==
--- NOTE | 2020-09-19 16:57 | Diagnostic Imaging Report ---
EXAMINATION: Chest 2 view HISTORY: Shortness of breath. COMPARISON: 01/31/2019. FINDINGS: Interval increase in size in a moderate right pleural effusion with right basilar opacities. There is cardiomegaly with stable configuration of a left pectoral pacemaker. Calcified atherosclerotic plaque is seen in the aorta. No evidence of pneumothorax. No acute osseous abnormalities. Advanced degenerative changes are seen in the bilateral glenohumeral joints. IMPRESSION: 1. Increased moderate right pleural effusion with right basilar opacities. 2. Cardiomegaly. Dictated by: Dictated on workstation # [id number]
== END ==
LOC: RAD 14:58
PROVIDERS: ATTEND Family Medicine
DX: J90 Pleural effusion, not elsewhere classified (principal); I51.7 Cardiomegaly; R91.8 Other nonspecific abnormal finding of lung field
CPT/HCPCS: 71046

== ENCOUNTER 2020-09-25 10:00 | Outpatient (CLI) | payer MEDICARE ==
[2020-09-25] VITALS (7 sets, daily range): BP systolic 103–127; BP diastolic 61–90
[~2020-09-25] VITALS: Ht 160 cm; Wt 72.3 kg
--- NOTE | 2020-09-25 11:41 | Diagnostic Imaging Report ---
INDICATION: Pleural effusion Portable chest 10:47 AM There is cardiomegaly. Pulmonary vascularity is normal. There is a dual-chamber pacemaker. The right pleural effusion has been evacuated since the comparison exam dated 09/19/2020. There is a small subpulmonic pneumothorax which is probably ex vacuo from recent thoracentesis. IMPRESSION: Probable ex vacuo pneumothorax right lateral sulcus. Dictated by: Dictated on workstation # [id number]
[2020-09-25 11:59] LABS: AMYLASE,BODY FLUID 50 U/L; GLUCOSE,BODY FLUID 92 MG/DL; LDH,BODY FLUID 175 U/L; TOTAL PROTEIN,BODY FLUID 4.6 G/DL
[2020-09-25 12:28] LABS: BODY FLUID APPEARENCE MKD CLDY; BODY FLUID COLOR RED; BODY FLUID RBC COUNT 19500 /uL; BODY FLUID SOURCE PLEURAL; BODY FLUID WBC TOTAL COUNT 3650 /uL; LYMPHOCYTES,BODY FLUID 63 %
[2020-09-25 12:29] LABS: BF OTHER CELLS 19 %
--- NOTE | 2020-09-25 12:42 | Diagnostic Imaging Report ---
INDICATION: Ascites IMPRESSION: Ultrasound guidance was used to obtained access in the right pleural space for thoracentesis. Images show a large right pleural effusion. Dictated by: Dictated on workstation # [id number]
--- NOTE | 2020-09-25 14:21 | Diagnostic Imaging Report ---
INDICATION: Status post thoracentesis. Time of exam 1:14 p.m. Correlation is made with prior chest earlier the same day. Right basilar pneumothorax persists and appears similar to prior exam. This is small. There has been evacuation of right-sided pleural effusion. Heart is enlarged. Cardiac pacemaker is in place. IMPRESSION: Stable right basilar pneumothorax when compared with earlier same day, status post thoracentesis. Dictated by: Dictated on workstation # [id number]
--- NOTE | 2020-09-25 20:27 | OPERATIVE REPORT ---
DATE OF SERVICE: 09/25/2020 PREOPERATIVE DIAGNOSIS: Symptomatic right pleural effusion. POSTOPERATIVE DIAGNOSIS: Symptomatic right pleural effusion. PROCEDURE: Ultrasound-guided right thoracentesis. SURGEON: Alice Blackwell DO ANESTHESIA: 1% lidocaine 4 mL. COMPLICATIONS: None. INDICATIONS: The patient is a 80-year-old female with a right pleural effusion. She needs to have it drain because it is symptomatic. She understands risks and benefits and wishes to proceed. Consent was obtained. DESCRIPTION OF PROCEDURE: Ultrasound was used to isolate the largest pocket, after that the area was prepped and draped in sterile fashion. A timeout was performed. Local anesthetic was infiltrated and a #11 blade scalpel was used to make a small skin incision. The [id number] needle and catheter were then advanced until there was a slight bloody tinge fluid that was returned. The catheter was then advanced and the needle was removed. A total of 1150 mL of blood-tinged fluid was withdrawn. Catheter was then removed. The patient tolerated procedure well without any complications. Her breathing has improved. Chest x-ray pending. Job ID: [id number] DocumentID: [id number] Dictated Date: 09/25/2020 15:51:48 Insight Leader Date: 09/25/2020 20:27:00 Dictated By: ALICE BLACKWELL DO
== END 2020-09-25 13:40 | disposition home or self-care (01) ==
LOC: RAD 13:40
PROVIDERS: ATTEND Surgery
DX: J90 Pleural effusion, not elsewhere classified (principal)
CPT/HCPCS: 32555; 71045; 82150; 82570; 82945; 83615; 84157; 87070; 87075; 87205; 89051; A7048

== ENCOUNTER 2020-11-13 20:49 | Inpatient (IN) | payer MEDICARE ==
[~2020-11-13] VITALS: Ht 154.9 cm; Wt 76.7 kg
--- NOTE | 2020-11-13 21:17 | ED Respiratory ---
General Stated Complaint: COUGH/ SOB Source: patient, spouse Exam Limitations: no limitations (CLAUDINE OLEA PEN MAKER) History of Present Illness Date Seen by Provider: Nov 13, 2020 Time Seen by Provider: 21:00 Initial Comments This is a 80-year-old female who presents to the ER via POV with her spouse for complaints of increasing shortness of breath and low oxygen saturation at home. States that she been having increasing episodes of shortness of breath over the past several days. She went to [facility] today and received a COVID test, which was negative. States that she had COVID last winter but has not been able to receive her COVID vaccines due to chronic pleural effusions. States that she has had to have fluid removed from her right lung multiple times since COVID. Spouse states that she had a liter pulled off approximately a month ago. After reviewing her charts she was noted to have a large right pleural effusion 09/25/20 and was drained by Dr. Blackwell in the emergency department as patient was asymptomatic. She denies fever, chills, chest pain, nausea, vomiting, abdominal pain. (CLAUDINE OLEA PEN MAKER) Allergies and Home Medications Allergies Coded Allergies: No Known Drug Allergies (Unverified , 04/16/18) Home Medications Acetaminophen 500 Mg Tablet, 1,000 MG PO BID, (Reported) TAKES 2 (500MG) TABLETS Citalopram Hydrobromide 20 Mg Tablet, 20 MG PO DAILY, (Reported) Digoxin 250 Mcg Tablet, 250 MCG PO DAILY, (Reported) Diltiazem HCl 360 Mg Capsule.er, 360 MG PO DAILY, (Reported) Ferrous Sulfate 325 Mg Tablet, 325 MG PO Q48H Prescribed by: JUAN DANIEL DE LA TORRE on 02/02/19 1138 Furosemide 80 Mg Tablet, 80 MG PO BID Prescribed by: ANN AG on 02/02/19 0849 Magnesium Oxide 400 Mg Tablet, 400 MG PO BID, (Reported) Metformin HCl 500 Mg Tablet, 500 MG PO BID, (Reported) Multivit with Calcium,Iron,Min 1 Each Tablet, 1 TAB PO DAILY, (Reported) Oxycodone Hcl 5 Mg Tab, 5 MG PO Q4H PRN for PAIN-SEVERE Prescribed by: JUAN DANIEL DE LA TORRE on 02/02/19 1138 Pantoprazole Sodium 40 Mg Tablet.dr, 40 MG PO DAILY, (Reported) Potassium Chloride 20 Meq Tablet.er, 20 MEQ PO BID Prescribed by: ANN AG on 02/02/19 0849 Warfarin Sodium 2 Mg Tablet, 2 MG PO We, (Reported) Warfarin Sodium 2 Mg Tablet, 4 MG PO [facility], (Reported) TAKES 2 (2MG) TABLETS Patient Home Medication List Home Medication List Reviewed: Yes (CLAUDINE OLEA APRN) Review of Systems Review of Systems Constitutional: No chills, No diaphoresis, No fever; weakness, weight gain EENTM: no symptoms reported Respiratory: No cough; dyspnea on exertion; No hemoptysis; short of breath Cardiovascular: No chest pain; edema; No palpitations; vascular heart diseas Gastrointestinal: no symptoms reported Genitourinary: no symptoms reported Musculoskeletal: no symptoms reported Skin: no symptoms reported Psychiatric/Neurological: No Symptoms Reported Hematologic/Lymphatic: No Symptoms Reported Immunological/Allergic: no symptoms reported (CLAUDINE OLEA APRN) Past Zyniceh-Xuuehz-Oiyppr Hx Immunizations Up To Date Tetanus Booster (TDap): Less than 5yrs PED Vaccines UTD: Yes (CLAUDINE OLEA APRN) Seasonal Allergies Seasonal Allergies: No (CLAUDINE OLEA APRN) Past Medical History Surgeries: Yes (KNEE REPLACEMENT, HYSTERECTOMY, 3 C-SECTIONS, TONSILLECTOMY) Hysterectomy, Joint Replacement, Pacemaker Respiratory: Yes Sleep Apnea Cardiac: Yes (PACEMAKER, CHF) Atrial Fibrillation, Hypertension Neurological: No Reproductive Disorders: Yes Female Reproductive Disorders: Denies Sexually Transmitted Disease: No HIV/AIDS: No Gastrointestinal: Yes (gallstones) Diverticulosis Musculoskeletal: Yes Arthritis Endocrine: Yes Diabetes, 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 Psychosocial: Yes Depression Integumentary: No Blood Disorders: Yes (ANEMIA) Adverse Reaction/Blood Tranf: No (HAS HAD BLOOD WITH NO REACTION) (CLAUDINE OLEA APRN) Family Medical History Alzheimer's disease 19 MOTHER Arthritis 19 MOTHER Cardiovascular disease Completed stroke 19 MOTHER Coronary thrombosis 19 MOTHER Dementia 19 MOTHER Diabetes mellitus 19 MOTHER Hypertension 19 MOTHER Myocardial infarction Osteoporosis 19 MOTHER No Family History of: AIDS Abdominal aortic aneurysm Tyrrell's disease Alcoholism Aphasia Asthma Cancer of mouth Cataracts Colon cancer Congenital disease Congenital heart disease Cystic fibrosis Deafness or hearing loss Drug abuse Dysphasia Fibrocystic disease of breast Gastroenteritis Glaucoma Headache disorder Hypercholesterolemia Infertility Kidney disease Neoplasm Not obtainable due to adoption Parkinson's disease Prostate cancer Psychosocial problem Respiratory disorder Seizure disorder Severe allergy Thyroid disease Tuberculosis Visual disorder No Pertinent Family Hx (CLAUDINE OLEA APRN) Physical Exam Vital Signs - First Documented 11/13/20 20:54 Temp 36.7 Pulse 72 Resp 36 B/P (MAP) 132/83 (99) Pulse Ox 80 O2 Delivery Room Air O2 Flow Rate 10.00 (KEN SNYDER MD) Capillary Refill : (CLAUDINE OLEA APRN) Height: 5'2.00" Weight: 168lbs. 8.0oz. 76.659171oj; 28.24 BMI Method:Stated General Appearance: WD/WN, no apparent distress Eyes: Bilateral Eye Normal Inspection, Bilateral Eye PERRL, Bilateral Eye EOMI HEENT: PERRL/EOMI, normal ENT inspection, TMs normal Neck: full range of motion, supple, normal inspection Respiratory: chest non-tender, decreased breath sounds (right lung base), accessory muscle use Cardiovascular: normal peripheral pulses, regular rate, rhythm, no gallop Gastrointestinal: normal bowel sounds, non tender, soft; No no pulsatile mass, No distended, No rebound Extremities: non-tender, normal inspection; No calf tenderness; pedal edema (trace) Neurologic/Psychiatric: no motor/sensory deficits, alert, normal mood/affect, oriented x 3 Skin: normal color, warm/dry (CLAUDINE OLEA APRN) Progress/Results/Core Measures Suspected Sepsis SIRS Temperature: Pulse: Respiratory Rate: Blood Pressure / Mean: (CLAUDINE OLEA APRN) Results/Orders Lab Results Laboratory Tests Test 11/13/20 21:07 Range/Units White Blood Count 11.3 H 4.3-11.0 10^3/uL Red Blood Count 4.65 3.80-5.11 10^6/uL Hemoglobin 13.1 11.5-16.0 g/dL Hematocrit 43 35-52 % Mean Corpuscular Volume 93 80-99 fL Mean Corpuscular Hemoglobin 28 25-34 pg Mean Corpuscular Hemoglobin Concent 31 L 32-36 g/dL Red Cell Distribution Width 15.6 H 10.0-14.5 % Platelet Count 341 130-400 10^3/uL Mean Platelet Volume 9.6 9.0-12.2 fL Immature Granulocyte % (Auto) 1 % Neutrophils (%) (Auto) 80 H 42-75 % Lymphocytes (%) (Auto) 8 L 12-44 % Monocytes (%) (Auto) 10 0-12 % Eosinophils (%) (Auto) 1 0-10 % Basophils (%) (Auto) 1 0-10 % Neutrophils # (Auto) 9.0 H 1.8-7.8 10^3/uL Lymphocytes # (Auto) 0.9 L 1.0-4.0 10^3/uL Monocytes # (Auto) 1.2 H 0.0-1.0 10^3/uL Eosinophils # (Auto) 0.1 0.0-0.3 10^3/uL Basophils # (Auto) 0.1 0.0-0.1 10^3/uL Immature Granulocyte # (Auto) 0.1 0.0-0.1 10^3/uL Neutrophils % (Manual) 85 % Lymphocytes % (Manual) 11 % Monocytes % (Manual) 4 % Blood Morphology Comment NORMAL Sodium Level 134 L 135-145 MMOL/L Potassium Level 4.9 3.6-5.0 MMOL/L Chloride Level 100 98-107 MMOL/L Carbon Dioxide Level 23 21-32 MMOL/L Anion Gap 11 5-14 MMOL/L Blood Urea Nitrogen 40 H 7-18 MG/DL Creatinine 1.67 H 0.60-1.30 MG/DL Estimat Glomerular Filtration Rate 30 BUN/Creatinine Ratio 24 Glucose Level 141 H 70-105 MG/DL Calcium Level 9.2 8.5-10.1 MG/DL Corrected Calcium 9.7 8.5-10.1 MG/DL Total Bilirubin 0.9 0.1-1.0 MG/DL Aspartate Amino Transf (AST/SGOT) 34 5-34 U/L Alanine Aminotransferase (ALT/SGPT) 18 0-55 U/L Alkaline Phosphatase 156 H 40-136 U/L Creatine Kinase MB 2.2 <6.6 NG/ML Myoglobin 102.9 H 10.0-92.0 NG/ML Troponin I < 0.028 <0.028 NG/ML B-Type Natriuretic Peptide 184.8 H <100.0 PG/ML Total Protein 9.2 H 6.4-8.2 GM/DL Albumin 3.4 3.2-4.5 GM/DL Procalcitonin 0.08 <0.10 NG/ML (KEN SNYDER MD) My Orders Orders - KEN SNYDER MD Protime With Inr (11/13/20 22:19) Partial Thromboplastin Time (11/13/20 22:19) Furosemide Injection (Lasix Injection) (11/13/20 22:19) Catheter(Urinary) Insert & Ass 03,15 (11/13/20 22:19) (KEN SNYDER MD) Vital Signs/I&O 11/13/20 20:54 Temp 36.7 Pulse 72 Resp 36 B/P (MAP) 132/83 (99) Pulse Ox 80 O2 Delivery Room Air O2 Flow Rate 10.00 (KEN SNYDER MD) Vital Signs/I&O Capillary Refill : (CLAUDINE OLEA PEN MAKER) Progress Note : Progress Note Upon arrival patient is in mild respiratory distress with abdominal accessory use. Her oxygen saturation was 80% on room air, she was initially placed on 3 L nasal cannula however was not recovering. Orders given to place on 15 L via oxygen mask and to titrate down. Orders placed for CBC, CMP, CXR, Pro-jodi. Based on exam she has no air movement in her right lung base. Suspicion for recurrent pleural effusion. (CLAUDINE OLEA PEN MAKER) Progress Note : Progress Note Assumed care of the patient pending labs and x-ray. 2220: Labs reviewed. I have added PT/INR as patient is on warfarin. She does have right pleural effusion and may need drainage. She does report 5 pound weight gain recently and notes swelling in her legs. She does have pedal edema with right greater than left. Does have history of right pleural effusion requiring thoracentesis as recently as September and May of this year. We did discuss different options. She would like to try IV Lasix to see if some fluid will come off and maybe avoid thoracentesis. This is reasonable. I did discuss the case with Dr. Penaloza and she accepts patient for admission, inpatient status due to the need for high flow oxygen. She is currently on oxygen mask at 10 L with O2 saturation 95%. We will initiate Lasix 40 mg IV and insert Toth catheter to monitor I's and O's given her current status. She also gets quite hypoxic when moving around. We will consult Dr. Blackwell in the morning. This was discussed with patient and family who agree with the plan. (KEN SNYDER MD) ECG Initial ECG Impression Date: Nov 13, 2020 Initial ECG Impression Time: 21:14 Initial ECG Rate: 70 Comment Atrial fibrillation with intermittent pacing. Left axis deviation. No evidence of ST elevation LA. Interpreted by me. Previous EKG in 01/25/19 shows ventricular paced rhythm. (KEN SNYDER MD) Diagnostic Imaging Diagonstic Imaging: Xray Plain Films/CT/US/NM/MRI: chest Comments [facility] [place], [place] NAME: [facility] REC#: [id number] PT STATUS: REG ER : 1940 PHYSICIAN: CLAUDINE OLEA PEN MAKER ADMIT DATE: 11/13/20/ER Signed Date of Exam:11/13/20 CHEST 1 VIEW, AP/PA ONLY EXAMINATION: Chest 1 view HISTORY: Shortness of breath. COMPARISON: 09/25/2020. FINDINGS: There is cardiomegaly with central pulmonary vascular congestion. Bilateral drozu-xm-enwogdas pleural effusions are seen. A loculated effusion is seen in the minor fissure on the right. Stable configuration of a left pectoral pacemaker. No evidence of pneumothorax. IMPRESSION: 1. Interval development of bilateral lqldo-km-vosnglbc pleural effusions. 2. Marked cardiomegaly, similar to the prior exam. A component of pulmonary edema is likely. Dictated by: Dictated on workstation # [id number] Dict: 11/13/202200 Trans: 11/13/202204 [facility] [id number] Interpreted by: BROOKS VALENCIA DO Electronically signed by: BROOKS VALENCIA DO 11/13/202204 (KEN SNYDER MD) Departure Communication (Admissions) Time/Spoke to Admitting Phy: 22:20 (KEN SNYDER MD) Impression Primary Impression: Pleural effusion on right Additional Impression: Hypoxia Disposition: ADMITTED INPATIENT Condition: Stable Admissions Decision to Admit Reason: Admit from ER (General) Decision to Admit/Date: Nov 13, 2020 Time/Decision to Admit Time: 22:20 (KEN SNYDER MD) Departure-Patient Inst. Referrals: PRASANNA PENALOZA MD (PCP/Family) Primary Care Physician CLAUDINE OLEA APRN Nov 13, 2020 21:16 KEN SNYDER MD Nov 13, 2020 22:32
[2020-11-13 21:24] LABS: BASOPHILS # (AUTO) 0.1 10^3/uL (0.0-0.1); BASOPHILS % (AUTO) 1 % (0-10); EOSINOPHILS # (AUTO) 0.1 10^3/uL (0.0-0.3); EOSINOPHILS % (AUTO) 1 % (0-10); HEMATOCRIT 43 % (35-52); HEMOGLOBIN 13.1 g/dL (11.5-16.0); LYMPHOCYTES # (AUTO) 0.9 10^3/uL (1.0-4.0); LYMPHOCYTES % (AUTO) 8 % (12-44); MEAN CORPUSCULAR HEMOGLOBIN 28 pg (25-34); MEAN CORPUSCULAR HGB CONC 31 g/dL (32-36); MEAN CORPUSCULAR VOLUME 93 fL (80-99); MEAN PLATELET VOLUME 9.6 fL (9.0-12.2); MONOCYTES # (AUTO) 1.2 10^3/uL (0.0-1.0); MONOCYTES % (AUTO) 10 % (0-12); NEUTROPHILS % (AUTO) 80 % (42-75); PLATELET COUNT 341 10^3/uL (130-400); WHITE BLOOD COUNT 11.3 10^3/uL (4.3-11.0)
[2020-11-13 21:31] LABS: ALBUMIN 3.4 GM/DL (3.2-4.5)
[2020-11-13 21:32] LABS: POTASSIUM 4.9 MMOL/L (3.6-5.0)
[2020-11-13 21:33] LABS: CALCIUM 9.2 MG/DL (8.5-10.1)
[2020-11-13 21:34] LABS: TOTAL PROTEIN 9.2 GM/DL (6.4-8.2)
[2020-11-13 21:36] LABS: BILIRUBIN,TOTAL 0.9 MG/DL (0.1-1.0)
[2020-11-13 21:38] LABS: CREATININE SERUM 1.67 MG/DL (0.60-1.30)
[2020-11-13 21:47] LABS: CREATINE KINASE MB 2.2 NG/ML (<6.6)
[2020-11-13 21:52] LABS: LYMPHOCYTES % (MANUAL) 11 %; MONOCYTES % (MANUAL) 4 %; NEUTROPHILS % (MANUAL) 85 %; RBC MORPH NORMAL
--- NOTE | 2020-11-13 22:05 | Diagnostic Imaging Report ---
EXAMINATION: Chest 1 view HISTORY: Shortness of breath. COMPARISON: 09/25/2020. FINDINGS: There is cardiomegaly with central pulmonary vascular congestion. Bilateral nfgcp-yh-aitlbyfe pleural effusions are seen. A loculated effusion is seen in the minor fissure on the right. Stable configuration of a left pectoral pacemaker. No evidence of pneumothorax. IMPRESSION: 1. Interval development of bilateral wzlyy-bf-vkehgyoz pleural effusions. 2. Marked cardiomegaly, similar to the prior exam. A component of pulmonary edema is likely. Dictated by: Dictated on workstation # [id number]
[2020-11-13] MEDS ORDERED: FUROSEMIDE 40 MG/4 ML INJ (LASIX) IV STA (22:19)
[2020-11-13 23:53] VITALS: BP 131/72
[2020-11-14] VITALS (7 sets, daily range): BP systolic 111–131; BP diastolic 66–89
[2020-11-14] MEDS ORDERED: ACETAMINOPHEN 500 MG TAB (TYLENOL) PO PRN ×2 (00:15→16:15)
[2020-11-14] MEDS ORDERED: LORazepam 0.5 MG (ATIVAN) TABLET PO PRN (00:15)
[2020-11-14] MEDS ORDERED: RT-ALBUTEROL/IPRATROPIUM 3 ML (DUONEB) VIAL INH PRN (02:00)
[2020-11-14] MEDS: FUROSEMIDE 40 MG/4 ML INJ (LASIX) IVP SCH ×2 (06:14→17:24)
[2020-11-14 06:47] LABS: BASOPHILS % (AUTO) 0 % (0-10); EOSINOPHILS # (AUTO) 0.1 10^3/uL (0.0-0.3); EOSINOPHILS % (AUTO) 1 % (0-10); HEMATOCRIT 41 % (35-52); HEMOGLOBIN 12.6 g/dL (11.5-16.0); LYMPHOCYTES # (AUTO) 0.9 10^3/uL (1.0-4.0); LYMPHOCYTES % (AUTO) 9 % (12-44); MEAN CORPUSCULAR HEMOGLOBIN 28 pg (25-34); MEAN CORPUSCULAR HGB CONC 31 g/dL (32-36); MEAN CORPUSCULAR VOLUME 93 fL (80-99); MEAN PLATELET VOLUME 9.8 fL (9.0-12.2); MONOCYTES # (AUTO) 1.1 10^3/uL (0.0-1.0); MONOCYTES % (AUTO) 10 % (0-12); NEUTROPHILS # (AUTO) 8.2 10^3/uL (1.8-7.8); NEUTROPHILS % (AUTO) 79 % (42-75); PLATELET COUNT 305 10^3/uL (130-400); WHITE BLOOD COUNT 10.4 10^3/uL (4.3-11.0)
--- NOTE | 2020-11-14 08:33 | History & Physical ---
History of Present Illness History of Present Illness Reason for visit/HPI PT IS A 80 Y/O FEMALE WHO IS KNOWN TO ME FROM CLINIC. SHE PRESENTED TO THE EMERGENCY DEPARTMENT WITH COMPLAINT OF SHORTNESS OF BREATH. SHE HAS HISTORY OF ATRIAL FIBRILLATION AND RECURRENT PLEURAL EFFUSIONS. SHE WAS FOUND TO BE IN AFIB WITH RVR AND ALSO TO HAVE A RECURRENT PLEURAL EFFUSION. SHE WAS ADMITTED FOR MANAGEMENT OF HER PLEURAL EFFUSION AND TREATMENT OF CHRONIC AFIB Date of Admission Nov 13, 2020 at 22:25 Date Seen by a Provider: Nov 14, 2020 Time Seen by a Provider: 08:30 Attending Physician Prasanna Penaloza MD Admitting Physician Prasanna Penaloza MD Consult GENERAL SURGERY Allergies and Home Medications Allergies Coded Allergies: No Known Drug Allergies (Unverified , 04/16/18) Home Medications Acetaminophen 500 Mg Tablet, 500-1,000 MG PO Q8H PRN for PAIN-MILD (1-4), (Reported) Last Action: Continued Ascorbic Acid 500 Mg Tablet, 500 MG PO DAILY, (Reported) Last Action: Continued Citalopram Hydrobromide 20 Mg Tablet, 20 MG PO DAILY, (Reported) Last Action: Continued Digoxin 250 Mcg Tablet, 250 MCG PO DAILY, (Reported) Last Action: Continued Diltiazem HCl 360 Mg Capsule.er, 360 MG PO DAILY, (Reported) Last Action: Converted Furosemide 80 Mg Tablet, 80 MG PO BID, (Reported) Last Action: Held Magnesium Oxide 400 Mg Tablet, 400 MG PO BID, (Reported) Last Action: Converted Multivit with Calcium,Iron,Min 1 Each Tablet, 1 TAB PO DAILY, (Reported) Last Action: Converted Pantoprazole Sodium 40 Mg Tablet.dr, 40 MG PO DAILY, (Reported) Last Action: Continued Potassium Chloride 20 Meq Tablet.er, 20 MEQ PO BID, (Reported) Last Action: Converted Sennosides/Docusate Sodium 1 Each Tablet, 1 EACH PO HS, (Reported) Last Action: Continued Warfarin Sodium 2 Mg Tablet, 2 MG PO [place],MO,,,FR,SA, (Reported) TAKES AT BEDTIME Last Action: Held Warfarin Sodium 2 Mg Tablet, 1 MG PO WED, (Reported) TAKES AT BEDTIME TAKES OF A 2MG TAB Last Action: Held Patient Home Medication List Home Medication List Reviewed: Yes Past Tdxuagh-Vjspav-Ovctrb Hx Past Med/Social Hx: Reviewed and Corrections made Patient Social History Marrital Status: Living Status: LIVES WITH SPOUSE IN THEIR HOME Employed/Student: retired Alcohol Use: Denies Use Smoking Status: Never a Smoker 2nd Hand Smoke Exposure: No Physical Abuse Screen: No Sexual Abuse: No Recent Foreign Travel: No Contact w/other who traveled: No Recent Hopitalizations: No Recent Infectious Disease Expo: No Immunizations Up To Date Tetanus Booster (TDap): Less than 5yrs Pediatric: Yes Date of Pneumonia Vaccine: Nov 08, 2010 Seasonal Allergies Seasonal Allergies: No Past Medical History Surgeries: Hysterectomy, Joint Replacement, Pacemaker Currently Using CPAP: No Currently Using BIPAP: No Cardiac: Atrial Fibrillation, Hypertension : No Reproductive: Yes Sexually Transmitted Disease: No HIV/AIDS: No Female Reproductive Disorders: Denies Gastrointestinal: Diverticulosis Musculoskeletal: Arthritis Endocrine: Diabetes, Insulin dep Cancer: Skin Psychosocial: Depression History of Blood Disorders: Yes (ANEMIA) Adverse Reaction to Blood Sanchez: No (HAS HAD BLOOD WITH NO REACTION) Family History Reviewed and Corrections made Alzheimer's disease 19 MOTHER Arthritis 19 MOTHER Cardiovascular disease Completed stroke 19 MOTHER Coronary thrombosis 19 MOTHER Dementia 19 MOTHER Diabetes mellitus 19 MOTHER Hypertension 19 MOTHER Myocardial infarction Osteoporosis 19 MOTHER No Family History of: AIDS Abdominal aortic aneurysm [place]'s disease Alcoholism Aphasia Asthma Cancer of mouth Cataracts Colon cancer Congenital disease Congenital heart disease Cystic fibrosis Deafness or hearing loss Drug abuse Dysphasia Fibrocystic disease of breast Gastroenteritis Glaucoma Headache disorder Hypercholesterolemia Infertility Kidney disease Neoplasm Not obtainable due to adoption Parkinson's disease Prostate cancer Psychosocial problem Respiratory disorder Seizure disorder Severe allergy Thyroid disease Tuberculosis Visual disorder Heart Disease, CAD Over 55 Years Old, Diabetes, Hypertension, Stroke Review of Systems Constitutional: No chills, No fever; malaise, weakness EENTM: No hoarseness, No throat pain Respiratory: cough, dyspnea on exertion, short of breath Cardiovascular: No chest pain, No edema; Hx of Intervention, palpitations Gastrointestinal: No abdominal pain, No constipation, No diarrhea, No nausea, No vomiting Genitourinary: no symptoms reported Musculoskeletal: muscle weakness Skin: no symptoms reported Psychiatric/Neurological: Anxiety, Depressed All Other Systems Reviewed Negative Unless Noted: Yes Physical Exam Vital Signs Vital Signs - First Documented 11/13/20 20:54 Temp 36.7 Pulse 72 Resp 36 B/P (MAP) 132/83 (99) Pulse Ox 80 O2 Delivery Room Air O2 Flow Rate 10.00 Capillary Refill : Less Than 3 Seconds Height, Weight, BMI Height: 5'2.00" Weight: 168lbs. 8.0oz. 76.721511gy; 31.96 BMI Method:Stated General Appearance: WD/WN, Mild Distress Eyes: Bilateral Eye Normal Inspection, Bilateral Eye PERRL, Bilateral Eye EOMI HEENT: PERRL/EOMI, Pharynx Normal Neck: Full Range of Motion, Supple Respiratory: Chest Non Tender, Crackles, Decreased Breath Sounds (LEFT BASE); No Respiratory Distress Cardiovascular: Systolic Murmur, Irregularly Irregular, Tachycardia Gastrointestinal: Normal Bowel Sounds, No Organomegaly, No Pulsatile Mass, Non Tender, Soft Rectal: Deferred Back: Normal Inspection, No CVA Tenderness, No Vertebral Tenderness Extremity: Normal Capillary Refill, Non Tender, No Calf Tenderness, No Pedal Edema Neurologic/Psychiatric: Alert, Oriented x3, No Motor/Sensory Deficits, Normal Mood/Affect, general passenger agent II-XII Norm as Tested Skin: Normal Color, Warm/Dry Lymphatic: No Adenopathy Assessment/Plan Assessment and Plan PLEURAL EFFUSION ATRIAL FIBRILLATION HYPOTENSION CHRONIC ANTICOAGULATION WEAKNESS DEPRESSION GERD Admission Diagnosis PLEURAL EFFUSION ATRIAL FIBRILLATION HYPOTENSION CHRONIC ANTICOAGULATION WEAKNESS DEPRESSION GERD PLEURAL EFFUSION - WILL TRY IV LASIX, MONITOR SYMPTOMS - CONSULT TO DR. REESE FOR EVALUATION FOR POSSIBLE THORACENTESIS ATRIAL FIBRILLATION - PT ON COUMADIN THERAPY - HOLD UNTIL IT IS DETERMINED IF PLEURAL EFFUSION NEEDS DRAINED. - CHECK DIG LEVEL - RESTART CALCIUM CHANNEL TONI HYPOTENSION - MONITOR BP CLOSELY CHRONIC ANTICOAGULATION - HOLD COUMADIN FOR NOW WEAKNESS - WILL START PHYSICAL THERAPY IN MORNING. DEPRESSION - RESUME HOME REGIMEN GERD - RESUME HOME REGIMEN DVT PROPHYLAXIS WITH SCD'S AND WILL RESTART COUMADIN WHEN ABLE Admission Status: Inpatient Order (span 2 midnights) Reason for Inpatient Admission: INPT ADMISSION FOR MANAGEMENT OF ACUTE PLEURAL EFFUSION, HYPOTENSION, AFIB- WILL REQUIRE AT LEAST 2-3 MIDNIGHTS FOR STABILIZATION PRASANNA PENALOZA MD Nov 14, 2020 08:33
[2020-11-14] MEDS: RT-ALBUTEROL/IPRATROPIUM 3 ML (DUONEB) VIAL INH SCH ×3 (09:48→21:38)
[2020-11-14] MEDS ORDERED: ASCO500T17 PO (10:45)
[2020-11-14] MEDS ORDERED: FURO80TA3 PO (10:45)
[2020-11-14] MEDS ORDERED: POTA-51 PO (10:45)
[2020-11-14] MEDS ORDERED: SENN-109 PO (10:45)
[2020-11-14] MEDS ORDERED: ACET-93 PO (10:45)
--- NOTE | 2020-11-14 12:22 | Consultation - Surgery ---
JING CONTE MED STUDENT 11/14/20 1222: History of Present Illness History of Present Illness Patient Consulted On(ravi/time) 11/14/20 12:17 Date Seen by Provider: Nov 14, 2020 Time Seen by Provider: 12:05 Reason for Visit: Rt Pleural effusion History of Present Illness I am seeing Mrs. Davila as a general surgery consult for right sided pleural effusion. She is a 80 year old female who presented to the ED yesterday (11/13) because she was having shortness of breath. She reports this started thursday. It mostly "when I do activities". She says she tried using albuterol at home, which seemed to help a little bit. Activity makes the shortness of breathe worse. She has also had a few bouts of diarrhea this last three days. She is mildly concerned about "clots" in her lewis catheter, which is new for her, she was not having any urinary symptoms prior to today. She does not have any pleuritic chest pain. Per ER HPI: This is a 80-year-old female who presents to the ER via POV with her spouse for complaints of increasing shortness of breath and low oxygen saturation at home. States that she been having increasing episodes of shortness of breath over the past several days. She went to [facility] today and received a COVID test, which was negative. States that she had COVID last winter but has not been able to receive her COVID vaccines due to chronic pleural effusions. States that she has had to have fluid removed from her right lung multiple times since COVID. Spouse states that she had a liter pulled off approximately a month ago. After reviewing her charts she was noted to have a large right pleural effusion 09/25/20 and was drained by Dr. Blackwell in the emergency department as patient was asymptomatic. She denies fever, chills, chest pain, nausea, vomiting, abdominal pain. Allergies and Home Medications Allergies Coded Allergies: No Known Drug Allergies (Unverified , 04/16/18) Home Medications Acetaminophen 500 Mg Tablet, 500-1,000 MG PO Q8H PRN for PAIN-MILD (1-4), (Reported) Last Action: Continued Ascorbic Acid 500 Mg Tablet, 500 MG PO DAILY, (Reported) Last Action: Continued Citalopram Hydrobromide 20 Mg Tablet, 20 MG PO DAILY, (Reported) Last Action: Continued Digoxin 250 Mcg Tablet, 250 MCG PO DAILY, (Reported) Last Action: Continued Diltiazem HCl 360 Mg Capsule.er, 360 MG PO DAILY, (Reported) Last Action: Converted Furosemide 80 Mg Tablet, 80 MG PO BID, (Reported) Last Action: Held Magnesium Oxide 400 Mg Tablet, 400 MG PO BID, (Reported) Last Action: Converted Multivit with Calcium,Iron,Min 1 Each Tablet, 1 TAB PO DAILY, (Reported) Last Action: Converted Pantoprazole Sodium 40 Mg Tablet.dr, 40 MG PO DAILY, (Reported) Last Action: Continued Potassium Chloride 20 Meq Tablet.er, 20 MEQ PO BID, (Reported) Last Action: Converted Sennosides/Docusate Sodium 1 Each Tablet, 1 EACH PO HS, (Reported) Last Action: Continued Warfarin Sodium 2 Mg Tablet, 2 MG PO ENAMORADO,MO,TU,TH,FR,SA, (Reported) TAKES AT BEDTIME Last Action: Held Warfarin Sodium 2 Mg Tablet, 1 MG PO WED, (Reported) TAKES AT BEDTIME TAKES OF A 2MG TAB Last Action: Held Patient Home Medication List Home Medication List Reviewed: Yes Past Mphdpst-Exdbwe-Hnjpqk Hx Patient Social History Smoking Status: Never a Smoker 2nd Hand Smoke Exposure: No Recent Hopitalizations: No Alcohol Use?: No Have you traveled recently?: No Immunizations Up To Date Tetanus Booster (TDap): Less than 5yrs PED Vaccines UTD: Yes Date of Pneumonia Vaccine: Nov 08, 2010 Seasonal Allergies Seasonal Allergies: No Surgeries History of Surgeries: Yes (KNEE REPLACEMENT, HYSTERECTOMY, 3 C-SECTIONS, TONSILLECTOMY) Surgeries: Hysterectomy, Joint Replacement, Pacemaker Respiratory History of Respiratory Disorde: Yes Respiratory Disorders: Sleep Apnea Cardiovascular History of Cardiac Disorders: Yes (PACEMAKER, CHF) Cardiac Disorders: Atrial Fibrillation, Hypertension Neurological History of Neurological Disord: No Reproductive System Hx Reproductive Disorders: Yes Sexually Transmitted Disease: No HIV/AIDS: 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 (completer due to 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 cancer) Genitourinary History of Genitourinary Disor: No Gastrointestinal History of Gastrointestinal Di: Yes (gallstones) Gastrointestinal Disorders: Diverticulosis Musculoskeletal History of Musculoskeletal Dis: Yes Musculoskeletal Disorders: Arthritis Endocrine History of Endocrine Disorders: Yes Endocrine Disorders: Diabetes, Non-Insulin dep HEENT History of HEENT Disorders: No Loss of Vision: Denies Hearing Impairment: Denies Cancer History of Cancer: Yes (1999 ) Cancer: Skin, Uterine Psychosocial History of Psychiatric Problem: Yes Behavioral Health Disorders: Depression Integumentary History of Skin or Integumenta: No Blood Transfusions History of Blood Disorders: Yes (ANEMIA) Adverse Reaction to a Blood Tr: No (HAS HAD BLOOD WITH NO REACTION) Family Medical History Significant Family History: Heart Disease (Mother), Cancer (father - pancreatic) Family Medial History: Alzheimer's disease 19 MOTHER Arthritis 19 MOTHER Cardiovascular disease Completed stroke 19 MOTHER Coronary thrombosis 19 MOTHER Dementia 19 MOTHER Diabetes mellitus 19 MOTHER Hypertension 19 MOTHER Myocardial infarction Osteoporosis 19 MOTHER No Family History of: AIDS Abdominal aortic aneurysm Livingston's disease Alcoholism Aphasia Asthma Cancer of mouth Cataracts Colon cancer Congenital disease Congenital heart disease Cystic fibrosis Deafness or hearing loss Drug abuse Dysphasia Fibrocystic disease of breast Gastroenteritis Glaucoma Headache disorder Hypercholesterolemia Infertility Kidney disease Neoplasm Not obtainable due to adoption Parkinson's disease Prostate cancer Psychosocial problem Respiratory disorder Seizure disorder Severe allergy Thyroid disease Tuberculosis Visual disorder Review of Systems-General Constitutional: No chills, No diaphoresis, No weight loss EENTM: No hearing loss, No blurred vision, No hoarseness Respiratory: No cough; dyspnea on exertion, short of breath Cardiovascular: No chest pain, No palpitations Gastrointestinal: No abdominal pain, No constipation; diarrhea Genitourinary: No dysuria, No frequency; hematuria : No Musculoskeletal: No back pain, No joint pain Skin: No change in color, No dryness, No lumps Psychiatric/Neurological: Denies Numbness, Denies Tingling, Denies Tremors Physical Exam-General Problems Physical Exam Vital Signs Vital Signs - First Documented 11/13/20 20:54 Temp 36.7 Pulse 72 Resp 36 B/P (MAP) 132/83 (99) Pulse Ox 80 O2 Delivery Room Air O2 Flow Rate 10.00 Capillary Refill : Less Than 3 Seconds General Appearance: no apparent distress, thin Eyes: Bilateral Eye PERRL, Bilateral Eye EOMI HEENT: pharynx normal; No scleral icterus (R), No scleral icterus (L) Neck: non-tender, supple, normal inspection Respiratory: no accessory muscle use, decreased breath sounds (right side) Cardiovascular: no murmur, tachycardia Gastrointestinal: non tender, soft, no organomegaly, no pulsatile mass Back: no CVA tenderness, no vertebral tenderness Extremities: no calf tenderness, swelling (+4 pretibial edema) 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, no motor/sensory deficits, alert, oriented x 3 Skin: normal color, warm/dry Lymphatic: no adenopathy (neck, axilla, groin) Data Review Labs Laboratory Tests 11/13/20 21:07: White Blood Count 11.3H, Red Blood Count 4.65, Hemoglobin 13.1, Hematocrit 43, Mean Corpuscular Volume 93, Mean Corpuscular Hemoglobin 28, Mean Corpuscular Hemoglobin Concent 31L, Red Cell Distribution Width 15.6H, Platelet Count 341, Mean Platelet Volume 9.6, Immature Granulocyte % (Auto) 1, Neutrophils (%) (Auto) 80H, Lymphocytes (%) (Auto) 8L, Monocytes (%) (Auto) 10, Eosinophils (%) (Auto) 1, Basophils (%) (Auto) 1, Neutrophils # (Auto) 9.0H, Lymphocytes # (Auto) 0.9L, Monocytes # (Auto) 1.2H, Eosinophils # (Auto) 0.1, Basophils # (Auto) 0.1, Immature Granulocyte # (Auto) 0.1, Neutrophils % (Manual) 85, Lymphocytes % (Manual) 11, Monocytes % (Manual) 4, Blood Morphology Comment NORMAL, Sodium Level 134L, Potassium Level 4.9, Chloride Level 100, Carbon Dioxide Level 23, Anion Gap 11, Blood Urea Nitrogen 40H, Creatinine 1.67H, Estimat Glomerular Filtration Rate 30, BUN/Creatinine Ratio 24, Glucose Level 141H, Calcium Level 9.2, Corrected Calcium 9.7, Total Bilirubin 0.9, Aspartate Amino Transf (AST/SGOT) 34, Alanine Aminotransferase (ALT/SGPT) 18, Alkaline Phosphatase 156H, Creatine Kinase MB 2.2, Myoglobin 102.9H, Troponin I < 0.028, B-Type Natriuretic Peptide 184.8H, Total Protein 9.2H, Albumin 3.4, Procalcitonin 0.08 11/14/20 05:34: White Blood Count 10.4, Red Blood Count 4.43, Hemoglobin 12.6, Hematocrit 41, Mean Corpuscular Volume 93, Mean Corpuscular Hemoglobin 28, Mean Corpuscular Hemoglobin Concent 31L, Red Cell Distribution Width 15.4H, Platelet Count 305, Mean Platelet Volume 9.8, Immature Granulocyte % (Auto) 1, Neutrophils (%) (Auto) 79H, Lymphocytes (%) (Auto) 9L, Monocytes (%) (Auto) 10, Eosinophils (%) (Auto) 1, Basophils (%) (Auto) 0, Neutrophils # (Auto) 8.2H, Lymphocytes # (Auto) 0.9L, Monocytes # (Auto) 1.1H, Eosinophils # (Auto) 0.1, Basophils # (Auto) 0.0, Immature Granulocyte # (Auto) 0.1 Assessment/Plan Assessment/Plan Assessment/Plan Right Pleural effusion Recurrent pleural effusion, plan chest tube with cytology, I suspect underlying exacerbation of systolic heart failure, and should be medically optimized to help with likelyhood of nonrecurrence. Possibility of more permanent chest tube. NESSA REESE DO 11/14/202058: History of Present Illness History of Present Illness Time Seen by Provider: 13:30 History of Present Illness I initially saw pt at 13:30 and then went back sometime around 4pm. When I saw pt she stated she was started on Lasix and her breathing was a little better. She has hx of thoracentesis for pleural effusion. Her stated the pulse ox is better than it had been. Allergies and Home Medications Allergies Coded Allergies: No Known Drug Allergies (Unverified , 04/16/18) Home Medications Acetaminophen 500 Mg Tablet, 500-1,000 MG PO Q8H PRN for PAIN-MILD (1-4), (Reported) Last Action: Continued Ascorbic Acid 500 Mg Tablet, 500 MG PO DAILY, (Reported) Last Action: Continued Citalopram Hydrobromide 20 Mg Tablet, 20 MG PO DAILY, (Reported) Last Action: Continued Digoxin 250 Mcg Tablet, 250 MCG PO DAILY, (Reported) Last Action: Continued Diltiazem HCl 360 Mg Capsule.er, 360 MG PO DAILY, (Reported) Last Action: Converted Furosemide 80 Mg Tablet, 80 MG PO BID, (Reported) Last Action: Held Magnesium Oxide 400 Mg Tablet, 400 MG PO BID, (Reported) Last Action: Converted Multivit with Calcium,Iron,Min 1 Each Tablet, 1 TAB PO DAILY, (Reported) Last Action: Converted Pantoprazole Sodium 40 Mg Tablet.dr, 40 MG PO DAILY, (Reported) Last Action: Continued Potassium Chloride 20 Meq Tablet.er, 20 MEQ PO BID, (Reported) Last Action: Converted Sennosides/Docusate Sodium 1 Each Tablet, 1 EACH PO HS, (Reported) Last Action: Continued Warfarin Sodium 2 Mg Tablet, 2 MG PO ENAM[place],MO,,TH,FR,SA, (Reported) TAKES AT BEDTIME Last Action: Held Warfarin Sodium 2 Mg Tablet, 1 MG PO THU, (Reported) TAKES AT BEDTIME TAKES OF A 2MG TAB Last Action: Held Patient Home Medication List Home Medication List Reviewed: Yes Past Nyyzres-Sqjmew-Ppaaht Hx Patient Social History Smoking Status: Never a Smoker Alcohol Use?: No Surgeries History of Surgeries: Yes (hx of thoracentesis) Surgeries: Hysterectomy, Joint Replacement Respiratory History of Respiratory Disorde: Yes Respiratory Disorders: Pneumonia Cardiovascular History of Cardiac Disorders: Yes Cardiac Disorders: Coronary Artery Disease, Hypertension Neurological History of Neurological Disord: No 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 (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 due to uterine cancer) Genitourinary History of Genitourinary Disor: No Gastrointestinal History of Gastrointestinal Di: Yes Gastrointestinal Disorders: Diverticulosis, Gall Bladder Disease Musculoskeletal History of Musculoskeletal Dis: Yes Musculoskeletal Disorders: Arthritis Endocrine History of Endocrine Disorders: Yes HEENT History of HEENT Disorders: No Loss of Vision: Denies Hearing Impairment: Denies Cancer Cancer: Skin, Uterine Psychosocial History of Psychiatric Problem: No Integumentary History of Skin or Integumenta: No Family Medical History Significant Family History: Heart Disease (Mother), Cancer (father - pancreatic) Family Medial History: Alzheimer's disease 19 MOTHER Arthritis 19 MOTHER Cardiovascular disease Completed stroke 19 MOTHER Coronary thrombosis 19 MOTHER Dementia 19 MOTHER Diabetes mellitus 19 MOTHER Hypertension 19 MOTHER Myocardial infarction Osteoporosis 19 MOTHER No Family History of: AIDS Abdominal aortic aneurysm Livingston's disease Alcoholism Aphasia Asthma Cancer of mouth Cataracts Colon cancer Congenital disease Congenital heart disease Cystic fibrosis Deafness or hearing loss Drug abuse Dysphasia Fibrocystic disease of breast Gastroenteritis Glaucoma Headache disorder Hypercholesterolemia Infertility Kidney disease Neoplasm Not obtainable due to adoption Parkinson's disease Prostate cancer Psychosocial problem Respiratory disorder Seizure disorder Severe allergy Thyroid disease Tuberculosis Visual disorder Review of Systems-General Constitutional: No chills, No diaphoresis; weakness; No weight loss EENTM: No hearing loss, No blurred vision, No hoarseness Respiratory: No cough; dyspnea on exertion, short of breath Cardiovascular: No chest pain, No palpitations; vascular heart diseas Gastrointestinal: No abdominal pain, No constipation; diarrhea Genitourinary: No dysuria, No frequency; hematuria : No Musculoskeletal: back pain, joint pain, joint swelling Skin: No change in color, No dryness, No lumps Psychiatric/Neurological: Denies Anxiety, Denies Depressed, Denies Numbness, Denies Tingling, Denies Tremors Physical Exam-General Problems Physical Exam General Appearance: mild distress, thin Eyes: Bilateral Eye PERRL, Bilateral Eye EOMI HEENT: pharynx normal; No scleral icterus (R), No scleral icterus (L) Neck: non-tender, supple Respiratory: no accessory muscle use, decreased breath sounds (right side) Cardiovascular: no murmur, tachycardia Gastrointestinal: non tender, soft, no organomegaly, no pulsatile mass Back: no CVA tenderness, no vertebral tenderness Extremities: no calf tenderness, swelling (+4 pretibial edema) 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 COMPARISON: 11/13/2020. TECHNIQUE: Frontal view of the chest. FINDINGS: There are small bilateral pleural effusions which appear stable. There is an ovoid opacity in the right midlung which appears stable. There is stable cardiomegaly. The left pacemaker leads appear stable. There are advanced degenerative changes in the bilateral shoulders. No pneumothorax is seen. IMPRESSION: 1. Stable small bilateral pleural effusions. Ovoid opacity in the right midlung is unchanged, most likely a loculated effusion in the minor fissure, although neoplasm is not excluded. 2. Stable cardiomegaly. Dictated by: Dictated on workstation # [id number] Dict: 11/14/20 1612 Trans: 11/14/20 1738 [id number] Interpreted by: MARTA STEIN MD Electronically signed by: MARTA STEIN MD 11/14/20 1738 Assessment/Plan Assessment/Plan Assessment/Plan Right Pleural Effusion Shortness of Breath Pt has a recurrent effusion, but I compared today's CXR to the last one she had just before her last thoracentesis and there is not as much fluid in the lung. In addition, pt states she is breathing better and wants to do the thoracentesis as a last step. We will follow along and check CXR. Supervisory-Addendum Brief Verification & Attestation Participated in pt care: history, MDM, physical Personally performed: exam, history, MDM, supervision of care Care discussed with: Medical Student Procedures: n/a Verification and Attestation of Medical Student E/M Service A medical student performed and documented this service. I then reviewed and verified all information documented by the medical student and made modifications to such information, when appropriate. I personally performed a physical exam, medical decision making and then discussed any differences between the notes and made revisions as necessary to create one note. Nessa Reese , 11/14/20 , 21:13 JING CONTE MED STUDENT Nov 14, 2020 12:22 NESSA REESE DO Nov 14, 2020 20:59
[2020-11-14 14:31] LABS: INR 3.3 (0.8-1.4); PROTHROMBIN TIME PATIENT 33.7 SEC (12.2-14.7)
[2020-11-14 16:20] LABS: BILIRUBIN,URINE NEGATIVE (NEGATIVE); CLARITY,URINE CLEAR; COLOR,URINE YELLOW; GLUCOSE, URINE (UA) NEGATIVE (NEGATIVE); KETONES,URINE NEGATIVE (NEGATIVE); LEUKOCYTE ESTERASE ,URINE TRACE (NEGATIVE); NITRITE,URINE NEGATIVE (NEGATIVE); PROTEIN,URINE 1+ (NEGATIVE)
--- NOTE | 2020-11-14 16:21 | Diagnostic Imaging Report ---
HISTORY: Pleural effusion. COMPARISON: 11/13/2020. TECHNIQUE: Frontal view of the chest. FINDINGS: There are small bilateral pleural effusions which appear stable. There is an ovoid opacity in the right midlung which appears stable. There is stable cardiomegaly. The left pacemaker leads appear stable. There are advanced degenerative changes in the bilateral shoulders. No pneumothorax is seen. IMPRESSION: 1. Stable small bilateral pleural effusions. Ovoid opacity in the right midlung is unchanged, most likely a loculated effusion in the minor fissure, although neoplasm is not excluded. 2. Stable cardiomegaly. Dictated by: Dictated on workstation # [id number]
[2020-11-14 16:23] LABS: BACTERIA,URINE FEW /HPF; RBC,URINE 25-50 /HPF; SQUAMOUS EPITHELIAL CELL,UR 0-2 /HPF
[2020-11-14] MEDS: KCL 20 MEQ TAB (K-DUR) PO SCH (17:24)
[2020-11-14] MEDS: MAGNESIUM OXIDE (MAG-OX)400 MG TAB PO SCH (17:24)
[2020-11-14] MEDS ORDERED: DIGOXIN 0.25 MG (LANOXIN) TAB PO NR (19:45)
[2020-11-14] MEDS: SENNA W/DOCUSATE (SENOKOT S) TABLET PO SCH (20:09)
[2020-11-14] MEDS ORDERED: NON-FORMULARY MEDICATION 1 EA EA (Magnesium Oxide 400 MG) PO SCH (21:00)
[2020-11-14] MEDS ORDERED: NON-FORMULARY MEDICATION 1 EA EA (Potassium Chloride 20 MEQ) PO SCH (21:00)
[2020-11-15] MEDS: RT-ALBUTEROL/IPRATROPIUM 3 ML (DUONEB) VIAL INH SCH ×4 (02:58→21:28)
[2020-11-15 03:12] VITALS: BP 119/94
[2020-11-15 04:38] LABS: HEMATOCRIT 41 % (35-52); HEMOGLOBIN 12.5 g/dL (11.5-16.0); MEAN CORPUSCULAR HEMOGLOBIN 28 pg (25-34); MEAN CORPUSCULAR HGB CONC 30 g/dL (32-36); MEAN CORPUSCULAR VOLUME 92 fL (80-99); MEAN PLATELET VOLUME 9.5 fL (9.0-12.2); PLATELET COUNT 302 10^3/uL (130-400); WHITE BLOOD COUNT 9.6 10^3/uL (4.3-11.0)
[2020-11-15 04:54] LABS: ALBUMIN 3.1 GM/DL (3.2-4.5); POTASSIUM 4.6 MMOL/L (3.6-5.0)
[2020-11-15 04:55] LABS: INR 2.9 (0.8-1.4)
[2020-11-15 04:56] LABS: TOTAL PROTEIN 8.5 GM/DL (6.4-8.2)
[2020-11-15 04:58] LABS: BILIRUBIN,TOTAL 0.9 MG/DL (0.1-1.0)
[2020-11-15 05:00] LABS: CREATININE SERUM 1.25 MG/DL (0.60-1.30)
[2020-11-15] MEDS: FUROSEMIDE 40 MG/4 ML INJ (LASIX) IVP SCH (05:41)
[2020-11-15 08:00] VITALS: BP 131/98
--- NOTE | 2020-11-15 08:31 | Progress Note - Surgery ---
JING CONTE MED STUDENT 11/15/20 0831: Subjective Date Seen by a Provider: Nov 15, 2020 Time Seen by a Provider: 07:50 Subjective/Events-last exam Patient is 80 year old female being followed for bilateral pleural effusion. She is laying down comfortable on 4.5 02 by NC sating 90%. She does not normally wear oxygen at home. Today she says she is feeling "better" than yesterday. She is not complaining of any shortness of breath, but has not been ambulatory. She has not had BM, She has lewis Cath in. Review of Systems General: No Chills, No Night Sweats HEENT: No Head Aches, No Visual Changes Pulmonary: No Dyspnea; Cough Cardiovascular: No: Chest Pain, Palpitations Gastrointestinal: No: Nausea, Vomiting Genitourinary: No Dysuria, No Frequency Musculoskeletal: No: other (Denies muscle pain) Neurological: No: Numbness, Change in speech Objective Exam Vital Signs Date Time Temp Pulse Resp B/P (MAP) Pulse Ox O2 Delivery O2 Flow Rate FiO2 11/15/20 08:00 36.8 122 22 131/98 (109) 93 Nasal Cannula 4.00 11/15/20 03:12 37.0 106 20 119/94 (102) 91 Nasal Cannula 4.00 11/15/20 02:58 95 High Flow N/C 4.50 11/15/20 01:00 112 11/14/20 23:10 37.0 92 20 122/89 (100) 96 Nasal Cannula 4.00 11/14/20 21:38 95 High Flow N/C 4.50 11/14/20 19:46 95 High Flow N/C 4.00 11/14/20 19:30 35.8 115 20 111/66 (81) 95 Nasal Cannula 4.00 11/14/20 19:00 112 11/14/20 16:00 35.5 113 16 112/71 (85) 95 Nasal Cannula 4.00 11/14/20 15:40 95 High Flow N/C 4.50 11/14/20 12:31 110 11/14/20 12:00 36.5 112 22 115/85 (95) 95 High Flow N/C 4.00 11/14/20 09:48 95 High Flow N/C 4.00 I & O 11/15/20 07:00 Intake Total 1490 ml Output Total 1600 ml Balance -110 ml Capillary Refill : Less Than 3 Seconds General Appearance: WD/WN, Mild Distress HEENT: PERRL/EOMI, Pharynx Normal Neck: Full Range of Motion, Supple Respiratory: Chest Non Tender, Crackles, Decreased Breath Sounds (B/l bases); No Respiratory Distress Cardiovascular: Systolic Murmur, Irregularly Irregular, Tachycardia Gastrointestinal: non tender, soft, no organomegaly, no pulsatile mass Extremity: Non Tender, No Calf Tenderness, Other (+2 pretibial edema) Neurologic/Psychiatric: Alert, Oriented x3, No Motor/Sensory Deficits, Normal 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, 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 Skin: Normal Color, Warm/Dry Lymphatic: No Adenopathy Results Lab Laboratory Tests 11/14/20 12:25: Urine Color YELLOW, Urine Clarity CLEAR, Urine pH 5.0, Urine Specific [place] 1.020, Urine Protein 1+H, Urine Glucose (UA) NEGATIVE, Urine Ketones NEGATIVE, Urine Nitrite NEGATIVE, Urine Bilirubin NEGATIVE, Urine Urobilinogen 0.2, Urine Leukocyte Esterase TRACEH, Urine RBC (Auto) 3+H, Urine RBC 25-50H, Urine WBC 2- 5, Urine Squamous Epithelial Cells 0-2, Urine Crystals NONE, Urine Bacteria FEWH , Urine Casts NONE, Urine Mucus NEGATIVE, Urine Culture Indicated CULTURE PE NDING 11/14/20 13:58: Prothrombin Time 33.7H, INR Comment 3.3H 11/14/20 20:20: Digoxin Level 1.92 11/15/20 04:10: Prothrombin Time 31.0H, INR Comment 2.9H, White Blood Count 9.6, Red Blood Count 4.51, Hemoglobin 12.5, Hematocrit 41, Mean Corpuscular Volume 92, Mean Corpuscular Hemoglobin 28, Mean Corpuscular Hemoglobin Concent 30L, Red Cell Distribution Width 15.4H, Platelet Count 302, Mean Platelet Volume 9.5, Sodium Level 136, Potassium Level 4.6, Chloride Level 102, Carbon Dioxide Level 21, Anion Gap 13, Blood Urea Nitrogen 38H, Creatinine 1.25, Estimat Glomerular Filtration Rate 41, BUN/Creatinine Ratio 30, Glucose Level 103, Calcium Level 9.0, Corrected Calcium 9.7, Total Bilirubin 0.9, Aspartate Amino Transf (AST/SGOT) 31, Alanine Aminotransferase (ALT/SGPT) 16, Alkaline Phosphatase 147H , Total Protein 8.5H, Albumin 3.1L Microbiology 11/14/20 Urine Culture - Preliminary, Resulted Gram Negative Eris Assessment/Plan Assessment/Plan Assessment/Plan Right Pleural Effusion Shortness of Breath Effusions are relatively small compared to prior, Waiting on CT to return. At this time no surgical intervention is planned. JERRY REESE DO 11/15/20 1222: Subjective Time Seen by a Provider: 11:21 Subjective/Events-last exam Pt seen and examined, states breathing is ok; but her main complaint is of being tired. She states she had CT at 330am and could not sleep all night. Review of Systems General: No Chills; Fatigue, Malaise HEENT: No Head Aches, No Visual Changes Pulmonary: Dyspnea, Cough Cardiovascular: No: Chest Pain, Palpitations Gastrointestinal: No: Nausea, Vomiting Objective Exam General Appearance: No Apparent Distress, WD/WN HEENT: PERRL/EOMI Respiratory: Chest Non Tender, No Respiratory Distress, Crackles, Decreased Breath Sounds (B/l bases) Cardiovascular: Systolic Murmur, Irregularly Irregular, Tachycardia Gastrointestinal: non tender, soft, no organomegaly Assessment/Plan Assessment/Plan Assessment/Plan Right Pleural Effusion Shortness of Breath CT shows a pericardial effusion, areas of consolidation in lung, fluid in middle fissure and b/l pleural effusions. Pt needs some Lasix and IV abx. At this time there is not enough fluid to drain and my main concern is the pericardial effusion; although it looks chronic so not emergent. Supervisory-Addendum Brief Verification & Attestation Participated in pt care: history, MDM, physical Personally performed: exam, history, MDM, supervision of care Care discussed with: Medical Student Procedures: n/a Verification and Attestation of Medical Student E/M Service A medical student performed and documented this service. I then reviewed and verified all information documented by the medical student and made modifications to such information, when appropriate. I personally performed a physical exam, medical decision making and then discussed any differences between the notes and made revisions as necessary to create one note. Jerry Reese , 11/15/20 , 12:32 JING CONTE MED STUDENT Nov 15, 2020 08:31 JERRY REESE DO Nov 15, 2020 12:22
--- NOTE | 2020-11-15 08:51 | Progress Note ---
Subjective Subjective Date Seen by Provider: Nov 15, 2020 Time Seen by Provider: 08:10 PT REPORTS THAT SHE THINKS SHE IS BREATHING BETTER AFTER HAVING LASIX. SHE DENIES ABDOMINAL PAIN, NAUSEA, DIZZINESS. STAFF REPORTS THAT SHE IS WEAK Review of Systems General: No Chills, No Night Sweats HEENT: No Head Aches, No Visual Changes Pulmonary: No Dyspnea; Cough Cardiovascular: No: Chest Pain, Palpitations Gastrointestinal: No: Nausea, Vomiting Genitourinary: No Dysuria, No Frequency Musculoskeletal: No: other (Denies muscle pain) Neurological: No: Numbness, Change in speech All Other Systems Reviewed All Other Systems Reviewed: Yes Objective Exam Vital Signs Vital Signs - First Documented 11/13/20 20:54 Temp 36.7 Pulse 72 Resp 36 B/P (MAP) 132/83 (99) Pulse Ox 80 O2 Delivery Room Air O2 Flow Rate 10.00 Capillary Refill : Less Than 3 Seconds General Appearance: WD/WN, Mild Distress Eyes: Bilateral Eye Normal Inspection, Bilateral Eye PERRL, Bilateral Eye EOMI HEENT: PERRL/EOMI, Pharynx Normal Neck: Full Range of Motion, Supple Respiratory: Chest Non Tender, Crackles, Decreased Breath Sounds (B/l bases); No Respiratory Distress Cardiovascular: Systolic Murmur, Irregularly Irregular, Tachycardia Gastrointestinal: Normal Bowel Sounds, No Organomegaly, No Pulsatile Mass, Non Tender, Soft Rectal: Deferred Back: Normal Inspection, No CVA Tenderness, No Vertebral Tenderness Extremity: Non Tender, No Calf Tenderness, Other (+2 pretibial edema) Neurologic/Psychiatric: Alert, Oriented x3, No Motor/Sensory Deficits, Normal 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, 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 Norm as Tested Skin: Normal Color, Warm/Dry Lymphatic: No Adenopathy Results Lab Laboratory Tests 11/14/20 12:25: Urine Color YELLOW, Urine Clarity CLEAR, Urine pH 5.0, Urine Specific [place] 1.020, Urine Protein 1+H, Urine Glucose (UA) NEGATIVE, Urine Ketones NEGATIVE, Urine Nitrite NEGATIVE, Urine Bilirubin NEGATIVE, Urine Urobilinogen 0.2, Urine Leukocyte Esterase TRACEH, Urine RBC (Auto) 3+H, Urine RBC 25-50H, Urine WBC 2- 5, Urine Squamous Epithelial Cells 0-2, Urine Crystals NONE, Urine Bacteria FEWH , Urine Casts NONE, Urine Mucus NEGATIVE, Urine Culture Indicated CULTURE PENDING 11/14/20 13:58: Prothrombin Time 33.7H, INR Comment 3.3H 11/14/20 20:20: Digoxin Level 1.92 11/15/20 04:10: Prothrombin Time 31.0H, INR Comment 2.9H, White Blood Count 9.6, Red Blood Count 4.51, Hemoglobin 12.5, Hematocrit 41, Mean Corpuscular Volume 92, Mean Corpuscular Hemoglobin 28, Mean Corpuscular Hemoglobin Concent 30L, Red Cell Distribution Width 15.4H, Platelet Count 302, Mean Platelet Volume 9.5, Sodium Level 136, Potassium Level 4.6, Chloride Level 102, Carbon Dioxide Level 21, Anion Gap 13, Blood Urea Nitrogen 38H, Creatinine 1.25, Estimat Glomerular Filtration Rate 41, BUN/Creatinine Ratio 30, Glucose Level 103, Calcium Level 9.0, Corrected Calcium 9.7, Total Bilirubin 0.9, Aspartate Amino Transf (AST/SGOT) 31, Alanine Aminotransferase (ALT/SGPT) 16, Alkaline Phosphatase 147H , Total Protein 8.5H, Albumin 3.1L Microbiology 11/14/20 Urine Culture - Preliminary, Resulted Gram Negative Eris Assessment/Plan Assessment/Plan Admission Dx PLEURAL EFFUSION ATRIAL FIBRILLATION HYPOTENSION CHRONIC ANTICOAGULATION WEAKNESS DEPRESSION GERD Assessment and Plan PLEURAL EFFUSION ATRIAL FIBRILLATION HYPOTENSION CHRONIC ANTICOAGULATION WEAKNESS DEPRESSION GERD PLEURAL EFFUSION - WILL TRY IV LASIX, MONITOR SYMPTOMS - CONSULT TO DR. REESE - HE DOES NOT WANT TO PERFORM THE THORACENTESIS AT THIS TIME DUE TO PT'S REFUSAL WITH DESIRE TO SEE IF LASIX WILL HELP IMPROVE HER EFFUSION. ATRIAL FIBRILLATION - PT ON COUMADIN THERAPY - HOLD UNTIL IT IS DETERMINED IF PLEURAL EFFUSION NEEDS DRAINED. - CHECK DIG LEVEL - RESTARTED CALCIUM CHANNEL TONI HYPOTENSION - MONITOR BP CLOSELY CHRONIC ANTICOAGULATION - HOLD COUMADIN FOR NOW WEAKNESS - WILL START PHYSICAL THERAPY IN MORNING. DEPRESSION - RESUME HOME REGIMEN GERD - RESUME HOME REGIMEN DVT PROPHYLAXIS WITH SCD'S AND WILL RESTART COUMADIN WHEN ABLE REVIEWED CT SCAN - REPORT NOT AVAILABLE AT THIS TIME APPEARS TO HAVE A FAIRLY SIZABLE PERICARDIAL EFFUSION AND LARGE RIGHT PLEURAL EFFUSION AND MOD LEFT PLEURAL EFFUSION. Admission Dx PLEURAL EFFUSION ATRIAL FIBRILLATION HYPOTENSION CHRONIC ANTICOAGULATION WEAKNESS DEPRESSION GERD PLEURAL EFFUSION - WILL TRY IV LASIX, MONITOR SYMPTOMS - CONSULT TO DR. REESE FOR EVALUATION FOR POSSIBLE THORACENTESIS ATRIAL FIBRILLATION - PT ON COUMADIN THERAPY - HOLD UNTIL IT IS DETERMINED IF PLEURAL EFFUSION NEEDS DRAINED. - CHECK DIG LEVEL - RESTART CALCIUM CHANNEL TONI HYPOTENSION - MONITOR BP CLOSELY CHRONIC ANTICOAGULATION - HOLD COUMADIN FOR NOW WEAKNESS - WILL START PHYSICAL THERAPY IN MORNING. DEPRESSION - RESUME HOME REGIMEN GERD - RESUME HOME REGIMEN DVT PROPHYLAXIS WITH SCD'S AND WILL RESTART COUMADIN WHEN ABLE Clinical Quality Measures Admission Status Admission Dx PLEURAL EFFUSION ATRIAL FIBRILLATION HYPOTENSION CHRONIC ANTICOAGULATION WEAKNESS DEPRESSION GERD PLEURAL EFFUSION - WILL TRY IV LASIX, MONITOR SYMPTOMS - CONSULT TO DR. REESE FOR EVALUATION FOR POSSIBLE THORACENTESIS ATRIAL FIBRILLATION - PT ON COUMADIN THERAPY - HOLD UNTIL IT IS DETERMINED IF PLEURAL EFFUSION NEEDS DRAINED. - CHECK DIG LEVEL - RESTART CALCIUM CHANNEL TONI HYPOTENSION - MONITOR BP CLOSELY CHRONIC ANTICOAGULATION - HOLD COUMADIN FOR NOW WEAKNESS - WILL START PHYSICAL THERAPY IN MORNING. DEPRESSION - RESUME HOME REGIMEN GERD - RESUME HOME REGIMEN DVT PROPHYLAXIS WITH SCD'S AND WILL RESTART COUMADIN WHEN ABLE PRASANNA SANTOS MD Nov 15, 2020 08:51
[2020-11-15] MEDS ORDERED: NON-FORMULARY MEDICATION 1 EA EA (Diltiazem HCl (Diltiazem ER) 360 MG) PO SCH (09:00)
[2020-11-15] MEDS ORDERED: RT-ALBUTEROL/IPRATROPIUM 3 ML (DUONEB) VIAL INH SCH (09:00)
[2020-11-15] MEDS ORDERED: NON-FORMULARY MEDICATION 1 EA EA (Multivit with Calcium,Iron,Min (Women's Daily Formula) 1 PO SCH (09:00)
[2020-11-15] MEDS: cefTRIAXone 1,000 MG in WATER (STERILE) FOR INJECTION 10 ML IV SCH (09:04)
[2020-11-15] MEDS: ASCORBIC ACID (VIT C) 500 MG TABLET PO SCH (09:05)
[2020-11-15] MEDS: KCL 20 MEQ TAB (K-DUR) PO SCH ×2 (09:07→17:28)
[2020-11-15] MEDS: MULTIVIT W/MINERALS TAB (THERAGRAN M) PO SCH (09:08)
[2020-11-15] MEDS: PANTOPRAZOLE 40 MG (PROTONIX) TAB PO SCH (09:08)
[2020-11-15] MEDS: MAGNESIUM OXIDE (MAG-OX)400 MG TAB PO SCH ×2 (09:09→17:28)
[2020-11-15] MEDS: DIGOXIN 0.25 MG (LANOXIN) TAB PO SCH (09:09)
[2020-11-15] MEDS: meTOprolol 5 MG/5 ML (LOPRESSOR) VIAL IV SCH ×3 (11:52→23:32)
[2020-11-15 12:00] VITALS: BP 116/81
--- NOTE | 2020-11-15 14:14 | Diagnostic Imaging Report ---
PROCEDURE: CT chest without contrast. TECHNIQUE: Multiple contiguous axial images were obtained through the chest without the use of intravenous contrast. Auto Exposure Controls were utilized during the CT exam to meet ALARA standards for radiation dose reduction. INDICATION: Recurrent pleural effusions. Correlation is made with prior chest CT from 01/25/2019. A left chest wall cardiac pacemaker is in place. Heart is enlarged. Patient has developed a large pericardial effusion. Previously noted large right pleural effusion has significantly decreased in size is now small. There is a small left effusion as well. There are some prominent lymph nodes in the mediastinum. There is fluid within the major fissure producing a pseudotumor-like appearance on the right chest. There is parenchymal consolidation in the right middle lobe and right lower lobe as well as the posterior left lower lobe. Upper abdomen demonstrates somewhat nodular contour to the liver, raising question of cirrhosis. No discrete liver mass is seen. There is trace perihepatic ascites. There appears to be some fluid surrounding the gallbladder as well. IMPRESSION: 1. Development of large pericardial effusion. 2. Reduction in size of right pleural effusion since exam from January 2019. The patient does have bilateral pleural effusions. 3. Peripheral consolidation right middle lobe and bilateral lower lobes suggestive of pneumonia. 4. There are some prominent lymph nodes in the mediastinum, indeterminate. These could be reactive but other etiologies cannot be entirely excluded. 5. Nodular contour to the liver, raising question of cirrhosis. There is some trace upper abdominal ascites. 6. Mild pericholecystic fluid. If there is concern for gallbladder pathology, gallbladder ultrasound could be performed for further evaluation. Dictated by: Dictated on workstation # [id number]
[2020-11-15 16:00] VITALS: BP 111/79
--- NOTE | 2020-11-15 16:19 | Consultation-Cardiology ---
HPI-Cardiology Cardiology Consultation Date of Consultation 11/15/20 Date of Admission Time Seen by Provider: 12:30 Indication: Rt Pleural effusion HPI 80-year-old lady with history of recurrent pleural effusion, has chronic atrial fibrillation. admitted for recurrent pleural effusion, has been having increasing dyspnea and fatigue, noted to have pleural effusion, has been having worsening fatigue, there was questionable loculated effusion, there is pericardial effusion noted. Has a pacemaker and chronic atrial fibrillation. She denied any chest pain. No syncope or near syncopal episodes. Home Medications & Allergies Allergies: Coded Allergies: No Known Drug Allergies (Unverified , 04/16/18) Home Medication List Reviewed: Yes [id number] Hx Patient Social History Marital Status: Living Status: LIVES WITH SPOUSE IN THEIR HOME Employed/Student: retired Smoking Status: Never a Smoker 2nd Hand Smoke Exposure: No Recent Hopitalizations: No Physical Abuse Screen: No Sexual Abuse: No Have you traveled recently?: No Alcohol Use?: No Immunizations Up To Date Tetanus Booster (TDap): Less than 5yrs Date of Pneumonia Vaccine: Nov 08, 2010 Past Medical History Discussed below Family Medical History Significant Family History: Heart Disease (Mother), Cancer (father - pancreatic) Family History: Alzheimer's disease 19 MOTHER Arthritis 19 MOTHER Cardiovascular disease Completed stroke 19 MOTHER Coronary thrombosis 19 MOTHER Dementia 19 MOTHER Diabetes mellitus 19 MOTHER Hypertension 19 MOTHER Myocardial infarction Osteoporosis 19 MOTHER No Family History of: AIDS Abdominal aortic aneurysm Mirza's disease Alcoholism Aphasia Asthma Cancer of mouth Cataracts Colon cancer Congenital disease Congenital heart disease Cystic fibrosis Deafness or hearing loss Drug abuse Dysphasia Fibrocystic disease of breast Gastroenteritis Glaucoma Headache disorder Hypercholesterolemia Infertility Kidney disease Neoplasm Not obtainable due to adoption Parkinson's disease Prostate cancer Psychosocial problem Respiratory disorder Seizure disorder Severe allergy Thyroid disease Tuberculosis Visual disorder Review of Systems-General Review of Systems Constitutional: see HPI; No chills, No diaphoresis; weakness; No weight loss EENTM: see HPI; No hearing loss, No blurred vision, No hoarseness Respiratory: see HPI; No cough; dyspnea on exertion, short of breath Cardiovascular: see HPI; No chest pain; edema; No palpitations; vascular heart diseas Gastrointestinal: no symptoms reported, see HPI; No abdominal pain, No constipation; diarrhea Genitourinary: no symptoms reported, see HPI; No dysuria, No frequency; hematuria : No Musculoskeletal: back pain, joint pain, joint swelling Skin: No change in color, No dryness, No lumps Psychiatric/Neurological: See HPI; Denies Anxiety, Denies Depressed, Denies Numbness, Denies Tingling, Denies Tremors All Other Systems Reviewed Negative Unless Noted: Yes Reviewed Test Results Reviewed Test Results Lab Laboratory Tests Test 11/14/20 20:20 11/15/20 04:10 Range/Units Digoxin Level 1.92 0.80-2.00 NG/ML White Blood Count 9.6 4.3-11.0 10^3/uL Red Blood Count 4.51 3.80-5.11 10^6/uL Hemoglobin 12.5 11.5-16.0 g/dL Hematocrit 41 35-52 % Mean Corpuscular Volume 92 80-99 fL Mean Corpuscular Hemoglobin 28 25-34 pg Mean Corpuscular Hemoglobin Concent 30 L 32-36 g/dL Red Cell Distribution Width 15.4 H 10.0-14.5 % Platelet Count 302 130-400 10^3/uL Mean Platelet Volume 9.5 9.0-12.2 fL Prothrombin Time 31.0 H 12.2-14.7 SEC INR Comment 2.9 H 0.8-1.4 Sodium Level 136 135-145 MMOL/L Potassium Level 4.6 3.6-5.0 MMOL/L Chloride Level 102 98-107 MMOL/L Carbon Dioxide Level 21 21-32 MMOL/L Anion Gap 13 5-14 MMOL/L Blood Urea Nitrogen 38 H 7-18 MG/DL Creatinine 1.25 0.60-1.30 MG/DL Estimat Glomerular Filtration Rate 41 BUN/Creatinine Ratio 30 Glucose Level 103 70-105 MG/DL Calcium Level 9.0 8.5-10.1 MG/DL Corrected Calcium 9.7 8.5-10.1 MG/DL Total Bilirubin 0.9 0.1-1.0 MG/DL Aspartate Amino Transf (AST/SGOT) 31 5-34 U/L Alanine Aminotransferase (ALT/SGPT) 16 0-55 U/L Alkaline Phosphatase 147 H 40-136 U/L Total Protein 8.5 H 6.4-8.2 GM/DL Albumin 3.1 L 3.2-4.5 GM/DL Radiology Date of Exam:11/14/20 CHEST 1 VIEW, AP/PA ONLY HISTORY: Pleural effusion. COMPARISON: 11/13/2020. TECHNIQUE: Frontal view of the chest. FINDINGS: There are small bilateral pleural effusions which appear stable. There is an ovoid opacity in the right midlung which appears stable. There is stable cardiomegaly. The left pacemaker leads appear stable. There are advanced degenerative changes in the bilateral shoulders. No pneumothorax is seen. IMPRESSION: 1. Stable small bilateral pleural effusions. Ovoid opacity in the right midlung is unchanged, most likely a loculated effusion in the minor fissure, although neoplasm is not excluded. 2. Stable cardiomegaly. Dictated by: Dictated on workstation # [id number] Dict: 11/14/20 1612 Trans: 11/14/20 1738 [id number] Interpreted by: MARTA STEIN MD Electronically signed by: MARTA STEIN MD 11/14/20 1738 Physical Exam Physical Exam Vital Signs Vital Signs - First Documented 11/13/20 20:54 Temp 36.7 Pulse 72 Resp 36 B/P (MAP) 132/83 (99) Pulse Ox 80 O2 Delivery Room Air O2 Flow Rate 10.00 Capillary Refill : Less Than 3 Seconds Height, Weight, BMI Height: 5'2.00" Weight: 168lbs. 8.0oz. 76.317094ca; 31.96 BMI Method:Stated General Appearance: No Apparent Distress, WD/WN Eyes: Bilateral Eye Normal Inspection, Bilateral Eye PERRL, Bilateral Eye EOMI HEENT: PERRL/EOMI Neck: Full Range of Motion, Supple Respiratory: Chest Non Tender, No Respiratory Distress, Crackles, Decreased Breath Sounds (B/l bases) Cardiovascular: Systolic Murmur, Irregularly Irregular, Tachycardia Gastrointestinal: Normal Bowel Sounds, No Organomegaly, No Pulsatile Mass, Non Tender, Soft Rectal: Deferred Back: Normal Inspection, No CVA Tenderness, No Vertebral Tenderness Extremity: Non Tender, No Calf Tenderness, Other (+2 pretibial edema) Neurologic/Psychiatric: Alert, Oriented x3, No Motor/Sensory Deficits, Normal 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 Shortness of breath worsening recently. Recurrent pleural effusion. Patient had thoracentesis done in May 2020 and September [address] scan today showed some improvement in the right side pleural effusion. There is questionable underlying pneumonia. Large pericardial effusion was noted on CT scan and 2D echo. Blood pressure is borderline, she is tachycardic with atrial fibrillation. She will require pericardiocentesis possible pericardial window. I discussed the management plan with Dr. Penaloza and recommended referral to a tertiary care center with cardiothoracic surgery evaluation Paroxysmal atrial fibrillation, patient progressed to permanent atrial fibrillation has been following with Dr. Keene. Had history of pacemaker implanted in 2010, had generator change in March 2017. Continue to monitor History of valvular heart disease with severe mitral regurgitation, moderate to severe tricuspid regurgitation, pulmonary hypertension with PA pressure 70 mmHg Chronic anticoagulation, maintained on Coumadin. Continue to monitor Mild coronary artery disease by cardiac catheterization done in 2009, last stress test was done in October 2016 showing no significant ischemia or infarction, ejection fraction 75% History of hysterectomy, bilateral salpingo-oophorectomy, endometrial carcinoma treated in the past. History of basal cell carcinoma treated with surgery with Dr. Vargas and radiation with Dr. Stone in 2016 Anemia, followed and managed by primary care physician Chronic renal insufficiency, continue to monitor ABBIE MCCORMACK MD Nov 15, 2020 16:19
[2020-11-15 19:44] VITALS: BP 109/81
[2020-11-15] MEDS: SENNA W/DOCUSATE (SENOKOT S) TABLET PO SCH (20:52)
[2020-11-16] VITALS: BP 120/65
[2020-11-16] MEDS: RT-ALBUTEROL/IPRATROPIUM 3 ML (DUONEB) VIAL INH SCH ×3 (02:32→14:47)
[2020-11-16 03:26] VITALS: BP 112/68
[2020-11-16 04:29] LABS: INR 2.2 (0.8-1.4); PROTHROMBIN TIME PATIENT 24.9 SEC (12.2-14.7)
[2020-11-16] MEDS: MULTIVIT W/MINERALS TAB (THERAGRAN M) PO SCH (05:58)
[2020-11-16] MEDS: ASCORBIC ACID (VIT C) 500 MG TABLET PO SCH (05:59)
[2020-11-16] MEDS: meTOprolol 5 MG/5 ML (LOPRESSOR) VIAL IV SCH ×2 (05:59→13:11)
[2020-11-16 08:00] VITALS: BP 119/73
--- NOTE | 2020-11-16 09:16 | Discharge Summary ---
Diagnosis/Chief Complaint Date of Admission Nov 13, 2020 at 22:25 Date of Discharge Admission Diagnosis Admission Diagnosis PLEURAL EFFUSION ATRIAL FIBRILLATION HYPOTENSION CHRONIC ANTICOAGULATION WEAKNESS DEPRESSION GERD Discharge Diagnosis PLEURAL EFFUSION PERICARDIAL EFFUSION - MOD TO LARGE ATRIAL FIBRILLATION HYPOTENSION CHRONIC ANTICOAGULATION WEAKNESS DEPRESSION GERD HEPATIC CIRRHOSIS Reason Hospital Visit PT IS A 80 Y/O FEMALE WHO IS KNOWN TO ME FROM CLINIC. SHE PRESENTED TO THE EMERGENCY DEPARTMENT WITH COMPLAINT OF SHORTNESS OF BREATH. SHE HAS HISTORY OF ATRIAL FIBRILLATION AND RECURRENT PLEURAL EFFUSIONS. SHE WAS FOUND TO BE IN AFIB WITH RVR AND ALSO TO HAVE A RECURRENT PLEURAL EFFUSION. SHE WAS ADMITTED FOR MANAGEMENT OF HER PLEURAL EFFUSION AND TREATMENT OF CHRONIC AFIB Discharge Summary Procedures: ECHO, CT SCAN Consultations CARDIOLOGY SURGERY Discharge Physical Examination Allergies: Coded Allergies: No Known Drug Allergies (Unverified , 04/16/18) Vitals & I&Os Vital Signs Date Time Temp Pulse Resp B/P (MAP) Pulse Ox O2 Delivery O2 Flow Rate FiO2 11/16/20 14:47 95 Nasal Cannula 3.00 11/16/20 13:14 72 20 110/75 (87) 11/16/20 08:00 36.4 General Appearance: Alert, Oriented X3, Cooperative, No Acute Distress HEENT: Mucous Memb Moist/[place], Other (FACE WITH SUNKEN IN TEMPLES AND CHEEKS) Cardiovascular: Other (IRREGULARLY IRREGULAR WITH II/ DANA) Abdominal: Normal Bowel Sounds, Soft (IN LUQ, LLQ, RLQ WITH HARD EDGE TO LIVER ON RIGHT) Extremities: No Clubbing Skin: No Breakdown, Other (HEMOSIDERAN CHANGES TO LOWER EXTREMITIES) Neuro: Normal Speech, Cranial Nerves 3-12 NL Psych/Mental Status: Mental Status NL, Mood NL Hospital Course PLEURAL EFFUSION PERICARDIAL EFFUSION - MOD TO LARGE ATRIAL FIBRILLATION HYPOTENSION CHRONIC ANTICOAGULATION WEAKNESS DEPRESSION GERD HEPATIC CIRRHOSIS PLEURAL EFFUSION - WILL TRY IV LASIX, MONITOR SYMPTOMS - CONSULT TO DR. REESE - PT REFUSED THORACENTESIS - LARGE RIGHT MOD LEFT - ON CT SCAN - SEE REPORT IMPRESSION BELOW - CT CHEST IMPRESSION: 1. Development of large pericardial effusion. 2. Reduction in size of right pleural effusion since exam from January 2019. The patient does have bilateral pleural effusions. 3. Peripheral consolidation right middle lobe and bilateral lower lobes suggestive of pneumonia. 4. There are some prominent lymph nodes in the mediastinum, indeterminate. These could be reactive but other etiologies cannot be entirely excluded. 5. Nodular contour to the liver, raising question of cirrhosis. There is some trace upper abdominal ascites. 6. Mild pericholecystic fluid. If there is concern for gallbladder pathology, gallbladder ultrasound could be performed for further evaluation. BASED ON IMAGING AND NEED FOR CARDIOTHORACIC SURGEON TO EVAL PT FOR PERICARDIAL WINDOW, WILL NEED TO TRANSFER PT TO A HOSPITAL WITH SUCH SPECIALTIES NOT AVAILABLE AT [facility]. CALL PLACED TO [facility] IN [place], THEY ARE ON DIVERSION, CALL PLACED TO [facility], THEY REFUSED TRANSFER DUE TO BED CAPACITY REACHED. CALLED [facility] IN [place], THEY ALSO REFUSED TRANSFER DUE TO BEING AT CAPACITY. accepted at [facility] - will anticipate transfer on 11/16/2020 or 11/17/20 depending on bed availability ATRIAL FIBRILLATION - PT ON COUMADIN THERAPY - HOLD UNTIL DEFINITIVE TREATMENT FOR PLEURAL AND PERICARDIAL EFFUSION HAS BEEN DETERMINED - INR OF 2.2 - CHECKED DIG LEVEL - LEVEL OKAY - RESTARTED CALCIUM CHANNEL TONI AND BETA TONI THERAPY HYPOTENSION - MONITOR BP CLOSELY CHRONIC ANTICOAGULATION - HOLD COUMADIN FOR NOW, INR 2.2 WEAKNESS - WILL NEED THERAPY FOR STRENGTHENING DEPRESSION - RESUMED HOME REGIMEN GERD - RESUMED HOME REGIMEN DVT PROPHYLAXIS WITH SCD'S AND WILL RESTART COUMADIN WHEN ABLE Pending Labs Discharge Condition at discharge GUARDED Instructions to patient/family Please see electronic discharge instructions given to patient. Discharge Medications Reviewed and agree with Discharge Medication list on patient's Discharge In struction sheet PRASANNA SANTOS MD Nov 16, 2020 09:16
[2020-11-16] MEDS: KCL 20 MEQ TAB (K-DUR) PO SCH (10:25)
[2020-11-16] MEDS: PANTOPRAZOLE 40 MG (PROTONIX) TAB PO SCH (10:26)
[2020-11-16] MEDS: MAGNESIUM OXIDE (MAG-OX)400 MG TAB PO SCH (10:27)
[2020-11-16] MEDS: DIGOXIN 0.25 MG (LANOXIN) TAB PO SCH (10:27)
[2020-11-16] MEDS: cefTRIAXone 1,000 MG in WATER (STERILE) FOR INJECTION 10 ML IV SCH (10:27)
--- NOTE | 2020-11-16 10:55 | Cardiology Progress Note ---
Subjective Date Seen by Provider: Nov 16, 2020 Time Seen by Provider: 10:54 Subjective/Events-last exam Patient was seen at bedside, laying down comfortably, feeling better today. Review of Systems General: No Chills, No Night Sweats, No Fatigue, No Malaise, No Appetite, No Other HEENT: No Head Aches, No Visual Changes, No Eye Pain, No Ear Pain, No Dysphasia, No Sinus Congestion, No Post Nasal Drip, No Sore Throat, No Other Pulmonary: No Dyspnea, No Cough, No Pleuritic Chest Pain, No Other Cardiovascular: No: Chest Pain, Palpitations, Orthopnea, Paroxysmal Noc. Dyspnea, Edema, Lt Headedness, Other Objective-Cardiology Exam Last Set of Vital Signs Vital Signs 11/16/20 08:00 Temp 36.4 Pulse 73 Resp 20 B/P (MAP) 119/73 (88) Pulse Ox 94 O2 Delivery Nasal Cannula O2 Flow Rate 3.00 I&O Intake and Output 11/16/20 00:00 Intake Total 2215 ml Output Total 1625 ml Balance 590 ml Intake Oral 2205 ml IV Total 10 ml Output Urine Total 1625 ml General: Alert, Oriented X3, Cooperative, No Acute Distress HEENT: Mucous Memb Moist/[place], Other (FACE WITH SUNKEN IN TEMPLES AND CHEEKS) Neck: Supple Heart: Regular Rate, Normal S1, Normal S2 Abdomen: Normal Bowel Sounds, Soft (IN LUQ, LLQ, RLQ WITH HARD EDGE TO LIVER ON RIGHT) Extremities: No Clubbing Skin: No Breakdown, Other (HEMOSIDERAN CHANGES TO LOWER EXTREMITIES) Neuro: Normal Speech, Cranial Nerves 3-12 NL Psych/Mental Status: Mental Status NL, Mood NL Results Lab Laboratory Tests Test 11/16/20 03:58 Range/Units Prothrombin Time 24.9 H 12.2-14.7 SEC INR Comment 2.2 H 0.8-1.4 A/P-Cardiology Admission Diagnosis Large pericardial effusion Pleural effusion Atrial fibrillation Hyperlipidemia Assessment/Plan Generalized fatigue and loss of energy. Shortness of breath worsening recently. Recurrent pleural effusion. Patient had thoracentesis done in May 2020 and September [address] CT scan today showed some improvement in the right side pleural e ffusion. There is questionable underlying pneumonia. Large pericardial effusion was noted on CT scan and 2D echo. Borderline h ypotension, better blood pressure today, heart rate is better. Patient cannot tolerate aggressive diuresis due to the large pericardial effusion we discussed transferring to a tertiary care center for possible pericardiocentesis and thoracentesis. Paroxysmal atrial fibrillation, patient progressed to permanent atrial fibrillation has been following with Dr. Keene. Had history of pacemaker implanted in 2010, had generator change in March 2017. Continue to monitor History of valvular heart disease with severe mitral regurgitation, moderate to severe tricuspid regurgitation, pulmonary hypertension with PA pressure 70 mmHg Chronic anticoagulation, maintained on Coumadin. Continue to monitor Mild coronary artery disease by cardiac catheterization done in 2009, last stress test was done in October 2016 showing no significant ischemia or infarction, ejection fraction 75% History of hysterectomy, bilateral salpingo-oophorectomy, endometrial carcinoma treated in the past. History of basal cell carcinoma treated with surgery with Dr. Vargas and radiation with Dr. Stone in 2016 Anemia, followed and managed by primary care physician Chronic renal insufficiency, continue to monitor ABBIE MCCORMACK MD Nov 16, 2020 10:55 am
[2020-11-16 13:14] VITALS: BP 110/75
--- NOTE | 2020-11-16 16:56 | Physician Query Clarification ---
Physician Query-General Query to Physician: The medical record reflects the following clinical evidence: Clinical Indicators: SpO2 80 on RA on admission with RR 36 , Started on 10L O2, later was able to titrate down some but was not able to titrate off. Had SpO2 of 91% on 4L = P/F ratio of (44/0.21) 209 on admission and (62/.36) 172 Later, SOA at rest documented multiple times, Risk Factor(s): Large pericardial effusion, A. Fib, Plural effusion Treatment: Surgery and Cardiology consults, Supplemental O2, Breathing RX, IV ABX 1. Acute respiratory failure, unsp w hypoxia or hypercapnia, present on a dmisison 2. Other explanation of clinical findings 3. Unable to determine (no explanation for clinical findings) Please clarify and document your clinical opinion in the progress notes and discharge summary including the definitive and/or presumptive diagnosis, (suspected or probable), related to the above clinical findings. Please include clinical findings supporting your diagnosis. Delmy Soliman MSN, RN [phone] [email or web address] PHYSICIAN RESPONSE: Based on the clinical findings in the record, please respond to the query above on this document as an addendum. Physician Response: Physician Response 1. Acute respiratory failure, unsp w hypoxia or hypercapnia, present on admisison If you have questions please contact: Shuttle Final Inspector: Ext: Thank you for your time and cooperation. Clinical Sanitary Landfill Operator/Shuttle Final Inspector This is a permanent part of the medical record DELMY SOLIMAN Nov 16, 2020 16:56 PRASANNA SANTOS MD Nov 18, 2020 12:24
--- NOTE | 2020-11-20 12:26 | Physician Query Clarification ---
PQ-CHF Specificity Admission Date: Nov 13, 2020 at 22:25 Discharge Date: Nov 16, 2020 at 19:07 Dr. Lynn, The medical record reflects the following clinical scenario: History/Risk Factors: Pleural effusion, Hx CHF, atrial fibrillation Clinical Findings: BNP 184.8, recurrent pleural effusion, plan chest tube with cytology, I suspect underlying exacerbation of systolic heart failure per Sanchez Diaz/ Dr. Gresham Treatment: 40 mg IV Lasix Question: Can you further specify the acuity &/or type of CHF per the clinical indicators above? Please document a response in the Progress Notes or Discharge Summary. 1. Acuity: Acute, Chronic or Acute on Chronic 2. Type: Systolic, Diastolic or Systolic & Diastolic 3. Unspecified: CHF cannot be further specified regarding type or acuity 4. Other, with explanation of clinical findings 5. Clinically undetermined, no explanation for clinical findings PHYSICIAN RESPONSE Acuity: Chronic Type: Diastolic Please remember a lack of response to the above will prompt a phone page by CDI/Coding staff. In responding to this query, please exercise your independent professional judgment. The purpose of this communication is to more accurately reflect the complexity of your patients condition. The fact that a question is asked does not imply that any particular answer is desired or expected. Thank you for your timely response to this clarification. Requestors name: David THIS PHYSICIAN QUERY FORM IS A PERMANENT PART OF THE MEDICAL RECORD DAVID RODRIGUEZ Nov 20, 2020 12:25 ABBIE LYNN MD Nov 20, 2020 14:47
== END 2020-11-16 19:07 | disposition short-term general hospital (02) | DRG 291 ==
LOC: EDUNIT# 20:49 → ER 20:52 → CSD 22:25 → UNDODISIN 11-16 11:35
PROVIDERS: ADMIT Family Medicine; ATTEND Family Medicine
DX: I13.0 Hypertensive heart and chronic kidney disease with heart failure and stage 1 through stage 4 chronic kidney disease, or unspecified chronic kidney disease (principal); J96.01 Acute respiratory failure with hypoxia; I50.32 Chronic diastolic (congestive) heart failure; I31.3 Pericardial effusion (noninflammatory); I48.21 Permanent atrial fibrillation; E11.22 Type 2 diabetes mellitus with diabetic chronic kidney disease; N18.9 Chronic kidney disease, unspecified; Z79.84 Long term (current) use of oral hypoglycemic drugs; Z79.01 Long term (current) use of anticoagulants; I08.1 Rheumatic disorders of both mitral and tricuspid valves; I27.20 Pulmonary hypertension, unspecified; K74.60 Unspecified cirrhosis of liver; D64.9 Anemia, unspecified; Z86.16 Personal history of COVID-19; G47.30 Sleep apnea, unspecified; M19.91 Primary osteoarthritis, unspecified site; F32.9 Major depressive disorder, single episode, unspecified; K21.9 Gastro-esophageal reflux disease without esophagitis; I95.9 Hypotension, unspecified; K57.90 Diverticulosis of intestine, part unspecified, without perforation or abscess without bleeding; Z95.0 Presence of cardiac pacemaker; Z96.659 Presence of unspecified artificial knee joint; Z85.42 Personal history of malignant neoplasm of other parts of uterus; Z90.710 Acquired absence of both cervix and uterus; Z82.61 Family history of arthritis; Z83.3 Family history of diabetes mellitus; Z82.49 Family history of ischemic heart disease and other diseases of the circulatory system
CPT/HCPCS: 36415; 71045; 71250; 80053; 80162; 81000; 82553; 83874; 83880; 84145; 84484; 85007; 85025; 85027; 85610; 87077; 87088; 87186; 93005; 93306; 94640; 94664; 94760

== ENCOUNTER → 2021-01-29 | Outpatient (CLI) | payer MEDICARE ==
[~2021-01-29] MED LIST changes: +ACET-93 PO; +ASCO500T17 PO; +SENN-109 PO
== END ==
LOC: EDSTATUS 01-22 13:01 → ONC 15:22
PROVIDERS: ATTEND Internal Medicine Hematology & Oncology
DX: D50.9 Iron deficiency anemia, unspecified (principal); E11.22 Type 2 diabetes mellitus with diabetic chronic kidney disease; I12.9 Hypertensive chronic kidney disease with stage 1 through stage 4 chronic kidney disease, or unspecified chronic kidney disease; N18.30 Chronic kidney disease, stage 3 unspecified; I48.21 Permanent atrial fibrillation; I48.0 Paroxysmal atrial fibrillation; I25.10 Atherosclerotic heart disease of native coronary artery without angina pectoris; Z98.890 Other specified postprocedural states; Z79.01 Long term (current) use of anticoagulants
CPT/HCPCS: 99213

== ENCOUNTER → 2021-03-08 | Outpatient (CLI) | payer MEDICARE | LOC: CARD 15:00 | PROVIDERS: ATTEND Internal Medicine Cardiovascular Disease | DX: I08.3 Combined rheumatic disorders of mitral, aortic and tricuspid valves (principal) | CPT/HCPCS: 93306 ==

== ENCOUNTER → 2021-03-18 | Outpatient (CLI) | payer MEDICARE ==
--- NOTE | 2021-03-18 17:51 | Diagnostic Imaging Report ---
EXAMINATION: CT chest without contrast. TECHNIQUE: Multiple contiguous axial images were obtained through the chest without the use of intravenous contrast. All CT scans use one or more of the following dose optimizing techniques: automated exposure control, MA and/or KvP adjustment based on patient size and exam type or iterative reconstruction. HISTORY: Pleural effusion COMPARISON: 11/15/2020 FINDINGS: There is moderate pulmonary edema. There are small bilateral pleural effusions. There is bilateral lower lobe atelectasis. There is pleural thickening on the right which appears similar to prior exams likely related to chronic effusion. No pneumothorax. There is no axillary or supraclavicular lymphadenopathy. Mildly enlarged mediastinal lymph nodes likely reactive to the pulmonary edema. Pacemaker is present and there are mitral annular calcifications. There is marked cardiomegaly involving all four chambers. There are mild coronary artery calcifications. No pericardial effusion. Aorta is normal in caliber. Limited views of the upper abdomen show cirrhosis of the liver. There is mild gallbladder wall thickening which is likely due to liver disease. It is unchanged from prior exam. Inferior vena cava is markedly dilated. There are no suspicious osseus lesions. IMPRESSION: 1. Moderate edema and small bilateral pleural effusions. 2. Cirrhosis of the liver. Dictated by: Dictated on workstation # [id number]
== END ==
LOC: RAD 16:06
PROVIDERS: ATTEND Internal Medicine Cardiovascular Disease
DX: J90 Pleural effusion, not elsewhere classified (principal)
CPT/HCPCS: 71250

== ENCOUNTER → 2021-03-29 | Outpatient (CLI) | payer MEDICARE, MEDICAID ==
--- NOTE | 2021-03-29 18:35 | Diagnostic Imaging Report ---
PROCEDURE: CT abdomen and pelvis without contrast. TECHNIQUE: Multiple contiguous axial images were obtained through the abdomen and pelvis without the use of intravenous contrast. Auto Exposure Controls were utilized during the CT exam to meet ALARA standards for radiation dose reduction. INDICATION: Microhematuria. FINDINGS: The previous CT abdomen/pelvis exam performed on 07/20/2009 noted bilateral renal cysts which failed to show any sign of a solid renal mass or obstruction of either collecting system. On this exam, there is still no evidence for nephrolithiasis or urolithiasis and the kidneys do not appear to be obstructed. The 4.7 cm cyst along the inferior pole of the right kidney, seen previously, has increased in size and now measures 6.6 cm. This suspected cyst still has a generally benign appearance. The liver has somewhat of a nodular appearance and this does suggest cirrhosis. The spleen is prominent measuring 12.7 cm. The pancreas, the adrenals, the gallbladder and aorta are unremarkable for an acute abnormality. The inferior vena cava does seem much larger than noted on the prior exam. The midportion of the vena cava measures approximately 3.9 x 4.6 cm in maximum transverse and AP diameters. On the prior exam, the cava at this level measured only 2.8 x 2.8 cm. The reason for the enlargement of the cava is not certain. There is no evidence for a portal vein thrombosis, although the evaluation for thrombus formation is limited due to the absence of intravenous contrast.. A liver Doppler ultrasound exam with attention to the portal vein and the inferior vena cava would be recommended. Both common iliac veins also seem somewhat more dilated than on the prior exam. The stomach is not well-distended and difficult to assess. There is no pelvic mass or free fluid collection noted. There are numerous diverticula involving the sigmoid colon but there is no sign of acute diverticulitis. The appendix is not well-visualized but there are no indirect signs of acute appendicitis. The urinary bladder is grossly unremarkable. The uterus is either atrophic or partially resected. There is bibasilar atelectasis/infiltrates and small bilateral pleural effusions as well as cardiomegaly. In addition, there is generalized increased density throughout the subcutaneous fat. This may be related to anasarca. The bone windows are unremarkable for a fracture or for a destructive lesion. There is a 30-40% compression deformity of L1. I suspect this is long-standing in nature. IMPRESSION: 1. There is no acute abnormality of the abdomen or pelvis identified. 2. However, the inferior vena cava does seem dilated when compared to the prior exam. Recommendations as above. 3. There is bibasilar atelectasis/infiltrate and bilateral pleural effusions as well as cardiomegaly and pulmonary congestion. Anasarca is also suspected. Dictated by: Dictated on workstation # [id number]
== END ==
LOC: RAD 15:45
PROVIDERS: ATTEND Urology
DX: R31.29 Other microscopic hematuria (principal); J90 Pleural effusion, not elsewhere classified; I51.7 Cardiomegaly
CPT/HCPCS: 74176

== ENCOUNTER 2021-04-18 09:21 | Emergency (ER) | payer MEDICARE, MEDICAID ==
[~2021-04-18] VITALS: Ht 157 cm; Wt 68.0 kg
[2021-04-18 09:39] VITALS: BP 122/90
--- NOTE | 2021-04-18 09:39 | ED Respiratory ---
General Chief Complaint: Respiratory Problems Stated Complaint: SOA Source: patient, EMS Exam Limitations: clinical condition History of Present Illness Date Seen by Provider: Apr 18, 2021 Time Seen by Provider: 09:08 Initial Comments Patient to the ER by EMS from home with chief complaint of weakness. When they arrived she was short of breath on her baseline 2 L she was in the mid 80s so they turned up to 3 L which brought her up to 90%. EMS initiated CPAP as she was having extra work of breathing. History of COPD, patient of Dr. Morales. No fevers or chills. She has had 2 doses of Covid vaccine. No diarrhea nausea vomiting or pain. Patient states she is breathing better on the CPAP. She is a DNR and DNI. Allergies and Home Medications Allergies Coded Allergies: No Known Drug Allergies (Unverified , 04/16/18) Patient Home Medication List Home Medication List Reviewed: Yes Acetaminophen (Acetaminophen) 500 Mg Tablet, 500-1,000 MG PO Q8H PRN for PAIN- MILD (1-4), (Reported) Entered as Reported by: ALFREDO ENG on 11/14/20 1045 Ascorbic Acid (Vitamin C) 500 Mg Tablet, 500 MG PO DAILY, (Reported) Entered as Reported by: ALFREDO ENG on 11/14/20 1045 Citalopram Hydrobromide (Citalopram HBr) 20 Mg Tablet, 20 MG PO DAILY, (Reported) Entered as Reported by: GEMRAN PURCELL on 01/25/19 1532 Digoxin (Digoxin) 250 Mcg Tablet, 250 MCG PO DAILY, (Reported) Entered as Reported by: DEVI TITUS on 04/16/18 1250 Diltiazem HCl (Diltiazem ER) 360 Mg Capsule.er, 360 MG PO DAILY, (Reported) Entered as Reported by: GERMAN PURCELL on 01/25/19 1532 Furosemide (Furosemide) 80 Mg Tablet, 80 MG PO BID, (Reported) Entered as Reported by: ALFREDO ENG on 11/14/20 1045 Magnesium Oxide (Magnesium Oxide) 400 Mg Tablet, 400 MG PO BID, (Reported) Entered as Reported by: DEVI TITUS on 04/16/18 1250 Multivit with Calcium,Iron,Min (Women's Daily Formula) 1 Each Tablet, 1 TAB PO DAILY, (Reported) Entered as Reported by: GERMAN PURCELL on 01/25/19 1532 Pantoprazole Sodium (Pantoprazole Sodium) 40 Mg Tablet.dr, 40 MG PO DAILY, (Reported) Entered as Reported by: DEVI TITUS on 04/16/18 1250 Potassium Chloride (Potassium Chloride) 20 Meq Tablet.er, 20 MEQ PO BID, (Reported) Entered as Reported by: ALFREDO ENG on 11/14/20 1045 Sennosides/Docusate Sodium (Senna-S Tablet) 1 Each Tablet, 1 EACH PO HS, (Reported) Entered as Reported by: ALFREDO ENG on 11/14/20 1045 Warfarin Sodium (Warfarin Sodium) 2 Mg Tablet, 2 MG PO [place],MO,TU,TH,FR,SA, (Reported) Entered as Reported by: DEVI TITUS on 04/16/18 1250 Warfarin Sodium (Warfarin Sodium) 2 Mg Tablet, 1 MG PO WED, (Reported) Entered as Reported by: DEVI TITUS on 04/16/18 1250 Review of Systems Review of Systems Constitutional: No chills, No diaphoresis EENTM: No ear discharge, No ear pain Respiratory: cough; No phlegm; short of breath Cardiovascular: No chest pain, No palpitations Gastrointestinal: No abdominal pain, No nausea, No vomiting Genitourinary: No discharge, No dysuria Musculoskeletal: No back pain, No joint pain All Other Systems Reviewed Negative Unless Noted: Yes Past Mnwrndf-Pzcqyg-Utfknp Hx Patient Social History Tobacco Use?: No Use of E-Cig and/or Vaping dev: No Immunizations Up To Date Tetanus Booster (TDap): Less than 5yrs PED Vaccines UTD: Yes Seasonal Allergies Seasonal Allergies: No Past Medical History Surgeries: Yes (hx of thoracentesis) Hysterectomy, Joint Replacement Respiratory: Yes Pneumonia Currently Using CPAP: No Currently Using BIPAP: No Cardiac: Yes Coronary Artery Disease, Hypertension Neurological: No 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 Sexually Transmitted Disease: No HIV/AIDS: No Genitourinary: No Gastrointestinal: Yes Diverticulosis, Gall Bladder Disease Musculoskeletal: Yes Arthritis Endocrine: Yes Diabetes, Non-Insulin dep HEENT: No Loss of Vision: Denies Hearing Impairment: Denies 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, Uterine Psychosocial: No Depression Integumentary: No Blood Disorders: Yes (ANEMIA) Adverse Reaction/Blood Tranf: No (HAS HAD BLOOD WITH NO REACTION) Family Medical History Alzheimer's disease 19 MOTHER Arthritis 19 MOTHER Cardiovascular disease Completed stroke 19 MOTHER Coronary thrombosis 19 MOTHER Dementia 19 MOTHER Diabetes mellitus 19 MOTHER Hypertension 19 MOTHER Myocardial infarction Osteoporosis 19 MOTHER No Family History of: AIDS Abdominal aortic aneurysm Kim's disease Alcoholism Aphasia Asthma Cancer of mouth Cataracts Colon cancer Congenital disease Congenital heart disease Cystic fibrosis Deafness or hearing loss Drug abuse Dysphasia Fibrocystic disease of breast Gastroenteritis Glaucoma Headache disorder Hypercholesterolemia Infertility Kidney disease Neoplasm Not obtainable due to adoption Parkinson's disease Prostate cancer Psychosocial problem Respiratory disorder Seizure disorder Severe allergy Thyroid disease Tuberculosis Visual disorder Heart Disease, Cancer Physical Exam Vital Signs - First Documented 04/18/21 04/18/21 04/18/21 09:30 09:39 18:31 Temp 36.7 Pulse 113 Resp 32 B/P (MAP) 116/77 Pulse Ox 99 O2 Delivery NIV Bilevel O2 Flow Rate 100.00 Capillary Refill : Height: 5'2.00" Weight: 168lbs. 8.0oz. 76.068067cr; 31.96 BMI Method:Stated General Appearance: WD/WN, moderate distress Eyes: Left Eye Normal Inspection, Left Eye PERRL, Left Eye EOMI HEENT: PERRL/EOMI, pharynx normal Neck: full range of motion, normal inspection Respiratory: respiratory distress, decreased breath sounds, accessory muscle use Cardiovascular: normal peripheral pulses, regular rate, rhythm Gastrointestinal: normal bowel sounds, non tender, soft Extremities: normal range of motion, non-tender, normal capillary refill Neurologic/Psychiatric: alert, normal mood/affect, oriented x 3 Skin: normal color, warm/dry Focused Exam Lactate Level 04/18/21 09:45: Lactic Acid Level 2.51*H 04/18/21 12:45: Lactic Acid Level 1.56 Lactic Acid Level Laboratory Tests Test 04/18/21 09:45 04/18/21 12:45 Lactic Acid Level 2.51 MMOL/L (0.50-2.00) *H 1.56 MMOL/L (0.50-2.00) Progress/Results/Core Measures Suspected Sepsis SIRS Temperature: Pulse: Respiratory Rate: Laboratory Tests 04/18/21 09:45: White Blood Count 8.9 Blood Pressure / Mean: 04/18/21 09:45: Lactic Acid Level 2.51*H 04/18/21 12:45: Lactic Acid Level 1.56 Laboratory Tests 04/18/21 09:45: Creatinine 1.36H, INR Comment 2.5H, Platelet Count 224, Total Bilirubin 1.3H Results/Orders Lab Results Laboratory Tests Test 04/18/21 09:33 04/18/21 09:35 04/18/21 09:45 04/18/21 10:36 Range/Units Blood Gas Puncture Site RT RAD Blood Gas Patient Temperature 97 Arterial Blood pH 7.41 7.37-7.43 Arterial Blood Partial Pressure CO2 46 H 35-45 MMHG Arterial Blood Partial Pressure O2 245 H 79-93 MMHG Arterial Blood HCO3 28 H 23-27 MMOL/L Arterial Blood Total CO2 29.7 21.0-31.0 MMOL/L Arterial Blood Oxygen Saturation 100 94-100 % Arterial Blood Base Excess 3.7 H -2.5-2.5 MMOL/L Gregory Test YES-POS Blood Gas Ventilator Setting YES Blood Gas Inspired Oxygen 15 L Influenza Type A (RT-PCR) Not Detected Not Detecte Influenza Type B (RT-PCR) Not Detected Not Detecte SARS-CoV-2 RNA (RT-PCR) Not Detected Not Detecte White Blood Count 8.9 4.3-11.0 10^3/uL Red Blood Count 3.35 L 3.80-5.11 10^6/uL Hemoglobin 10.0 L 11.5-16.0 g/dL Hematocrit 32 L 35-52 % Mean Corpuscular Volume 94 80-99 fL Mean Corpuscular Hemoglobin 30 25-34 pg Mean Corpuscular Hemoglobin Concent 32 32-36 g/dL Red Cell Distribution Width 14.9 H 10.0-14.5 % Platelet Count 224 130-400 10^3/uL Mean Platelet Volume 9.7 9.0-12.2 fL Immature Granulocyte % (Auto) 1 % Neutrophils (%) (Auto) 69 42-75 % Lymphocytes (%) (Auto) 16 12-44 % Monocytes (%) (Auto) 12 0-12 % Eosinophils (%) (Auto) 1 0-10 % Basophils (%) (Auto) 1 0-10 % Neutrophils # (Auto) 6.1 1.8-7.8 10^3/uL Lymphocytes # (Auto) 1.5 1.0-4.0 10^3/uL Monocytes # (Auto) 1.1 H 0.0-1.0 10^3/uL Eosinophils # (Auto) 0.1 0.0-0.3 10^3/uL Basophils # (Auto) 0.1 0.0-0.1 10^3/uL Immature Granulocyte # (Auto) 0.1 0.0-0.1 10^3/uL Prothrombin Time 27.3 H 12.2-14.7 SEC INR Comment 2.5 H 0.8-1.4 Activated Partial Thromboplast Time 50 H 24-35 SEC D-Dimer 2.13 H 0.00-0.49 UG/ML Sodium Level 133 L 135-145 MMOL/L Potassium Level 5.0 3.6-5.0 MMOL/L Chloride Level 96 L 98-107 MMOL/L Carbon Dioxide Level 24 21-32 MMOL/L Anion Gap 13 5-14 MMOL/L Blood Urea Nitrogen 29 H 7-18 MG/DL Creatinine 1.36 H 0.60-1.30 MG/DL Estimat Glomerular Filtration Rate 38 BUN/Creatinine Ratio 21 Glucose Level 126 H 70-105 MG/DL Lactic Acid Level 2.51 *H 0.50-2.00 MMOL/L Calcium Level 8.3 L 8.5-10.1 MG/DL Corrected Calcium 9.3 8.5-10.1 MG/DL Total Bilirubin 1.3 H 0.1-1.0 MG/DL Aspartate Amino Transf (AST/SGOT) 27 5-34 U/L Alanine Aminotransferase (ALT/SGPT) 8 0-55 U/L Alkaline Phosphatase 120 40-136 U/L Troponin I < 0.028 <0.028 NG/ML C-Reactive Protein High Sensitivity 1.85 H 0.00-0.50 MG/DL B-Type Natriuretic Peptide 351.3 H <100.0 PG/ML Total Protein 8.0 6.4-8.2 GM/DL Albumin 2.7 L 3.2-4.5 GM/DL Procalcitonin 0.09 <0.10 NG/ML Urine Color YELLOW Urine Clarity CLOUDY Urine pH 7.5 5-9 Urine Specific [place] 1.015 L 1.016-1.022 Urine Protein 1+ H NEGATIVE Urine Glucose (UA) NEGATIVE NEGATIVE Urine Ketones NEGATIVE NEGATIVE Urine Nitrite POSITIVE H NEGATIVE Urine Bilirubin NEGATIVE NEGATIVE Urine Urobilinogen 0.2 < = 1.0 MG/DL Urine Leukocyte Esterase 3+ H NEGATIVE Urine RBC (Auto) 3+ H NEGATIVE Urine RBC 25-50 H /HPF Urine WBC TNTC H /HPF Urine Crystals NONE /LPF Urine Bacteria LARGE H /HPF Urine Casts NONE /LPF Urine Mucus NEGATIVE /LPF Urine Culture Indicated YES Test 04/18/21 12:45 Range/Units Lactic Acid Level 1.56 0.50-2.00 MMOL/L My Orders Orders - MURRAY TOLBERT Cbc With Automated Diff (04/18/21 09:32) Comprehensive Metabolic Panel (04/18/21:32) Blood Culture (04/18/21:32) Sputum Culture (04/18/21:32) Urinalysis (04/18/21:32) Urine Culture (04/18/21:32) Protime With Inr (04/18/21:32) Partial Thromboplastin Time (04/18/21:32) Chest 1 View, Ap/Pa Only (04/18/21 09:32) Ed Iv/Invasive Line Start (04/18/21 09:32) Ed Iv/Invasive Line Start (04/18/21 09:32) Ekg Tracing (04/18/21:32) Troponin I [place] (04/18/21 09:32) Vital Signs Adult Sepsis Patie Q15M (04/18/21 09:32) O2 (04/18/21 09:32) Remove Rings In Anticipation O (04/18/21:32) Lactic Acid Analyzer (04/18/21 09:32) Influenza A And B By Pcr (04/18/21 09:32) Ns Iv 1000 Ml (Sodium Chloride 0.9%) (04/18/21 09:45) Cefepime Injection (Maxipime Injection) (04/18/21 09:45) Vancomycin Injection (Vancomycin Injecti (04/18/21 09:45) Ed Iv/Invasive Line Start (04/18/21 09:32) Arterial Blood Gas (04/18/21 09:32) Covid 19 Inhouse Test (04/18/21 09:32) Hs C Reactive Protein (04/18/21:32) Fibrin Degradation Products (04/18/21 09:32) Procalcitonin (Pct) (04/18/21 09:32) Bipap (Bilevel) Set Up (04/18/21 09:32) Vancomycin Injection (Vancomycin Injecti (04/18/21 10:01) Bnp Lucien (04/18/21 11:03) Acetaminophen Tablet (Tylenol Tablet) (04/18/21 18:00) Medications Given in ED Current Medications Medications Dose Ordered Sig/Chantale Route Start Time Stop Time Status Last Admin Dose Admin Acetaminophen 1,000 mg ONCE ONCE PO 04/18/21 18:00 04/18/21 18:01 DC 04/18/21 17:52 1,000 MG Cefepime HCl 1000 mg/Sodium Chloride 50 ml @ 100 mls/hr ONCE ONCE IV 04/18/21 09:45 04/18/21 10:14 DC 04/18/21 10:06 100 MLS/HR Vancomycin HCl 1250 mg/Sodium Chloride 250 ml @ 210 mls/hr ONCE ONCE IV 04/18/21 09:45 04/18/21 10:01 DC 04/18/21 10:26 210 MLS/HR Vital Signs/I&O 04/18/21 04/18/21 04/18/21 04/18/21 09:30 09:39 17:52 18:31 Temp 36.7 36.7 36.8 Pulse 113 85 80 Resp 32 27 24 B/P (MAP) 116/77 Pulse Ox 99 99 99 O2 Delivery NIV Bilevel NIV Bilevel O2 Flow Rate 100.00 Capillary Refill : Progress Note : Time: 11:29 Progress Note Discussed case with Dr. Rodriguez, transfer doctor at [facility] and he says they do not have any ICU beds so will not be able to accept the patient. 1135: Discussed the case with transfer at [facility] and they will call us back with the an answer whether they can accept her in transfer. ECG Initial ECG Impression Date: Apr 18, 2021 Initial ECG Impression Time: 09:51 Initial ECG Rate: 82 Initial ECG Rhythm: A Fib/Flutter Initial ECG Intervals: QT (442) Initial ECG Impression: Atrial Fibrillation Comment Atrial fibrillation without ST elevation or depression Diagnostic Imaging Diagonstic Imaging: Xray Plain Films/CT/US/NM/MRI: chest Comments [facility] [place], [place] NAME: SANCHEZ CISNEROS [facility] REC#: [id number] PT STATUS: REG ER : 1940 PHYSICIAN: MURRAY TOLBERT MD ADMIT DATE: 04/18/21/ER Draft Date of Exam:04/18/21 CHEST 1 VIEW, AP/PA ONLY INDICATION: Congestive failure. COMPARISON: 11/14/2020. FINDINGS: Cardiomegaly with pacemaker on the left is again noted. There is prominence of pulmonary vasculature with bilateral five-lobe interstitial and alveolar infiltrates. There are small bilateral pleural effusions. No pneumothorax. IMPRESSION: Findings are consistent with chronic congestive failure with little overall change since previous exam. Dictated on workstation # [id number] Dict: 04/18/21 1049 Trans: 04/18/21 1052 [id number] [id number] Interpreted by: NESSA GURROLA MD Electronically signed by: Reviewed: Reviewed by Me Departure Impression Primary Impression: Acute and chronic respiratory failure with hypoxia Additional Impression: Heart failure Qualified Codes: I50.9 - Heart failure, unspecified Disposition: 02 XFER SHT-TRM HOSP ([facility]) Condition: Stable Transfer Transfer Reason: Exceeds level of care (No CT surgery) Time Spoke to Accepting Phy: 12:45 Transfer Progress Notes Discussed the case with Dr. Santos, cardiology at [facility] and he agrees the patient is appropriate for them and they have a bed. They will call us back with any excepting physician and bed assignment. Dr. Santos is the accepting physician. They called us back with a bed. EMS here to take her at 1800 Transfer Time: 18:30 Transfer Facility: [facility] Method of Transfer: EMS ([facility]) Departure-Patient Inst. Referrals: PRASANNA SANTOS MD (PCP/Family) Primary Care Physician MURRAY TOLBERT Apr 18, 2021 09:38
[2021-04-18 09:40] LABS: ABG BASE EXCESS 3.7 MMOL/L (-2.5-2.5); ABG OXYGEN SATURATION 100 % (94-100); ABG PCO2 46 MMHG (35-45); ABG PH 7.41 (7.37-7.43); ABG PO2 245 MMHG (79-93); ABG TCO2 29.7 MMOL/L (21.0-31.0)
[2021-04-18 09:41] LABS: ALLENS TEST YES-POS; INSPIRED O2 15 L; PATIENT TEMP 97; VENTILATOR YES
[2021-04-18] MEDS ORDERED: VANCOMYCIN INJECTION 1,250 MG in NS (IVPB) 250 ML IV ONE (09:45)
[2021-04-18] MEDS ORDERED: NS IV 1000 ML 1,000 ML IV SCH (09:45)
[2021-04-18] MEDS ORDERED: CEFEPIME INJECTION 1,000 MG in NS (IVPB) 50 ML IV ONE (09:45)
[2021-04-18 09:55] LABS: BASOPHILS # (AUTO) 0.1 10^3/uL (0.0-0.1); BASOPHILS % (AUTO) 1 % (0-10); EOSINOPHILS # (AUTO) 0.1 10^3/uL (0.0-0.3); EOSINOPHILS % (AUTO) 1 % (0-10); HEMATOCRIT 32 % (35-52); LYMPHOCYTES # (AUTO) 1.5 10^3/uL (1.0-4.0); LYMPHOCYTES % (AUTO) 16 % (12-44); MEAN CORPUSCULAR HEMOGLOBIN 30 pg (25-34); MEAN CORPUSCULAR HGB CONC 32 g/dL (32-36); MEAN CORPUSCULAR VOLUME 94 fL (80-99); MEAN PLATELET VOLUME 9.7 fL (9.0-12.2); MONOCYTES # (AUTO) 1.1 10^3/uL (0.0-1.0); MONOCYTES % (AUTO) 12 % (0-12); NEUTROPHILS # (AUTO) 6.1 10^3/uL (1.8-7.8); NEUTROPHILS % (AUTO) 69 % (42-75); PLATELET COUNT 224 10^3/uL (130-400); WHITE BLOOD COUNT 8.9 10^3/uL (4.3-11.0)
[2021-04-18] MEDS ORDERED: VANCOMYCIN INJECTION 1,250 MG in NS (IVPB) 250 ML IV NR (10:01)
[2021-04-18 10:05] LABS: ALBUMIN 2.7 GM/DL (3.2-4.5); CHLORIDE 96 MMOL/L (98-107); SODIUM 133 MMOL/L (135-145)
[2021-04-18 10:06] LABS: CALCIUM 8.3 MG/DL (8.5-10.1)
[2021-04-18 10:07] LABS: FIBRIN DEGRADATION PRODUCTS 2.13 UG/ML (0.00-0.49); INR 2.5 (0.8-1.4); PROTHROMBIN TIME PATIENT 27.3 SEC (12.2-14.7)
[2021-04-18 10:08] LABS: GLUCOSE 126 MG/DL (70-105)
[2021-04-18 10:09] LABS: BILIRUBIN,TOTAL 1.3 MG/DL (0.1-1.0); CARBON DIOXIDE 24 MMOL/L (21-32)
[2021-04-18 10:11] LABS: ALKALINE PHOSPHATASE 120 U/L (40-136); CREATININE SERUM 1.36 MG/DL (0.60-1.30); GFR ESTIMATED 38
[2021-04-18 10:12] LABS: BUN/CREATININE RATIO 21
[2021-04-18 10:14] LABS: ALANINE AMINOTRANSFERASE 8 U/L (0-55)
[2021-04-18 10:42] LABS: BILIRUBIN,URINE NEGATIVE (NEGATIVE); CLARITY,URINE CLOUDY; COLOR,URINE YELLOW; GLUCOSE, URINE (UA) NEGATIVE (NEGATIVE); KETONES,URINE NEGATIVE (NEGATIVE); LEUKOCYTE ESTERASE ,URINE 3+ (NEGATIVE); NITRITE,URINE POSITIVE (NEGATIVE); PH,URINE 7.5 (5-9); PROTEIN,URINE 1+ (NEGATIVE)
[2021-04-18 10:51] LABS: BACTERIA,URINE LARGE /HPF; RBC,URINE 25-50 /HPF; WBC,URINE TNTC /HPF
--- NOTE | 2021-04-18 10:52 | Diagnostic Imaging Report ---
INDICATION: Congestive failure. COMPARISON: 11/14/2020. FINDINGS: Cardiomegaly with pacemaker on the left is again noted. There is prominence of pulmonary vasculature with bilateral five-lobe interstitial and alveolar infiltrates. There are small bilateral pleural effusions. No pneumothorax. IMPRESSION: Findings are consistent with chronic congestive failure with little overall change since previous exam. Dictated by: Dictated on workstation # [id number]
[2021-04-18] MEDS ORDERED: ACETAMINOPHEN 500 MG TAB (TYLENOL) PO ONE (18:00)
[2021-04-18 18:31] VITALS: BP 116/77
== END 2021-04-18 18:31 | disposition short-term general hospital (02) ==
LOC: EDUNIT# 09:21 → ER 09:25
DX: J96.21 Acute and chronic respiratory failure with hypoxia (principal); I11.0 Hypertensive heart disease with heart failure; I50.9 Heart failure, unspecified; E11.9 Type 2 diabetes mellitus without complications; F32.9 Major depressive disorder, single episode, unspecified; Z20.822 Contact with and (suspected) exposure to COVID-19; Z79.01 Long term (current) use of anticoagulants; Z79.899 Other long term (current) drug therapy
CPT/HCPCS: 36415; 51702; 71045; 80053; 81000; 82805; 83605; 83880; 84145; 84484; 85025; 85379; 85610; 85730; 86141; 87040; 87077; 87088; 87186; 87636; 93005; 99291